=== PATIENT | female | born 1955 | race Caucasian/White ===

== ENCOUNTER → 2017-08-01 08:33 | Outpatient (POV) | payer MEDICARE, SELFPAY ==
[2017-08-01 08:56] VITALS: BP 105/64; PULSE 60; RESP 17; O2SAT 97; BMI 25.3
--- NOTE | 2017-08-01 10:20 | HMH.PAINSOAP ---
[facility] Pain Management SOAP Note Subjective:: Patient is a very pleasant 32-year-old white female who we are treating for degenerative disc disease of the cervical spine and degenerative disc disease of the lumbar spine. Patient is also currently getting ready to have a left hip replacement. Patient states that due to steroid use her joints degenerated. It is also stating that her 5 myalgia is worse today than it has been in a long time. She is currently being medically managed on [place] 7.5 mg 1 p.o. 4 times daily and gabapentin 800 mg 3 times daily. Patient's Danielito #[id number] reviewed and appropriate. Patient's UDS appropriate in the past. Patient states that the gabapentin does help her myofascial pain however it has been much worse recently. Patient takes the [place] 7.5 mg decreases her back and leg pain 50-60%. Patient denies any side effects from the medicine. She states her pain is achy and dull and constant. ROS General: no recent weight change, no fever, no sleep disturbances Respiratory: no cough, no shortness of air, no recurring pulmonary infections Cardiovascular/Peripheral Vascular: No chest pain, No palpitations, no edema, no shortness of breath. Gastrointestinal: no incontinence, normal bowel movements reported Genitourinary: no incontinence Musculoskeletal: Back pain, bilateral leg pain, left hip pain Psychiatric: normal mood/ affect Neurological: [denies weakness in extremities], [denies balance issues] Objective:: Physical Exam General: Alert and oriented x3, no acute distress, pleasant and cooperative, [on room air] Lungs: Resps E/U, Symmetrical chest expansion, Eyes: PERRL Musculoskeletal: Flexion and extension of lumbar spine somewhat guarded secondary to pain, deep tendon reflexes normal, strength in upper and lower extremities [5/5], [abnormal gait noted] Neurological: speech clear, stranding supervisor equal, no gross sensory deficits Assessment:: Degenerative disc disease of the cervical spine, degenerative disc disease of the lumbar spine, left hip osteoarthritis, fibromyalgia Plan:: We will refill the patient's medications [place] 7.5 mg 1 p.o. 4 times daily and we will increase her gabapentin 800 mg from 3 times daily to 4 times daily. Both her [place] and urine drug screen have been reviewed. We will give her 2 months per prescriptions. I have spoken to Dr. Juarez and he has reviewed her chart and agrees with this plan of care. We will follow-up with this patient in 3 months. We have she was instructed that when she goes for hip surgery she will need to inform us of any medication changes. Patient has been prescribed a controlled substance after being counseled on the medication, medication safety, and possible side effects. DANIELITO report has been obtained and reviewed prior to prescription and found to be appropriate. Opioid contract was reviewed and signed by the patient, and that they have agreed to all of the terms set forth by our compliance program. This note was dictated using voice recognition software and may contain errors or omissions
--- NOTE | 2017-08-01 10:25 | P.CONS_ITS ---
[facility] Pain Management SOAP Note Subjective:: Patient is a very pleasant 32-year-old white female who we are treating for degenerative disc disease of the cervical spine and degenerative disc disease of the lumbar spine. Patient is also currently getting ready to have a left hip replacement. Patient states that due to steroid use her joints degenerated. It is also stating that her 5 myalgia is worse today than it has been in a long time. She is currently being medically managed on [place] 7.5 mg 1 p.o. 4 times daily and gabapentin 800 mg 3 times daily. Patient's Danielito # [id number] reviewed and appropriate. Patient's UDS appropriate in the past. Patient states that the gabapentin does help her myofascial pain however it has been much worse recently. Patient takes the [place] 7.5 mg decreases her back and leg pain 50-60%. Patient denies any side effects from the medicine. She states her pain is achy and dull and constant. ROS General: no recent weight change, no fever, no sleep disturbances Respiratory: no cough, no shortness of air, no recurring pulmonary infections Cardiovascular/Peripheral Vascular: No chest pain, No palpitations, no edema, no shortness of breath. Gastrointestinal: no incontinence, normal bowel movements reported Genitourinary: no incontinence Musculoskeletal: Back pain, bilateral leg pain, left hip pain Psychiatric: normal mood/ affect Neurological: [denies weakness in extremities], [denies balance issues] Objective:: Physical Exam General: Alert and oriented x3, no acute distress, pleasant and cooperative, [ on room air] Lungs: Resps E/U, Symmetrical chest expansion, Eyes: PERRL Musculoskeletal: Flexion and extension of lumbar spine somewhat guarded secondary to pain, deep tendon reflexes normal, strength in upper and lower extremities [5/5], [abnormal gait noted] Neurological: speech clear, knitter machine equal, no gross sensory deficits Assessment:: Degenerative disc disease of the cervical spine, degenerative disc disease of the lumbar spine, left hip osteoarthritis, fibromyalgia Plan:: We will refill the patient's medications [place] 7.5 mg 1 p.o. 4 times daily and we will increase her gabapentin 800 mg from 3 times daily to 4 times daily. Both her [place] and urine drug screen have been reviewed. We will give her 2 months per prescriptions. I have spoken to Dr. Juarez and he has reviewed her chart and agrees with this plan of care. We will follow-up with this patient in 3 months. We have she was instructed that when she goes for hip surgery she will need to inform us of any medication changes. Patient has been prescribed a controlled substance after being counseled on the medication, medication safety, and possible side effects. DANIELITO report has been obtained and reviewed prior to prescription and found to be appropriate. Opioid contract was reviewed and signed by the patient, and that they have agreed to all of the terms set forth by our compliance program. This note was dictated using voice recognition software and may contain errors or omissions
--- NOTE | 2017-08-01 16:47 | PC.PHONENOTE ---
called in Rx for Gabapenting 800mg QID with 2 refills to [facility] in [facility]
== END ==
PROVIDERS: Family Provider Physician Assistant; PCP Physician Assistant; Visit Provider Clinical Nurse Specialist Family Health
DX: M51.36 Other intervertebral disc degeneration, lumbar region (principal); M16.12 Unilateral primary osteoarthritis, left hip; M50.30 Other cervical disc degeneration, unspecified cervical region
CPT/HCPCS: 99212

== ENCOUNTER → 2017-11-07 09:43 | Outpatient (POV) | payer MEDICARE, SELFPAY ==
[2017-11-07 10:24] VITALS: BP 140/76; PULSE 62; RESP 18; O2SAT 98; BMI 26.6
--- NOTE | 2017-11-07 10:25 | HMH.PAINSOAP ---
[facility] Pain Management SOAP Note Subjective:: Patient is a pleasant 62-year-old white female who we are treating for pain secondary to degenerative disc disease of the lumbar line and cervical spine. Patient just had a left hip replacement. Patient is doing extremely well stating that she is much more functional and walking much better. Patient is currently on vacation regimen of [place] 7.5 mg 1 p.o. 4 times daily. She is also on gabapentin 800 mg 1 p.o. 4 times daily. Patient states she is doing with this and denies any side effects to patient's DANIELITO #[id number] reviewed and appropriate. Patient did get some postop medication from her surgeon. Patient is no longer receiving medication from them. Patient states that the medication is helping 60-70%. Patient states her pain is achy at times. Patient is currently in physical therapy and Occupational Therapy ROS General: no recent weight change, no fever, no sleep disturbances Respiratory: no cough, no shortness of air, no recurring pulmonary infections Cardiovascular/Peripheral Vascular: No chest pain, No palpitations, no edema, no shortness of breath. Gastrointestinal: no incontinence, normal bowel movements reported Genitourinary: no incontinence Musculoskeletal: Left hip pain, low back pain, neck pain Psychiatric: normal mood/ affect Neurological: [denies weakness in extremities], [denies balance issues] Objective:: Physical Exam General: Alert and oriented x3, no acute distress, pleasant and cooperative, [on room air] Lungs: Resps E/U, Symmetrical chest expansion, Eyes: PERRL Musculoskeletal: Flexion and extension of cervical and lumbar spine somewhat guarded secondary to pain, deep tendon reflexes normal, strength in upper and lower extremities [5/5], [abnormal gait noted] Neurological: speech clear, virtual assistant equal, no gross sensory deficits Assessment:: Degenerative disc disease of the cervical spine, degenerative disc disease of the lumbar spine, left hip osteoarthritis, fibromyalgia Plan:: We will refill the patient's medications [place] 7.5 mg 1 p.o. 4 times daily. We will also refill her gabapentin 800 mg 1 p.o. 4 times daily. Both her [place] and urine drug screen have been reviewed. We will give HER-2 months worth of prescriptions and follow-up with her in 3 months. 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 Dr. Juarez is reviewed this chart and agrees with this plan of care. I will follow-up with her in 3 months. Patient was told to call us if she has any issues prior to her next appointment. Patient has been prescribed a controlled substance after being counseled on the medication, medication safety, and possible side effects. DANIELITO report has been obtained and reviewed prior to prescription and found to be appropriate. Opioid contract was reviewed and signed by the patient, and that they have agreed to all of the terms set forth by our compliance program. This note was dictated using voice recognition software and may contain errors or omissions
--- NOTE | 2017-11-07 10:28 | P.CONS_ITS ---
[facility] Pain Management SOAP Note Subjective:: Patient is a pleasant 62-year-old white female who we are treating for pain secondary to degenerative disc disease of the lumbar line and cervical spine. Patient just had a left hip replacement. Patient is doing extremely well stating that she is much more functional and walking much better. Patient is currently on vacation regimen of [place] 7.5 mg 1 p.o. 4 times daily. She is also on gabapentin 800 mg 1 p.o. 4 times daily. Patient states she is doing with this and denies any side effects to patient's DANIELITO #[id number] reviewed and appropriate. Patient did get some postop medication from her surgeon. Patient is no longer receiving medication from them. Patient states that the medication is helping 60-70%. Patient states her pain is achy at times. Patient is currently in physical therapy and Occupational Therapy ROS General: no recent weight change, no fever, no sleep disturbances Respiratory: no cough, no shortness of air, no recurring pulmonary infections Cardiovascular/Peripheral Vascular: No chest pain, No palpitations, no edema, no shortness of breath. Gastrointestinal: no incontinence, normal bowel movements reported Genitourinary: no incontinence Musculoskeletal: Left hip pain, low back pain, neck pain Psychiatric: normal mood/ affect Neurological: [denies weakness in extremities], [denies balance issues] Objective:: Physical Exam General: Alert and oriented x3, no acute distress, pleasant and cooperative, [ on room air] Lungs: Resps E/U, Symmetrical chest expansion, Eyes: PERRL Musculoskeletal: Flexion and extension of cervical and lumbar spine somewhat guarded secondary to pain, deep tendon reflexes normal, strength in upper and lower extremities [5/5], [abnormal gait noted] Neurological: speech clear, neonatal nurse practitioner equal, no gross sensory deficits Assessment:: Degenerative disc disease of the cervical spine, degenerative disc disease of the lumbar spine, left hip osteoarthritis, fibromyalgia Plan:: We will refill the patient's medications [place] 7.5 mg 1 p.o. 4 times daily. We will also refill her gabapentin 800 mg 1 p.o. 4 times daily. Both her [place] and urine drug screen have been reviewed. We will give HER-2 months worth of prescriptions and follow-up with her in 3 months. Patient can hand picker the third month in the interim. Dr. Juarez is reviewed this chart and agrees with this plan of care. I will follow-up with her in 3 months. Patient was told to call us if she has any issues prior to her next appointment. Patient has been prescribed a controlled substance after being counseled on the medication, medication safety, and possible side effects. DANIELITO report has been obtained and reviewed prior to prescription and found to be appropriate. Opioid contract was reviewed and signed by the patient, and that they have agreed to all of the terms set forth by our compliance program. This note was dictated using voice recognition software and may contain errors or omissions
--- NOTE | 2017-11-18 14:24 | PC.PHONENOTE ---
800MG GABAPENTIN QID CALLED INTO [facility] IN [facility] WITH 2 REFILLS
== END ==
PROVIDERS: Family Provider Physician Assistant; PCP Physician Assistant; Visit Provider Clinical Nurse Specialist Family Health
DX: M50.30 Other cervical disc degeneration, unspecified cervical region (principal); M51.36 Other intervertebral disc degeneration, lumbar region
CPT/HCPCS: 99212

== ENCOUNTER → 2018-01-31 14:49 | Outpatient (CLI) | payer MEDICARE, SELFPAY ==
[2018-01-31 17:43] LABS: Amphetamine/Metha Screen,Urine Negative ng/mL (<1000); Barbiturates Screen,Urine Negative ng/mL (<200); Benzodiazepines Screen,Urine Negative ng/mL (<200); Cannabinoid Screen,Urine Negative ng/mL (<50); Cocaine Screen,Urine Negative ng/mL (<300); Methadone Screen,Urine Negative ng/mL (<300); Opiate Screen,Urine Positive ng/mL (<300); Phencyclidine Screen,Urine Negative ng/mL (<25)
[2018-02-05 07:09] LABS: Codeine Negative (Cutoff=100); Hydrocodone Positive (.); Hydromorphone Negative (Cutoff=100); Morphine Negative (Cutoff=100)
[2018-02-07 08:27] LABS: Opiates Positive (.)
== END ==
PROVIDERS: PCP Physician Assistant; Visit Provider Clinical Nurse Specialist Family Health
DX: Z79.899 Other long term (current) drug therapy (principal)
CPT/HCPCS: 80305; 80361; 80365; G0480

== ENCOUNTER → 2018-02-20 08:49 | Outpatient (POV) | payer MEDICARE, SELFPAY ==
[2018-02-20 09:14] VITALS: BP 142/85; PULSE 74; RESP 18; O2SAT 98; BMI 29.0
--- NOTE | 2018-02-20 09:34 | HMH.PAINSOAP ---
[facility] Pain Management SOAP Note Subjective:: Patient is a pleasant 63-year-old white female who we are treating for pain secondary to degenerative disc disease lumbar spine and cervical spine. Patient is doing extremely well on her [place] 7.5 mg 1 p.o. 4 times daily. She is also on gabapentin 800 million g 1 p.o. 4 times a day. Patient is doing well with this and denies side effects. Patient's DANIELITO reviewed and appropriate. She states the medication helps up to 70%. ROS General: no recent weight change, no fever, no sleep disturbances Respiratory: no cough, no shortness of air, no recurring pulmonary infections Cardiovascular/Peripheral Vascular: No chest pain, No palpitations, no edema, no shortness of breath. Gastrointestinal: no incontinence, normal bowel movements reported Genitourinary: no incontinence Musculoskeletal: Left hip pain, low back pain, neck pain Psychiatric: normal mood/ affect Neurological: [denies weakness in extremities], [denies balance issues] Objective:: Physical Exam General: Alert and oriented x3, no acute distress, pleasant and cooperative, [on room air] Lungs: Resps E/U, Symmetrical chest expansion, Eyes: PERRL Musculoskeletal: Flexion and extension of cervical and lumbar spine somewhat guarded secondary to pain, deep tendon reflexes normal, strength in upper and lower extremities [5/5], [abnormal gait noted] Neurological: speech clear, apartment leasing consultant equal, no gross sensory deficits Assessment:: Degenerative disc disease of the cervical spine, degenerative disc disease of the lumbar spine, left hip osteoarthritis, fibromyalgia Plan:: We will refill the patient's medication [place] 7.5 mg 1 p.o. 4 times daily and give HER-2 months worth of medication. We will also refill her gabapentin 800 mg 1 p.o. 4 times daily. Both her Danielito and urine drug screen have been reviewed. We will see her back in 3 months and she can sweet pickled fruit maker the third month in the interim. Dr. Juarez has reviewed this chart and agrees with this plan of care. Patient has been prescribed a controlled substance after being counseled on the medication, medication safety, and possible side effects. DANIELITO report has been obtained and reviewed prior to prescription and found to be appropriate. Opioid contract was reviewed and signed by the patient, and that they have agreed to all of the terms set forth by our compliance program. This note was dictated using voice recognition software and may contain errors or omissions
--- NOTE | 2018-02-20 09:37 | P.CONS_ITS ---
[facility] Pain Management SOAP Note Subjective:: Patient is a pleasant 63-year-old white female who we are treating for pain secondary to degenerative disc disease lumbar spine and cervical spine. Patient is doing extremely well on her [place] 7.5 mg 1 p.o. 4 times daily. She is also on gabapentin 800 million g 1 p.o. 4 times a day. Patient is doing well with this and denies side effects. Patient's DANIELITO reviewed and appropriate. She states the medication helps up to 70%. ROS General: no recent weight change, no fever, no sleep disturbances Respiratory: no cough, no shortness of air, no recurring pulmonary infections Cardiovascular/Peripheral Vascular: No chest pain, No palpitations, no edema, no shortness of breath. Gastrointestinal: no incontinence, normal bowel movements reported Genitourinary: no incontinence Musculoskeletal: Left hip pain, low back pain, neck pain Psychiatric: normal mood/ affect Neurological: [denies weakness in extremities], [denies balance issues] Objective:: Physical Exam General: Alert and oriented x3, no acute distress, pleasant and cooperative, [on room air] Lungs: Resps E/U, Symmetrical chest expansion, Eyes: PERRL Musculoskeletal: Flexion and extension of cervical and lumbar spine somewhat guarded secondary to pain, deep tendon reflexes normal, strength in upper and lower extremities [5/5], [abnormal gait noted] Neurological: speech clear, adult crossing guard equal, no gross sensory deficits Assessment:: Degenerative disc disease of the cervical spine, degenerative disc disease of the lumbar spine, left hip osteoarthritis, fibromyalgia Plan:: We will refill the patient's medication [place] 7.5 mg 1 p.o. 4 times daily and give HER-2 months worth of medication. We will also refill her gabapentin 800 mg 1 p.o. 4 times daily. Both her Danielito and urine drug screen have been reviewed. We will see her back in 3 months and she can pick up man the third month in the interim. Dr. Juarez has reviewed this chart and agrees with this plan of care. Patient has been prescribed a controlled substance after being counseled on the medication, medication safety, and possible side effects. DANIELITO report has been obtained and reviewed prior to prescription and found to be appropriate. Opioid contract was reviewed and signed by the patient, and that they have agreed to all of the terms set forth by our compliance program. This note was dictated using voice recognition software and may contain errors or omissions
== END ==
PROVIDERS: Family Provider Physician Assistant; PCP Physician Assistant; Visit Provider Clinical Nurse Specialist Family Health
DX: M51.36 Other intervertebral disc degeneration, lumbar region (principal); M50.00 Cervical disc disorder with myelopathy, unspecified cervical region
CPT/HCPCS: 99213

== ENCOUNTER → 2018-05-29 09:03 | Outpatient (POV) | payer MEDICARE, SELFPAY ==
[2018-05-29 09:14] VITALS: BP 148/89; PULSE 57; RESP 18; O2SAT 99; BMI 25.0
--- NOTE | 2018-05-29 09:14 | HMH.PAINSOAP ---
[facility] Pain Management SOAP Note Subjective:: She is a pleasant 63-year-old white female who presents today for follow-up. Patient is being treated for pain secondary to degenerative disc disease lumbar spine and cervical spine. She rates her pain a 6 out of 10 today. Patient is doing well on her [place] 7.5 mg 1 p.o. 4 times daily and gabapentin 800 mg 1 p.o. 4 times daily. She denies side effects or medication. Danielito reviewed and appropriate. She states her medication helps her up to 70%. ROS General: no recent weight change, no fever, no sleep disturbances Respiratory: no cough, no shortness of air, no recurring pulmonary infections Cardiovascular/Peripheral Vascular: No chest pain, No palpitations, no edema, no shortness of breath. Gastrointestinal: no incontinence, normal bowel movements reported Genitourinary: no incontinence Musculoskeletal: Low back pain, neck pain Psychiatric: normal mood/ affect Neurological: [denies weakness in extremities], [denies balance issues] Objective:: Physical Exam General: Alert and oriented x3, no acute distress, pleasant and cooperative, [on room air] Lungs: Resps E/U, Symmetrical chest expansion, Eyes: PERRL Musculoskeletal: Flexion and extension of cervical and lumbar spine somewhat guarded secondary to pain, deep tendon reflexes normal, strength in upper and lower extremities [5/5], slightly antalgic gait noted Neurological: speech clear, professor of economics equal, no gross sensory deficits Assessment:: Degenerative disc disease cervical spine with cervical radiculopathy along with degenerative disc disease lumbar spine, left hip osteoarthritis, fibromyalgia. Plan:: We will refill the [place] 7.5 mg 1 p.o. 4 times daily and give her 2 months worth of medication we will also refill her gabapentin 800 mg 1 p.o. 4 times daily. We will see her back in 3 months and reassess her symptoms at that time. Patient's been instructed to call the office if she has any issues prior to her next appointment. Dr. Juarez is reviewed this chart and agrees with this plan of care. Patient has been prescribed a controlled substance after being counseled on the medication, medication safety, and possible side effects. DANIELITO report has been obtained and reviewed prior to prescription and found to be appropriate. Opioid contract was reviewed and signed by the patient, and that they have agreed to all of the terms set forth by our compliance program. This note was dictated using voice recognition software and may contain errors or omissions
--- NOTE | 2018-05-29 09:17 | P.CONS_ITS ---
[facility] Pain Management SOAP Note Subjective:: She is a pleasant 63-year-old white female who presents today for follow-up. Patient is being treated for pain secondary to degenerative disc disease lumbar spine and cervical spine. She rates her pain a 6 out of 10 today. Patient is doing well on her [place] 7.5 mg 1 p.o. 4 times daily and gabapentin 800 mg 1 p.o. 4 times daily. She denies side effects or medication. Danielito reviewed and appropriate. She states her medication helps her up to 70%. ROS General: no recent weight change, no fever, no sleep disturbances Respiratory: no cough, no shortness of air, no recurring pulmonary infections Cardiovascular/Peripheral Vascular: No chest pain, No palpitations, no edema, no shortness of breath. Gastrointestinal: no incontinence, normal bowel movements reported Genitourinary: no incontinence Musculoskeletal: Low back pain, neck pain Psychiatric: normal mood/ affect Neurological: [denies weakness in extremities], [denies balance issues] Objective:: Physical Exam General: Alert and oriented x3, no acute distress, pleasant and cooperative, [on room air] Lungs: Resps E/U, Symmetrical chest expansion, Eyes: PERRL Musculoskeletal: Flexion and extension of cervical and lumbar spine somewhat guarded secondary to pain, deep tendon reflexes normal, strength in upper and lower extremities [5/5], slightly antalgic gait noted Neurological: speech clear, chuck wagon cook equal, no gross sensory deficits Assessment:: Degenerative disc disease cervical spine with cervical radiculopathy along with degenerative disc disease lumbar spine, left hip osteoarthritis, fibromyalgia. Plan:: We will refill the [place] 7.5 mg 1 p.o. 4 times daily and give her 2 months worth of medication we will also refill her gabapentin 800 mg 1 p.o. 4 times daily. We will see her back in 3 months and reassess her symptoms at that time. Patient's been instructed to call the office if she has any issues prior to her next appointment. Dr. Juarez is reviewed this chart and agrees with this plan of care. Patient has been prescribed a controlled substance after being counseled on the medication, medication safety, and possible side effects. DANIELITO report has been obtained and reviewed prior to prescription and found to be appropriate. Opioid contract was reviewed and signed by the patient, and that they have agreed to all of the terms set forth by our compliance program. This note was dictated using voice recognition software and may contain errors or omissions
--- NOTE | 2018-06-30 14:41 | PC.NURSE ---
refills for gabapentin 800mg qid called into [facility] in [facility] per provider order
--- NOTE | 2018-07-05 13:38 | PC.NURSE ---
PT REQUESTS GABAPENTIN PRESCRIPTION BE TRANSFERRED TO [facility]
== END ==
PROVIDERS: PCP Physician Assistant; Visit Provider Clinical Nurse Specialist Family Health
DX: M50.10 Cervical disc disorder with radiculopathy, unspecified cervical region (principal); M51.36 Other intervertebral disc degeneration, lumbar region; M16.12 Unilateral primary osteoarthritis, left hip; M79.7 Fibromyalgia
CPT/HCPCS: 99213

== ENCOUNTER → 2018-06-16 10:28 | Outpatient (CLI) | payer MEDICARE, SELFPAY ==
[2018-06-16 14:29] LABS: Basophils # 0.1 K/mm3 (0-0.2); Basophils % 0.7 % (0.1-2.0); Eosinophils # 0.4 K/mm3 (0.0-0.4); Eosinophils % 5.3 % (0.1-12.0); Hematocrit 36.1 % (37.0-47.0); Hemoglobin 11.4 g/dL (12.2-16.2); Lymphocytes # 1.6 K/mm3 (0.7-4.5); Lymphocytes % 22.2 % (10-50); Mean Corpuscular HGB Conc 31.5 g/dL (31.8-35.4); Mean Corpuscular Hemoglobin 30.2 pg (27.0-31.2); Mean Corpuscular Volume 95.9 fl (81-99); Mean Platelet Volume 7.5 fl (7.4-10.4); Monocytes # 0.5 K/mm3 (0.1-1.0); Monocytes % 6.3 % (1.7-9.3); Neutrophils # 4.7 K/mm3 (1.8-7.8); Neutrophils % 65.6 % (37.0-80.0); Platelet Count 277 K/mm3 (142-424); Red Blood Count 3.76 M/mm3 (4.20-5.40); Red Cell Distribution Width 13.3 % (11.5-17.5); White Blood Count 7.2 K/mm3 (4.8-10.8)
[2018-06-16 15:05] LABS: Alanine Aminotransferase 27 U/L (12-78); Albumin Level 3.2 gm/dL (3.4-5.0); Alkaline Phosphatase 94 U/L (46-116); Anion Gap 13.7 mEq/L (5-15); Aspartate Amino Transferase 22 U/L (15-37); Bilirubin,Total 0.4 mg/dL (0.2-1.0); Blood Urea Nitrogen 10 mg/dL (7-18); Calcium 8.6 mg/dL (8.5-10.1); Carbon Dioxide 25 mmol/L (21.0-32.0); Chloride 105 mmol/L (98-107); Chol/HDL Ratio 2.2 (1-3.5); Cholesterol 165 mg/dL (140-200); Creatinine,Serum 0.71 mg/dL (0.55-1.02); Estimated Glomerular Filt Rate 84 ml/min (>60); Ferritin 34 ng/mL (8-388); Free T4 (Free Thyroxine) 0.84 ng/dl (0.76-1.46); GFR (African American) 101 ML/MIN (>60); Globulin 3.1 gm/dl (1.3-3.2); Glucose 93 mg/dL (74-106); HDL Cholesterol 75 mg/dL (29-89); LDL Cholesterol 78 mg/dL (0-130); Potassium 4.7 mmoL/L (3.5-5.1); Sodium 139 mmol/L (136-145); Thyroid Stimulating Hormone 1.35 uIU/ml (0.358-3.740); Total Protein,Serum 6.3 gm/dL (6.4-8.2); Triglycerides 59 mg/dL (30-200); VLDL Cholesterol 12 mg/dL (0-40)
[2018-06-17 08:23] LABS: Iron 62 ug/dL (27-139); Iron Saturation 21 % (15-55); UIBC 228 ug/dL (118-369)
[2018-06-17 12:35] LABS: Folate 10.3 ng/mL (>3.0); Vitamin B12 519 pg/mL (232-1245)
[2018-06-17 12:36] LABS: Vitamin D 25 Hydroxy 36.9 ng/mL (30.0-100.0)
[2018-06-20 14:03] LABS: Vitamin B1 124.8 nmol/L (66.5-200.0)
== END ==
PROVIDERS: PCP Physician Assistant; Visit Provider Physician Assistant
DX: E78.5 Hyperlipidemia, unspecified (principal); I10 Essential (primary) hypertension; R53.83 Other fatigue; F41.8 Other specified anxiety disorders; E56.9 Vitamin deficiency, unspecified; R45.0 Nervousness; D64.9 Anemia, unspecified
CPT/HCPCS: 36415; 80053; 80061; 82607; 82652; 82728; 82746; 83540; 83550; 84425; 84439; 84443; 84590; 85025

== ENCOUNTER → 2018-08-21 09:14 | Outpatient (POV) | payer MEDICARE, SELFPAY ==
[2018-08-21 09:43] VITALS: BP 123/76; PULSE 65; RESP 18; O2SAT 98; BMI 27.2
--- NOTE | 2018-08-21 10:11 | HMH.PAINSOAP ---
[facility] Pain Management SOAP Note Subjective:: Patient is a pleasant 63-year-old white female who presents today for follow-up. Patient is being treated for pain secondary to degenerative disc disease lumbar spine and degenerative disc disease cervical spine. She rates her pain a 6 out of 10 today which is her baseline. She has recently been started on Plavix due to TIAs. Patient is on [place] 7.5 mg 1 p.o. 4 times daily. And gabapentin 800 mg 1 p.o. 4 times daily. She denies side effects to the medication. Danielito reviewed and appropriate. She states her medication helps her up to 80%. ROS General: no recent weight change, no fever, no sleep disturbances Respiratory: no cough, no shortness of air, no recurring pulmonary infections Cardiovascular/Peripheral Vascular: No chest pain, No palpitations, no edema, no shortness of breath. Gastrointestinal: no incontinence, normal bowel movements reported Genitourinary: no incontinence Musculoskeletal: Back pain, neck pain Psychiatric: normal mood/ affect Neurological: [denies weakness in extremities], [denies balance issues] Objective:: Physical Exam General: Alert and oriented x3, no acute distress, pleasant and cooperative, [on room air] Lungs: Resps E/U, Symmetrical chest expansion, Eyes: PERRL Musculoskeletal: Flexion and extension of cervical and lumbar spine somewhat guarded secondary to pain, deep tendon reflexes normal, strength in upper and lower extremities [5/5], antalgic gait noted Neurological: speech clear, safety pin assembling machine operator equal, no gross sensory deficits Assessment:: Degenerative disc disease cervical spinal cervical radiculopathy along with degenerative disc disease lumbar spine with left hip osteoarthritis and fibromyalgia Plan:: We will refill the patient's [place] 7.5 mg 1 p.o. 4 times daily give her 2 months worth of medication. We will also refill her gabapentin 800 mg 1 p.o. 4 times daily. We will see her back in 3 months and reassess her symptoms at that time. She is been instructed to call the office if she has any issues prior to her next appointment. Patient has been prescribed a controlled substance after being counseled on the medication, medication safety, and possible side effects. DANIELITO report has been obtained and reviewed prior to prescription and found to be appropriate. Opioid contract was reviewed and signed by the patient, and that they have agreed to all of the terms set forth by our compliance program. Dr. Juarez has reviewed this note and agrees with this plan of care. This note was dictated using voice recognition software and may contain errors or omissions
[2018-08-21 11:21] LABS: Amphetamine/Metha Screen,Urine Negative ng/mL (<1000); Barbiturates Screen,Urine Negative ng/mL (<200); Benzodiazepines Screen,Urine Negative ng/mL (<200); Cannabinoid Screen,Urine Negative ng/mL (<50); Cocaine Screen,Urine Negative ng/mL (<300); Methadone Screen,Urine Negative ng/mL (<300); Opiate Screen,Urine Positive ng/mL (<300); Phencyclidine Screen,Urine Negative ng/mL (<25)
[2018-08-28 10:14] LABS: Codeine Negative (Cutoff=100); Hydrocodone Positive (.); Hydromorphone Positive (.); Morphine Negative (Cutoff=100)
[2018-08-29 06:59] LABS: Opiates Positive (.)
--- NOTE | 2018-10-02 09:54 | PC.NURSE ---
GABAPENTIN 800MG QID WITH 2 REFILLS CALLED INTO [facility] IN [facility] PER PHYSICIAN ORDER [phone]
== END ==
PROVIDERS: PCP Physician Assistant; Visit Provider Clinical Nurse Specialist Family Health
DX: M50.10 Cervical disc disorder with radiculopathy, unspecified cervical region (principal); M51.36 Other intervertebral disc degeneration, lumbar region; M16.12 Unilateral primary osteoarthritis, left hip; M79.7 Fibromyalgia; Z79.899 Other long term (current) drug therapy
CPT/HCPCS: 80305; 80361; 80365; 99213; G0480

== ENCOUNTER → 2018-11-13 10:06 | Outpatient (POV) | payer MEDICARE, SELFPAY ==
[2018-11-13 10:37] VITALS: BP 130/94; PULSE 62; RESP 18; O2SAT 98; BMI 28.3
--- NOTE | 2018-11-13 12:11 | HMH.PAINSOAP ---
[facility] Pain Management SOAP Note Subjective:: Patient is a pleasant 63-year-old white female who presents today for follow-up. She is being treated for pain secondary to degenerative disc disease lumbar spine a degenerative disc disease cervical spine. Pain a 9 out of 10 today. Her baseline is 6 out of 10. She reports that she has recently been gardening and doing more things outside increasing her pain. She is on [place] 7.51 mg p.o. 4 times daily and gabapentin 800 mg 1 p.o. 4 times daily. She denies any side effects to medications. Danielito #[id number] has been reviewed and is appropriate He states that the patient helps her up to 80%. She is continuing home stretching program and anti-inflammatories. ROS General: no recent weight change, no fever, no sleep disturbances Respiratory: no cough, no shortness of air, no recurring pulmonary infections Cardiovascular/Peripheral Vascular: No chest pain, No palpitations, no edema, no shortness of breath. Gastrointestinal: no incontinence, normal bowel movements reported Genitourinary: no incontinence Musculoskeletal: Back pain Psychiatric: normal mood/ affect, [denies depression], [denies anxiety] Neurological: [denies weakness in extremities], [denies balance issues] Objective:: Physical Exam General: Alert and oriented x3, no acute distress, pleasant and cooperative, [on room air] Lungs: Resps E/U, Symmetrical chest expansion, Eyes: PERRL Musculoskeletal: Flexion and extension of lumbar spine somewhat guarded secondary to pain, deep tendon reflexes normal, strength in upper and lower extremities [5/5], [abnormal gait noted] Neurological: speech clear, appointment coordinator equal, no gross sensory deficits Assessment:: Degenerative disc disease cervical spine cervical radiculopathy along with degenerative disc disease lumbar spine with left hip osteoarthritis and fibromyalgia Plan:: We will continue the patient's [place] 7.5 mg 1 p.o. 4 times daily and gabapentin 800 mg 1 p.o. 4 times daily. Danielito #[id number] has been reviewed and is appropriate. We will give the patient 2 months worth of medications and she can pickle maker her third month in the interim. She is been instructed to call the office if she has any concerns prior to her next appointment. Dr. Juarez has reviewed this note and agrees with this plan of care. This note was dictated using voice recognition software and may contain errors or omissions Patient has been prescribed a controlled substance after being counseled on the medication, medication safety, and possible side effects. DANIELITO report has been obtained and reviewed prior to prescription and found to be appropriate. Opioid contract was reviewed and signed by the patient, and that they have agreed to all of the terms set forth by our compliance program.
--- NOTE | 2018-11-13 12:15 | P.CONS_ITS ---
[facility] Pain Management SOAP Note Subjective:: Patient is a pleasant 63-year-old white female who presents today for follow-up. She is being treated for pain secondary to degenerative disc disease lumbar spine a degenerative disc disease cervical spine. Pain a 9 out of 10 today. Her baseline is 6 out of 10. She reports that she has recently been gardening and doing more things outside increasing her pain. She is on [place] 7.51 mg p.o. 4 times daily and gabapentin 800 mg 1 p.o. 4 times daily. She denies any side effects to medications. Danielito #[id number] has been reviewed and is appropriate He states that the patient helps her up to 80%. She is continuing home stretching program and anti-inflammatories. ROS General: no recent weight change, no fever, no sleep disturbances Respiratory: no cough, no shortness of air, no recurring pulmonary infections Cardiovascular/Peripheral Vascular: No chest pain, No palpitations, no edema, no shortness of breath. Gastrointestinal: no incontinence, normal bowel movements reported Genitourinary: no incontinence Musculoskeletal: Back pain Psychiatric: normal mood/ affect, [denies depression], [denies anxiety] Neurological: [denies weakness in extremities], [denies balance issues] Objective:: Physical Exam General: Alert and oriented x3, no acute distress, pleasant and cooperative, [on room air] Lungs: Resps E/U, Symmetrical chest expansion, Eyes: PERRL Musculoskeletal: Flexion and extension of lumbar spine somewhat guarded secondary to pain, deep tendon reflexes normal, strength in upper and lower extremities [5/5], [abnormal gait noted] Neurological: speech clear, gristmiller equal, no gross sensory deficits Assessment:: Degenerative disc disease cervical spine cervical radiculopathy along with degenerative disc disease lumbar spine with left hip osteoarthritis and fibromyalgia Plan:: We will continue the patient's [place] 7.5 mg 1 p.o. 4 times daily and gabapentin 800 mg 1 p.o. 4 times daily. Danielito #[id number] has been reviewed and is appropriate. We will give the patient 2 months worth of medications and she can picker packer her third month in the interim. She is been instructed to call the office if she has any concerns prior to her next appointment. Dr. Juarez has reviewed this note and agrees with this plan of care. This note was dictated using voice recognition software and may contain errors or omissions Patient has been prescribed a controlled substance after being counseled on the medication, medication safety, and possible side effects. DANIELITO report has been obtained and reviewed prior to prescription and found to be appropriate. Opioid contract was reviewed and signed by the patient, and that they have agreed to all of the terms set forth by our compliance program.
--- NOTE | 2019-01-02 10:39 | PC.NURSE ---
GABAPENTIN 800MG QID WITH 2 REFILLS CALLED IN TO [facility] IN [place] PER PROVIDER ORDER
== END ==
PROVIDERS: PCP Physician Assistant; Visit Provider Clinical Nurse Specialist Family Health
DX: M50.10 Cervical disc disorder with radiculopathy, unspecified cervical region (principal); M51.36 Other intervertebral disc degeneration, lumbar region; M16.12 Unilateral primary osteoarthritis, left hip; M79.7 Fibromyalgia
CPT/HCPCS: 99212

== ENCOUNTER → 2019-01-30 10:35 | Outpatient (POV) | payer MEDICARE, SELFPAY ==
[2019-01-30 11:02] VITALS: BP 151/89; PULSE 63; RESP 18; O2SAT 98; BMI 27.7
--- NOTE | 2019-01-30 12:52 | P.CONS_ITS ---
[facility] Pain Management SOAP Note Subjective:: Patient is a pleasant 63-year-old white female who presents today for follow-up. She is being treated for pain secondary to degenerative disc disease lumbar spine with lumbar radiculopathy and along with degenerative disc disease cervical spinal cervical radiculopathy. Patient is currently being medically managed with [place] 7.5 mg 1 p.o. 4 times daily along with gabapentin 800 mg 1 p.o. 4 times daily. She denies any side effects. Danielito #[id number] reviewed and appropriate. Urine drug screens have been appropriate. She denies side effects or medication. She states it helps up to 80%. She does rate her pain a 9 out of 10 today however she is been more active taking care of her father. ROS General: no recent weight change, no fever, no sleep disturbances Respiratory: no cough, no shortness of air, no recurring pulmonary infections Cardiovascular/Peripheral Vascular: No chest pain, No palpitations, no edema, no shortness of breath. Gastrointestinal: no incontinence, normal bowel movements reported Genitourinary: no incontinence Musculoskeletal: Back pain Psychiatric: normal mood/ affect Neurological: [denies weakness in extremities], [denies balance issues] Objective:: Physical Exam General: Alert and oriented x3, no acute distress, pleasant and cooperative, [on room air] Lungs: Resps E/U, Symmetrical chest expansion, Eyes: PERRL Musculoskeletal: Flexion and extension of lumbar spine somewhat guarded secondary to pain, deep tendon reflexes normal, strength in upper and lower extremities [5/5], slightly antalgic gait noted Neurological: speech clear, scientific process operator equal, no gross sensory deficits Assessment:: Degenerative disc disease spinal cervical radiculopathy along with degenerative disc disease lumbar spine with left hip osteoarthritis and fibromyalgia Plan:: We will refill her [place] 7.5 mg 1 p.o. 4 times daily and give her 2 months worth of medication. We will have her olive picker her third month in the interim she is been instructed to call the office if she has any issues prior to her next appointment. See her back I will see her back in 3 months reassess her symptoms at that time Patient has been prescribed a controlled substance after being counseled on the medication, medication safety, and possible side effects. DANIELITO report has been obtained and reviewed prior to prescription and found to be appropriate. Opioid contract was reviewed and signed by the patient, and that they have agreed to all of the terms set forth by our compliance program. Dr. Juarez has reviewed this note and agrees with this plan of care. This note was dictated using voice recognition software and may contain errors or omissions Pain Management [employer]x [employer] *Have you ever received a pneumonia vaccine?: Yes *Have you received a flu vaccine this season?: Yes - *Social History *Occupational Status:: other *Travel in the last 8 weeks: None
[2019-01-30 13:12] LABS: Amphetamine/Metha Screen,Urine Negative ng/mL (<1000); Barbiturates Screen,Urine Negative ng/mL (<200); Benzodiazepines Screen,Urine Negative ng/mL (<200); Cannabinoid Screen,Urine Negative ng/mL (<50); Cocaine Screen,Urine Negative ng/mL (<300); Methadone Screen,Urine Negative ng/mL (<300); Opiate Screen,Urine Positive ng/mL (<300); Phencyclidine Screen,Urine Negative ng/mL (<25)
[2019-02-03 05:08] LABS: Codeine Negative (Cutoff=100); Hydrocodone Positive (.); Hydromorphone Positive (.); Morphine Negative (Cutoff=100)
[2019-02-03 18:02] LABS: Opiates Positive (.)
== END ==
PROVIDERS: PCP Physician Assistant; Visit Provider Clinical Nurse Specialist Family Health
DX: M50.10 Cervical disc disorder with radiculopathy, unspecified cervical region (principal); M51.36 Other intervertebral disc degeneration, lumbar region; M16.12 Unilateral primary osteoarthritis, left hip; M79.18 Myalgia, other site; Z79.899 Other long term (current) drug therapy
CPT/HCPCS: 80305; 80361; 80365; 99212; G0480

== ENCOUNTER → 2019-04-30 10:06 | Outpatient (POV) | payer MEDICARE, SELFPAY ==
[2019-04-30 10:27] VITALS: BP 157/89; PULSE 61; RESP 18; O2SAT 99; BMI 27.4
--- NOTE | 2019-04-30 10:57 | HMH.PAINSOAP ---
[facility] Pain Management SOAP Note Subjective:: Patient is a very pleasant 64-year-old white female who presents today for follow-up. She is being treated for pain secondary to degenerative disc disease lumbar spine with lumbar radiculopathy and degenerative disc disease with cervical spine with cervical radiculopathy. Patient is currently being medically managed with [place] 7.5 mg 1 p.o. 4 times daily. Also gabapentin 800 mg 1 p.o. 4 times daily she denies side effects. Danielito #[id number] reviewed and appropriate. Urine drug screens have been appropriate. She states it helps up to 80% she rates her pain 8 out of 10. Patient is unable to take anti-inflammatories due to gastric bleeding ROS General: no recent weight change, no fever, no sleep disturbances Respiratory: no cough, no shortness of air, no recurring pulmonary infections Cardiovascular/Peripheral Vascular: No chest pain, No palpitations, no edema, no shortness of breath. Gastrointestinal: no new onset incontinence, normal bowel movements reported Genitourinary: no new onset incontinence Musculoskeletal: Back pain Psychiatric: normal mood/ affect Neurological: [denies new onset weakness in extremities], [denies new onset balance issues] Objective:: Physical Exam General: Alert and oriented x3, no acute distress, pleasant and cooperative, [on room air] Lungs: Resps E/U, Symmetrical chest expansion, Eyes: PERRL Musculoskeletal: Flexion and extension of cervical and lumbar spine somewhat guarded secondary to pain, deep tendon reflexes normal, strength in upper and lower extremities [5/5], antalgic gait noted Neurological: speech clear, mechanical technician equal, no gross sensory deficits Assessment:: Degenerative disc disease cervical spinal cervical radiculopathy degenerative disc disease lumbar spine with lumbar radiculopathy Plan:: We will refill her [place] 7.5 mg 1 p.o. 4 times daily along with gabapentin 800 mg 1 p.o. 4 times daily we will give her 2 months worth of medication. We will see her back in 3 months reassess her at that time she is been instructed to call the office if she has any issues prior to her next appointment. Patient can citrus picker 1 month interim in regards to her medication. Patient has been prescribed a controlled substance after being counseled on the medication, medication safety, and possible side effects. DANIELITO report has been obtained and reviewed prior to prescription and found to be appropriate. Opioid contract was reviewed and signed by the patient, and that they have agreed to all of the terms set forth by our compliance program. Dr. Juarez has reviewed this note and agrees with this plan of care. This note was dictated using voice recognition software and may contain errors or omissions [facility] History I have reviewed the patient's past medical history: Yes *Have you ever received a pneumonia vaccine?: Yes *Have you received a flu vaccine this season?: Yes - *Social History *Occupational Status:: other *Travel in the last 8 weeks: None Family Hx:: Non-contributory
[2019-04-30 12:19] LABS: Amphetamine/Metha Screen,Urine Negative ng/mL (<1000); Barbiturates Screen,Urine Negative ng/mL (<200); Benzodiazepines Screen,Urine Negative ng/mL (<200); Cannabinoid Screen,Urine Negative ng/mL (<50); Cocaine Screen,Urine Negative ng/mL (<300); Methadone Screen,Urine Negative ng/mL (<300); Opiate Screen,Urine Positive ng/mL (<300); Phencyclidine Screen,Urine Negative ng/mL (<25)
[2019-05-04 11:42] LABS: Codeine Negative (Cutoff=100); Hydrocodone Positive (.); Hydromorphone Positive (.); Morphine Negative (Cutoff=100)
[2019-05-04 21:10] LABS: Opiates Positive (.)
== END ==
PROVIDERS: PCP Physician Assistant; Visit Provider Clinical Nurse Specialist Family Health
DX: M50.10 Cervical disc disorder with radiculopathy, unspecified cervical region (principal); M51.16 Intervertebral disc disorders with radiculopathy, lumbar region; Z79.899 Other long term (current) drug therapy
CPT/HCPCS: 80305; 80361; 80365; 99212; G0480

== ENCOUNTER → 2019-07-30 09:49 | Outpatient (POV) | payer MEDICARE, SELFPAY ==
[2019-07-30 10:24] VITALS: BP 163/95; PULSE 67; RESP 18; O2SAT 98; BMI 28.7
--- NOTE | 2019-07-30 10:30 | P.CONS_ITS ---
[facility] Pain Management SOAP Note Subjective:: Patient is a very pleasant 64-year-old white female who presents today for follow-up. Patient rates her pain today a 9 out of 10 it is increased to the fact that she was unable to refill her gabapentin. Patient is currently on [place] 7.5 mg 1 p.o. 4 times daily along with gabapentin 800 mg 1 p.o. 4 times daily. Danielito #[id number] reviewed and appropriate. Urine drug screens have been appropriate. Patient states the medication helps her up to 80%. ROS General: no recent weight change, no fever, no sleep disturbances Respiratory: no cough, no shortness of air, no recurring pulmonary infections Cardiovascular/Peripheral Vascular: No chest pain, No palpitations, no edema, no shortness of breath. Gastrointestinal: no new onset incontinence, normal bowel movements reported Genitourinary: no new onset incontinence Musculoskeletal: Back pain Psychiatric: normal mood/ affect, Neurological: [denies new onset weakness in extremities], [denies new onset balance issues] Objective:: Physical Exam General: Alert and oriented x3, no acute distress, pleasant and cooperative, [on room air] Lungs: Resps E/U, Symmetrical chest expansion, Eyes: PERRL Musculoskeletal: Flexion and extension of lumbar spine somewhat guarded secondary to pain, deep tendon reflexes normal, strength in upper and lower extremities [5/5], slightly antalgic gait noted Neurological: speech clear, structures mechanic equal, no gross sensory deficits Assessment:: Degenerative disc disease lumbar spine with lumbar radiculopathy degenerative disc disease cervical spine with cervical radiculopathy Plan:: We will refill the patient's [place] 7.5 mg 1 p.o. 4 times daily and gabapentin 800 mg 1 p.o. 4 times daily. We will give her 2 months worth of medication. We will follow-up with her in 3 months. She can greens picker 1 in the interim. She has been instructed to call the office if she has any issues prior to her next appointment. Patient has been prescribed a controlled substance after being counseled on the medication, medication safety, and possible side effects. DANIELITO report has been obtained and reviewed prior to prescription and found to be appropriate. Opioid contract was reviewed and signed by the patient, and that they have agreed to all of the terms set forth by our compliance program. Dr. Juarez has reviewed this note and agrees with this plan of care. This note was dictated using voice recognition software and may contain errors or omissions [facility] History I have reviewed the patient's past medical history: Yes *Have you ever received a pneumonia vaccine?: Yes *Have you received a flu vaccine this season?: Yes - *Social History *Occupational Status:: other *Travel in the last 8 weeks: None Family Hx:: Non-contributory
== END ==
PROVIDERS: PCP Physician Assistant; Visit Provider Clinical Nurse Specialist Family Health
DX: M51.16 Intervertebral disc disorders with radiculopathy, lumbar region (principal); M50.10 Cervical disc disorder with radiculopathy, unspecified cervical region
CPT/HCPCS: 99212

== ENCOUNTER → 2019-10-29 10:26 | Outpatient (POV) | payer MEDICARE, SELFPAY ==
[2019-10-29 10:58] VITALS: BP 148/92; PULSE 62; RESP 18; TEMP 36.3; O2SAT 99; BMI 27.4
--- NOTE | 2019-10-30 08:19 | P.CONS_ITS ---
[facility] Pain Management SOAP Note Subjective:: She is pleasant 64-year-old white female who presents today for follow-up. Patient is currently being medically managed by us with [place] 7.5 mg 1 p.o. 4 times daily and gabapentin 800 mg 1 p.o. 4 times daily. Danielito #[id number] reviewed and appropriate. Her morphine equivalent is 30. She denies side effects to her medication. Her urine drug screens been appropriate and she states the medication helps up to 80%. ROS General: no recent weight change, no fever, no sleep disturbances Respiratory: no cough, no shortness of air, no recurring pulmonary infections Cardiovascular/Peripheral Vascular: No chest pain, No palpitations, no edema, no shortness of breath. Gastrointestinal: no new onset incontinence, normal bowel movements reported Genitourinary: no new onset incontinence Musculoskeletal: Back pain Psychiatric: normal mood/ affect Neurological: [denies new onset weakness in extremities], [denies new onset balance issues] Objective:: Physical Exam General: Alert and oriented x3, no acute distress, pleasant and cooperative, [on room air] Lungs: Resps E/U, Symmetrical chest expansion, Eyes: PERRL Musculoskeletal: Flexion and extension of lumbar spine somewhat guarded secondary to pain, deep tendon reflexes normal, strength in upper and lower extremities [5/5], slightly antalgic gait noted Neurological: speech clear, general accounting clerk equal, no gross sensory deficits Assessment:: Degenerative disc disease lumbar spine with lumbar radiculopathy degenerative disc disease cervical spine with cervical radiculopathy Plan:: We will refill her [place] 7.5 mg 1 p.o. 4 times daily along with her gabapentin 800 mg 1 p.o. 4 times daily. We will follow-up with her in 3 months reassess her symptoms at that time we will give her 2 months worth of medication and she can greens picker 1 month in the interim. She is been instructed to call the office if she has any issues prior to next appointment. Dr. Juarez has reviewed this note and agrees with this plan of care. This note was dictated using voice re cognition software and may contain errors or omissions Patient has been prescribed a controlled substance after being counseled on the medication, medication safety, and possible side effects. DANIELITO report has been obtained and reviewed prior to prescription and found to be appropriate. Opioid contract was reviewed and signed by the patient, and that they have agreed to all of the terms set forth by our compliance program. [facility] History I have reviewed the patient's past medical history: Yes *Have you ever received a pneumonia vaccine?: Yes *Have you received a flu vaccine this season?: Yes - *Social History *Occupational Status:: other *Travel in the last 8 weeks: None Family Hx:: Non-contributory
== END ==
PROVIDERS: PCP Physician Assistant; Visit Provider Clinical Nurse Specialist Family Health
DX: M51.16 Intervertebral disc disorders with radiculopathy, lumbar region (principal); M50.10 Cervical disc disorder with radiculopathy, unspecified cervical region
CPT/HCPCS: 99212

== ENCOUNTER → 2020-01-07 09:45 | Outpatient (CLI) | payer MEDICARE, SELFPAY ==
[2020-01-07 15:17] LABS: Alanine Aminotransferase 55 U/L (12-78); Albumin Level 3.9 g/dl (3.5-5.0); Alkaline Phosphatase 97 U/L (38-126); Aspartate Amino Transferase 73 U/L (14-36); Bilirubin,Direct 0.2 mg/dl (0.0-0.4); Bilirubin,Indirect 0.3 mg/dL (0.0-0.9); Bilirubin,Total 0.5 mg/dl (0.2-1.3); Bilirubin,Unconjugated 0.3 mg/dL (0.0-1.1); Total Protein,Serum 6.3 g/dl (6.3-8.2)
== END ==
PROVIDERS: PCP Physician Assistant; Visit Provider Physician Assistant
DX: R79.89 Other specified abnormal findings of blood chemistry (principal)
CPT/HCPCS: 36415; 80076

== ENCOUNTER → 2020-01-31 08:54 | Outpatient (POV) | payer MEDICARE, SELFPAY ==
[2020-01-31 09:17] VITALS: BP 138/88; PULSE 60; RESP 15; TEMP 35.4; O2SAT 98; BMI 28.5
--- NOTE | 2020-01-31 09:31 | HMH.PAINSOAP ---
[facility] Pain Management SOAP Note Subjective:: Patient is a 64-year-old white female who presents today for medication refills. She has been treated for chronic low back pain with lumbar radiculopathy symptoms. Patient states her pain has recently changed over the last 2 weeks. She says her pain is worse in her low back and into her bilateral buttocks down both legs. She also complains of neck pain. She says that her pain is unbearable. She says that she was not aware she needed to contact the clinic for refills and went without medication for a week. Patient says that we do not understand the pain that she has to go through. She is also complaining of having to take too much Tylenol . She says that her lab work has changed and it is related to taking too much Tylenol. Patient has been taking extra strength Tylenol more than 4 daily, along with her Fellows. She says it is not given her any relief. Patient is pointing to her bilateral SI joints today. She says this is where most of her pain is at this time. She is managed also with gabapentin 800 mg 1 tablet p.o. 4 times daily. She says she will not undergo any injective therapy or any type of implanted devices. He is requesting imaging of her lumbar spine to determine if something else is going on. Review of Systems General: No recent weight changes, no fever, no sleep disturbances Respiratory: No cough, no shortness of air, no recurring pulmonary infections Cardiovascular/peripheral vascular: No chest pain, no palpitations, no edema, no shortness of breath Gastrointestinal: No new onset incontinence, normal bowel movements reported Genitourinary: No new onset incontinence Musculoskeletal: Low back pain, bilateral leg pain neck pain Psychiatric: Normal mood/affect Neurological: [Denies weakness in extremities], [denies balance issues] Objective:: Physical exam General: Alert and oriented x3, no acute distress, pleasant and cooperative, [on room air] Lungs: Respirations even and unlabored, symmetrical chest expansion Eyes: PERRL Musculoskeletal: Flexion and extension of lumbar spine somewhat guarded secondary to pain, deep tendon reflexes normal, strength in upper and lower extremities [5/5], [abnormal gait noted] Neurological: Speech clear, calenderer equal, no gross sensory deficit Assessment:: Degenerative disc disease lumbar spine with lumbar radiculopathy symptoms, degenerative disc disease cervical spine with cervical radiculopathy symptoms Plan:: We will get an MRI of the patient's lumbar spine. We will see her back in the clinic to discuss the MRI at her next visit with her refill occasions. Patient has requested to come to the clinic every 2 months rather than every 3 months. We will see her back in 2 months to reassess her symptoms. We will refill her Fellows 7.5 mg 1 tablet p.o. 4 times daily and gabapentin 800 mg 1 tablet p.o. 4 times daily. She will get 2 more months worth medication. Patient has been instructed to contact clinic if she has any concerns before next appointment. The patient and I specifically discussed risk factors for COVID19. These risks include, but are not limited to age greater than 60, heart or lung disease, diabetes, immunosuppression, and travel. We also discussed NSAIDs may worsen COVID19 infection or symptoms. Patient should not use NSAIDs to treat COVID19 signs or symptoms. Patient was also informed that any type of corticosteroid of any form (oral or injection) will decrease the patient's immune system response and may increase the likelihood of COVID19 infection [address] symptoms[address]. Juarez has reviewed this note and agrees with this plan of care. This note was dictated using voice recognition software and make contain errors or omissions. [facility] History I have reviewed the patient's past medical history: Yes *Have you ever received a pneumonia vaccine?: Yes *Have you received a flu vaccine this season?: Yes - *Social History *Occupationa
== END ==
PROVIDERS: PCP Physician Assistant; Visit Provider Clinical Nurse Specialist Family Health
DX: M51.16 Intervertebral disc disorders with radiculopathy, lumbar region (principal); M50.10 Cervical disc disorder with radiculopathy, unspecified cervical region
CPT/HCPCS: 99212

== ENCOUNTER → 2020-02-08 11:00 | Outpatient (CLI) | payer MEDICARE, SELFPAY ==
--- NOTE | 2020-02-08 | MR_ITS ---
PROCEDURE: MR LUMBAR SPINE WO CON CLINICAL INDICATION: LBP PT. C/O LBP WITH NO KNONW INJURY OR TRAUMA. PT STATES SHE HAS FIBROMYALGIA AND HAD LUMBA/R SURGERY 2 YEARS AGO. PRIOR MRI LSPINE DONE 10/14/2016 COMPARISON: MR PERENNIAL HOUSE MANAGER/O MRI-L-SPINE W/O from 10/14/2016 TECHNIQUE: Routine multiplanar multi echo sequences are performed without and with gadolinium enhancement. FINDINGS: There is normal alignment. The spinal cord ends at the L1-L2 level. Degenerative disc disease T10-T11 T11-T12. L1-L2: Unremarkable. L2-L3: Mild bulging disc with mild degenerative disc disease and 2 mm retrolisthesis of L2. L3-L4: Minimal bulging disc. There is moderate facet and ligamentum hypertrophy with moderate bilateral lateral recess and foraminal narrowing. L4-5: Status post posterior fusion with inter pedicular screws at L4 and at L5. Moderate artifact from the bony hardware. There is 5 mm anterolisthesis of L4 not significantly changed. Disc spacer device is present at that level. No canal stenosis or foraminal narrowing. L5-S1: Degenerate disc disease with minimal bulging disc. Artifact is present from inter pedicular screws at L5 and S1. No canal stenosis. No foraminal narrowing. IMPRESSION: 1. L2-L3: Mild bulging disc with mild degenerative disc disease and 2 mm retrolisthesis of L2. 2. L3-L4: Minimal bulging disc. There is moderate facet and ligamentum hypertrophy with moderate bilateral lateral recess and foraminal narrowing. 3. L4-5: Status post posterior fusion with inter pedicular screws at L4-L5 and S1. Moderate artifact from the bony hardware. There is 5 mm anterolisthesis of L4 not significantly changed. Disc spacer device is present at that level. No canal stenosis or foraminal narrowing. 4. L5-S1: Degenerate disc disease with minimal bulging disc. Artifact is present from inter pedicular screws at L5 and S1. No canal stenosis. No foraminal narrowing. 5. No bony canal stenosis or extruded herniated disc evident Dictated by: Brian Martinez MD 02/09/2020 10:02 Brian Martinez MD in [place] 02/09/2020 10:02
== END ==
PROVIDERS: PCP Physician Assistant; Visit Provider Clinical Nurse Specialist Family Health
DX: Z79.899 Other long term (current) drug therapy (principal)
CPT/HCPCS: 72148; 76376

== ENCOUNTER → 2020-02-14 09:23 | Outpatient (CLI) | payer MEDICARE, SELFPAY ==
[2020-02-14 13:48] LABS: Basophils # 0.1 K/mm3 (0-0.2); Basophils % 0.8 % (0.1-2.0); Eosinophils # 0.4 K/mm3 (0.0-0.4); Eosinophils % 5.6 % (0.1-12.0); Hematocrit 38.2 % (37.0-47.0); Hemoglobin 12.4 g/dL (12.2-16.2); Lymphocytes # 1.4 K/mm3 (0.7-4.5); Lymphocytes % 19.7 % (10-50); Mean Corpuscular HGB Conc 32.4 g/dL (31.8-35.4); Mean Corpuscular Hemoglobin 32.2 pg (27.0-31.2); Mean Corpuscular Volume 99.5 fl (81-99); Mean Platelet Volume 8.5 fl (7.4-10.4); Monocytes # 0.3 K/mm3 (0.1-1.0); Monocytes % 3.7 % (1.7-9.3); Neutrophils % 70.2 % (37.0-80.0); Platelet Count 250 K/mm3 (142-424); Red Blood Count 3.83 M/mm3 (4.20-5.40); Red Cell Distribution Width 12.4 % (11.5-17.5); White Blood Count 7.1 K/mm3 (4.8-10.8)
[2020-02-14 14:58] LABS: Chloride 103 mmol/L (98-107); Potassium 4.2 mmoL/L (3.5-5.1); Sodium 138 mmol/L (136-145)
[2020-02-14 15:00] LABS: Alanine Aminotransferase 46 U/L (12-78); Aspartate Amino Transferase 59 U/L (14-36); Blood Urea Nitrogen 11 mg/dl (7-17); Estimated Glomerular Filt Rate 85 ml/min (>60); GFR (African American) 102 ML/MIN (>60)
[2020-02-14 15:01] LABS: Albumin/Globulin Ratio 1.5 (1.1-1.8); Alkaline Phosphatase 90 U/L (38-126); Anion Gap 13.2 mEq/L (5-15); Bilirubin,Total 0.4 mg/dl (0.2-1.3); Calcium 9.2 mg/dl (8.4-10.2); Carbon Dioxide 26 mmol/L (22.0-30.0); Globulin 2.6 g/dL (1.3-3.2); Glucose 167 mg/dl (74-100); Iron 53 ug/dL (37-170); Magnesium 1.9 mg/dl (1.6-2.3); Phosphorous 4.2 mg/dl (2.5-4.5); Total Protein,Serum 6.6 g/dl (6.3-8.2)
[2020-02-14 15:34] LABS: Ferritin 23.2 ng/ml (11.1-264)
[2020-02-14 19:18] LABS: Intact Parathyroid Hormone 9.6 pg/mL (7.5-53.5)
[2020-02-14 20:22] LABS: Folate > 20.00 ng/mL
[2020-02-16 18:18] LABS: Prealbumin 18 mg/dL (10-36)
[2020-02-18 08:07] LABS: Zinc 63 ug/dL (56-134)
[2020-02-18 15:54] LABS: Vitamin E Alpha Tocopherol 7.1 mg/L (9.0-29.0)
[2020-02-18 18:00] LABS: Vitamin A 34.1 ug/dL (22.0-69.5); Vitamin E Gamma Tocopherol 1.2 mg/L (0.5-4.9)
[2020-02-19 13:30] LABS: Vitamin B1 169.9 nmol/L (66.5-200.0)
[2020-02-19 23:01] LABS: Methylmalonic Acid 251 nmol/L (0-378)
[2020-02-21 11:51] LABS: Vitamin K1 <.13 ng/mL (0.13-1.88)
== END ==
PROVIDERS: Visit Provider Surgery
DX: K91.2 Postsurgical malabsorption, not elsewhere classified (principal); R53.83 Other fatigue; E55.9 Vitamin D deficiency, unspecified; E53.8 Deficiency of other specified B group vitamins; E56.1 Deficiency of vitamin K; Z90.3 Acquired absence of stomach [part of]
CPT/HCPCS: 36415; 80053; 82131; 82306; 82728; 82746; 83540; 83735; 83970; 84100; 84134; 84425; 84446; 84590; 84597; 84630; 85025

== ENCOUNTER → 2020-02-18 12:34 | Outpatient (POV) | payer MEDICARE, SELFPAY ==
[2020-02-18 12:45] VITALS: BP 118/74; PULSE 74; RESP 18; O2SAT 98; BMI 28.0
--- NOTE | 2020-02-18 14:25 | HMH.PAINSOAP ---
[facility] Pain Management SOAP Note Subjective:: Patient is a pleasant 65-year-old white female who presents today for medication refills. She is being treated for chronic low back pain with lumbar radiculopathy symptoms she is also having quite a bit of neck pain. She has an MRI. Patient had back surgery many years ago however she is still continually having pain. She has been managed on Mulberry however it is not working anymore. Patient rates her pain 8 out of 10. She states that she has been taking Tylenol however her liver enzymes have increased. Patient is uninterested in injective therapies at this time. We discussed intrathecal pain pump I do believe this would benefit her. Patient [facility] #[id number] reviewed and appropriate urine drug screens have been appropriate. She is also on gabapentin 800 mg 1 tab p.o. 4 times daily. ROS General: no recent weight change, no fever, no sleep disturbances Respiratory: no cough, no shortness of air, no recurring pulmonary infections Cardiovascular/Peripheral Vascular: No chest pain, No palpitations, no edema, no shortness of breath. Gastrointestinal: no new onset incontinence, normal bowel movements reported Genitourinary: no new onset incontinence Musculoskeletal: Back pain, leg pain, neck pain, arm pain Psychiatric: normal mood/ affect, Neurological: [denies new onset weakness in extremities], [denies new onset balance issues] Objective:: Physical Exam General: Alert and oriented x3, no acute distress, pleasant and cooperative, [on room air] Lungs: Resps E/U, Symmetrical chest expansion, Eyes: PERRL Musculoskeletal: Flexion and extension of lumbar and cervical spine somewhat guarded secondary to pain, deep tendon reflexes normal, strength in upper and lower extremities [5/5], antalgic gait noted Neurological: speech clear, gambling monitor equal, no gross sensory deficits Assessment:: Degenerative disc disease lumbar spine lumbar radiculopathy, lumbar postlaminectomy syndrome, degenerative disc disease cervical spine cervical radiculopathy Plan:: I gave patient information on intrathecal therapy. We will set her up for psychological evaluation. I do believe it would benefit her. She understand she has to be off Mulberry 48 hours prior to her trial then she has to be off of it after her implant. Patient and I had a long discussion about realistic goal setting. She is interested in proceeding. We will move forward with this. Dr. Juarez has reviewed this note and agrees with this plan of care. This note was dictated using voice recognition software and may contain errors or omissions [facility] History I have reviewed the patient's past medical history: Yes *Have you ever received a pneumonia vaccine?: Yes *Have you received a flu vaccine this season?: Yes - *Social History *Occupational Status:: other *Travel in the last 8 weeks: None Family Hx:: Non-contributory
== END ==
PROVIDERS: PCP Physician Assistant; Visit Provider Clinical Nurse Specialist Family Health
DX: M51.16 Intervertebral disc disorders with radiculopathy, lumbar region (principal); M96.1 Postlaminectomy syndrome, not elsewhere classified; M50.10 Cervical disc disorder with radiculopathy, unspecified cervical region
CPT/HCPCS: 99212

== ENCOUNTER 2020-04-11 08:09 | Day surgery (SDC) | payer MEDICARE, SELFPAY ==
[2020-04-11] VITALS (9 sets, daily range): BP systolic 120–140; BP diastolic 69–92; PULSE 55–66; RESP 18–20; TEMP 36.4–36.8; O2SAT 94–97; BMI 27.9
--- NOTE | 2020-04-11 09:53 | HMH.PMPROC ---
- Procedure Date: 04/11/20 Time: 09:53 Anesthesiologist:: Maged Juarez MD Complications:: None Pre-procedure Diagnosis:: Postlaminectomy syndrome lumbar spine with lumbar radiculopathy symptoms Post-procedure Diagnosis:: Same Indications for Procedure:: This patient is a pleasant 65-year-old white female who we are treating for low back pain with lumbar radiculopathy symptoms and postlaminectomy syndrome lumbar spine. She previously had been managed on Paradise however it is not working anymore. She has failed all other conservative therapy including injections, physical therapy and previous surgery. She has had a successful psychological evaluation. She presents for intrathecal pump trial today. She has been off of her Paradise for several days. She has been off of her Plavix for 7 days. Procedure Details:: Pain pump trial Informed consent was obtained and the risk and benefits of the procedure was explained to the patient. The patient was taken to the procedure room and placed prone on the procedure table. Patient was prepped and draped in sterile fashion. C-arm fluoroscopy was used to view the lumbar spine. The skin and subcutaneous tissues were anesthetized using lidocaine. I placed a 18-gauge spinal needle into the L4-5 interspace and advanced until clear CSF was obtained. After this intrathecal catheter was inserted and advanced very easily to the L1 vertebral body. The needle was withdrawn. We were able to freely withdraw clear CSF through the catheter. We then injected intrathecal fentanyl single shot bolus of 25 mcg followed by saline and followed by the previous CSF that was withdrawn. The needle and catheter were then removed and a Band-Aid was placed. Patient tolerated the procedure well with no complications. We reevaluated the patient after 30 minutes to 1 hour. She was also reassessed by physical therapy. Plan and Disposition:: Patient had a successful intrathecal pump trial. We will plan on permanent placement of intrathecal pain pump with intrathecal morphine 5 mg per ml to start at 0.25 mg/day. Catheter tip will be the L1 vertebral body.
--- NOTE | 2020-04-11 12:27 | PC.NURSE ---
0845-Physical therapy at bedside 0950-pt returned to room, ambulatory, accompanied by nursing staff. pt assited to chair. rates pain 5 on scale 1-10. VSS. 1005-pt resting in chair. VSS, states pain is 5 on scale 1-10. tolerating PO intake. no needs or concerns at this time 1020-pt resting in chair. VSS. no c/o pain. without needs or concerns at this time. 1035-pt resting in chair. VSS. no c/o pain. no needs or concerns at this time 1100-Dr. Juarez at bedside. 1115-Physical therapy at bedside.
== END 2020-04-11 11:20 | disposition home or self-care (01) ==
LOC: SC.PAINP 08:10
PROVIDERS: PCP Physician Assistant; Visit Provider Anesthesiology
DX: M96.1 Postlaminectomy syndrome, not elsewhere classified (principal); M54.16 Radiculopathy, lumbar region; K21.9 Gastro-esophageal reflux disease without esophagitis; E78.5 Hyperlipidemia, unspecified; F41.9 Anxiety disorder, unspecified; F32.9 Major depressive disorder, single episode, unspecified; M79.7 Fibromyalgia; Z96.649 Presence of unspecified artificial hip joint; Z88.6 Allergy status to analgesic agent; Z88.2 Allergy status to sulfonamides; Z88.8 Allergy status to other drugs, medicaments and biological substances; Z79.899 Other long term (current) drug therapy
CPT/HCPCS: 62323; 96365

== ENCOUNTER → 2020-04-15 10:05 | Outpatient (CLI) | payer MEDICARE, SELFPAY ==
[2020-04-15 11:15] LABS: Basophils # 0.1 K/mm3 (0-0.2); Eosinophils # 0.3 K/mm3 (0.0-0.4); Eosinophils % 2.8 % (0.1-12.0); Hematocrit 42.1 % (37.0-47.0); Hemoglobin 13.6 g/dL (12.2-16.2); Lymphocytes # 1.7 K/mm3 (0.7-4.5); Lymphocytes % 18.4 % (10-50); Mean Corpuscular HGB Conc 32.4 g/dL (31.8-35.4); Mean Corpuscular Hemoglobin 30.4 pg (27.0-31.2); Mean Corpuscular Volume 93.9 fl (81-99); Mean Platelet Volume 8.4 fl (7.4-10.4); Monocytes # 0.5 K/mm3 (0.1-1.0); Monocytes % 5.4 % (1.7-9.3); Neutrophils # 6.8 K/mm3 (1.8-7.8); Neutrophils % 72.4 % (37.0-80.0); Platelet Count 230 K/mm3 (142-424); Red Blood Count 4.48 M/mm3 (4.20-5.40); Red Cell Distribution Width 13.6 % (11.5-17.5); White Blood Count 9.4 K/mm3 (4.8-10.8)
[2020-04-15 11:52] LABS: Chloride 103 mmol/L (98-107); Potassium 4.1 mmoL/L (3.5-5.1); Sodium 138 mmol/L (136-145)
[2020-04-15 11:55] LABS: Anion Gap 9.1 mEq/L (5-15); Blood Urea Nitrogen 20 mg/dl (7-17); Calcium 9.5 mg/dl (8.4-10.2); Carbon Dioxide 30 mmol/L (22.0-30.0); Estimated Glomerular Filt Rate 63 ml/min (>60); GFR (African American) 77 ML/MIN (>60); Glucose 86 mg/dl (74-100)
[2020-04-15 13:02] LABS: Coronavirus 19 IgG Antibody Negative (Negative); Coronavirus 19 IgM Antibody Negative (Negative)
[2020-04-15 17:18] LABS: Opiate Screen,Urine Negative ng/ml (<300)
[2020-04-15 17:19] LABS: Phencyclidine Screen,Urine Negative ng/ml (<25)
[2020-04-15 17:21] LABS: Amphetamine/Metha Screen,Urine Negative ng/ml (<1000)
[2020-04-15 17:22] LABS: Barbiturates Screen,Urine Negative ng/ml (<200)
[2020-04-15 17:23] LABS: Benzodiazepines Screen,Urine Negative ng/ml (<200); Cannabinoid Screen,Urine Negative ng/ml (<50)
[2020-04-15 17:24] LABS: Cocaine Screen,Urine Negative ng/ml (<300); Methadone Screen,Urine Negative ng/ml (<300)
== END ==
PROVIDERS: Visit Provider Anesthesiology
DX: Z01.818 Encounter for other preprocedural examination (principal); M51.36 Other intervertebral disc degeneration, lumbar region
CPT/HCPCS: 36415; 80048; 80305; 85025; 86328

== ENCOUNTER 2020-04-16 09:33 | Day surgery (SDC) | payer MEDICARE, SELFPAY ==
[2020-04-14 14:48] VITALS: BMI 27.7
[2020-04-16 10:11] VITALS: BP 130/75; PULSE 62; RESP 18; TEMP 36.1; O2SAT 97
--- NOTE | 2020-04-16 10:44 | P.OP_ITS ---
Date of procedure: 04/16/20 Pre-op Diagnosis:: Degenerative disc disease of lumbar spine with lumbar radiculopathy symptoms with nonfunctioning spinal cord stimulator. Postlaminectomy syndrome lumbar spine Post-op Diagnosis:: Same Procedure performed:: Intrathecal catheter placement with tunneling for permanent placement of intrathecal pain pump Surgeon:: Maged Juarez MD LANGUAGE TUTOR:: Williams Brandon Anesthesia: MAC Estimated blood loss (mL): 5 Clinical Note:: Patient is a pleasant 61-year-old white female who we have been treating for low back pain with lumbar radiculopathy symptoms with postlaminectomy syndrome lumbar spine with degenerative disc disease of lumbar spine with lumbar radiculopathy symptoms. She does have a Nevro final cord stimulator system in place which is nonfunctional and not helping her pain symptoms at all. She has failed all previous conservative therapy including injections, physical therapy, oral medications, spinal cord stimulation and previous surgery. She has had a successful psychological evaluation. She is also had a successful intrathecal pump trial with 90% relief of her pain symptoms. She is also much more f unctional. She presents for permanent placement of intrathecal pain pump today and removal of her stimulator. Operative findings:: None Operative note:: Informed consent was obtained and the risk and benefits of the procedure was explained to the patient. Patient was taken to the operating room placed prone on the procedure table. She was prepped and draped in sterile fashion. C-arm fluoroscopy was used to view the lumbar spine. The skin and subcutaneous tissues adjacent to the L4-5 and L5-S1 interspace were anesthetized using lidocaine. I made an incision and dissected down to the lumbar paraspinous fascia. A 14-gauge spinal needle was inserted and advanced into the L4-5 interspace until clear CSF was obtained. After this intrathecal catheter was inserted and advanced very easily to the L1 vertebral body. The stylette of the catheter and the needle were withdrawn. The catheter was secured to the fascia with 2 anchoring devices and 2-[address] Oates explanted the spinal cord stimulator battery and the leads were cut and left in place as patient seem to have a paddle leads in place which were adhered to the dura. The spinal cord stimulator pocket was irrigated with bacitracin solution and closed by Dr. Thomas dyson. Dr. Thomas dyson also created the pump pocket. I tunneled the catheter from the back to the pump pocket and attached catheter to the pump. The pump was placed in the pump pocket. Pump was secured to the fascia with 2-0 Prolene. Both incisions were irrigated with bacitracin solution. We were able to freely withdraw clear CSF through the side-port. Both incisions were then closed with 2-0 Vicryl followed by 4-0 nylon. A wound VAC was placed over all incisions. Patient was placed in an abdominal binder and taken recovery in stable condition. The pump was interrogated and started at periodic flow 0.1 mg boluses every 8 hours for total daily dose of 0.3 mg/day. This was done as patient seem to have low CSF volume. Patient tolerated the procedure well with no complication. Patient was discharged home neurologically intact with good relief of pain symptoms. Plan and disposition: We will follow-up with this patient in 1 week for wound check and reprogramming. We will follow-up in 2 weeks for suture removal. If the patient has any problems or questions she is to call us back in the pain clinic. Condition: stable Disposition: PACU Complications:: None
--- NOTE | 2020-04-16 11:03 | HMH.PMCON ---
Assessment and Plan - Assessment and plan all Dx Assessment and Plan for all problems:: Impression-degenerative disc disease of the lumbar spine with radiculopathy Plan-placement of intrathecal pain pump system today HPI - Data of Consult Patient: new to practice Consult date: 04/16/20 Requesting Physician: Maged Juarez MD Primary Care Provider: Chandrika Angeles - Consult Narrative History of present illness: Ms. Medellin is a 65 year old female with chronic back pain. Patient has degenerative disc disease of the lumbar spine with radiculopathy. Patient had a pain pump trial with improvement in her's pain she is admitted for placement of an intrathecal pain pump system CC: Maged Juarez MD Chronic back pain [facility] History Medical History: Reports:: Hyperlipidemia Denies:: Cancer, Diabetes Mellitus Type 1, Diabetes Mellitus Type 2, Internal Pacemaker, MRSA, Seizures *Have you ever received a pneumonia vaccine?: Yes *Have you received a flu vaccine this season?: No Other Medical History: Reports: Fibromyalgia. Denies: Blood Transfusion Reaction Comment:: Illnesses-depression, chronic back pain, history of TIAs, hyperlipidemia, restless leg syndrome, hypertension, GERD, fibromyalgia Laterality Cases: Left: Total Hip Replacement, Other, Bilateral: Carpal Tunnel Release Other Surgeries: Yes: Bariatric Surgery, Cholecystectomy, Colonoscopy, Hysterectomy-Total, Other (eye surgery, foot surgery, ear). No: Pacemaker Amputation: No Fractures: Yes Comment: Operations-back surgery, right foot surgery, bilateral carpal tunnel surgery, left hip replacement, hysterectomy, gastric bypass - *Social History Last grade of school completed: High school graduate Smoking Status: Never smoker Alcohol Intake: never *Occupational Status:: employed Housing: house Household Members: family *Travel in the last 8 weeks: None Family Hx:: Non-contributory Review of Systems - Review of Systems Review of systems:: pertinent systems reviewed and negative unless documented below Meds Home Medications Medication Instructions Recorded Confirmed Type Atorvastatin Calcium [Lipitor 10mg 10 mg PO HS 03/28/20 04/14/20 History Tab] Buspirone HCl [Buspar 10mg 10 mg PO BID 03/28/20 04/14/20 History tablet] Clopidogrel Bisulfate [Plavix 75mg 75 mg PO DAILY 03/28/20 04/16/20 History Tab] Gabapentin [Neurontin 800mg Tab] 800 mg PO QID 03/28/20 04/14/20 History Loratadine [Claritin] 10 mg PO DAILY 03/28/20 04/14/20 History Metoprolol Tartrate [Lopressor 12.5 mg PO BID 03/28/20 04/14/20 History 25mg tablet] Montelukast Sodium [Singulair] 10 mg PO HS 03/28/20 04/14/20 History Omeprazole Magnesium [Prilosec Otc 40 mg PO BID 03/28/20 04/14/20 History 20mg Tab] Sertraline HCl [Zoloft] 100 mg PO AC 03/28/20 04/14/20 History Ropinirole HCl [Requip 0.25mg 0.25 mg PO HS 04/11/20 04/14/20 History Tablet] Allergies Allergy/AdvReac Type Severity Reaction Status Date / Time aspirin [ASPIRIN] Allergy Unknown GASTRIC Verified 04/14/20 14:17 ULCERS duloxetine [From CYMBALTA] Allergy Unknown NA-NAUSEA/V Verified 04/14/20 14:17 OMITING NSAIDS (Non-Steroidal Allergy Unknown RASH/DIFFICULTY Verified 04/14/20 14:17 Anti-Inflamma BREATHING [NSAIDS (NON-STEROIDAL ANTI-INFLAMMA] pregabalin [From LYRICA] Allergy Unknown NA-NAUSEA/V Verified 04/14/20 14:17 OMITING Sulfa (Sulfonamide Allergy Unknown RASH/DIFFICULTY Verified 04/14/20 14:17 Antibiotics) BREATHING [SULFA (SULFONAMIDE ANTIBIOTICS)] LUIGI INHIBITORS Allergy Unknown COUGHING Uncoded 05/17/17 14:01 STEROIDS Allergy Unknown GASTRIC Uncoded 05/17/17 14:01 ULCERS Objective Vital signs: Temp Pulse Resp BP Pulse Ox 97.0 F L 62 18 130/75 97 04/16/20 10:11 04/16/20 10:11 04/16/20 10:11 04/16/20 10:11 04/16/20 10:11 Comments: Pale white female in no distress - *Routine Respiratory Exam Comment
--- NOTE | 2020-04-16 11:27 | HMH.OPNOTE ---
Date of procedure: 04/16/20 Pre-op Diagnosis:: Postlaminectomy syndrome of lumbar spine with lumbar radiculopathy symptoms Post-op Diagnosis:: Same Procedure performed:: Intrathecal catheter placement with tunneling for permanent intrathecal pain pump Surgeon:: Maged Juarez MD CASE MANAGEMENT MANAGER:: Sonu Chambers Anesthesia: MAC Estimated blood loss (mL): 5 Clinical Note:: Patient is a pleasant 65-year-old white female who we have been treating for low back pain with lumbar radiculopathy symptoms and postlaminectomy syndrome lumbar spine. She has failed all previous conservative therapies including injections, physical therapy, previous surgery and oral medications. She has had a successful psychological evaluation. She is also had a successful intrathecal pump trial with 80 to 90% relief in pain symptoms. She is been off her Plavix for over a week. She presents for permanent placement of intrathecal pain pump today. Operative findings:: None Operative note:: Informed consent was obtained and the risk and benefits of the procedure were explained to the patient. Patient was taken to the operating room placed prone on the procedure table. She was prepped and draped in sterile fashion. C-arm fluoroscopy was used to view the lumbar spine at the L4-L5 and L5-S1 interspace. I made an incision adjacent to these interspace and dissected down to the lumbar paraspinous fascia after anesthetizing the skin and subcutaneous tissues. A 14-gauge spinal needle was inserted and advanced into the L4-5 interspace until clear CSF was obtained. After this intrathecal catheter was inserted and advanced very easily to the L1 vertebral body. The stylette of the catheter and the needle were withdrawn. We were able to freely withdraw clear CSF through the catheter. The catheter was secured to the fascia with anchoring devices and 2-0 Prolene. I prepared the pump with 20 mL of intrathecal morphine 5 mg/mL while Dr. Oates prepared the pump pocket. I tunneled the catheter from the back to the pump pocket and attached the catheter to the pump. We were able to freely withdraw clear CSF through the side-port. The pump was placed in the pocket and secured to the fascia with 2-0 Prolene. Both incisions were then closed with 2-0 Vicryl followed by 4-0 nylon. A wound VAC was placed over both incisions. Patient was placed in an abdominal binder taken recovery in stable condition. Patient tolerated the procedure well with no complications. Pump was interrogated and started at 0.25 mg/day of intrathecal morphine. Patient was discharged home neurologically intact with good relief of pain symptoms. Plan and disposition: We will follow-up with this patient in 1 week for wound check and reprogramming. We will follow-up in 2 weeks for suture removal. If patient has any problems or questions she is to call us back in the pain clinic. Condition: stable Disposition: PACU Complications:: None
--- NOTE | 2020-04-16 13:02 | P.OP_ITS ---
Date of procedure: 04/16/20 Pre-op Diagnosis:: Disc disease of the lumbar spine with radiculopathy Post-op Diagnosis:: Same Procedure performed:: Placement of pain pump generator Surgeon:: Hasmukh Oates MD Placement of pain pump generator MEDICATION CARE MANAGER:: Williams Brandon, Juan Jose Mendieta, Luis Carlos Tsang, Sonu Chambers, Other Anesthesia: MAC Estimated blood loss (mL): 5 Operative findings:: Not applicable Operative note:: Once adequate IV sedation was obtained via anesthesia the patient was placed prone on the operating table and her back and flank regions were prepped and draped in sterile fashion. Once adequate local anesthesia obtained was 1% Xylocaine with epinephrine, a paraspinal incision was made by Dr. Del Toro there which an intrathecal catheter was passed into the intrathecal space to the area desired by Dr. Huston. Catheter fixed the paraspinal fascia with fixation device and 2-0 Prolene suture.. A right flank incision was then made under which was a pocket for placement of the generator. Catheter was passed from the paraspinal incision to the pocket incision utilize a tunneling device. Catheter fixed to the generator without difficulty. Generator sutured to the abdominal fascia with 2-0 Prolene suture. CSF was aspirated from the generator noting patency of the system. Wounds were irrigated with antibiotic solution and subcutaneous tissues closed with 2-0 Vicryl. Skin closed with stitches of 4-0 nylon. Wound VAC dressings and a binder applied to the wound. The patient tolerated procedure well and was taken to recovery in stable condition. Upon recovery the patient will be discharged home will follow-up in 1 week removal of the wound VAC dressings in 2 weeks for removal of the sutures. Antibiotic x1 week per protocol. The patient tolerated the procedure well Condition: stable Disposition: PACU Complications:: None
--- NOTE | 2020-04-16 13:06 | P.PN_ITS ---
[facility] Anesthesia Checklist - Structural Data Admitted From: Home Planned Operative Procedure/s: pain pump insertion Consent for Planned Operative Procedure(s) Verified: Yes - Additional verifications Anesthesia Reactions: No Hx Blood Transfusions: No Blood Transfusion Reaction: No - Airway Assessment C-Spine Mobility Assessed: Yes TMJ Mobility Assessed: Yes Dentition: Good Dentition - Neurological Assessment Level of Consciousness: Awake, Alert, Appropriate - Anesthesia Plan Anesthesia Risk discussed: Yes Anesthesia Plan: Verified ASA Class: III Anesthesia Type: MAC [facility] History I have reviewed the patient's past medical history: Yes Medical History: Reports:: Hyperlipidemia Denies:: Cancer, Diabetes Mellitus Type 1, Diabetes Mellitus Type 2, Internal Pacemaker, MRSA, Seizures *Have you ever received a pneumonia vaccine?: Yes *Have you received a flu vaccine this season?: No Other Medical History: Reports: Fibromyalgia. Denies: Blood Transfusion Reaction Anesthesia experience/problems:: none Laterality Cases: Left: Total Hip Replacement, Other, Bilateral: Carpal Tunnel Release Other Surgeries: Yes: Bariatric Surgery, Cholecystectomy, Colonoscopy, Hysterectomy-Total, Other (eye surgery, foot surgery, ear). No: Pacemaker Amputation: No Fractures: Yes - *Social History Last grade of school completed: High school graduate Smoking Status: Never smoker Alcohol Intake: never Substance Use Type: denies use *Occupational Status:: employed Housing: house Household Members: family *Travel in the last 8 weeks: None Family Hx:: Non-contributory
[2020-04-16 13:15] VITALS: BP 118/71; PULSE 66; RESP 18; TEMP 36.2; O2SAT 96
[2020-04-16 13:28] VITALS: BP 127/78; PULSE 66; RESP 18; O2SAT 97
[2020-04-16 13:36] VITALS: BP 140/82; PULSE 66; RESP 18; O2SAT 97
[2020-04-16 14:00] VITALS: BP 137/70; PULSE 67; RESP 18; O2SAT 95
[2020-04-16 14:51] VITALS: BP 136/77; PULSE 66; RESP 18; O2SAT 95
== END 2020-04-16 14:51 | disposition home or self-care (01) ==
LOC: OR 09:35
PROVIDERS: PCP Physician Assistant; Visit Provider Anesthesiology
DX: M96.1 Postlaminectomy syndrome, not elsewhere classified; M51.16 Intervertebral disc disorders with radiculopathy, lumbar region; E78.5 Hyperlipidemia, unspecified; M79.7 Fibromyalgia; F32.9 Major depressive disorder, single episode, unspecified; G25.81 Restless legs syndrome; Z86.73 Personal history of transient ischemic attack (TIA), and cerebral infarction without residual deficits; Z87.39 Personal history of other diseases of the musculoskeletal system and connective tissue; Z79.899 Other long term (current) drug therapy; Z88.6 Allergy status to analgesic agent; Z88.2 Allergy status to sulfonamides; Z88.8 Allergy status to other drugs, medicaments and biological substances
CPT/HCPCS: 62350; 62362; 96374; C1755; C1772; J3370

== ENCOUNTER → 2020-04-25 10:40 | Outpatient (POV) | payer MEDICARE, SELFPAY ==
[2020-04-25 10:55] VITALS: BP 111/73; PULSE 61; RESP 18; TEMP 36.1; O2SAT 97; BMI 27.4
--- NOTE | 2020-04-25 12:58 | HMH.PMPROC ---
- Procedure Date: 04/25/20 Time: 12:59 Anesthesiologist:: Maged Juarez MD Complications:: None Pre-procedure Diagnosis:: Degenerative disc disease of lumbar spine with lumbar radiculopathy symptoms Post-procedure Diagnosis:: Same Indications for Procedure:: This patient is a pleasant 65-year-old white female who we are treating for low back pain with lumbar radiculopathy symptoms. She is 1 week status post permanent placement of intrathecal morphine pain pump. We will reprogram her pump today and start her PTC device. She is doing well at 0.25 mg/day. We will start her PTC device at 0.025 mg up to 4 times a day. Her incisions are healing very nicely. Wound VAC was removed today and sutures are in place. Procedure Details:: Informed consent was obtained and the risk and benefits of the procedure was explained to the patient. Patient was taken to the procedure room. The pump was interrogated. PTC device was started at 0.025 mg up to 4 times a day. Constant flow continued at 0.25 mg/day. Patient tolerated the procedure well with no complications. Plan and Disposition:: We will follow-up with her in 1 week. Will reevaluate symptoms at that time. We will remove her sutures at that time and reprogram her further if needed.
== END ==
PROVIDERS: PCP Physician Assistant; Visit Provider Anesthesiology
DX: M51.16 Intervertebral disc disorders with radiculopathy, lumbar region (principal); Z45.1 Encounter for adjustment and management of infusion pump
CPT/HCPCS: 62368

== ENCOUNTER → 2020-04-28 10:45 | Outpatient (POV) | payer MEDICARE, SELFPAY ==
[2020-04-28 11:05] VITALS: BP 125/88; PULSE 74; RESP 18; TEMP 36.8; O2SAT 98; BMI 28.0
--- NOTE | 2020-04-28 13:03 | HMH.PMPROC ---
- Procedure Date: 04/28/20 Time: 12:00 Anesthesiologist:: Mikala Norton APRN Complications:: None Pre-procedure Diagnosis:: Degenerative disc disease lumbar spine lumbar radiculopathy Post-procedure Diagnosis:: Same Indications for Procedure:: Patient is a pleasant 65-year-old white female who presents today for intrathecal pain pump adjustment. Patient is not doing well. She rates her pain today a 10 out of 10 she has had constant diarrhea for several days to the point where she is now wearing adult undergarments. Patient taken Imodium with no relief. She is also having some difficulty peeing. Physical Exam General: Alert and oriented x3, no acute distress, pleasant and cooperative, [on room air] Lungs: Resps E/U, Symmetrical chest expansion, Eyes: PERRL Musculoskeletal: Flexion and extension of lumbar spine somewhat guarded secondary to pain, deep tendon reflexes normal, strength in upper and lower extremities [5/5], [abnormal gait noted] Neurological: speech clear, vp global marketing calvin klein fragrances [employer] cosmetics equal, no gross sensory deficits Procedure Details:: Pain pump adjustment informed consent was obtained and the risk and benefits of the procedure were explained to the patient. The patient was taken to the procedure room where noninvasive monitoring was placed including noninvasive blood pressure cuff and pulse oximeter. Patient's pump was interrogated and reprogrammed. The infusion rate was increased to 0.5 mg morphine a day. The patient tolerated the procedure well. Plan and Disposition:: We will start the patient on Flomax 0.4 mg daily. We also did called her primary care office to have her tested for C. difficile. We will see her back 1 week reassess her at that time. She has been instructed to call the office if you have any issues. Dr. Juarez has reviewed this note and agrees with this plan of care. This note was dictated using voice recognition software and may contain errors or omissions
== END ==
PROVIDERS: PCP Physician Assistant; Visit Provider Clinical Nurse Specialist Family Health
DX: M51.16 Intervertebral disc disorders with radiculopathy, lumbar region (principal); Z45.1 Encounter for adjustment and management of infusion pump
CPT/HCPCS: 62368

== ENCOUNTER → 2020-05-08 13:53 | Outpatient (POV) | payer MEDICARE, SELFPAY ==
--- NOTE | 2020-05-08 14:44 | P.PCN_ITS ---
- Procedure Date: 05/08/20 Time: 14:44 Anesthesiologist:: Mikala Norton APRN Complications:: None Pre-procedure Diagnosis:: Degenerative disc disease lumbar spine lumbar radiculopathy Post-procedure Diagnosis:: Same Indications for Procedure:: Patient is a pleasant 65-year-old white female who presents today for intrathecal pain pump adjustment. She rates her pain a 9 out of 10. At her last visit she was having difficulties with diarrhea. She was then diagnosed with C. difficile. She is now urinating without any assistance and doing well. Patient has had normal bowel movements at this time. We will increase her today. Patient was on [place] until recently. [facility] #[id number] reviewed and appropriate. She is on gabapentin 800 mg 1 p.o. 4 times daily and has DC'd her [place] Physical Exam General: Alert and oriented x3, no acute distress, pleasant and cooperative, [on room air] Lungs: Resps E/U, Symmetrical chest expansion, Eyes: PERRL Musculoskeletal: Flexion and extension of lumbar spine somewhat guarded secondary to pain, deep tendon reflexes normal, strength in upper and lower extremities [5/5], [abnormal gait noted] Neurological: speech clear, biomass facilitator equal, no gross sensory deficits Procedure Details:: Informed consent was obtained and the risk and benefits of the procedure were explained to the patient. The patient was taken to the procedure room where noninvasive monitoring was placed including noninvasive blood pressure cuff and pulse oximeter. Patient's pump was interrogated and reprogrammed. The infusion rate was increased and 1 mg a day morphine. The patient tolerated the procedure well. Plan and Disposition:: We will see the patient back in 2 weeks make any adjustments if needed. I will follow-up with her at that time she has been instructed to call the office if she has any issues prior to her next appointment. Dr. Juarez has reviewed this note and agrees with this plan of care. This note was dictated using voice recognition software and may contain errors or omissions
[2020-05-08 15:15] VITALS: BP 129/73; PULSE 73; RESP 18; O2SAT 98; BMI 28.5
== END ==
PROVIDERS: PCP Physician Assistant; Visit Provider Clinical Nurse Specialist Family Health
DX: M51.16 Intervertebral disc disorders with radiculopathy, lumbar region (principal)
CPT/HCPCS: 62368

== ENCOUNTER → 2020-05-19 10:04 | Outpatient (POV) | payer MEDICARE, SELFPAY ==
[2020-05-19 10:51] VITALS: BP 133/74; PULSE 77; RESP 18; TEMP 36.8; O2SAT 98; BMI 28.0
--- NOTE | 2020-05-19 11:14 | HMH.PMPROC ---
- Procedure Date: 05/19/20 Time: 11:14 Anesthesiologist:: Mikala Norton APRN Complications:: None Pre-procedure Diagnosis:: Degenerative disc disease lumbar spine lumbar radiculopathy Post-procedure Diagnosis:: Same Indications for Procedure:: Patient is a pleasant 65-year-old white female who presents today for intrathecal pain pump adjustment. She rates her pain an 8 out of 10. Patient was diagnosed with C. difficile she is now on vancomycin for this. Patient is currently on 1 mg a day morphine she denies side effects to her medication she has DC'd her [place]. We will increase her to day and change her to periodic flow. Physical Exam General: Alert and oriented x3, no acute distress, pleasant and cooperative, [on room air] Lungs: Resps E/U, Symmetrical chest expansion, Eyes: PERRL Musculoskeletal: Flexion and extension of lumbar spine somewhat guarded secondary to pain, deep tendon reflexes normal, strength in upper and lower extremities [5/5], [abnormal gait noted] Neurological: speech clear, assistant manager bilingual equal, no gross sensory deficits Procedure Details:: Informed consent was obtained and the risk and benefits of the procedure were explained to the patient. The patient was taken to the procedure room where noninvasive monitoring was placed including noninvasive blood pressure cuff and pulse oximeter. Patient's pump was interrogated and reprogrammed. The infusion rate was changed to 0.125 mg every 2 hours for total daily dose of 1.5 mg/day. The patient tolerated the procedure well. Plan and Disposition:: T we will follow up with the patient back at her next intrathecal pain pump refill and reprogram she has been instructed to call the office if she has any issues prior to her next appointment. Dr. Juarez has reviewed this note and agrees with this plan of care. This note was dictated using voice recognition software and may contain errors or omissions
== END ==
PROVIDERS: PCP Physician Assistant; Visit Provider Clinical Nurse Specialist Family Health
DX: M51.16 Intervertebral disc disorders with radiculopathy, lumbar region (principal)
CPT/HCPCS: 62368

== ENCOUNTER → 2020-06-09 08:56 | Outpatient (POV) | payer MEDICARE, SELFPAY ==
[2020-06-09 09:12] VITALS: BP 120/71; PULSE 74; RESP 18; TEMP 36.8; O2SAT 98; BMI 29.0
--- NOTE | 2020-06-09 09:23 | HMH.PMPROC ---
- Procedure Date: 06/09/20 Time: 09:23 Anesthesiologist:: Mikala Norton APRN Complications:: None Pre-procedure Diagnosis:: Degenerative disc disease lumbar spine lumbar radiculopathy Post-procedure Diagnosis:: Same Indications for Procedure:: Patient is a pleasant 65-year-old white female who presents today for intrathecal pain pump adjustment. She rates her pain 9 out of 10. Overall she has not responded well to the morphine. She is currently on 1 mg a day morphine denies side effects from medication. She has DC'd her [place]. We will increase her today. If she does not get relief we will move forward with a medication change. Physical Exam General: Alert and oriented x3, no acute distress, pleasant and cooperative, [on room air] Lungs: Resps E/U, Symmetrical chest expansion, Eyes: PERRL Musculoskeletal: Flexion and extension of lumbar spine somewhat guarded secondary to pain, deep tendon reflexes normal, strength in upper and lower extremities [5/5], slightly antalgic gait noted Neurological: speech clear, service establishment attendant equal, no gross sensory deficits Procedure Details:: Informed consent was obtained and the risk and benefits of the procedure were explained to the patient. The patient was taken to the procedure room where noninvasive monitoring was placed including noninvasive blood pressure cuff and pulse oximeter. Patient's pump was interrogated and reprogrammed. The infusion rate was changed to 0.25 mg every 3 hours for total daily dose of 2 mg of morphine a day. The patient tolerated the procedure well. Plan and Disposition:: The patient is going to call our office on if she does not get any relief from this we will discuss changing her to Dilaudid. She has been instructed to call the office if she has any issues prior to this. Dr. Juarez has reviewed this note and agrees with this plan of care. This note was dictated using voice recognition software and may contain errors or omissions
--- NOTE | 2020-06-10 09:08 | PC.NURSE ---
Patient called and stated that she got no relief from the pump adjustment that was done yesterday, she said that she had to take a lortab to help relieve the pain.
== END ==
PROVIDERS: PCP Physician Assistant; Visit Provider Clinical Nurse Specialist Family Health
DX: M51.16 Intervertebral disc disorders with radiculopathy, lumbar region (principal)
CPT/HCPCS: 62368

== ENCOUNTER → 2020-06-17 10:13 | Outpatient (CLI) | payer MEDICARE, SELFPAY ==
--- NOTE | 2020-06-17 10:19 | XR_ITS ---
PROCEDURE: XR HAND LT MIN 3V CLINICAL INDICATION: INJURY TO LT HAND, INITIAL ENCOUNTER COMPARISON: No exams were available for comparison FINDINGS: No fracture or dislocation. No lytic or blastic change. There is normal mineralization. Osteoarthritic changes are present at the 1st metacarpal-carpal joint and 1st interphalangeal joint as well as the 1st metacarpophalangeal joint. Osteoarthritis also noted at the 2nd DIP and in the wrist at the radiocarpal joint with some subchondral cystic changes of the lunate. Other findings:None. IMPRESSION: Osteoarthritis, no acute fracture Dictated by: Brian Martinez MD 06/17/2020 13:44 Brian Martinez MD in [place] 06/17/2020 13:44
== END ==
PROVIDERS: PCP Nurse Practitioner Family; Visit Provider Nurse Practitioner Family
DX: S69.92XA Unspecified injury of left wrist, hand and finger(s), initial encounter (principal)
CPT/HCPCS: 73130

== ENCOUNTER 2020-06-19 08:23 | Day surgery (SDC) | payer MEDICARE, SELFPAY ==
[2020-06-19 08:37] VITALS: BP 125/85; PULSE 74; RESP 18; O2SAT 98; BMI 23.3
--- NOTE | 2020-06-19 09:22 | HMH.PMPROC ---
- Procedure Date: 06/19/20 Time: 09:23 Anesthesiologist:: Mikala Norton APRN Complications:: None Pre-procedure Diagnosis:: Degenerative disc disease lumbar spine lumbar radiculopathy Post-procedure Diagnosis:: Same Indications for Procedure:: Patient is a pleasant 65-year-old white female who presents today for intrathecal pain pump refill and reprogram. Patient rates her pain today a 9 out of 10. She is currently on 2 mg a day of morphine with no relief. We will switch her to Dilaudid. She denies side effects to her medication. It is just been ineffective for her pain control. Physical Exam General: Alert and oriented x3, no acute distress, pleasant and cooperative, [on room air] Lungs: Resps E/U, Symmetrical chest expansion, Eyes: PERRL Musculoskeletal: Flexion and extension of lumbar spine somewhat guarded secondary to pain, deep tendon reflexes normal, strength in upper and lower extremities [5/5], [abnormal gait noted] Neurological: speech clear, waiter/waitress cafeteria equal, no gross sensory deficits Procedure Details:: Informed consent was obtained and the risk and benefits of the procedure were explained to the patient. The patient was taken to the procedure room where noninvasive monitoring was placed including noninvasive blood pressure cuff and pulse oximeter. Patient's pump was interrogated. The area over the pump was cleansed with chlorhexidine as a cleansing solution. In sterile fashion the pump was accessed with a 22-gauge needle. Approximately 6 mL's were removed of the pump solution and discarded appropriately. The pump was then refilled with 20 mL's of Dilaudid 1 mg/mL. The needle was withdrawn and a bandage was placed over the puncture site. The infusion rate was reprogrammed to started at 0.1 mg/day. The patient tolerated the procedure well. Plan and Disposition:: I will follow-up withthe patient in a week reassess her symptoms at that time make any titration if necessary. Patient has been instructed to call the office if she has any issues prior to her next appointment. Dr. Juarez has reviewed this note and agrees with this plan of care. This note was dictated using voice recognition software and may contain errors or omissions
[2020-06-19 09:44] VITALS: BP 132/85; PULSE 85; RESP 18; TEMP 36.8; O2SAT 98
[2020-06-19 09:47] VITALS: BP 132/85; PULSE 74; RESP 18; O2SAT 98
[2020-06-19 09:49] VITALS: BP 133/79; PULSE 85; RESP 18; O2SAT 98
== END 2020-06-19 09:40 | disposition home or self-care (01) ==
LOC: SC.PAINP 08:24
PROVIDERS: PCP Physician Assistant; Visit Provider Clinical Nurse Specialist Family Health
DX: M51.16 Intervertebral disc disorders with radiculopathy, lumbar region (principal); Z88.6 Allergy status to analgesic agent; Z88.2 Allergy status to sulfonamides; Z88.8 Allergy status to other drugs, medicaments and biological substances; E78.5 Hyperlipidemia, unspecified; I10 Essential (primary) hypertension; Z86.73 Personal history of transient ischemic attack (TIA), and cerebral infarction without residual deficits; M19.90 Unspecified osteoarthritis, unspecified site
CPT/HCPCS: 62370

== ENCOUNTER → 2020-07-02 09:13 | Outpatient (CLI) | payer MEDICARE, SELFPAY ==
[2020-07-02 13:49] LABS: Basophils # 0.1 K/mm3 (0-0.2); Basophils % 1.4 % (0.1-2.0); Eosinophils # 0.4 K/mm3 (0.0-0.4); Eosinophils % 4.5 % (0.1-12.0); Hemoglobin 14.6 g/dL (12.2-16.2); Lymphocytes # 1.7 K/mm3 (0.7-4.5); Lymphocytes % 19.6 % (10-50); Mean Corpuscular HGB Conc 31.1 g/dL (31.8-35.4); Mean Corpuscular Hemoglobin 29.4 pg (27.0-31.2); Mean Corpuscular Volume 94.6 fl (81-99); Mean Platelet Volume 8.5 fl (7.4-10.4); Monocytes # 0.3 K/mm3 (0.1-1.0); Monocytes % 3.5 % (1.7-9.3); Neutrophils # 6.2 K/mm3 (1.8-7.8); Platelet Count 291 K/mm3 (142-424); Red Blood Count 4.97 M/mm3 (4.20-5.40); Red Cell Distribution Width 14.8 % (11.5-17.5); White Blood Count 8.7 K/mm3 (4.8-10.8)
[2020-07-02 13:55] LABS: Alanine Aminotransferase 30 U/L (12-78); Albumin Level 4.4 g/dl (3.5-5.0); Albumin/Globulin Ratio 1.6 (1.1-1.8); Alkaline Phosphatase 107 U/L (38-126); Anion Gap 10.4 mEq/L (5-15); Aspartate Amino Transferase 36 U/L (14-36); Bilirubin,Total 0.5 mg/dl (0.2-1.3); Blood Urea Nitrogen 12 mg/dl (7-17); Calcium 9.5 mg/dl (8.4-10.2); Carbon Dioxide 27 mmol/L (22.0-30.0); Chloride 103 mmol/L (98-107); Estimated Glomerular Filt Rate 85 ml/min (>60); GFR (African American) 102 ML/MIN (>60); Globulin 2.8 g/dL (1.3-3.2); Glucose 111 mg/dl (74-100); Iron 59 ug/dL (37-170); Magnesium 2.1 mg/dl (1.6-2.3); Phosphorous 4.8 mg/dl (2.5-4.5); Potassium 4.4 mmoL/L (3.5-5.1); Sodium 136 mmol/L (136-145); Total Protein,Serum 7.2 g/dl (6.3-8.2)
[2020-07-02 14:08] LABS: Intact Parathyroid Hormone 51.1 pg/mL (7.5-53.5)
[2020-07-05 04:21] LABS: Zinc 98 ug/dL (44-115)
[2020-07-06 21:20] LABS: Vitamin A 39.8 ug/dL (22.0-69.5)
[2020-07-07 19:25] LABS: Vitamin B1 260.3 nmol/L (66.5-200.0)
[2020-07-08 23:07] LABS: Methylmalonic Acid 204 nmol/L (0-378)
[2020-07-09 15:16] LABS: Vitamin E Alpha Tocopherol 7.6 mg/L (9.0-29.0)
[2020-07-09 22:06] LABS: Vitamin E Gamma Tocopherol 1.5 mg/L (0.5-4.9)
[2020-07-15 15:37] LABS: Vitamin K1 0.17 ng/mL (0.13-1.88)
== END ==
PROVIDERS: Visit Provider Surgery
DX: R53.83 Other fatigue (principal); E55.9 Vitamin D deficiency, unspecified; E53.8 Deficiency of other specified B group vitamins; E56.1 Deficiency of vitamin K; K91.2 Postsurgical malabsorption, not elsewhere classified; Z13.21 Encounter for screening for nutritional disorder; Z90.3 Acquired absence of stomach [part of]; Z13.0 Encounter for screening for diseases of the blood and blood-forming organs and certain disorders involving the immune mechanism
CPT/HCPCS: 36415; 80053; 82131; 82306; 82728; 82746; 83540; 83735; 83970; 84100; 84425; 84446; 84590; 84597; 84630; 85025

== ENCOUNTER → 2020-07-03 09:01 | Outpatient (POV) | payer MEDICARE, SELFPAY ==
[2020-07-03 09:25] VITALS: BP 137/92; PULSE 62; RESP 18; TEMP 36.8; O2SAT 99; BMI 28.7
--- NOTE | 2020-07-03 11:52 | HMH.PMPROC ---
- Procedure Date: 07/03/20 Time: 11:52 Anesthesiologist:: Mikala Norton APRN Complications:: None Pre-procedure Diagnosis:: Degenerative disease lumbar spine lumbar radiculopathy Post-procedure Diagnosis:: Same Indications for Procedure:: Patient is a pleasant 65-year-old white female who presents today for follow-up. Patient was started on Dilaudid due to the ineffectiveness of morphine. She has had no fax to her Dilaudid. She rates her pain today a 9 out of 10 she was given a 0.1 mg bolus which effectively brought her pain down to a 4 or 5. We will increase her intrathecal infusion today. Procedure Details:: informed consent was obtained and the risk and benefits of the procedure were explained to the patient. The patient was taken to the procedure room where noninvasive monitoring was placed including noninvasive blood pressure cuff and pulse oximeter. Patient's pump was interrogated and reprogrammed. The infusion rate was increased to 0.2 mg of Dilaudid a day. The patient tolerated the procedure well. Plan and Disposition:: We will see the patient back in 2 weeks reassess her symptoms at that time she has been instructed to call the office if she has any issues prior to her next appointment. Dr. Juarez has reviewed this note and agrees with this plan of care. This note was dictated using voice recognition software and may contain errors or omissions
== END ==
PROVIDERS: PCP Physician Assistant; Visit Provider Clinical Nurse Specialist Family Health
DX: M51.16 Intervertebral disc disorders with radiculopathy, lumbar region (principal)
CPT/HCPCS: 62368

== ENCOUNTER → 2020-07-07 14:01 | Outpatient (POV) | payer MEDICARE, SELFPAY ==
[2020-07-07 14:22] VITALS: BP 125/85; PULSE 85; RESP 18; TEMP 36.8; O2SAT 99; BMI 27.9
--- NOTE | 2020-07-07 14:54 | HMH.PMPROC ---
- Procedure Date: 07/07/20 Time: 14:55 Anesthesiologist:: Mikala Norton APRN Complications:: None Pre-procedure Diagnosis:: Degenerative disc disease lumbar spine lumbar radiculopathy Post-procedure Diagnosis:: Same Indications for Procedure:: Patient is a pleasant 65-year-old white female who presents today for intrathecal pain pump adjustment. She rates her pain a 9 out of 10. Patient was changed from 0.1 mg infusion to 0.2 mg infusion at her last visit. We will increase her today to 0.4 mg infusion. Patient denies side effects Martín reviewed and appropriate. Procedure Details:: Informed consent was obtained and the risk and benefits of the procedure were explained to the patient. The patient was taken to the procedure room where noninvasive monitoring was placed including noninvasive blood pressure cuff and pulse oximeter. Patient's pump was interrogated and reprogrammed. The infusion rate was increased to 0.4 mg of Dilaudid a day. The patient tolerated the procedure well. Plan and Disposition:: I will follow up with the patient in 2 weeks reassess her symptoms at that time we will increase her if necessary. She has been instructed to call the office if she has any issues prior to her next appointment. Dr. Juarez has reviewed this note and agrees with this plan of care. This note was dictated using voice recognition software and may contain errors or omissions
== END ==
PROVIDERS: PCP Physician Assistant; Visit Provider Clinical Nurse Specialist Family Health
DX: M51.16 Intervertebral disc disorders with radiculopathy, lumbar region (principal); Z45.1 Encounter for adjustment and management of infusion pump
CPT/HCPCS: 62368

== ENCOUNTER → 2020-07-14 11:03 | Outpatient (POV) | payer MEDICARE, SELFPAY ==
[2020-07-14 11:31] VITALS: BP 145/74; PULSE 74; RESP 18; TEMP 36.8; O2SAT 99; BMI 28.0
--- NOTE | 2020-07-14 12:13 | HMH.PMPROC ---
- Procedure Date: 07/14/20 Time: 12:14 Anesthesiologist:: Mikala Norton APRN Complications:: None Pre-procedure Diagnosis:: Degenerative disc disease lumbar spine lumbar radiculopathy Post-procedure Diagnosis:: Same Indications for Procedure:: She is a very pleasant 65-year-old white female who presents today for intrathecal pain pump adjustment. Patient rates her pain a 9 out of 10. She is not had any relief with her Dilaudid. She has had multiple increases. Patient and I discussed a periodic flow and an increase she would like to try this. She is currently at 0.8 mg of Dilaudid a day. Patient was given a bolus of 0.1 mg in the office patient did not get much relief from this. Patient has not had any side effects. We will switch her to periodic flow today. Prior to pump placement she was on [place]. No longer on this. Patient states that when she has boluses in the office she typically gets 2 hours relief. Procedure Details:: Informed consent was obtained and the risk and benefits of the procedure were explained to the patient. The patient was taken to the procedure room where noninvasive monitoring was placed including noninvasive blood pressure cuff and pulse oximeter. Patient's pump was interrogated and reprogrammed. The infusion rate was changed to periodic flow of 0.15 mg every 2 hours. The patient tolerated the procedure well. Plan and Disposition:: We will see her back at her next intrathecal pain pump refill and reprogram she has been instructed to call the office if she has any issues prior to the next appointment. Dr. Juarez has reviewed this note and agrees with this plan of care. This note was dictated using voice recognition software and may contain errors or omissions
== END ==
LOC: SC.PAIN 11:04
PROVIDERS: PCP Physician Assistant; Visit Provider Clinical Nurse Specialist Family Health
DX: M51.16 Intervertebral disc disorders with radiculopathy, lumbar region (principal)
CPT/HCPCS: 62368

== ENCOUNTER → 2020-07-17 14:40 | Outpatient (POV) | payer MEDICARE, SELFPAY ==
--- NOTE | 2020-07-17 14:45 | P.PCN_ITS ---
- Procedure Date: 07/17/20 Time: 14:45 Anesthesiologist:: Mikala Norton APRN Complications:: None Pre-procedure Diagnosis:: Degenerative disc disease lumbar spine lumbar radiculopathy, back pain Post-procedure Diagnosis:: Same Indications for Procedure:: Patient is a pleasant 65-year-old white female who presents today for intrathecal pain pump adjustment. Due to weather conditions patient's medication has been delayed we will decrease her intrathecal therapy today she has been doing well at 0.15 mg every 2 hours for a total daily dose of 1.8 mg/day of Dilaudid patient will be decreased today to 1 mg of Dilaudid. Patient's been switched to a periodic dose of 0.5 mg every 12 hours we will give her a short-term dose of Lortab to help with any additional pain. When she gets refilled we will switch her back to her original dose of 0.15 mg every 2 hours. Patient understands. She denies side effects from medication. Procedure Details:: Informed consent was obtained and the risk and benefits of the procedure were explained to the patient. The patient was taken to the procedure room where noninvasive monitoring was placed including noninvasive blood pressure cuff and pulse oximeter. Patient's pump was interrogated and reprogrammed. The infusion rate was changed to 0.5 mg every 12 hours. The patient tolerated the procedure well. Plan and Disposition:: We will give her a short dose of Lortab to help with any additional pain. Patient is going to come in as soon as possible to get her pain pump refilled once medicine is available. She has been instructed to call the office if she has any issues prior to her next appointment. Martín reviewed per [employer]. Dr. Juarez has reviewed this note and agrees with this plan of care. This note was dictated using voice recognition software and may contain errors or omissions
[2020-07-17 14:55] VITALS: BP 122/74; PULSE 65; RESP 18; O2SAT 98; BMI 28.9
== END ==
LOC: SC.PAIN 14:41
PROVIDERS: PCP Physician Assistant; Visit Provider Clinical Nurse Specialist Family Health
DX: M51.16 Intervertebral disc disorders with radiculopathy, lumbar region (principal)
CPT/HCPCS: 62368

== ENCOUNTER → 2020-07-24 13:34 | Outpatient (POV) | payer MEDICARE, SELFPAY ==
[2020-07-24 14:14] VITALS: BP 139/85; PULSE 71; RESP 18; O2SAT 98; BMI 28.0
--- NOTE | 2020-07-24 17:00 | P.PCN_ITS ---
- Procedure Date: 07/24/20 Time: 17:01 Anesthesiologist:: Corie Adan APRN Complications:: None Pre-procedure Diagnosis:: Degenerative disc disease lumbar spine with lumbar radiculopathy symptoms, myofascial pain cervical and thoracic paraspinous muscles bilaterally Post-procedure Diagnosis:: Same Indications for Procedure:: Patient is a 65-year-old white female who presents today for intrathecal pain pump adjustment. She is also having neck and mid back pain. She says that it is tender to palpation. She has had trigger point injections to these areas in the past with dextrose and has done well. She says that per her bariatric surgeon, the patient is unable to undergo steroid injection. She has had dextrose injections to the area in the past and has gotten significant relief, up to 70% relief for greater than 2 to 3 weeks. The patient is currently on intrathecal therapy of Dilaudid at 1.8 mg/day. She would like an increase today. Her Martín and drug screens have been appropriate. We will increase her to see if she gets relief. We will also plan for the patient to undergo trigger point injections to her cervical and thoracic paraspinous muscles. Patient does rate her pain an 8 out of 10 today. Physical exam General: Alert and oriented x3, no acute distress, pleasant and cooperative, [on room air] Lungs: Respirations even and unlabored, symmetrical chest expansion Eyes: PERRL Musculoskeletal: Flexion and extension of lumbar spine somewhat guarded secondary to pain, deep tendon reflexes normal, strength in upper and lower extremities [5/5], [abnormal gait noted] Neurological: Speech clear, printing gray cloth tender equal, no gross sensory deficit Procedure Details:: Informed consent was obtained and the risk and benefits of the procedure were explained to the patient. Patient was taken to the procedure room where noninvasive monitoring was placed including noninvasive blood pressure cuff and pulse oximeter. Patient's pump was interrogated and was reprogrammed to Dilaudid at 2.16 mg/day. The patient tolerated the procedure well with no complications. Plan and Disposition:: Patient was increased with her intrathecal therapy today. The [employer] insurance representative was present in the clinic today and did provide the patient with a trial basis of the e-stim device. The patient got excellent relief with the device today. We will order the patient an e-stim device for home use for her degenerative disc disease cervical and lumbar spine as well as her myofascial pain. We will plan to see her back in the clinic after her trigger point injections to reevaluate her symptoms. We will also plan for the patient to have an intrathecal refill date. She has been instructed to contact clinic if she has any concerns before next appointment. The patient and I specifically discussed risk factors for COVID19. These risks include, but are not limited to age greater than 60, heart or lung disease, diabetes, immunosuppression, and travel. We also discussed NSAIDs may worsen COVID19 infection or symptoms. Patient should not use NSAIDs to treat COVID19 signs or symptoms. Patient was also informed that any type of corticosteroid of any form (oral or injection) will decrease the patient's immune system response and may increase the likelihood of COVID19 infection [address] symptoms[address] Dr. Juarez has reviewed this note and agrees with this plan of care. This note was dictated using voice recognition software and make contain errors or omissions.
== END ==
LOC: SC.PAIN 13:35
PROVIDERS: PCP Nurse Practitioner Family; Visit Provider Clinical Nurse Specialist Family Health
DX: M51.16 Intervertebral disc disorders with radiculopathy, lumbar region (principal); M79.18 Myalgia, other site
CPT/HCPCS: 62368

== ENCOUNTER 2020-08-11 14:00 | Observation (INO) | payer OTHER, MEDICARE, SELFPAY ==
[2020-08-11 14:00] VITALS: BP 201/111; PULSE 63; RESP 18; TEMP 36.4; O2SAT 100
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
[2020-08-11 14:19] VITALS: BMI 28.0
--- NOTE | 2020-08-11 14:21 | PC.NURSE ---
pt to CT
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
[2020-08-11 14:30] LABS: Basophils % 0.6 % (0.1-2.0); Eosinophils # 0.4 K/mm3 (0.0-0.4); Eosinophils % 5.2 % (0.1-12.0); Hematocrit 37.8 % (37.0-47.0); Hemoglobin 11.8 g/dL (12.2-16.2); Lymphocytes % 26.7 % (10-50); Mean Corpuscular HGB Conc 31.2 g/dL (31.8-35.4); Mean Corpuscular Hemoglobin 28.9 pg (27.0-31.2); Mean Corpuscular Volume 92.8 fl (81-99); Mean Platelet Volume 8.4 fl (7.4-10.4); Monocytes # 0.5 K/mm3 (0.1-1.0); Monocytes % 6.1 % (1.7-9.3); Neutrophils # 4.5 K/mm3 (1.8-7.8); Neutrophils % 61.2 % (37.0-80.0); Platelet Count 182 K/mm3 (142-424); Red Blood Count 4.07 M/mm3 (4.20-5.40); Red Cell Distribution Width 13.8 % (11.5-17.5); White Blood Count 7.3 K/mm3 (4.8-10.8)
[2020-08-11 14:35] LABS: Chloride 101 mmol/L (98-107); Potassium 4.3 mmoL/L (3.5-5.1); Sodium 134 mmol/L (136-145)
[2020-08-11 14:38] LABS: Anion Gap 7.3 mEq/L (5-15); Blood Urea Nitrogen 11 mg/dl (7-17); Carbon Dioxide 30 mmol/L (22.0-30.0); Creatinine Clearance Estimated 72 mL/min (50-200); Estimated Glomerular Filt Rate 85 ml/min (>60); GFR (African American) 102 ML/MIN (>60)
[2020-08-11 14:39] LABS: Calcium 8.7 mg/dl (8.4-10.2); Glucose 82 mg/dl (74-100)
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
--- NOTE | 2020-08-11 16:12 | PC.NURSE ---
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
[2020-08-11 16:35] LABS: INR 0.96 (0.9-1.1); Prothrombin Time 11.4 seconds (9.4-11.8)
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
--- NOTE | 2020-08-11 22:12 | PC.NURSE ---
patient up to floor via wheelchair.
[2020-08-11 22:29] VITALS: BP 151/69; PULSE 70; RESP 17; TEMP 37.2; O2SAT 96; BMI 28.0
[2020-08-11 22:36] VITALS: BP 121/74; PULSE 73; RESP 16; TEMP 36.6; O2SAT 98
[2020-08-12 04:00] VITALS: BP 132/78; PULSE 60; RESP 16; TEMP 36.8; O2SAT 99
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
[2020-08-12 05:31] VITALS: BMI 28.0
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
[2020-08-12 07:36] VITALS: BP 130/85; PULSE 61; RESP 17; TEMP 36.9; O2SAT 95
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
[2020-08-12 08:35] LABS: Basophils % 0.4 % (0.1-2.0); Eosinophils # 0.3 K/mm3 (0.0-0.4); Eosinophils % 3.5 % (0.1-12.0); Hematocrit 37.9 % (37.0-47.0); Hemoglobin 11.7 g/dL (12.2-16.2); Lymphocytes # 1.3 K/mm3 (0.7-4.5); Lymphocytes % 15.5 % (10-50); Mean Corpuscular HGB Conc 30.8 g/dL (31.8-35.4); Mean Corpuscular Hemoglobin 28.7 pg (27.0-31.2); Mean Corpuscular Volume 93.4 fl (81-99); Mean Platelet Volume 8.5 fl (7.4-10.4); Monocytes # 0.6 K/mm3 (0.1-1.0); Monocytes % 7.3 % (1.7-9.3); Neutrophils # 5.9 K/mm3 (1.8-7.8); Neutrophils % 73.3 % (37.0-80.0); Platelet Count 155 K/mm3 (142-424); Red Blood Count 4.06 M/mm3 (4.20-5.40); White Blood Count 8.1 K/mm3 (4.8-10.8)
[2020-08-12 08:37] LABS: Chloride 105 mmol/L (98-107); Potassium 4.9 mmoL/L (3.5-5.1); Sodium 136 mmol/L (136-145)
[2020-08-12 08:40] LABS: Anion Gap 6.9 mEq/L (5-15); Blood Urea Nitrogen 9 mg/dl (7-17); Carbon Dioxide 29 mmol/L (22.0-30.0); Creatinine Clearance Estimated 72 mL/min (50-200); Estimated Glomerular Filt Rate 85 ml/min (>60); GFR (African American) 102 ML/MIN (>60)
[2020-08-12 08:41] LABS: Calcium 8.7 mg/dl (8.4-10.2); Glucose 143 mg/dl (74-100)
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
[2020-08-12 15:55] VITALS: BP 159/90; PULSE 64; RESP 17; TEMP 36.8; O2SAT 97
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
--- NOTE | 2020-08-12 18:36 | PC.NURSE ---
PT IS READY TO BE DISCHARGED. SPLINTED PT'S ELBOW AND PT WAS PROVIDED WITH A SLING. PT STATED SHE DID HAVE SOME PAIN MEDICATION AT HOME BUT SHE WOULD ONLY TAKE IT WHEN IT WAS NEEDED. PT'S FAMILY WAS IN THE ROOM WHILE PT RECEIVED DISCHARGE INSTRUCTIONS. PT WILL FOLLOW UP WITH .
== END 2020-08-12 18:39 | disposition home or self-care (01) ==
LOC: ER 15:38 → 2ND 16:59
PROVIDERS: Admitting Provider Family Medicine; Emergency Provider Family Medicine; Visit Provider Family Medicine
DX: S27.321A Contusion of lung, unilateral, initial encounter (principal); S36.428A Contusion of other part of small intestine, initial encounter; S61.411A Laceration without foreign body of right hand, initial encounter; V43.52XA Car driver injured in collision with other type car in traffic accident, initial encounter; S52.125A Nondisplaced fracture of head of left radius, initial encounter for closed fracture; Z79.899 Other long term (current) drug therapy; Z79.02 Long term (current) use of antithrombotics/antiplatelets; I10 Essential (primary) hypertension; E78.5 Hyperlipidemia, unspecified; Z88.2 Allergy status to sulfonamides; Z88.8 Allergy status to other drugs, medicaments and biological substances
CPT/HCPCS: 12002; 36415; 70450; 70496; 70498; 71275; 73080; 73090; 73120; 73200; 74174; 80048; 85025; 85610; 96374; 99283; G0378; Q9967; U0003

== ENCOUNTER 2020-08-25 13:38 | Day surgery (SDC) | payer MEDICARE, SELFPAY ==
[2020-08-25 13:56] VITALS: BP 132/76; PULSE 72; RESP 18; TEMP 36.1; O2SAT 97; BMI 28.0
[2020-08-25 14:18] VITALS: BP 140/89; PULSE 65; RESP 18; O2SAT 99
[2020-08-25 14:20] VITALS: BP 140/88; PULSE 65; RESP 18; O2SAT 99
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
[2020-08-25 14:36] VITALS: BP 133/80; PULSE 61; RESP 20; O2SAT 97
== END 2020-08-25 14:37 | disposition home or self-care (01) ==
LOC: SC.PAINP 13:39
PROVIDERS: PCP Nurse Practitioner Family; Visit Provider Clinical Nurse Specialist Family Health
DX: M51.16 Intervertebral disc disorders with radiculopathy, lumbar region (principal); E78.5 Hyperlipidemia, unspecified; I10 Essential (primary) hypertension; K21.9 Gastro-esophageal reflux disease without esophagitis; J45.909 Unspecified asthma, uncomplicated; F41.9 Anxiety disorder, unspecified; F32.9 Major depressive disorder, single episode, unspecified; Z86.73 Personal history of transient ischemic attack (TIA), and cerebral infarction without residual deficits; Z98.84 Bariatric surgery status; Z88.6 Allergy status to analgesic agent; Z88.2 Allergy status to sulfonamides; Z88.8 Allergy status to other drugs, medicaments and biological substances
CPT/HCPCS: 62370

== ENCOUNTER 2020-09-22 13:56 | Day surgery (SDC) | payer MEDICARE, SELFPAY ==
[2020-09-22 13:58] VITALS: BP 147/84; PULSE 66; RESP 18; TEMP 36.6; O2SAT 98; BMI 27.4
[2020-09-22 14:14] VITALS: BP 147/90; PULSE 63; RESP 18; O2SAT 98
[2020-09-22 14:22] VITALS: BP 148/91; PULSE 66; RESP 18; TEMP 36.8
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
[2020-09-22 14:34] VITALS: BP 123/81; PULSE 59; RESP 18; O2SAT 98
== END 2020-09-22 14:36 | disposition home or self-care (01) ==
LOC: SC.PAINP 13:57
PROVIDERS: PCP Nurse Practitioner Family; Visit Provider Clinical Nurse Specialist Family Health
DX: M51.16 Intervertebral disc disorders with radiculopathy, lumbar region (principal); Z45.1 Encounter for adjustment and management of infusion pump; E78.5 Hyperlipidemia, unspecified; I10 Essential (primary) hypertension; M19.90 Unspecified osteoarthritis, unspecified site; M79.18 Myalgia, other site; Z88.8 Allergy status to other drugs, medicaments and biological substances; J45.909 Unspecified asthma, uncomplicated; K21.9 Gastro-esophageal reflux disease without esophagitis; F41.9 Anxiety disorder, unspecified; F32.9 Major depressive disorder, single episode, unspecified; Z86.73 Personal history of transient ischemic attack (TIA), and cerebral infarction without residual deficits
CPT/HCPCS: 62370

== ENCOUNTER → 2020-10-16 13:47 | Outpatient (POV) | payer MEDICARE, SELFPAY ==
[2020-10-16 14:02] VITALS: BP 131/71; PULSE 88; RESP 18; O2SAT 98; BMI 27.4
--- NOTE | 2020-10-16 14:10 | HMH.PMPROC ---
- Procedure Date: 10/16/20 Time: 14:14 Anesthesiologist:: Mikala Norton APRN Complications:: None Pre-procedure Diagnosis:: Degenerative disc disease lumbar spine lumbar radiculopathy and back pain Post-procedure Diagnosis:: Same Indications for Procedure:: Patient is a very pleasant 65-year-old white female who presents today for intrathecal pain pump adjustment she rates her pain an 8 out of 10. Patient is currently going through physical therapy. Patient currently on 2.75 mg a day of hydromorphone. She would like an increase today she denies any side effects from medication. Procedure Details:: Informed consent was obtained and the risk and benefits of the procedure were explained to the patient. The patient was taken to the procedure room where noninvasive monitoring was placed including noninvasive blood pressure cuff and pulse oximeter. Patient's pump was interrogated and reprogrammed. The infusion rate was increased to 3.3 mg of Dilaudid a day. The patient tolerated the procedure well. Plan and Disposition:: We will see the patient back at her next intrathecal pain pump refill and reprogram she is been instructed to call the office if she has any issues prior to her next appointment. Dr. Juarez has reviewed this note and agrees with this plan of care. This note was dictated using voice recognition software and may contain errors or omissions
== END ==
LOC: SC.PAIN 13:48
PROVIDERS: PCP Nurse Practitioner Family; Visit Provider Clinical Nurse Specialist Family Health
DX: M51.16 Intervertebral disc disorders with radiculopathy, lumbar region (principal); Z45.1 Encounter for adjustment and management of infusion pump
CPT/HCPCS: 62368

== ENCOUNTER 2020-11-06 13:00 | Outpatient (RCR) | payer MEDICARE, SELFPAY | END 2020-11-18 13:38 | disposition home or self-care (01) | LOC: PT.CARL 13:00 | PROVIDERS: PCP Nurse Practitioner Family; Visit Provider Orthopaedic Surgery | DX: M77.11 Lateral epicondylitis, right elbow; S63.91XD Sprain of unspecified part of right wrist and hand, subsequent encounter; V87.7XXA Person injured in collision between other specified motor vehicles (traffic), initial encounter; S52.124D Nondisplaced fracture of head of right radius, subsequent encounter for closed fracture with routine healing | CPT/HCPCS: 97110; 97140; 97163; 97164 ==

== ENCOUNTER 2020-11-10 13:49 | Day surgery (SDC) | payer OTHER, MEDICARE, SELFPAY ==
[2020-11-10 13:54] VITALS: BP 151/98; PULSE 60; RESP 18; TEMP 36.6; O2SAT 98; BMI 27.7
[2020-11-10 14:18] VITALS: BP 181/97; PULSE 67; RESP 18; O2SAT 96
[2020-11-10 14:19] VITALS: BP 163/90; PULSE 66; RESP 18; O2SAT 96
[2020-11-10 14:41] VITALS: BP 146/86; PULSE 56; RESP 18; O2SAT 98
--- NOTE | 2020-11-10 19:36 | P.PCN_ITS ---
- Procedure Date: 11/10/20 Time: 13:10 Anesthesiologist:: Corie Adan APRN Complications:: None Pre-procedure Diagnosis:: Degenerative disc disease lumbar spine with lumbar radiculopathy symptoms, chronic back pain Post-procedure Diagnosis:: Same Indications for Procedure:: Patient is a 65-year-old female who presents today for intrathecal pain pump refill and reprogram. She is being treated for degenerative disc disease lumbar spine with lumbar radiculopathy symptoms. Patient rates her pain a 6 out of 10 today. She does need an increase. She is currently on Dilaudid at 3.3 mg/day. Patient recently had a fracture to her right elbow and is wearing a brace today. She has now began to develop severe hand pain. She is having swelling in her hand as well as occasional cold sensation. She denies any color changes at this time to her hand. Patient says that the pain is significant to her elbow and hand. She is inquiring about injective therapy. We discussed a stellate ganglion block. We can schedule her for the injection to see if this gives her relief of her elbow and hand. We will increase her today as well to see if she gets relief. She will be undergoing concentration change in medication today. Physical exam General: Alert and oriented x3, no acute distress, pleasant and cooperative, [on room air] Lungs: Respirations even and unlabored, symmetrical chest expansion Eyes: PERRL Musculoskeletal: Flexion and extension of [] lumbar spine somewhat guarded secondary to pain, deep tendon reflexes normal, strength in upper and lower extremities [5/5], [abnormal gait noted] Neurological: Speech clear, hotel front office manager equal, no gross sensory deficit Procedure Details:: Informed consent was obtained and the risk and benefits of the procedure were explained to the patient. The patient was taken to the procedure room where noninvasive monitoring was placed including noninvasive blood pressure cuff and pulse oximeter. Patient's pump was interrogated. The area over the pump was cleansed with chlorhexidine as a cleansing solution. In sterile fashion the pump was accessed with a 22-gauge needle. Approximately 5 mL mls of the pump solution was removed and discarded appropriately. The pump was then refilled with 20 mL's of Dilaudid 20 mg per male. The needle was withdrawn and a bandage was placed over the puncture site. The infusion rate was reprogrammed at increased to Dilaudid at 3.63 mg/day. The patient tolerated well with no complication. Plan and Disposition:: We will schedule the patient for stellate ganglion block. Patient is having severe arm pain from her elbow to her hand with swelling into the hand as well as temperature changes. She is not having discoloration at this time. She is wearing a brace to her elbow as well. We will see her back after her block to reevaluate her symptoms. We will see the patient back in the clinic at the next intrathecal refill. Patient has been instructed to contact the clinic with any concerns before the next appointment. Dr. Juarez has reviewed this note and agrees with this plan of care. This note was dictated using voice recognition software and make contain errors or omissions.
== END 2020-11-10 14:42 | disposition home or self-care (01) ==
LOC: SC.PAINP 13:52
PROVIDERS: PCP Nurse Practitioner Family; Visit Provider Clinical Nurse Specialist Family Health
DX: M51.16 Intervertebral disc disorders with radiculopathy, lumbar region (principal); G89.29 Other chronic pain; Z45.1 Encounter for adjustment and management of infusion pump
CPT/HCPCS: 62370

== ENCOUNTER 2020-11-21 09:47 | Day surgery (SDC) | payer MEDICARE, SELFPAY ==
[2020-11-21 10:07] VITALS: BP 117/74; PULSE 72; RESP 18; TEMP 36.6; O2SAT 97; BMI 27.7
[2020-11-21 10:54] VITALS: BP 140/78; PULSE 60; RESP 18; O2SAT 95
[2020-11-21 10:58] VITALS: BP 143/63; PULSE 61; RESP 18; O2SAT 94
[2020-11-21 11:35] VITALS: BP 137/82; PULSE 64; RESP 18; O2SAT 98
--- NOTE | 2020-11-21 17:37 | HMH.PMPROC ---
- Procedure Date: 11/21/20 Time: 17:37 Anesthesiologist:: Alma Maya MD Complications:: None Pre-procedure Diagnosis:: CRPS of the right upper extremity, right arm pain Post-procedure Diagnosis:: Same Indications for Procedure:: Patient is a very pleasant 65-year-old white female who presents today with arm pain after she sustained a right elbow fracture per patient. She reports that overall her elbow has healed but she continues to experience significant pain swelling and an occasional cold sensation in her right hand. He has trialed and failed conservative treatment including oral pain medications and physical therapy for greater than 6 weeks. Of note, she has previously undergone a [place]-en-Y procedure and states that she is not allowed to take any steroids. She also reports that she has accidentally taken steroids in the past and has experienced a gastric ulcer. Today the plan is for her to undergo right-sided stellate ganglion block under fluoroscopy without steroids, only local aesthetic. Procedure Details:: Informed consent was obtained. The risks and benefits of the procedure were explained to the patient. The patient was taken to the procedure room. Placed in supine position on the table. C-arm fluoroscopy was used to view the cervical spine at the C7 transverse process. A 25-gauge needle was inserted and advanced and contact the right transverse process of the C7 vertebral body. Dye was injected to confirm proper placement of the needle. We injected 10 mL of lidocaine 1% into the area of the right stellate ganglion. Patient tolerated the procedure well with no complications. Plan and Disposition:: She is to proceed with physical therapy after this appointment. We will follow-up with this patient in 2 weeks. Will reevaluate pain symptoms at that time. Discussed with the patient that given that she has a contraindication to taking steroids gabriela limiting her treatment modalities for this pain, she may greatly benefit from spinal cord stimulation trial in the future. I briefly discussed the spinal cord stimulation procedure process with her today.
== END 2020-11-21 11:35 | disposition home or self-care (01) ==
LOC: SC.PAINP 09:48
PROVIDERS: PCP Nurse Practitioner Family; Visit Provider Anesthesiology Pain Medicine
DX: G90.511 Complex regional pain syndrome I of right upper limb (principal)
CPT/HCPCS: 62321; Q9966

== ENCOUNTER → 2020-12-11 10:48 | Outpatient (POV) | payer MEDICARE, SELFPAY ==
[2020-12-11 11:23] VITALS: BP 121/61; PULSE 70; RESP 18; O2SAT 98; BMI 27.4
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
== END ==
LOC: SC.PAIN 10:49
PROVIDERS: PCP Nurse Practitioner Family; Visit Provider Clinical Nurse Specialist Family Health
DX: G90.511 Complex regional pain syndrome I of right upper limb (principal); M51.16 Intervertebral disc disorders with radiculopathy, lumbar region
CPT/HCPCS: 99212; G0463

== ENCOUNTER 2020-12-18 11:00 | Outpatient (RCR) | payer MEDICARE, SELFPAY ==
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
== END 2021-01-20 10:41 | disposition home or self-care (01) ==
LOC: OT 11:00
PROVIDERS: PCP Nurse Practitioner Family; Visit Provider Clinical Nurse Specialist Family Health
DX: G90.511 Complex regional pain syndrome I of right upper limb (principal)
CPT/HCPCS: 97010; 97014; 97110; 97140; 97165; 97530; G0283

== ENCOUNTER → 2021-01-12 09:06 | Outpatient (POV) | payer MEDICARE, SELFPAY ==
[2021-01-12 09:24] VITALS: BP 129/82; PULSE 69; RESP 18; O2SAT 97; BMI 26.9
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
== END ==
LOC: SC.PAIN 09:07
PROVIDERS: Visit Provider Clinical Nurse Specialist Family Health
DX: G90.511 Complex regional pain syndrome I of right upper limb (principal); M51.16 Intervertebral disc disorders with radiculopathy, lumbar region
CPT/HCPCS: 99212; G0463

== ENCOUNTER 2021-01-26 13:40 | Day surgery (SDC) | payer MEDICARE, SELFPAY ==
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
[2021-01-26 13:53] VITALS: BP 120/81; PULSE 80; RESP 20; TEMP 36.7; O2SAT 98; BMI 24.8
[2021-01-26 13:55] VITALS: BP 148/72; PULSE 73; RESP 18; O2SAT 96
[2021-01-26 13:56] VITALS: BP 124/91; PULSE 76; RESP 18; O2SAT 96
[2021-01-26 14:06] VITALS: BP 121/77; PULSE 76; RESP 18; O2SAT 98
== END 2021-01-26 14:07 | disposition home or self-care (01) ==
LOC: SC.PAINP 13:43
PROVIDERS: PCP Nurse Practitioner Family; Visit Provider Clinical Nurse Specialist Family Health
DX: M51.16 Intervertebral disc disorders with radiculopathy, lumbar region (principal); Z45.1 Encounter for adjustment and management of infusion pump
CPT/HCPCS: 95991

== ENCOUNTER → 2021-02-03 16:24 | Outpatient (CLI) | payer MEDICARE, SELFPAY ==
--- NOTE | 2021-02-03 16:28 | XR_ITS ---
PROCEDURE INFORMATION: Exam: XR Chest Exam date and time: 02/03/2021 4:28 PM Age: 65 years old Clinical indication: Cough; Additional info: Covid outpatient TECHNIQUE: Imaging protocol: XR of the chest. Views: 1 view. COMPARISON: CT ANGIO CHEST 08/11/2020 2:47 PM FINDINGS: Lungs: There are extensive amorphous infiltrates noted within both lung vines. Areas of greatest involvement are within the left lung as well as at the right lung base. These findings certainly could be secondary to viral interstitial pneumonitis such as could be caused by Covid19. Pleural spaces: Unremarkable. No pleural effusion. No pneumothorax. Heart/Mediastinum: Unremarkable. Borderline cardiomegaly. Bones/joints: Degenerative changes of the thoracic spine without evidence of visible fracture. There are clips identified within the right upper quadrant the abdomen, compatible prior cholecystectomy. IMPRESSION: Bilateral interstitial infiltrates, as described. These findings are certainly compatible with viral interstitial pneumonitis. No evidence of pulmonary vascular congestion. Changes of prior cholecystectomy noted.
[2021-02-03 17:16] LABS: Chloride 97 mmol/L (98-107); Potassium 4.4 mmoL/L (3.5-5.1); Sodium 131 mmol/L (136-145)
[2021-02-03 17:19] LABS: Alanine Aminotransferase 65 U/L (12-78); Albumin Level 3.4 g/dl (3.5-5.0); Albumin/Globulin Ratio 1.1 (1.1-1.8); Alkaline Phosphatase 107 U/L (38-126); Anion Gap 11.4 mEq/L (5-15); Aspartate Amino Transferase 119 U/L (14-36); Basophils % 0.3 % (0.1-2.0); Bilirubin,Total 0.6 mg/dl (0.2-1.3); Blood Urea Nitrogen 9 mg/dl (7-17); Calcium 8.4 mg/dl (8.4-10.2); Carbon Dioxide 27 mmol/L (22.0-30.0); Eosinophils # 0.1 K/mm3 (0.0-0.4); Eosinophils % 1.1 % (0.1-12.0); Estimated Glomerular Filt Rate 125 ml/min (>60); GFR (African American) 151 ML/MIN (>60); Globulin 3.2 g/dL (1.3-3.2); Glucose 107 mg/dl (74-100); Hematocrit 34.7 % (37.0-47.0); Hemoglobin 10.9 g/dL (12.2-16.2); Lymphocytes # 0.7 K/mm3 (0.7-4.5); Lymphocytes % 10.4 % (10-50); Mean Corpuscular HGB Conc 31.6 g/dL (31.8-35.4); Mean Corpuscular Hemoglobin 29.5 pg (27.0-31.2); Mean Corpuscular Volume 93.4 fl (81-99); Mean Platelet Volume 8.6 fl (7.4-10.4); Monocytes # 0.3 K/mm3 (0.1-1.0); Monocytes % 5.1 % (1.7-9.3); Neutrophils # 5.6 K/mm3 (1.8-7.8); Neutrophils % 83.2 % (37.0-80.0); Platelet Count 294 K/mm3 (142-424); Red Blood Count 3.72 M/mm3 (4.20-5.40); Red Cell Distribution Width 13.9 % (11.5-17.5); Total Protein,Serum 6.6 g/dl (6.3-8.2); White Blood Count 6.7 K/mm3 (4.8-10.8)
== END ==
LOC: COVID.OUT 16:25
PROVIDERS: PCP Nurse Practitioner Family; Visit Provider Nurse Practitioner Family
DX: Z20.822 Contact with and (suspected) exposure to COVID-19 (principal); R06.02 Shortness of breath
CPT/HCPCS: 71045; 80053; 85025; U0003

== ENCOUNTER → 2021-02-24 08:28 | Outpatient (POV) | payer MEDICARE, SELFPAY ==
[2021-02-24 08:48] VITALS: BP 124/68; PULSE 68; RESP 18; O2SAT 97; BMI 27.4
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
== END ==
LOC: SC.PAIN 08:30
PROVIDERS: PCP Nurse Practitioner Family; Visit Provider Clinical Nurse Specialist Family Health
DX: G90.511 Complex regional pain syndrome I of right upper limb
CPT/HCPCS: 99212; G0463

== ENCOUNTER 2021-04-20 13:01 | Day surgery (SDC) | payer MEDICARE, SELFPAY ==
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
[2021-04-20 13:20] VITALS: BP 147/83; PULSE 59; RESP 18; TEMP 36.4; O2SAT 98; BMI 24.8
[2021-04-20 13:41] VITALS: BP 157/70; PULSE 64; RESP 18; O2SAT 96
[2021-04-20 13:43] VITALS: PULSE 61; RESP 18; O2SAT 96
[2021-04-20 13:55] VITALS: BP 162/71; PULSE 59; RESP 20; O2SAT 98
[2021-04-20 20:13] LABS: Amphetamine/Metha Screen,Urine Negative ng/ml (<1000)
[2021-04-20 20:14] LABS: Barbiturates Screen,Urine Negative ng/ml (<200)
[2021-04-20 20:15] LABS: Benzodiazepines Screen,Urine Negative ng/ml (<200); Cannabinoid Screen,Urine Negative ng/ml (<50)
[2021-04-20 20:16] LABS: Cocaine Screen,Urine Negative ng/ml (<300)
[2021-04-20 20:17] LABS: Methadone Screen,Urine Negative ng/ml (<300); Opiate Screen,Urine Positive ng/ml (<300)
[2021-04-20 20:18] LABS: Phencyclidine Screen,Urine Negative ng/ml (<25)
== END 2021-04-20 13:55 | disposition home or self-care (01) ==
PROVIDERS: PCP Nurse Practitioner Family; Visit Provider Clinical Nurse Specialist Family Health
DX: M51.16 Intervertebral disc disorders with radiculopathy, lumbar region (principal); Z45.1 Encounter for adjustment and management of infusion pump; Z79.891 Long term (current) use of opiate analgesic
CPT/HCPCS: 80305; 95991

== ENCOUNTER → 2021-05-26 10:47 | Outpatient (CLI) | payer MEDICARE, SELFPAY ==
[2021-05-26 11:30] LABS: Basophils # 0.1 K/mm3 (0-0.2); Basophils % 0.9 % (0.1-2.0); Eosinophils # 0.3 K/mm3 (0.0-0.4); Eosinophils % 3.8 % (0.1-12.0); Hematocrit 35.2 % (37.0-47.0); Lymphocytes # 1.1 K/mm3 (0.7-4.5); Lymphocytes % 14.3 % (10-50); Mean Corpuscular HGB Conc 31.3 g/dL (31.8-35.4); Mean Corpuscular Hemoglobin 28.8 pg (27.0-31.2); Mean Corpuscular Volume 91.9 fl (81-99); Mean Platelet Volume 8.5 fl (7.4-10.4); Monocytes # 0.5 K/mm3 (0.1-1.0); Neutrophils # 5.5 K/mm3 (1.8-7.8); Platelet Count 228 K/mm3 (142-424); Red Blood Count 3.83 M/mm3 (4.20-5.40); Red Cell Distribution Width 15.5 % (11.5-17.5); White Blood Count 7.5 K/mm3 (4.8-10.8)
[2021-05-26 12:03] LABS: Chloride 103 mmol/L (98-107); Potassium 4.7 mmoL/L (3.5-5.1); Sodium 135 mmol/L (136-145)
[2021-05-26 12:06] LABS: Anion Gap 8.7 mEq/L (5-15); Blood Urea Nitrogen 20 mg/dl (7-17); Carbon Dioxide 28 mmol/L (22.0-30.0); Estimated Glomerular Filt Rate 84 ml/min (>60); GFR (African American) 102 ML/MIN (>60)
[2021-05-26 12:07] LABS: Calcium 8.5 mg/dl (8.4-10.2); Glucose 103 mg/dl (74-100)
== END ==
PROVIDERS: Visit Provider Anesthesiology
DX: Z01.812 Encounter for preprocedural laboratory examination (principal); Z11.52 Encounter for screening for COVID-19; G90.50 Complex regional pain syndrome I, unspecified
CPT/HCPCS: 36415; 80048; 85025; C9803; U0003; U0005

== ENCOUNTER 2021-05-27 06:05 | Day surgery (SDC) | payer MEDICARE, SELFPAY ==
[2021-05-26 08:44] VITALS: BMI 23.8
[2021-05-27] VITALS (8 sets, daily range): BP systolic 116–140; BP diastolic 67–82; PULSE 60–77; RESP 16–18; TEMP 36.4–36.8; O2SAT 94–96
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
--- NOTE | 2021-05-27 10:51 | PC.NURSE ---
stimulator rep at bedside at [id number]
--- NOTE | 2021-05-27 10:52 | PC.NURSE ---
reps remain at bedside.
--- NOTE | 2021-05-27 11:25 | SUR.PHASEII ---
1120-pt complaint of eyes feeling dry feels like sand in them . Spoke to Eduardo Tsang CRNA. instructed pt to use eye drops at home for moisture and followup with eye dr if any further problems or if it does not improve.
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
== END 2021-05-27 11:20 | disposition home or self-care (01) ==
LOC: OR 06:08
PROVIDERS: PCP Nurse Practitioner Family; Visit Provider Anesthesiology
DX: M51.16 Intervertebral disc disorders with radiculopathy, lumbar region (principal); G90.511 Complex regional pain syndrome I of right upper limb; E78.5 Hyperlipidemia, unspecified; I10 Essential (primary) hypertension; R56.9 Unspecified convulsions; Z86.73 Personal history of transient ischemic attack (TIA), and cerebral infarction without residual deficits; Z90.49 Acquired absence of other specified parts of digestive tract; Z98.84 Bariatric surgery status; Z83.3 Family history of diabetes mellitus; Z80.9 Family history of malignant neoplasm, unspecified
CPT/HCPCS: 63650 ×2; 96374; C1778; J2704; J3370

== ENCOUNTER → 2021-06-02 09:11 | Outpatient (POV) | payer MEDICARE, SELFPAY ==
[2021-06-02 09:35] VITALS: BP 142/83; PULSE 68; RESP 18; O2SAT 96; BMI 24.4
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
== END ==
LOC: SC.PAIN 09:13
PROVIDERS: Visit Provider Clinical Nurse Specialist Family Health
DX: M51.16 Intervertebral disc disorders with radiculopathy, lumbar region (principal); G90.511 Complex regional pain syndrome I of right upper limb
CPT/HCPCS: 99212; G0463

== ENCOUNTER → 2021-06-16 07:06 | Outpatient (CLI) | payer MEDICARE, SELFPAY ==
[2021-06-16 14:02] LABS: Basophils % 0.2 % (0.1-2.0); Eosinophils # 0.1 K/mm3 (0.0-0.4); Eosinophils % 0.6 % (0.1-12.0); Hematocrit 33.6 % (37.0-47.0); Hemoglobin 10.7 g/dL (12.2-16.2); Lymphocytes # 0.9 K/mm3 (0.7-4.5); Lymphocytes % 9.4 % (10-50); Mean Corpuscular HGB Conc 31.8 g/dL (31.8-35.4); Mean Corpuscular Hemoglobin 28.7 pg (27.0-31.2); Mean Corpuscular Volume 90.4 fl (81-99); Mean Platelet Volume 8.6 fl (7.4-10.4); Monocytes # 0.6 K/mm3 (0.1-1.0); Monocytes % 6.5 % (1.7-9.3); Neutrophils # 7.4 K/mm3 (1.8-7.8); Neutrophils % 83.2 % (37.0-80.0); Platelet Count 279 K/mm3 (142-424); Red Blood Count 3.72 M/mm3 (4.20-5.40); Red Cell Distribution Width 14.6 % (11.5-17.5); White Blood Count 8.9 K/mm3 (4.8-10.8)
[2021-06-16 14:11] LABS: Anion Gap 13.5 mEq/L (5-15); Blood Urea Nitrogen 12 mg/dl (7-17); Calcium 8.3 mg/dl (8.4-10.2); Carbon Dioxide 27 mmol/L (22.0-30.0); Chloride 90 mmol/L (98-107); Estimated Glomerular Filt Rate 101 ml/min (>60); GFR (African American) 122 ML/MIN (>60); Glucose 113 mg/dl (74-100); Potassium 4.5 mmoL/L (3.5-5.1); Sodium 126 mmol/L (136-145)
== END ==
LOC: LAB.CARL 07:08
PROVIDERS: Visit Provider Anesthesiology
DX: Z01.812 Encounter for preprocedural laboratory examination (principal); U07.1 COVID-19; G90.59 Complex regional pain syndrome I of other specified site
CPT/HCPCS: 36415; 80048; 85025; C9803; U0003; U0005

== ENCOUNTER → 2021-06-17 05:46 | Day surgery (SDC) | payer MEDICARE, SELFPAY ==
[2021-06-11 09:37] VITALS: BMI 24.2
--- NOTE | 2021-06-17 08:06 | SUR.PREOP ---
0600- Procedure cancelled / to be rescheduled. Positive PCR.
== END ==
PROVIDERS: PCP Nurse Practitioner Family; Visit Provider Anesthesiology
DX: Z53.09 Procedure and treatment not carried out because of other contraindication (principal)

== ENCOUNTER → 2021-07-06 14:33 | Outpatient (CLI) | payer MEDICARE, SELFPAY ==
--- NOTE | 2021-07-06 14:37 | XR_ITS ---
FINAL REPORT CLINICAL HISTORY: PNEUMONIA,SOB,PRIOR COVID Lt sided chest pain and sob for 4 days Nki COMPARISON: February 03, 2021 FINDINGS: Two views of the chest were obtained. The heart size and pulmonary vascularity are within normal limits. The mediastinum is normal. There are bilateral pulmonary opacities favoring atelectasis. There is a new moderate to large left pleural effusion. There is no pneumothorax. There is presumed bowel beneath the right hemidiaphragm, stable. The bony thorax is intact. IMPRESSION: Bilateral pulmonary opacities favoring atelectasis. New, moderate to large left pleural effusion. Reviewed, Interpreted and Dictated by Spencer Chen III, MD Transcribed by Kimmy Viera Authenticated by Spencer Chen III, MD on 07/06/2021 03:07:39 PM [facility]
== END ==
LOC: RAD 14:34
PROVIDERS: PCP Nurse Practitioner Family; Visit Provider Nurse Practitioner Family
DX: R06.02 Shortness of breath (principal); J18.9 Pneumonia, unspecified organism; Z86.16 Personal history of COVID-19
CPT/HCPCS: 71046

== ENCOUNTER → 2021-07-08 07:20 | Outpatient (CLI) | payer MEDICARE, SELFPAY ==
[2021-07-08 07:51] VITALS: BMI 26.2
--- NOTE | 2021-07-08 09:49 | US_ITS ---
FINAL REPORT CLINICAL HISTORY: PLUERAL EFFUSION 50 ml-- loculated FINDINGS: ULTRASOUND-GUIDED THORACENTESIS HISTORY: Pleural effusion. ATTENDING PHYSICIAN: Dr. Chen PHYSICIAN CALCULUS TUTOR: Williams Reyez PA-C TECHNIQUE: Informed consent was obtained from the patient. The indications and complications were discussed with the patient prior to beginning the procedure. This included, but was not limited to pain, bleeding, infection, and pneumothorax requiring chest tube placement. Preliminary imaging demonstrates a multiloculated left pleural effusion. The left back was then prepped and draped in sterile fashion. 1% Lidocaine was used for local anesthesia. Utilizing sonographic guidance, a standard thoracentesis needle and sheath were inserted into the pleural space and [id number] mL of pleural fluid was removed prior to stoppage of flow. IMPRESSION: Ultrasound thoracentesis demonstrating a multiloculated pleural effusion. Only 50 mL of fluid was able to be aspirated. A surgical chest tube may be required for further drainage. Films reviewed , interpreted and dictated by Dr. Chen Transcribed by Williams Reyez PA-C. Reviewed, Interpreted and Dictated by Spencer Chen III, MD Transcribed by SHONNA Pierson Authenticated by Spencer Chen III, MD on 07/08/2021 12:27:28 PM [facility]
--- NOTE | 2021-07-08 10:19 | XR_ITS ---
FINAL REPORT CLINICAL HISTORY: POST THORACENTESIS COMPARISON: July 06, 2021 FINDINGS: Two views of the chest were obtained. The heart size and pulmonary vascularity are within normal limits. The mediastinum is normal. There is persistent right basilar atelectasis or pneumonia. There is a large left pleural effusion, worse from prior. There is persistent compressive atelectasis in the left lung. There is no pneumothorax. The bony thorax is intact. IMPRESSION: Large left pleural effusion, worse. No pneumothorax. Persistent right basilar atelectasis or pneumonia. Reviewed, Interpreted and Dictated by Spencer Chen III, MD Transcribed by Darian West Authenticated by Spencer Chen III, MD on 07/08/2021 11:02:10 AM [facility]
[2021-07-08 10:30] VITALS: BP 128/71; PULSE 80; RESP 18; TEMP 36.8; O2SAT 92
[2021-07-08 10:45] VITALS: BP 138/72; PULSE 85; RESP 18; O2SAT 93
[2021-07-08 11:00] VITALS: BP 134/69; PULSE 82; RESP 16; O2SAT 93
[2021-07-08 11:15] VITALS: BP 120/63; PULSE 92; RESP 16; O2SAT 94
[2021-07-08 11:30] VITALS: BP 128/77; PULSE 78; RESP 16; O2SAT 96
[2021-07-08 11:35] LABS: Source, Body Fld. Thoracentesis Fluid
[2021-07-08 11:37] LABS: Appearance,Body Fld. Cloudy; Volume,Body Fld. 50 mL
[2021-07-08 12:00] LABS: RBC,Body Fluid < 10 cells/uL (< 10 X 10^3); TNC,Body Fluid 689 cells/uL (< 1000)
[2021-07-08 13:20] LABS: Mononuclear WBCs,Body Fluid 16 %; Polynuclear WBC,Body Fluid 84 %
[2021-07-09 13:26] LABS: Albumin, Body Fluid 2.3 g/dL (Not Estab.); Glucose, Body Fluid 11 mg/dL (.); LD, Body Fluid 1390 IU/L (.); Protein, Body Fluid 4.4 g/dL (.)
[2021-07-10 16:13] LABS: pH, Body Fluid 7.3 (Not Estab.)
== END ==
PROVIDERS: Family Medicine; PCP Nurse Practitioner Family; Visit Provider Nurse Practitioner Family
DX: J90 Pleural effusion, not elsewhere classified (principal)
CPT/HCPCS: 32555; 71046; 82042; 82945; 83615; 83986; 84155; 89051

== ENCOUNTER → 2021-07-09 12:19 | Outpatient (CLI) | payer MEDICARE, SELFPAY ==
--- NOTE | 2021-07-09 13:22 | CT_ITS ---
FINAL REPORT CLINICAL HISTORY: PLEURAL EFFUSION LT SIDE pt had a thoracentesis done on 07/08/21 COMPARISON: August 11, 2020 FINDINGS: Axial CT images of the chest were obtained with contrast. Coronal reformatted images were also obtained. This study was performed with techniques to keep radiation doses as low as reasonably achievable, (ALARA). Individualized dose reduction techniques using automated exposure control or adjustment of mA and/or KV according to the patient's size were employed. There are multiple small mediastinal lymph nodes. No axillary mass or adenopathy is identified. On lung window images, there are patchy right lung ground-glass opacities worrisome for pneumonia. There is left lung atelectasis. There is a large loculated left pleural effusion with several bubbles of air in the left pleural space consistent with recent thoracentesis. There is mild pleural thickening. Limited images of the upper abdomen reveal mild anasarca. There is evidence of cholecystectomy. Postoperative changes are seen involving the stomach. There is a stable heterogeneous right adrenal nodule. IMPRESSION: New large loculated left pleural effusion with left lung atelectasis. Patchy right lung opacities consistent with pneumonia. Reviewed, Interpreted and Dictated by Spencer Chen III, MD Transcribed by Darian West Authenticated by Spencer Chen III, MD on 07/09/2021 03:32:47 PM [facility]
[2021-07-09 14:12] LABS: Blood Urea Nitrogen 11 mg/dl (7-17); Estimated Glomerular Filt Rate 124 ml/min (>60); GFR (African American) 150 ML/MIN (>60)
[2021-07-09 14:49] LABS: Alanine Aminotransferase 60 U/L (12-78); Albumin Level 2.8 g/dl (3.5-5.0); Alkaline Phosphatase 153 U/L (38-126); Anion Gap 9.6 mEq/L (5-15); Aspartate Amino Transferase 112 U/L (14-36); Bilirubin,Total 0.7 mg/dl (0.2-1.3); Blood Urea Nitrogen 11 mg/dl (7-17); Carbon Dioxide 29 mmol/L (22.0-30.0); Chloride 96 mmol/L (98-107); Creatinine Clearance Estimated 64 mL/min (50-200); Estimated Glomerular Filt Rate 124 ml/min (>60); GFR (African American) 150 ML/MIN (>60); Globulin 2.8 g/dL (1.3-3.2); Glucose 109 mg/dl (74-100); Potassium 4.6 mmoL/L (3.5-5.1); Sodium 130 mmol/L (136-145); Total Protein,Serum 5.6 g/dl (6.3-8.2)
[2021-07-09 15:03] LABS: Basophils % 0.1 % (0.1-2.0); Eosinophils % 0.2 % (0.1-12.0); Hematocrit 27.7 % (37.0-47.0); Hemoglobin 8.3 g/dL (12.2-16.2); Lymphocytes # 0.8 K/mm3 (0.7-4.5); Lymphocytes % 4.1 % (10-50); Mean Corpuscular Volume 90.1 fl (81-99); Mean Platelet Volume 8.2 fl (7.4-10.4); Monocytes # 1.1 K/mm3 (0.1-1.0); Monocytes % 5.6 % (1.7-9.3); Neutrophils # 17.7 K/mm3 (1.8-7.8); Platelet Count 651 K/mm3 (142-424); Red Blood Count 3.07 M/mm3 (4.20-5.40); Red Cell Distribution Width 15.4 % (11.5-17.5); White Blood Count 19.7 K/mm3 (4.8-10.8)
[2021-07-09 15:09] LABS: MANUAL DIFFERENTIAL MANUAL DIFFERENTIAL (MANUAL DIFF)
[2021-07-09 16:13] LABS: Lactate Dehydrogenase 239 U/L (313-618)
[2021-07-09 17:11] LABS: Hypochromasia 2+; Lymphocytes % 9 % (10-50); Monocytes % 4 % (2-9); Neutrophils % 86 % (42-76); Platelet Estimate Moderate Increase; Total Cells Counted 100
== END ==
PROVIDERS: Family Medicine; PCP Nurse Practitioner Family; Visit Provider Nurse Practitioner Family
DX: J91.8 Pleural effusion in other conditions classified elsewhere (principal)
CPT/HCPCS: 36415; 71260; 80053; 82565; 83615; 84520; 85007; 85025; Q9967

== ENCOUNTER 2021-07-09 15:18 | Inpatient (IN) | payer MEDICARE, SELFPAY ==
[2021-07-09] VITALS (8 sets, daily range): BP systolic 126–162; BP diastolic 69–96; PULSE 84–95; RESP 11–18; TEMP 36.7–36.8; O2SAT 94–98; BMI 25.4
--- NOTE | 2021-07-09 15:51 | HMH.EDGENADL ---
ED Disposition Clinical Impression: Pleural effusion, left Disposition: Admitted As Inpatient Condition on Discharge: Fair - Critical Care Critical Care Time: No Attestation: On 07/09/21, the high probability of a clinically significant, sudden or life threatening deterioration of the following system(s) required my full and direct attention, intervention and personal management. The time I documented below is in addition to time spent performing reported procedures but includes the following listed in this critical care notation. Medical Decision Making - Medical Records Medical records reviewed: Yes: I reviewed the patient's medical records. MR Comment: Reviewed recent pre and post thoracentesis chest x-rays and CT scan performed today. See results below. - Martín Inquiry Pt receiving controlled substance: No Vital Signs: 07/09/21 15:19 07/09/21 16:00 07/09/21 16:31 Temperature 98.3 F Temperature Source Oral Pulse Rate 84 Pulse Rate [Radial] 87 Respiratory Rate 18 15 14 Blood Pressure 145/83 H 134/70 Blood Pressure [Right Arm] 155/84 H Blood Pressure Mean [Right Arm] 107 Blood Pressure Source Blood Pressure Position Blood Pressure Position [Right Arm] Sitting 02 Sat by Pulse Oximetry 94 L 94 L Oxygen Delivery Method Room Air Oxygen Flow Rate (LPM) 07/09/21 17:00 07/09/21 17:32 Temperature Temperature Source Pulse Rate 85 85 Pulse Rate [Radial] Respiratory Rate 11 L Blood Pressure 138/70 137/80 Blood Pressure [Right Arm] Blood Pressure Mean [Right Arm] Blood Pressure Source Automatic Cuff Blood Pressure Position Sitting Blood Pressure Position [Right Arm] 02 Sat by Pulse Oximetry 98 97 Oxygen Delivery Method Nasal Cannula Oxygen Flow Rate (LPM) 2 - Lab Data Lab Results 07/09/21 15:30: WBC 21.0 H*, RBC 3.09 L, Hgb 8.4 L, Hct 27.5 L, MCV 89.0, MCH 27.3, MCHC 30.7 L, RDW 15.5, Plt Count 668 H, MPV 7.9, Neut % (Auto) 90.1 H, Lymph % (Auto) 4.7 L, Clayton % (Auto) 4.8, Eos % (Auto) 0.2, Baso % (Auto) 0.3, Neut # (Auto) 18.9 H, Lymph # (Auto) 1.0, Clayton # (Auto) 1.0, Eos # (Auto) 0.0, Baso # (Auto) 0.1, Total Counted 100, Neutrophils % (Manual) 90 H, Lymphocytes % (Manual) 7 L, Monocytes % (Manual) 3, Platelet Estimate Moderate increase, Hypochromasia 2+ 07/09/21 15:30: Sodium 125 L, Potassium 3.9, Chloride 94 L, Carbon Dioxide 29, Anion Gap 5.9, BUN 9, Creatinine 0.50 L, Estimated Creat Clear 64, Estimated GFR 124, Est GFR ( Amer) 150, Glucose 102 H, Calcium 7.6 L, Total Bilirubin 0.8, AST 101 H, ALT 58, Alkaline Phosphatase 161 H, Troponin I < 0.01, Total Protein 6.4, Albumin 3.0 L, Globulin 3.4 H, Albumin/Globulin Ratio 0.9 L 07/09/21 15:30: Lactate 0.8 07/09/21 16:00: SARS-CoV-2 (PCR) Not detected, Influenza A Untype (PCR) Not detected, Influenza Type B (PCR) Not detected 07/09/21 18:48: Troponin I < 0.01 Result diagrams: 07/09/21 15:30 07/09/21 15:30 Orders (Tests/Meds): ED MEDICATIONS Generic Name Dose Route Start Last Admin Trade Name Freq PRN Reason Stop Dose Admin Sodium Chloride 3 ml 07/09/21 16:03 Sodium Chloride 3% 15ml [facility] 08/08/21 16:02 ONCE PRN INDUCE SPUTUM COLLECTION ORDERS Category Date Time Status Consult to Pulmonology [CONS] Routine Cons 07/09/21 16:08 Active Troponin I Q3H Lab 07/09/21 22:00 Ordered Blood Culture Stat Micro 07/09/21 15:30 Received Sputum Culture & Gram Stain Stat Micro 07/09/21 16:03 Ordered Procedure(s): XR chest 2V Accession Number(s): [id number] cc: Prudence Cisse APRN; Spencer Chen MD~ FINAL REPORT CLINICAL HISTORY: PNEUMONIA,SOB,PRIOR COVID Lt sided chest pain and sob for 4 days Nki COMPARISON: February 03, 2021 FINDINGS: Two views of the chest were obtained. The heart size and pulmonary vascularity are within normal limits. The mediastinum is normal. There are bilateral pulmonary opacities favoring atelectasis. There is a new mod
[2021-07-09 16:00] LABS: Basophils # 0.1 K/mm3 (0-0.2); Basophils % 0.3 % (0.1-2.0); Chloride 94 mmol/L (98-107); Eosinophils % 0.2 % (0.1-12.0); Hematocrit 27.5 % (37.0-47.0); Hemoglobin 8.4 g/dL (12.2-16.2); Lymphocytes % 4.7 % (10-50); Mean Corpuscular HGB Conc 30.7 g/dL (31.8-35.4); Mean Corpuscular Hemoglobin 27.3 pg (27.0-31.2); Mean Platelet Volume 7.9 fl (7.4-10.4); Monocytes % 4.8 % (1.7-9.3); Neutrophils # 18.9 K/mm3 (1.8-7.8); Neutrophils % 90.1 % (37.0-80.0); Platelet Count 668 K/mm3 (142-424); Potassium 3.9 mmoL/L (3.5-5.1); Red Blood Count 3.09 M/mm3 (4.20-5.40); Red Cell Distribution Width 15.5 % (11.5-17.5); Sodium 125 mmol/L (136-145)
[2021-07-09 16:01] LABS: MANUAL DIFFERENTIAL MANUAL DIFFERENTIAL (MANUAL DIFF)
[2021-07-09 16:03] LABS: Alanine Aminotransferase 58 U/L (12-78); Albumin/Globulin Ratio 0.9 (1.1-1.8); Alkaline Phosphatase 161 U/L (38-126); Aspartate Amino Transferase 101 U/L (14-36); Bilirubin,Total 0.8 mg/dl (0.2-1.3); Blood Urea Nitrogen 9 mg/dl (7-17); Creatinine Clearance Estimated 64 mL/min (50-200); Estimated Glomerular Filt Rate 124 ml/min (>60); GFR (African American) 150 ML/MIN (>60); Globulin 3.4 g/dL (1.3-3.2); Total Protein,Serum 6.4 g/dl (6.3-8.2)
[2021-07-09 16:04] LABS: Calcium 7.6 mg/dl (8.4-10.2); Glucose 102 mg/dl (74-100); Lactic Acid 0.8 mmol/L (0.7-2.1)
[2021-07-09 16:19] LABS: Coronavirus 19, PCR Not Detected (NotDetected); Influenza A, PCR Not Detected (NotDetected); Influenza B, PCR Not Detected (NotDetected)
[2021-07-09 16:25] LABS: Troponin I < 0.01 ng/ml (0.00-0.034)
[2021-07-09 16:28] LABS: Hypochromasia 2+; Lymphocytes % 7 % (10-50); Monocytes % 3 % (2-9); Neutrophils % 90 % (42-76); Platelet Estimate Moderate Increase; Total Cells Counted 100
[2021-07-09 16:43] LABS: Anion Gap 5.9 mEq/L (5-15); Carbon Dioxide 29 mmol/L (22.0-30.0)
--- NOTE | 2021-07-09 18:17 | ECG_ITS ---
APPROVED REPORT Exam: Resting ECG HR:83 bpm ECG Measurements Heart Rate 83 AXES NJ 147 P 25 QRSd 87 QRS 34 QT 353 T 36 QTc 393 Conclusion SINUS RHYTHM NORMAL ECG UNCONFIRMED REPORT Electronically signed by : Juan Jose Parrish MD 07/09/2021 18:58:05
[2021-07-09 19:37] LABS: Troponin I < 0.01 ng/ml (0.00-0.034)
--- NOTE | 2021-07-09 20:05 | PC.NURSE ---
ER informed that we have no bed availability. Patient will board in ED and be managed by ED staff until bed becomes available.
[2021-07-09 22:57] LABS: Troponin I < 0.01 ng/ml (0.00-0.034)
[2021-07-10] VITALS (10 sets, daily range): BP systolic 94–144; BP diastolic 61–83; PULSE 77–111; RESP 18–21; TEMP 36.5–38.3; O2SAT 90–99; BMI 25.5; BMI 25.4
--- NOTE | 2021-07-10 05:55 | PC.NURSE ---
Pt has remained on 3L NC with o2 sats >90%. Pt has voiced no c/o of pain thus far in shift. Since arriving to her room patient has slept well. Pt is able to make needs known to staff.
[2021-07-10 06:30] LABS: Basophils % 0.2 % (0.1-2.0); Eosinophils # 0.1 K/mm3 (0.0-0.4); Eosinophils % 0.5 % (0.1-12.0); Hematocrit 26.3 % (37.0-47.0); Hemoglobin 8.1 g/dL (12.2-16.2); Lymphocytes # 1.2 K/mm3 (0.7-4.5); Lymphocytes % 5.9 % (10-50); Mean Corpuscular HGB Conc 30.8 g/dL (31.8-35.4); Mean Corpuscular Hemoglobin 27.6 pg (27.0-31.2); Mean Corpuscular Volume 89.8 fl (81-99); Monocytes # 1.4 K/mm3 (0.1-1.0); Neutrophils # 17.1 K/mm3 (1.8-7.8); Neutrophils % 86.4 % (37.0-80.0); Platelet Count 602 K/mm3 (142-424); Red Blood Count 2.93 M/mm3 (4.20-5.40); Red Cell Distribution Width 15.5 % (11.5-17.5); White Blood Count 19.8 K/mm3 (4.8-10.8)
[2021-07-10 06:33] LABS: MANUAL DIFFERENTIAL MANUAL DIFFERENTIAL (MANUAL DIFF)
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
[2021-07-10 08:56] LABS: Lymphocytes % 7 % (10-50); Monocytes % 9 % (2-9); Neutrophils % 84 % (42-76); Total Cells Counted 100
[2021-07-10 08:57] LABS: Hypochromasia 1+; Platelet Estimate Moderate Increase
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
--- NOTE | 2021-07-10 11:00 | HMH.PHAVTE ---
[facility] Pharmacy VTE Monitoring - Patient Demographics Admission date: 07/09/21 Report Date: 07/10/21 Time: 11:00 Allergies/Adverse Reactions: Patient Allergies aspirin [ASPIRIN] Allergy (Unknown, Verified 06/11/21 09:42) GASTRIC ULCERS duloxetine [From CYMBALTA] Allergy (Unknown, Verified 06/11/21 09:42) NA-NAUSEA/VOMITING NSAIDS (Non-Steroidal Anti-Inflamma [NSAIDS (NON-STEROIDAL ANTI-INFLAMMA] Allergy (Unknown, Verified 06/11/21 09:42) RASH/DIFFICULTY BREATHING pregabalin [From LYRICA] Allergy (Unknown, Verified 06/11/21 09:42) NA-NAUSEA/VOMITING Sulfa (Sulfonamide Antibiotics) [SULFA (SULFONAMIDE ANTIBIOTICS)] Allergy (Unknown, Verified 06/11/21 09:42) RASH/DIFFICULTY BREATHING LUIGI INHIBITORS Allergy (Unknown, Uncoded 05/17/17 14:01) COUGHING STEROIDS Allergy (Unknown, Uncoded 05/17/17 14:01) GASTRIC ULCERS Height: 1.68 m Weight: 72.121 kg Patient Problems: Current Active Problems Pleural effusion, left (Acute) - VTE Risk Labs: VTE Related Lab Results Hgb 8.1 g/dL (12.2-16.2) L 07/10/21 05:17 Hct 26.3 % (37.0-47.0) L 07/10/21 05:17 Plt Count 602 K/mm3 (142-424) H 07/10/21 05:17 BUN 9 mg/dl (7-17) 07/09/21 15:30 Creatinine 0.50 mg/dl (0.52-1.04) L 07/09/21 15:30 Estimated Creat Clear 64 mL/min (50-200) 07/09/21 15:30 VTE Score: 3 VTE Risk Level: Low Risk - Prophylaxis VTE Prophylaxis Ordered?: Yes Types of VTE Prophylaxis: TEDS Knee High Location of Applied Device: Bilateral Lower Extremeties
--- NOTE | 2021-07-10 11:08 | HMH.PHAINT ---
MEDICATION RECONCILIATION COMPLETED ON PATIENT USING EXTERNAL FILL HISTORY FROM PHARMACY. -RENA GONZALES, JERRID
--- NOTE | 2021-07-10 13:21 | XR_ITS ---
FINAL REPORT CLINICAL HISTORY: chest tube placement COMPARISON: July 08, 2021 FINDINGS: There has been interval placement of a left-sided chest tube without significant change in the large loculated left pleural effusion. The chest tube tip terminates in the mid thorax. There is presumed loculated air in the lateral left pleural space. The heart size is normal. The mediastinum is normal. There is compressive atelectasis in the left lung. There is probably a very small left apical pneumothorax. IMPRESSION: Chest tube in place without significant change in a large left pleural effusion. Reviewed, Interpreted and Dictated by Spencer Chen III, MD Transcribed by Darian West Authenticated by Spencer Chen III, MD on 07/10/2021 02:06:51 PM [facility]
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
--- NOTE | 2021-07-10 13:34 | HMH.OPNOTE ---
Date of procedure: 07/10/21 Pre-op Diagnosis:: Left sided effusion/empyema Post-op Diagnosis:: Same Procedure performed:: Placement of 24 Somal[place] left thoracostomy tube Surgeon:: Spencer Saini MD Anesthesia: local Estimated blood loss (mL): 15 Operative findings:: Consistent with loculated empyema Operative note:: Consent was obtained. Timeout was performed. Patient was positioned in supine position with left side somewhat elevated. Left chest was prepped and draped in the standard surgical fashion. In the mid axillary line local anesthetic was infiltrated initially superficially and then deeply to the periosteum of the ribs and intercostals. Incision was made. Blunt dissection was carried down to the intercostal space. Superiorly over the rib the intercostal space was entered. 24 Somal[place] thoracostomy tube was inserted into the pleural space. There was some return of some serous fluid. Chest tube was secured with a couple of 0 silk sutures. Antibiotic dressing and clean dry sterile dressing was applied. Patient tolerated procedure with no immediate complications. Condition: stable Disposition: no change Complications:: None immediately apparent
[2021-07-10 15:42] LABS: Appearance,Body Fld. Cloudy; Source, Body Fld. Thoracentesis Fluid
[2021-07-10 15:45] LABS: Volume,Body Fld. 20 mL
[2021-07-10 16:29] LABS: RBC,Body Fluid < 10 cells/uL (< 10 X 10^3); TNC,Body Fluid 1633 cells/uL (< 1000)
[2021-07-10 17:43] LABS: Mononuclear WBCs,Body Fluid 25 %; Polynuclear WBC,Body Fluid 75 %
[2021-07-11 03:55] VITALS: BP 101/65; PULSE 85; RESP 17; TEMP 36.8; O2SAT 95
[2021-07-11 03:59] VITALS: BMI 25.6
--- NOTE | 2021-07-11 04:20 | PC.NURSE ---
Patient has remained on 3LNC this shift and has maintained her O2 above 90%. Patient had a temperature of 100.9 around 2230 and was treated with Tylenol per JUL. Patient's chest tube dressing was reinforced with tape. Patient has voiced pain once this RN's shift. Patient is noted to have SS fluid draining from her chest tube.
[2021-07-11 06:30] LABS: Basophils # 0.1 K/mm3 (0-0.2); Basophils % 0.2 % (0.1-2.0); Eosinophils % 0.1 % (0.1-12.0); Hemoglobin 7.8 g/dL (12.2-16.2); Lymphocytes % 3.4 % (10-50); Mean Corpuscular HGB Conc 30.3 g/dL (31.8-35.4); Mean Corpuscular Hemoglobin 27.4 pg (27.0-31.2); Mean Corpuscular Volume 90.5 fl (81-99); Mean Platelet Volume 7.6 fl (7.4-10.4); Monocytes # 1.6 K/mm3 (0.1-1.0); Monocytes % 5.5 % (1.7-9.3); Neutrophils # 26.3 K/mm3 (1.8-7.8); Neutrophils % 90.9 % (37.0-80.0); Red Blood Count 2.86 M/mm3 (4.20-5.40); Red Cell Distribution Width 15.6 % (11.5-17.5)
[2021-07-11 06:36] LABS: Hematocrit 25.9 % (37.0-47.0); Platelet Count 679 K/mm3 (142-424); White Blood Count 28.9 K/mm3 (4.8-10.8)
[2021-07-11 06:37] LABS: MANUAL DIFFERENTIAL MANUAL DIFFERENTIAL (MANUAL DIFF)
[2021-07-11 07:04] LABS: Lymphocytes % 6 % (10-50); Neutrophils % 87 % (42-76); Total Cells Counted 100
[2021-07-11 07:05] LABS: Hypochromasia 2+; Platelet Estimate Moderate Increase; Poikilocytosis 2+
[2021-07-11 08:00] VITALS: BP 96/57; PULSE 95; RESP 20; TEMP 36.9; O2SAT 95
--- NOTE | 2021-07-11 08:08 | XR_ITS ---
PROCEDURE INFORMATION: Exam: XR Chest Exam date and time: 07/11/2021 8:08 AM Age: 66 years old Clinical indication: Shortness of breath; Additional info: Chest tube, pleural effusion TECHNIQUE: Imaging protocol: XR of the chest. Views: 1 view. COMPARISON: CR XR CHEST PORTABLE 07/10/2021 1:32 PM FINDINGS: Tubes, catheters and devices: Left chest tube is in place. Lungs: Patchy opacities in the left lung. Pleural spaces: Decreased size of the left pleural effusion. There is a trace left pneumothorax. Heart/Mediastinum: Unremarkable. No cardiomegaly. Bones/joints: Unremarkable. Organs: Cholecystectomy clips. IMPRESSION: 1. Decreased size of the left pleural effusion with a trace left pneumothorax. 2. Patchy opacities in the left lung may reflect atelectasis and/or re-expansion edema.
--- NOTE | 2021-07-11 08:09 | HMH.ACPN2 ---
Internal Medicine - PN: Subj *Date: 07/11/21 *Time: 08:09 Interval history: No problems overnight after insertion of chest tube yesterday for patient's parapneumonic effusion.. Patient did have a low-grade fever to 100.8. Pain has been controlled. Exam Vital signs and Labs for Last 24 Hours: Temp Pulse Resp BP Pulse Ox 98.3 F 85 17 101/65 L 95 07/11/21 03:55 07/11/21 03:55 07/11/21 03:55 07/11/21 03:55 07/11/21 03:55 Laboratory Results - last 24 hr 07/10/21 05:17: Total Counted 100, Neutrophils % (Manual) 84 H, Lymphocytes % (Manual) 7 L, Monocytes % (Manual) 9, Platelet Estimate Moderate increase, Hypochromasia 1+ 07/10/21 14:30: Fluid Source Thoracentesis fluid, Fluid Volume 20, Fluid Appearance Cloudy, Fluid RBC (Auto) < 10, Fld Tot Nucleated Cell 1633, Fld Polynuclear WBCs % 75, Fld Mononuclear WBCs % 25 07/11/21 06:02: WBC 28.9 H* D, RBC 2.86 L, Hgb 7.8 L, Hct 25.9 L, MCV 90.5, MCH 27.4, MCHC 30.3 L, RDW 15.6, Plt Count 679 H, MPV 7.6, Neut % (Auto) 90.9 H, Lymph % (Auto) 3.4 L, [place] % (Auto) 5.5, Eos % (Auto) 0.1, Baso % (Auto) 0.2, Neut # (Auto) 26.3 H, Lymph # (Auto) 1.0, [place] # (Auto) 1.6 H, Eos # (Auto) 0.0, Baso # (Auto) 0.1, Total Counted 100, Neutrophils % (Manual) 87 H, Band Neutrophils % 7.0, Lymphocytes % (Manual) 6 L, Platelet Estimate Moderate increase, Hypochromasia 2+, Poikilocytosis 2+ I & O for Last 24 hours: Intake & Output 07/08/21 07/09/21 07/10/21 07/11/21 11:59 11:59 11:59 11:59 Intake Total 340 / 340 1380 / 1380 Output Total 570 / 570 Balance 340 / 340 810 / 810 Weight 159 lb 159 lb 7 oz Microbiology Reports for the Last 24 Hours: Microbiology 07/10/21 14:30 Thoracic Fluid Gram Stain - Final Narrative: Patient is comfortable. Breath sounds remain distant in the left lung although there is some improved aeration superiorly. Heart has a regular rate and rhythm. Abdomen is soft Assessment and Plan (1) Parapneumonic effusion Status: Acute Category: Medical Code(s): J18.9 - Pneumonia, unspecified organism; J91.8 - Pleural effusion in other conditions classified elsewhere (2) Empyema of left pleural space Status: Suspected Category: Medical Code(s): J86.9 - Pyothorax without fistula (3) Pleural effusion, left Status: Acute Category: Medical Code(s): J90 - Pleural effusion, not elsewhere classified - Assessment and plan all Dx Assessment and Plan for all problems:: 1. Continue Unasyn for parapneumonic effusion with chest tube drainage with administration of dornase and alteplase every 12 as instructed by pulmonology service.
[2021-07-11 12:00] VITALS: BP 110/67; PULSE 95; RESP 18; TEMP 37.2; O2SAT 93
--- NOTE | 2021-07-11 12:29 | PC.NURSE ---
Pt c/o heart burn, states protonix doesnt work . Pt requests her home medication of Prilosec 40 mg BID. MD Rea gave OK to reorder home med, spoke to Edilia Andre about us not carrying prilosec. Pt will make a phone call to family member to see if her home prilosec can be dropped off and packaged by pharmacy.
[2021-07-11 15:39] VITALS: BP 105/56; PULSE 95; RESP 18; TEMP 37.6; O2SAT 97
[2021-07-11 19:42] VITALS: BP 106/63; PULSE 96; RESP 16; TEMP 37.1; O2SAT 92
[2021-07-11 20:00] VITALS: O2SAT 92
[2021-07-12] VITALS (7 sets, daily range): BP systolic 97–139; BP diastolic 50–72; PULSE 81–100; RESP 16–18; TEMP 36.6–37; O2SAT 2–97; BMI 25.4
--- NOTE | 2021-07-12 03:48 | ECG_ITS ---
APPROVED REPORT Exam: Resting ECG HR:94 bpm ECG Measurements Heart Rate 94 AXES GA 138 P 42 QRSd 87 QRS 49 QT 324 T 61 QTc 375 Conclusion SINUS RHYTHM WITH OCCASIONAL SUPRAVENTRICULAR PREMATURE COMPLEXES BORDERLINE ECG UNCONFIRMED REPORT Electronically signed by : Juan Jose Parrish MD 07/15/2021 21:12:35
--- NOTE | 2021-07-12 04:55 | PC.NURSE ---
Patient at 0340 had complaints of left side/shoulder blade pain and was diaphoretic. EKG was obtained and ED MD read. Patient's vital signs where WNL (see vitals). MD recreation facility attendant notified. Patient has not slept much this RN's shift.
--- NOTE | 2021-07-12 06:00 | XR_ITS ---
PROCEDURE INFORMATION: Exam: XR Chest Exam date and time: 07/12/2021 6:00 AM Age: 66 years old Clinical indication: Device placement; Chest tube; Additional info: Chest tube, pleural effusion TECHNIQUE: Imaging protocol: XR of the chest. Views: 1 view. COMPARISON: CR XR CHEST PORTABLE 07/11/2021 8:43 AM FINDINGS: Tubes, catheters and devices: A left-sided pleural tube is present. Lungs: Some left basilar atelectasis is noted. Pleural spaces: A very tiny left pneumothorax is noted. Heart/Mediastinum: Unremarkable. No cardiomegaly. Bones/joints: Unremarkable. IMPRESSION: Minimal left atelectasis. Tiny left pneumothorax noted.
[2021-07-12 06:27] LABS: Basophils # 0.2 K/mm3 (0-0.2); Basophils % 0.5 % (0.1-2.0); Eosinophils # 0.2 K/mm3 (0.0-0.4); Eosinophils % 0.7 % (0.1-12.0); Hemoglobin 8.4 g/dL (12.2-16.2); Lymphocytes # 1.6 K/mm3 (0.7-4.5); Lymphocytes % 5.3 % (10-50); Mean Corpuscular HGB Conc 29.4 g/dL (31.8-35.4); Mean Corpuscular Hemoglobin 26.7 pg (27.0-31.2); Monocytes # 1.2 K/mm3 (0.1-1.0); Neutrophils # 26.2 K/mm3 (1.8-7.8); Neutrophils % 89.4 % (37.0-80.0); Red Blood Count 3.14 M/mm3 (4.20-5.40); Red Cell Distribution Width 15.8 % (11.5-17.5)
[2021-07-12 06:34] LABS: Chloride 96 mmol/L (98-107); Sodium 126 mmol/L (136-145)
[2021-07-12 06:35] LABS: Potassium 4.5 mmoL/L (3.5-5.1)
[2021-07-12 06:37] LABS: Alanine Aminotransferase 28 U/L (12-78); Albumin Level 2.2 g/dl (3.5-5.0); Albumin/Globulin Ratio 0.7 (1.1-1.8); Alkaline Phosphatase 157 U/L (38-126); Anion Gap 4.5 mEq/L (5-15); Aspartate Amino Transferase 36 U/L (14-36); Bilirubin,Total 0.4 mg/dl (0.2-1.3); Blood Urea Nitrogen 12 mg/dl (7-17); Carbon Dioxide 30 mmol/L (22.0-30.0); Creatinine Clearance Estimated 64 mL/min (50-200); Estimated Glomerular Filt Rate 124 ml/min (>60); GFR (African American) 150 ML/MIN (>60); Hematocrit 28.5 % (37.0-47.0); Platelet Count 736 K/mm3 (142-424); Total Protein,Serum 5.2 g/dl (6.3-8.2); White Blood Count 29.3 K/mm3 (4.8-10.8)
[2021-07-12 06:38] LABS: Calcium 6.6 mg/dl (8.4-10.2); Glucose 98 mg/dl (74-100); MANUAL DIFFERENTIAL MANUAL DIFFERENTIAL (MANUAL DIFF)
[2021-07-12 06:48] LABS: Eosinophils % 2 % (0-3); Hypochromasia 2+; Lymphocytes % 7 % (10-50); Monocytes % 3 % (2-9); Neutrophils % 78 % (42-76); Platelet Estimate Marked Increase; Poikilocytosis 1+; Total Cells Counted 100
--- NOTE | 2021-07-12 07:40 | P.PN_ITS ---
Internal Medicine - PN: Subj *Date: 07/12/21 *Time: 07:40 Interval history: Patient reports feeling better regarding dyspnea. Pain has been difficult to control. Pain is in the left upper chest and clavicle region. Exam Vital signs and Labs for Last 24 Hours: Temp Pulse Resp BP Pulse Ox 98.3 F 95 H 17 103/63 L 91 L 07/12/21 03:40 07/12/21 03:40 07/12/21 03:40 07/12/21 03:40 07/12/21 03:40 Laboratory Results - last 24 hr 07/12/21 06:08: WBC 29.3 H*, RBC 3.14 L, Hgb 8.4 L, Hct 28.5 L, MCV 91.0, MCH 26.7 L, MCHC 29.4 L, RDW 15.8, Plt Count 736 H, MPV 8.0, Neut % (Auto) 89.4 H, Lymph % (Auto) 5.3 L, [place] % (Auto) 4.0, Eos % (Auto) 0.7, Baso % (Auto) 0.5, Neut # (Auto) 26.2 H, Lymph # (Auto) 1.6, [place] # (Auto) 1.2 H, Eos # (Auto) 0.2, Baso # (Auto) 0.2, Total Counted 100, Neutrophils % (Manual) 78 H, Band Neutrophils % 10.0 H, Lymphocytes % (Manual) 7 L, Monocytes % (Manual) 3, Eosinophils % (Manual) 2, Platelet Estimate Marked increase, Hypochromasia 2+, Poikilocytosis 1+ 07/12/21 06:08: Sodium 126 L, Potassium 4.5, Chloride 96 L, Carbon Dioxide 30, Anion Gap 4.5 L, BUN 12 D, Creatinine 0.50 L, Estimated Creat Clear 64, Estimated GFR 124, Est GFR ( Amer) 150, Glucose 98, Calcium 6.6 L, Total Bilirubin 0.4, AST 36 D, ALT 28 D, Alkaline Phosphatase 157 H, Total Protein 5.2 L, Albumin 2.2 L, Globulin 3.0, Albumin/Globulin Ratio 0.7 L I & O for Last 24 hours: Intake & Output 07/09/21 07/10/21 07/11/21 07/12/21 11:59 11:59 11:59 11:59 Intake Total 340 / 340 1860 / 1860 680 / 680 Output Total 570 / 570 790 / 790 Balance 340 / 340 1290 / 1290 -110 / -110 Weight 159 lb 159 lb 7 oz 158 lb 6.4 oz Microbiology Reports for the Last 24 Hours: Microbiology 07/11/21 14:00 Sputum - Expectorated Sputum Gram Stain - Final 07/09/21 15:30 Blood Blood Culture - Preliminary NO GROWTH AFTER 48 HOURS 07/09/21 15:30 Blood Blood Culture - Preliminary NO GROWTH AFTER 48 HOURS 07/10/21 14:30 Thoracic Fluid Gram Stain - Final 07/10/21 14:30 Thoracic Fluid Body Fluid Culture - Preliminary NO GROWTH AFTER 24 HOURS Narrative: Patient looks comfortable. Lungs have improved aeration on the left. Chest tube is intact. Heart has a regular rate and rhythm. Chest wall has no crepitus. Patient reports pain with palpation. Abdomen is soft. Lower extremities have no edema. White blood cell count remains elevated at 29,000 Assessment and Plan (1) Parapneumonic effusion Status: Acute Category: Medical Code(s): J18.9 - Pneumonia, unspecified organism; J91.8 - Pleural effusion in other conditions classified elsewhere (2) Empyema of left pleural space Status: Suspected Category: Medical Code(s): J86.9 - Pyothorax without fistula (3) Pleural effusion, left Status: Acute Category: Medical Code(s): J90 - Pleural effusion, not elsewhere classified - Assessment and plan all Dx Assessment and Plan for all problems:: 1. Vancomycin will be added to patient's antibiotic regimen due to extreme leukocytosis 2. Clinically and radiographically patient is improving. Blood cultures are negative but fluid Gram stain is growing a gram-positive cocci 3. Increase [place] to 10 mg every 6 as needed for pain and Toradol 15 mg IV as needed chest pain that has also been ordered
--- NOTE | 2021-07-12 08:11 | HMH.PHACONS ---
- Pharmacy Consult Date: 07/12/21 Time: 08:11 Referring provider: DR. TORRE Reason for Consult:: VANCOMYCIN DOSING Allergies and ADEs:: Allergies Allergy/AdvReac Type Severity Reaction Status Date / Time aspirin [ASPIRIN] Allergy Unknown GASTRIC Verified 06/11/21 09:42 ULCERS duloxetine [From CYMBALTA] Allergy Unknown NA-NAUSEA/V Verified 06/11/21 09:42 OMITING NSAIDS (Non-Steroidal Allergy Unknown RASH/DIFFICULTY Verified 06/11/21 09:42 Anti-Inflamma BREATHING [NSAIDS (NON-STEROIDAL ANTI-INFLAMMA] pregabalin [From LYRICA] Allergy Unknown NA-NAUSEA/V Verified 06/11/21 09:42 OMITING Sulfa (Sulfonamide Allergy Unknown RASH/DIFFICULTY Verified 06/11/21 09:42 Antibiotics) BREATHING [SULFA (SULFONAMIDE ANTIBIOTICS)] LUIGI INHIBITORS Allergy Unknown COUGHING Uncoded 05/17/17 14:01 STEROIDS Allergy Unknown GASTRIC Uncoded 05/17/17 14:01 ULCERS Home Medications:: Home Medications Medication Instructions Recorded Confirmed Type Atorvastatin Calcium [Lipitor 10mg 10 mg PO HS 03/28/20 07/09/21 History Tab] Loratadine [Claritin] 10 mg PO DAILY 03/28/20 07/09/21 History Metoprolol Tartrate [Lopressor 12.5 mg PO BID 03/28/20 07/09/21 History 25mg tablet] Montelukast Sodium [Singulair] 10 mg PO PM 03/28/20 07/10/21 History Omeprazole Magnesium [Prilosec Otc 40 mg PO BID 03/28/20 07/09/21 History 20mg Tab] Sertraline HCl [Zoloft] 150 mg PO DAILY 03/28/20 07/10/21 History Ropinirole HCl [Requip 0.25mg 0.25 mg PO HS 04/11/20 07/09/21 History Tablet] Gabapentin 800 mg PO QID 04/20/21 07/09/21 History Buspirone HCl [Buspirone 15 mg 15 mg PO BID 07/10/21 07/10/21 History Tablets] levoFLOXacin [Levaquin 500mg 500 mg PO DAILY 07/10/21 07/10/21 History tab] Height: 1.68 m Weight: 71.849 kg Laboratory Results:: Laboratory Results - last 24 hr 07/12/21 06:08: WBC 29.3 H*, RBC 3.14 L, Hgb 8.4 L, Hct 28.5 L, MCV 91.0, MCH 26.7 L, MCHC 29.4 L, RDW 15.8, Plt Count 736 H, MPV 8.0, Neut % (Auto) 89.4 H, Lymph % (Auto) 5.3 L, [place] % (Auto) 4.0, Eos % (Auto) 0.7, Baso % (Auto) 0.5, Neut # (Auto) 26.2 H, Lymph # (Auto) 1.6, [place] # (Auto) 1.2 H, Eos # (Auto) 0.2, Baso # (Auto) 0.2, Total Counted 100, Neutrophils % (Manual) 78 H, Band Neutrophils % 10.0 H, Lymphocytes % (Manual) 7 L, Monocytes % (Manual) 3, Eosinophils % (Manual) 2, Platelet Estimate Marked increase, Hypochromasia 2+, Poikilocytosis 1+ 07/12/21 06:08: Sodium 126 L, Potassium 4.5, Chloride 96 L, Carbon Dioxide 30, Anion Gap 4.5 L, BUN 12 D, Creatinine 0.50 L, Estimated Creat Clear 64, Estimated GFR 124, Est GFR ( Amer) 150, Glucose 98, Calcium 6.6 L, Total Bilirubin 0.4, AST 36 D, ALT 28 D, Alkaline Phosphatase 157 H, Total Protein 5.2 L, Albumin 2.2 L, Globulin 3.0, Albumin/Globulin Ratio 0.7 L Medical History: Reports:: Hyperlipidemia, Hypertension, Seizures, Transient Ischemic Attacks (TIA) Denies:: Cancer, Diabetes Mellitus Type 1, Diabetes Mellitus Type 2, Internal Pacemaker, MRSA Assessment and Plan (1) Parapneumonic effusion Status: Acute Category: Medical Code(s): J18.9 - Pneumonia, unspecified organism; J91.8 - Pleural effusion in other conditions classified elsewhere (2) Empyema of left pleural space Status: Suspected Category: Medical Code(s): J86.9 - Pyothorax without fistula (3) Pleural effusion, left Status: Acute Category: Medical Code(s): J90 - Pleural effusion, not elsewhere classified - Assessment and plan all Dx Assessment and Plan for all problems:: Age: 66 yo Serum creatinine: 1 mg/dL Height: 66.1 Inches Weight (kg): 71.8 Assessment: IBW (kg): 59.53 Dosing wt(kg): 71.8 Estimated Creatinine clearance (ml/min): 53.4 CRCL method: Cockcroft and Gault using ibw(default). Drug selected: Vancomycin Loading dose (mg): 0 Vd (liters): 50.3 (factor used: 0.7 L/kg) Emil (hr-1): 0.049 Half life (hrs)
--- NOTE | 2021-07-12 09:24 | HMH.GSPN ---
Subjective Narrative: Patient without significant complaints other than some left sided chest pain. Progress Note: A&P (1) Parapneumonic effusion Status: Acute (2) Empyema of left pleural space Status: Suspected (3) Pleural effusion, left Status: Acute Assessment and Plan for All Diagnoses:: She has shown clinical improvement clinically as well as radiographically. She does have a significant leukocytosis. Vancomycin has been started today. Agree with Toradol for chest pain Exam Vital signs and Labs for Last 24 Hours: Temp Pulse Resp BP Pulse Ox 98.5 F 100 H 16 139/72 94 L 07/12/21 07:37 07/12/21 07:37 07/12/21 07:37 07/12/21 07:37 07/12/21 07:37 Laboratory Results - last 24 hr 07/12/21 06:08: WBC 29.3 H*, RBC 3.14 L, Hgb 8.4 L, Hct 28.5 L, MCV 91.0, MCH 26.7 L, MCHC 29.4 L, RDW 15.8, Plt Count 736 H, MPV 8.0, Neut % (Auto) 89.4 H, Lymph % (Auto) 5.3 L, [place] % (Auto) 4.0, Eos % (Auto) 0.7, Baso % (Auto) 0.5, Neut # (Auto) 26.2 H, Lymph # (Auto) 1.6, [place] # (Auto) 1.2 H, Eos # (Auto) 0.2, Baso # (Auto) 0.2, Total Counted 100, Neutrophils % (Manual) 78 H, Band Neutrophils % 10.0 H, Lymphocytes % (Manual) 7 L, Monocytes % (Manual) 3, Eosinophils % (Manual) 2, Platelet Estimate Marked increase, Hypochromasia 2+, Poikilocytosis 1+ 07/12/21 06:08: Sodium 126 L, Potassium 4.5, Chloride 96 L, Carbon Dioxide 30, Anion Gap 4.5 L, BUN 12 D, Creatinine 0.50 L, Estimated Creat Clear 64, Estimated GFR 124, Est GFR ( Amer) 150, Glucose 98, Calcium 6.6 L, Total Bilirubin 0.4, AST 36 D, ALT 28 D, Alkaline Phosphatase 157 H, Total Protein 5.2 L, Albumin 2.2 L, Globulin 3.0, Albumin/Globulin Ratio 0.7 L I & O for Last 24 hours: Intake & Output 07/09/21 07/10/21 07/11/21 07/12/21 11:59 11:59 11:59 11:59 Intake Total 340 / 340 1860 / 1860 1040 / 1040 Output Total 570 / 570 790 / 790 Balance 340 / 340 1290 / 1290 250 / 250 Weight 159 lb 159 lb 7 oz 158 lb 6.4 oz Microbiology Reports for the Last 24 Hours: Microbiology 07/11/21 14:00 Sputum - Expectorated Sputum Gram Stain - Final 07/09/21 15:30 Blood Blood Culture - Preliminary NO GROWTH AFTER 48 HOURS 07/09/21 15:30 Blood Blood Culture - Preliminary NO GROWTH AFTER 48 HOURS 07/10/21 14:30 Thoracic Fluid Gram Stain - Final 07/10/21 14:30 Thoracic Fluid Body Fluid Culture - Preliminary NO GROWTH AFTER 24 HOURS - Constitutional no acute distress - Routine Chest/Breast/Axilla Exam Comments: No crepitance.
[2021-07-12 11:29] LABS: Glucose, Body Fluid 4 mg/dL (.); LD, Body Fluid 2624 IU/L (.); Protein, Body Fluid 4.5 g/dL (.)
--- NOTE | 2021-07-12 18:31 | PC.NURSE ---
Addendum entered by Prema Harrison RN 07/12/21 18:58: Patient has had significant drainage from chest tube with multiple clots after administration of cathflow and dornase jordin. VS stable and patient remained on 2LNC with no complaints. Pain medication given once in AM and no other complaints of pain reported after. Output from chest tube noted on astrium and measured to be 60 before and 530 ouput after cathflow and dornase administratio. Original Note: Patient has had significant drainage from chest tube with multiple clots after administration of cathflow and dornase jordin. VS stable and patient remained on 2LNC with no complaints. Pain medication given once in AM and no other complaints of pain reported after. Output from chest tube noted on astrium and measured to be
[2021-07-13] VITALS (7 sets, daily range): BP systolic 92–113; BP diastolic 53–70; PULSE 71–87; RESP 16–18; TEMP 36.3–37.1; O2SAT 92–98; BMI 26.0
--- NOTE | 2021-07-13 06:00 | XR_ITS ---
PROCEDURE INFORMATION: Exam: XR Chest Exam date and time: 07/13/2021 6:00 AM Age: 66 years old Clinical indication: Device placement; Chest tube; Additional info: Chest tube, pleural effusion TECHNIQUE: Imaging protocol: XR of the chest. Views: 1 view. COMPARISON: CR XR CHEST PORTABLE 07/12/2021 5:33 AM FINDINGS: Tubes, catheters and devices: Left-sided pleural tube is present. Lungs: Some patchy left-sided airspace disease is noted. Pleural spaces: Left-sided pleural effusion is unchanged. Heart/Mediastinum: Unremarkable. No cardiomegaly. Bones/joints: Unremarkable. IMPRESSION: Stable exam.
[2021-07-13 06:12] LABS: Basophils # 0.1 K/mm3 (0-0.2); Eosinophils # 0.3 K/mm3 (0.0-0.4); Mean Corpuscular Hemoglobin 26.8 pg (27.0-31.2); Mean Corpuscular Volume 90.4 fl (81-99); Monocytes # 1.2 K/mm3 (0.1-1.0)
[2021-07-13 06:27] LABS: Basophils % 0.6 % (0.1-2.0); Eosinophils % 1.6 % (0.1-12.0); Lymphocytes # 1.2 K/mm3 (0.7-4.5); Lymphocytes % 6.2 % (10-50); Mean Corpuscular HGB Conc 29.7 g/dL (31.8-35.4); Mean Platelet Volume 7.8 fl (7.4-10.4); Monocytes % 5.9 % (1.7-9.3); Neutrophils # 17.1 K/mm3 (1.8-7.8); Neutrophils % 85.7 % (37.0-80.0); Red Blood Count 2.76 M/mm3 (4.20-5.40); Red Cell Distribution Width 15.9 % (11.5-17.5)
[2021-07-13 06:28] LABS: Hemoglobin 7.4 g/dL (12.2-16.2); Platelet Count 712 K/mm3 (142-424)
[2021-07-13 06:30] LABS: MANUAL DIFFERENTIAL MANUAL DIFFERENTIAL (MANUAL DIFF)
--- NOTE | 2021-07-13 07:39 | HMH.ACPN2 ---
Internal Medicine - PN: Subj *Date: 07/13/21 *Time: 07:39 Interval history: Patient reports feeling significantly better. No acute events overnight Exam Vital signs and Labs for Last 24 Hours: Temp Pulse Resp BP Pulse Ox 97.4 F L 80 17 110/60 98 07/13/21 04:00 07/13/21 04:00 07/13/21 04:00 07/13/21 04:00 07/13/21 04:00 Laboratory Results - last 24 hr 07/10/21 14:30: Fluid Glucose 4, Fluid Total Protein 4.5, Fluid LDH 2624 07/13/21 05:19: WBC 20.0 H D, RBC 2.76 L, Hgb 7.4 L D, Hct 25.0 L, MCV 90.4, MCH 26.8 L, MCHC 29.7 L, RDW 15.9, Plt Count 712 H, MPV 7.8, Neut % (Auto) 85.7 H, Lymph % (Auto) 6.2 L, [place] % (Auto) 5.9, Eos % (Auto) 1.6, Baso % (Auto) 0.6, Neut # (Auto) 17.1 H, Lymph # (Auto) 1.2, [place] # (Auto) 1.2 H, Eos # (Auto) 0.3, Baso # (Auto) 0.1 I & O for Last 24 hours: Intake & Output 07/10/21 07/11/21 07/12/21 07/13/21 11:59 11:59 11:59 11:59 Intake Total 340 / 340 1860 / 1860 1040 / 1040 840 / 840 Output Total 570 / 570 790 / 790 360 / 360 Balance 340 / 340 1290 / 1290 250 / 250 480 / 480 Weight 159 lb 159 lb 7 oz 158 lb 6.4 oz 162 lb Microbiology Reports for the Last 24 Hours: Microbiology 07/10/21 14:30 Thoracic Fluid Gram Stain - Final 07/10/21 14:30 Thoracic Fluid Body Fluid Culture - Preliminary NO GROWTH AFTER 48 HOURS Narrative: Patient looks comfortable. Patient has good aeration of the left upper lobe. Breath sounds are still diminished in the left midlung and left base. Heart has a regular rate and rhythm. Chest tube is in place. Assessment and Plan (1) Parapneumonic effusion Status: Acute Category: Medical Code(s): J18.9 - Pneumonia, unspecified organism; J91.8 - Pleural effusion in other conditions classified elsewhere (2) Empyema of left pleural space Status: Suspected Category: Medical Code(s): J86.9 - Pyothorax without fistula (3) Pleural effusion, left Status: Acute Category: Medical Code(s): J90 - Pleural effusion, not elsewhere classified - Assessment and plan all Dx Assessment and Plan for all problems:: Patient is stable. Await pulmonology evaluation, management, recommendations for today
[2021-07-13 07:45] LABS: Eosinophils % 2 % (0-3); Lymphocytes % 8 % (10-50); Monocytes % 6 % (2-9); Neutrophils % 84 % (42-76); Nucleated Red Blood Cells 1; Total Cells Counted 100
[2021-07-13 07:46] LABS: Hypochromasia 2+; Platelet Estimate Moderate Increase
--- NOTE | 2021-07-13 09:03 | [facility]H.PULMPN ---
Internal Medicine - PN: Subj *Date: 07/13/21 *Time: 15:59 Interval history: No acute respiratory vents over the weekend. Continues to tolerate TPA dornase treatments well. Exam - Constitutional Constitutional:: Present: no acute distress, comfortable - HENMT Exam HENMT: Present: normocephalic, atraumatic - Eye Exam Eyes:: Present: normal appearance both eyes and related structures - Neck Exam Neck:: Present: normal visual inspection - Respiratory Exam Respiratory:: Present: able to speak in complete sentences, no respiratory distress, decreased breath sounds - Cardiovascular Exam Cardiac:: Present: S1, S2 - GI Exam GI:: Present: soft - Skin Exam Skin: Present: warm, no rash - Neurological Exam Neurological: Present: alert, awake, normal cognition - Extremities Exam Extremities: Present: no cyanosis, no clubbing, no edema Assessment and Plan (1) Parapneumonic effusion Status: Acute Category: Medical Code(s): J18.9 - Pneumonia, unspecified organism; J91.8 - Pleural effusion in other conditions classified elsewhere (2) Empyema of left pleural space Status: Suspected Category: Medical Code(s): J86.9 - Pyothorax without fistula (3) Pleural effusion, left Status: Acute Category: Medical Code(s): J90 - Pleural effusion, not elsewhere classified - Assessment and plan all Dx Assessment and Plan for all problems:: #Loculated Exudative Left pleural effusion: # CAP 66-year-old female no significant smoking history carries a prior diagnosis of mild intermittent asthma on albuterol on as-needed basis. Recently tested positive for COVID-19 in June 15 at the time she was asymptomatic eventually followed by worsening respiratory failure with cough and productive phlegm that did not resolve with antibiotics and eventually presented to primary care physician's office on July 07 the left side chest x-ray showed large pleural effusion that was scheduled for thoracentesis however only 50 cc was collected as given the patient fluid was loculated and pulmonary was called for further management . Pleural fluid Gram stain culture was ordered but not collected. Pleural fluid studies exudative. Given loculated pleural effusion chest tube was placed and was initiated on TPA dornase. Pleural fluid culture no growth 48 hours. Pleural fluid studies consistent with exudative pleural effusion. Continue to have leukocytosis , slightly improved. Hb sightly decreased to 7.4 from 8.4 on admission. Chest x-ray from this morning showed significant improvement in her left-sided pleural effusion. Received her last done of her tPA/Dornase today. Plan: -Incentive Spirometry -Wean oxygen as tolerated with O2 saturation goal of 88% and above. -Continue chest tube to suction, Negative 40 -CXR PA/Lateral -Follow final pleural fluid cultures. Follow pleural fluid cytology. -Continue current antibiotics x 14 days. Can be changed to Augmentin upon discharge. Prelim sputum culture gram-positive cocci with no reportable results. > 25 WBC. # Thank you for involving pulmonary in this patient care. We will continue to follow.
--- NOTE | 2021-07-13 11:08 | P.PN_ITS ---
Internal Medicine - PN: Subj *Date: 07/13/21 *Time: 11:08 Exam Vital signs and Labs for Last 24 Hours: Temp Pulse Resp BP Pulse Ox 98.5 F 71 16 103/55 L 94 L 07/13/21 08:00 07/13/21 08:00 07/13/21 08:00 07/13/21 08:00 07/13/21 08:00 Laboratory Results - last 24 hr 07/10/21 14:30: Fluid Glucose 4, Fluid Total Protein 4.5, Fluid LDH 2624 07/13/21 05:19: WBC 20.0 H D, RBC 2.76 L, Hgb 7.4 L D, Hct 25.0 L, MCV 90.4, MCH 26.8 L, MCHC 29.7 L, RDW 15.9, Plt Count 712 H, MPV 7.8, Neut % (Auto) 85.7 H, Lymph % (Auto) 6.2 L, [place] % (Auto) 5.9, Eos % (Auto) 1.6, Baso % (Auto) 0.6, Neut # (Auto) 17.1 H, Lymph # (Auto) 1.2, [place] # (Auto) 1.2 H, Eos # (Auto) 0.3, Baso # (Auto) 0.1, Total Counted 100, Neutrophils % (Manual) 84 H, Lymphocytes % (Manual) 8 L, Monocytes % (Manual) 6, Eosinophils % (Manual) 2, Nucleated RBCs 1, Platelet Estimate Moderate increase, Hypochromasia 2+ I & O for Last 24 hours: Intake & Output 07/10/21 07/11/21 07/12/21 07/13/21 23:59 23:59 23:59 23:59 Intake Total 1720 / 1720 960 / 960 1400 / 1400 240 / 240 Output Total 90 / 90 850 / 850 440 / 440 340 / 340 Balance 1630 / 1630 110 / 110 960 / 960 -100 / -100 Weight 72 kg 72.32 kg 71.849 kg 73.482 kg Microbiology Reports for the Last 24 Hours: Microbiology 07/10/21 14:30 Thoracic Fluid Gram Stain - Final 07/10/21 14:30 Thoracic Fluid Body Fluid Culture - Preliminary NO GROWTH AFTER 48 HOURS Assessment and Plan (1) Parapneumonic effusion Status: Acute Category: Medical Code(s): J18.9 - Pneumonia, unspecified organism; J91.8 - Pleural effusion in other conditions classified elsewhere (2) Empyema of left pleural space Status: Suspected Category: Medical Code(s): J86.9 - Pyothorax without fistula (3) Pleural effusion, left Status: Acute Category: Medical Code(s): J90 - Pleural effusion, not elsewhere classified The patient's infection will respond to the chosen ABx?: Yes (SPUTUM CULTURE PENDING) Is the patient receiving the right drug, dose, and route?: Yes Could a more targeted ABx be ordered?: No
--- NOTE | 2021-07-13 16:04 | XR_ITS ---
PROCEDURE INFORMATION: Exam: XR Chest Exam date and time: 07/13/2021 4:04 PM Age: 66 years old Clinical indication: Condition or disease; Lung condition and disease; Other: Pleural effusion, lung infection; Patient HX: Patient has a chest tube in place on left side of chest. TECHNIQUE: Imaging protocol: XR of the chest. Views: 2 views. COMPARISON: CR XR CHEST PORTABLE 07/13/2021 5:55 AM FINDINGS: Tubes, catheters and devices: Left-sided chest tube is in place with small left pneumothorax. Lungs: Atelectasis and/or early infiltrative changes noted within the left lung base. Pleural spaces: Left pleural effusion is present. Heart/Mediastinum: Unremarkable. No cardiomegaly. Vasculature: The vasculature demonstrates diffuse mild atherosclerotic calcification. Bones/joints: The thoracic spine demonstrates mild degenerative changes at multiple levels. IMPRESSION: 1. Left-sided chest tube is in place with small left pneumothorax. 2. Atelectasis and/or early infiltrative changes noted within the left lung base. 3. Left pleural effusion is present.
[2021-07-14] VITALS (27 sets, daily range): BP systolic 94–130; BP diastolic 44–72; PULSE 80–101; RESP 16–19; TEMP 36.6–37.3; O2SAT 92–98; BMI 25.9
--- NOTE | 2021-07-14 04:43 | PC.NURSE ---
Patient's bed was found to be saturated with blood at 0350. Dr. Saini was notified at 0405 of the findings and will address it in the morning during rounds. The patient's chest tube is still draining clots and sanguineous fluid. Patient's dressing was changed in sterile fashion. A occlusive dressing was wrapped around the tube, abd pads applied and foam tape applied. Patient's bed had a complete linen change and gown change. Patient was given morphine per JUL. Will continue to monitor. Patient's vitals are WNL and remains on 2LNC. Patient states that the area above the chest tube is tender to touch.
--- NOTE | 2021-07-14 06:00 | XR_ITS ---
PROCEDURE INFORMATION: Exam: XR Chest Exam date and time: 07/14/2021 6:00 AM Age: 66 years old Clinical indication: Device placement; Chest tube; Additional info: Chest tube, pleural effusion TECHNIQUE: Imaging protocol: XR of the chest. Views: 1 view. COMPARISON: CR XR CHEST 2V 07/13/2021 4:07 PM FINDINGS: Tubes, catheters and devices: Surgical clips, RUQ. Lungs: Previously noted left pneumothorax/trapped lung is less well seen today now with some fluid occupying the space laterally. Otherwise, similar appearance of mild patchy and linear opacities in the left lung base. Left chest tube projects over satisfactory position. No acute process on the right. Pleural spaces: See Lungs finding. Heart/Mediastinum: Unremarkable. No cardiomegaly. Vasculature: Mild vascular calcifications. Bones/joints: Scoliosis and osteoarthritic changes. IMPRESSION: Previously noted small left pneumothorax/trapped lung is less well seen today now with some pleural fluid occupying the space laterally. Otherwise, similar appearance of mild patchy and linear opacities in the left lung base.
[2021-07-14 06:43] LABS: Basophils # 0.2 K/mm3 (0-0.2); Basophils % 0.8 % (0.1-2.0); Eosinophils # 0.5 K/mm3 (0.0-0.4); Eosinophils % 2.3 % (0.1-12.0); Lymphocytes # 1.7 K/mm3 (0.7-4.5); Lymphocytes % 8.7 % (10-50); Mean Corpuscular HGB Conc 29.4 g/dL (31.8-35.4); Mean Corpuscular Hemoglobin 26.3 pg (27.0-31.2); Mean Corpuscular Volume 89.5 fl (81-99); Mean Platelet Volume 7.7 fl (7.4-10.4); Monocytes # 0.9 K/mm3 (0.1-1.0); Monocytes % 4.5 % (1.7-9.3); Neutrophils # 16.3 K/mm3 (1.8-7.8); Neutrophils % 83.6 % (37.0-80.0); Platelet Count 854 K/mm3 (142-424); Red Blood Count 2.57 M/mm3 (4.20-5.40); Red Cell Distribution Width 15.9 % (11.5-17.5); White Blood Count 19.4 K/mm3 (4.8-10.8)
[2021-07-14 06:55] LABS: Chloride 97 mmol/L (98-107); Potassium 3.8 mmoL/L (3.5-5.1); Sodium 128 mmol/L (136-145)
[2021-07-14 06:58] LABS: Blood Urea Nitrogen 12 mg/dl (7-17); Creatinine Clearance Estimated 66 mL/min (50-200); Estimated Glomerular Filt Rate 124 ml/min (>60); GFR (African American) 150 ML/MIN (>60)
[2021-07-14 06:59] LABS: Anion Gap 1.8 mEq/L (5-15); Calcium 6.6 mg/dl (8.4-10.2); Carbon Dioxide 33 mmol/L (22.0-30.0); Glucose 103 mg/dl (74-100)
[2021-07-14 07:00] LABS: Hemoglobin 6.8 g/dL (12.2-16.2)
[2021-07-14 07:04] LABS: MANUAL DIFFERENTIAL MANUAL DIFFERENTIAL (MANUAL DIFF)
--- NOTE | 2021-07-14 07:07 | PC.NURSE ---
Libby from lab called with a critical Hgb of 6.8 Name, and value verified x2 Dr. Rea Notified
--- NOTE | 2021-07-14 07:15 | [facility]H.ACPN2 ---
Internal Medicine - PN: Subj *Date: 07/14/21 *Time: 07:15 Interval history: Patient reports no problems. Nursing staff reports patient had bloodsoaked dressing overnight that required dressing change and reinforcement. Patient has worsening anemia this morning. Patient denies shortness of breath Exam Vital signs and Labs for Last 24 Hours: Temp Pulse Resp BP Pulse Ox 97.9 F 80 19 130/71 94 L 07/14/21 04:00 07/14/21 04:00 07/14/21 04:00 07/14/21 04:00 07/14/21 04:00 Laboratory Results - last 24 hr 07/13/21 05:19: Total Counted 100, Neutrophils % (Manual) 84 H, Lymphocytes % (Manual) 8 L, Monocytes % (Manual) 6, Eosinophils % (Manual) 2, Nucleated RBCs 1, Platelet Estimate Moderate increase, Hypochromasia 2+ 07/14/21 06:20: WBC 19.4 H, RBC 2.57 L, Hgb 6.8 L*, Hct 23.0 L, MCV 89.5, MCH 26.3 L, MCHC 29.4 L, RDW 15.9, Plt Count 854 H, MPV 7.7, Neut % (Auto) 83.6 H, Lymph % (Auto) 8.7 L, [place] % (Auto) 4.5, Eos % (Auto) 2.3, Baso % (Auto) 0.8, Neut # (Auto) 16.3 H, Lymph # (Auto) 1.7, [place] # (Auto) 0.9, Eos # (Auto) 0.5 H, Baso # (Auto) 0.2 07/14/21 06:20: Sodium 128 L, Potassium 3.8, Chloride 97 L, Carbon Dioxide 33 H, Anion Gap 1.8 L, BUN 12, Creatinine 0.50 L, Estimated Creat Clear 66, Estimated GFR 124, Est GFR ( Amer) 150, Glucose 103 H, Calcium 6.6 L I & O for Last 24 hours: Intake & Output 07/11/21 07/12/21 07/13/21 07/14/21 11:59 11:59 11:59 11:59 Intake Total 1860 / 1860 1040 / 1040 1080 / 1080 480 / 480 Output Total 570 / 570 790 / 790 360 / 360 650 / 650 Balance 1290 / 1290 250 / 250 720 / 720 -170 / -170 Weight 159 lb 7 oz 158 lb 6.4 oz 162 lb 161 lb 7 oz Microbiology Reports for the Last 24 Hours: Microbiology 07/10/21 14:30 Thoracic Fluid Gram Stain - Final 07/10/21 14:30 Thoracic Fluid Body Fluid Culture - Preliminary NO GROWTH AFTER 72 HOURS 07/11/21 14:00 Sputum - Expectorated Sputum Gram Stain - Final 07/11/21 14:00 Sputum - Expectorated Sputum Sputum Culture - Preliminary Narrative: Patient looks comfortable. Lung exam continues to improve with improved aeration of the left lung. Chest tube site is heavily bandaged although patient may have a developing hematoma in the posterior chest. Chest x-ray shows improved aeration of the lung. Pleural effusion persists. Chest tube is put out 200 mL of fluid over the last 12-hour shift (7 PM to 7 AM) Gram stain of pleural fluid showed gram-positive cocci but there is no growth so far Gram stain of sputum also shows gram-positive cocci without further growth Assessment and Plan (1) Parapneumonic effusion Status: Acute Category: Medical Code(s): J18.9 - Pneumonia, unspecified organism; J91.8 - Pleural effusion in other conditions classified elsewhere (2) Empyema of left pleural space Status: Suspected Category: Medical Code(s): J86.9 - Pyothorax without fistula (3) Pleural effusion, left Status: Acute Category: Medical Code(s): J90 - Pleural effusion, not elsewhere classified - Assessment and plan all Dx Assessment and Plan for all problems:: 1. Patient seems to be improving. Continue antibiotics (Unasyn day 5, vancomycin day 2). 2. Chest tube management per pulmonology service 3. Patient will be transfused 2 units of packed red blood cells.
[2021-07-14 07:51] LABS: Eosinophils % 2 % (0-3); Lymphocytes % 9 % (10-50); Monocytes % 4 % (2-9); Neutrophils % 85 % (42-76); Total Cells Counted 100
[2021-07-14 07:52] LABS: Hypochromasia 2+; Platelet Estimate Marked Increase
--- NOTE | 2021-07-14 08:09 | P.PN_ITS ---
Subjective Narrative: Nursing reported some bloody drainage from the chest tube earlier this morning when patient was getting up to the bedside commode. There was concern for some soft tissue swelling above this area. Progress Note: A&P (1) Parapneumonic effusion Status: Acute (2) Empyema of left pleural space Status: Suspected (3) Pleural effusion, left Status: Acute Assessment and Plan for All Diagnoses:: Chest tube dressing intact at this time. She did have some soft tissue swelling and edema even prior to chest tube placement. This may be somewhat more prominent but no evidence of any progressive hematoma or infection. Continue to monitor. Exam Vital signs and Labs for Last 24 Hours: Temp Pulse Resp BP Pulse Ox 98.3 F 86 16 111/64 98 07/14/21 07:44 07/14/21 07:44 07/14/21 07:44 07/14/21 07:44 07/14/21 07:44 Laboratory Results - last 24 hr 07/14/21 06:20: WBC 19.4 H, RBC 2.57 L, Hgb 6.8 L*, Hct 23.0 L, MCV 89.5, MCH 26.3 L, MCHC 29.4 L, RDW 15.9, Plt Count 854 H, MPV 7.7, Neut % (Auto) 83.6 H, Lymph % (Auto) 8.7 L, [place] % (Auto) 4.5, Eos % (Auto) 2.3, Baso % (Auto) 0.8, Neut # (Auto) 16.3 H, Lymph # (Auto) 1.7, [place] # (Auto) 0.9, Eos # (Auto) 0.5 H, Baso # (Auto) 0.2, Total Counted 100, Neutrophils % (Manual) 85 H, Lymphocytes % (Manual) 9 L, Monocytes % (Manual) 4, Eosinophils % (Manual) 2, Platelet Estimate Marked increase, Hypochromasia 2+ 07/14/21 06:20: Sodium 128 L, Potassium 3.8, Chloride 97 L, Carbon Dioxide 33 H, Anion Gap 1.8 L, BUN 12, Creatinine 0.50 L, Estimated Creat Clear 66, Estimated GFR 124, Est GFR ( Amer) 150, Glucose 103 H, Calcium 6.6 L 07/14/21 07:47: Crossmatch (AHG) See Detail I & O for Last 24 hours: Intake & Output 07/11/21 07/12/21 07/13/21 07/14/21 11:59 11:59 11:59 11:59 Intake Total 1860 / 1860 1040 / 1040 1080 / 1080 480 / 480 Output Total 570 / 570 790 / 790 360 / 360 650 / 650 Balance 1290 / 1290 250 / 250 720 / 720 -170 / -170 Weight 159 lb 7 oz 158 lb 6.4 oz 162 lb 161 lb 7 oz Microbiology Reports for the Last 24 Hours: Microbiology 07/10/21 14:30 Thoracic Fluid Gram Stain - Final 07/10/21 14:30 Thoracic Fluid Body Fluid Culture - Preliminary NO GROWTH AFTER 72 HOURS 07/11/21 14:00 Sputum - Expectorated Sputum Gram Stain - Final 07/11/21 14:00 Sputum - Expectorated Sputum Sputum Culture - Preliminary - Routine Chest/Breast/Axilla Exam Comments: He has some soft tissue swelling superior to the chest tube site. No tense hematoma. No evidence of any infection.
--- NOTE | 2021-07-14 10:37 | HMH.PULMPN ---
Internal Medicine - PN: Subj *Date: 07/14/21 *Time: 10:37 Interval history: No acute respiratory events overnight Exam - Constitutional Constitutional:: Present: no acute distress, comfortable - HENMT Exam HENMT: Present: normocephalic, atraumatic - Eye Exam Eyes:: Present: normal appearance both eyes and related structures - Neck Exam Neck:: Present: normal visual inspection - Respiratory Exam Respiratory:: Present: able to speak in complete sentences, no respiratory distress. Absent: wheezing - Cardiovascular Exam Cardiac:: Present: S1, S2 - GI Exam GI:: Present: soft - Skin Exam Skin: Present: warm, no rash - Neurological Exam Neurological: Present: alert, awake, normal cognition - Extremities Exam Extremities: Present: no cyanosis, no clubbing, no edema - Psychiatric Exam Psychiatric: Present: normal affect Assessment and Plan (1) Parapneumonic effusion Status: Acute Category: Medical Code(s): J18.9 - Pneumonia, unspecified organism; J91.8 - Pleural effusion in other conditions classified elsewhere (2) Empyema of left pleural space Status: Suspected Category: Medical Code(s): J86.9 - Pyothorax without fistula (3) Pleural effusion, left Status: Acute Category: Medical Code(s): J90 - Pleural effusion, not elsewhere classified - Assessment and plan all Dx Assessment and Plan for all problems:: #Loculated Exudative Left pleural effusion: # CAP 66-year-old female no significant smoking history carries a prior diagnosis of mild intermittent asthma on albuterol on as-needed basis. Recently tested positive for COVID-19 in June 15 at the time she was asymptomatic eventually followed by worsening respiratory failure with cough and productive phlegm that did not resolve with antibiotics and eventually presented to primary care physician's office on July 07 the left side chest x-ray showed large pleural effusion that was scheduled for thoracentesis however only 50 cc was collected as given the patient fluid was loculated and pulmonary was called for further management . Pleural fluid Gram stain culture was ordered but not collected. Pleural fluid studies exudative. Given loculated pleural effusion chest tube was placed and was initiated on TPA dornase. Pleural fluid culture no growth 48 hours. Pleural fluid studies consistent with exudative pleural effusion. Interval update She completed her six doses of TPA dornase. Repeat chest x-ray showed significant improvement in her pleural effusion, showed thickened pleura with possible trapped lung and lateral pneumothirax. We will clamp the chest tube and repeat a CT chest without contrast in 6 hours. Hemoglobin dropped to 6.8. Soft tissue swelling around the chest tube site, dressing in place. No tense hematoma noted. Saturating 98% on 2 L, weaned to room air. Patient currently receiving Unasyn and vancomycin was added. Plan: -Incentive Spirometry -Wean oxygen as tolerated with O2 saturation goal of 88% and above. - Clamp chest tube and repeat CT chest WO contrast in 6 hours -Follow final pleural fluid cultures. Follow pleural fluid cytology. -Continue Unasyn x 14 days. Can be changed to Augmentin upon discharge. Prelim sputum culture gram-positive cocci with no reportable results. > 25 WBC. # Thank you for involving pulmonary in this patient care. We will continue to follow.
--- NOTE | 2021-07-14 15:00 | CT_ITS ---
FINAL REPORT TECHNIQUE: Axial CT images were performed from the lung apices through the upper abdomen. Coronal reformats were submitted. This study was performed with techniques to keep radiation doses as low as reasonably achievable (ALARA). Individualized dose reduction techniques using automated exposure control or adjustment of mA and/or kV according to the patient's size were employed. CLINICAL HISTORY: Empyema / Pneumothorax COMPARISON: July 09, 2021 FINDINGS: There is no axillary adenopathy. There is no hilar or mass or adenopathy. There are small mediastinal lymph nodes. Heart size is normal. There has been interval placement of a left-sided chest tube with marked improvement of a large, loculated left pleural effusion. There has been partial interval improvement in the right lung ground-glass opacities. There is a small left pneumothorax with up to 8 mm of pleural separation. There is a loculated component of the pneumothorax in the lower thorax. There has been significant improvement of aeration in the left lung with persistent left lung base atelectasis. There is significant, left greater than right, chest wall edema. There are several bubbles of air in the left lateral chest wall. Limited images of the upper abdomen demonstrate postoperative changes from cholecystectomy and postoperative changes in the stomach. There is a right adrenal nodule favoring an adenoma. No suspicious infiltrate or nodule is identified on lung window images. IMPRESSION: There is a new left chest tube. Markedly improved, loculated left pleural effusion. Small left pneumothorax. Partially improved left lung aeration with persistent basilar atelectasis. Partially improved right ground-glass opacities. Reviewed, Interpreted and Dictated by Spencer Chen III, MD Transcribed by Kimmy Viera Authenticated by Spencer Chen III, MD on 07/14/2021 04:49:10 PM [facility]
--- NOTE | 2021-07-14 15:07 | PC.NURSE ---
No acute changes noted this shift, pt has received 2units PRBC and tolerated well, Chest tube clamped this am by Dr Segura and patient has been weaned to RA. CT chest to be completed this afternoon. No bleeding has been noted at chest tube site, denies any pain or soa, vss, will continue to monitor.
[2021-07-14 19:06] LABS: Hematocrit 30.6 % (37.0-47.0)
[2021-07-14 19:09] LABS: Hemoglobin 9.6 g/dL (12.2-16.2)
[2021-07-15] VITALS (14 sets, daily range): BP systolic 102–165; BP diastolic 66–95; PULSE 70–111; RESP 16–18; TEMP 36.6–37.7; O2SAT 92–100; BMI 26.5
--- NOTE | 2021-07-15 06:00 | XR_ITS ---
PROCEDURE INFORMATION: Exam: XR Chest Exam date and time: 07/15/2021 6:00 AM Age: 66 years old Clinical indication: Device placement; Chest tube; Additional info: Chest tube, pleural effusion TECHNIQUE: Imaging protocol: XR of the chest. Views: 1 view. COMPARISON: CT CHEST WO CON 07/14/2021 3:58 PM FINDINGS: Tubes, catheters and devices: Left-sided pleural tube is present. Lungs: Some left-sided retrocardiac airspace disease is again noted. Pleural spaces: No pneumothorax is noted. Heart/Mediastinum: Unremarkable. No cardiomegaly. Bones/joints: Unremarkable. IMPRESSION: No pneumothorax. Left lung base airspace disease and effusion.
[2021-07-15 06:11] LABS: Basophils # 0.1 K/mm3 (0-0.2); Basophils % 0.5 % (0.1-2.0); Eosinophils # 0.5 K/mm3 (0.0-0.4); Eosinophils % 2.2 % (0.1-12.0); Hematocrit 29.9 % (37.0-47.0); Hemoglobin 9.3 g/dL (12.2-16.2); Lymphocytes # 1.5 K/mm3 (0.7-4.5); Lymphocytes % 7.1 % (10-50); Mean Corpuscular HGB Conc 31.3 g/dL (31.8-35.4); Mean Corpuscular Hemoglobin 27.4 pg (27.0-31.2); Mean Corpuscular Volume 87.5 fl (81-99); Mean Platelet Volume 7.2 fl (7.4-10.4); Monocytes # 1.6 K/mm3 (0.1-1.0); Monocytes % 7.6 % (1.7-9.3); Neutrophils # 17.2 K/mm3 (1.8-7.8); Neutrophils % 82.6 % (37.0-80.0); Platelet Count 690 K/mm3 (142-424); Red Blood Count 3.41 M/mm3 (4.20-5.40); Red Cell Distribution Width 15.2 % (11.5-17.5); White Blood Count 20.8 K/mm3 (4.8-10.8)
[2021-07-15 06:17] LABS: Chloride 99 mmol/L (98-107); Sodium 128 mmol/L (136-145)
[2021-07-15 06:21] LABS: Carbon Dioxide 31 mmol/L (22.0-30.0)
[2021-07-15 06:28] LABS: Anion Gap 1.8 mEq/L (5-15); Potassium 3.8 mmoL/L (3.5-5.1)
[2021-07-15 06:31] LABS: Blood Urea Nitrogen 9 mg/dl (7-17); Calcium 6.7 mg/dl (8.4-10.2); Creatinine Clearance Estimated 67 mL/min (50-200); Estimated Glomerular Filt Rate 161 ml/min (>60); GFR (African American) 194 ML/MIN (>60); Glucose 89 mg/dl (74-100)
[2021-07-15 06:45] LABS: MANUAL DIFFERENTIAL MANUAL DIFFERENTIAL (MANUAL DIFF)
--- NOTE | 2021-07-15 07:27 | P.PN_ITS ---
Internal Medicine - PN: Subj *Date: 07/15/21 *Time: 07:27 Interval history: No acute events. Patient reports chest pain this morning related to straining while trying to have a bowel movement. She denies shortness of breath Exam Vital signs and Labs for Last 24 Hours: Temp Pulse Resp BP Pulse Ox 98.3 F 81 18 132/78 93 L 07/15/21 04:00 07/15/21 04:00 07/15/21 04:00 07/15/21 04:00 07/15/21 04:00 Laboratory Results - last 24 hr 07/14/21 06:20: Total Counted 100, Neutrophils % (Manual) 85 H, Lymphocytes % (Manual) 9 L, Monocytes % (Manual) 4, Eosinophils % (Manual) 2, Platelet Estimate Marked increase, Hypochromasia 2+ 07/14/21 06:20: Blood Type Confirm B Positive 07/14/21 07:47: Blood Type B Positive, Antibody Screen Negative, Crossmatch (AHG) See Detail 07/14/21 18:00: Hgb 9.6 L D, Hct 30.6 L 07/15/21 05:32: WBC 20.8 H*, RBC 3.41 L D, Hgb 9.3 L, Hct 29.9 L, MCV 87.5, MCH 27.4, MCHC 31.3 L, RDW 15.2, Plt Count 690 H, MPV 7.2 L, Neut % (Auto) 82.6 H, Lymph % (Auto) 7.1 L, [place] % (Auto) 7.6, Eos % (Auto) 2.2, Baso % (Auto) 0.5, Neut # (Auto) 17.2 H, Lymph # (Auto) 1.5, [place] # (Auto) 1.6 H, Eos # (Auto) 0.5 H, Baso # (Auto) 0.1 07/15/21 05:32: Sodium 128 L, Potassium 3.8, Chloride 99, Carbon Dioxide 31 H, Anion Gap 1.8 L, BUN 9, Creatinine 0.40 L, Estimated Creat Clear 67, Estimated GFR 161, Est GFR ( Amer) 194 D, Glucose 89, Calcium 6.7 L I & O for Last 24 hours: Intake & Output 07/12/21 07/13/21 07/14/2122 11:59 11:59 11:59 11:59 Intake Total 1040 / 1040 1080 / 1080 960 / 960 1120 / 1120 Output Total 790 / 790 360 / 360 850 / 850 420 / 420 Balance 250 / 250 720 / 720 110 / 110 700 / 700 Weight 158 lb 6.4 oz 162 lb 161 lb 7 oz 165 lb 3.2 oz Microbiology Reports for the Last 24 Hours: Microbiology 07/09/21 15:30 Blood Blood Culture - Final NO GROWTH AFTER 5 DAYS 07/09/21 15:30 Blood Blood Culture - Final NO GROWTH AFTER 5 DAYS 07/10/21 14:30 Thoracic Fluid Gram Stain - Final 07/10/21 14:30 Thoracic Fluid Body Fluid Culture - Preliminary NO GROWTH AFTER 4 DAYS 07/11/21 14:00 Sputum - Expectorated Sputum Gram Stain - Final 07/11/21 14:00 Sputum - Expectorated Sputum Sputum Culture - Preliminary Yeast Narrative: Patient looks comfortable. Lung remains clear anteriorly with diminished breath sounds at the bases. Chest tube is in place. Heart has a regular rate and rhythm. White blood cell count stable at 20,000 Hemoglobin is decreased slightly from 9.6 post-transfusion to 9.3 this morning Assessment and Plan (1) Parapneumonic effusion Status: Acute Category: Medical Code(s): J18.9 - Pneumonia, unspecified organism; J91.8 - Pleural effusion in other conditions classified elsewhere (2) Empyema of left pleural space Status: Suspected Category: Medical Code(s): J86.9 - Pyothorax without fistula (3) Pleural effusion, left Status: Acute Category: Medical Code(s): J90 - Pleural effusion, not elsewhere classified - Assessment and plan all Dx Assessment and Plan for all problems:: Patient is stable. Chest tube management per pulmonology service. Continue Unasyn and vancomycin
[2021-07-15 08:32] LABS: Vancomycin,Trough < 5.0 ug/mL (5.0-10.0)
[2021-07-15 08:50] LABS: Eosinophils % 2 % (0-3); Lymphocytes % 11 % (10-50); Monocytes % 8 % (2-9); Neutrophils % 79 % (42-76); Total Cells Counted 100
[2021-07-15 08:52] LABS: Hypochromasia 1+
[2021-07-15 08:53] LABS: Platelet Estimate Slight Increase
--- NOTE | 2021-07-15 09:08 | HMH.PULMPN ---
Internal Medicine - PN: Subj *Date: 07/15/21 *Time: 11:00 Interval history: No acute respiratory vents overnight. Exam - Constitutional Constitutional:: Present: no acute distress, comfortable - HENMT Exam HENMT: Present: normocephalic, atraumatic - Eye Exam Eyes:: Present: normal appearance both eyes and related structures - Neck Exam Neck:: Present: normal visual inspection - Respiratory Exam Respiratory:: Present: able to speak in complete sentences, no respiratory distress, rhonchi. Absent: wheezing - Cardiovascular Exam Cardiac:: Present: S1, S2 - GI Exam GI:: Present: soft - Skin Exam Skin: Present: warm - Neurological Exam Neurological: Present: alert - Extremities Exam Extremities: Present: no cyanosis, no clubbing, no edema Assessment and Plan (1) Parapneumonic effusion Status: Acute Category: Medical Code(s): J18.9 - Pneumonia, unspecified organism; J91.8 - Pleural effusion in other conditions classified elsewhere (2) Empyema of left pleural space Status: Suspected Category: Medical Code(s): J86.9 - Pyothorax without fistula (3) Pleural effusion, left Status: Acute Category: Medical Code(s): J90 - Pleural effusion, not elsewhere classified - Assessment and plan all Dx Assessment and Plan for all problems:: #Loculated Exudative Left pleural effusion: #Nonresolving pneumonia 66-year-old female no significant smoking history carries a prior diagnosis of mild intermittent asthma on albuterol on as-needed basis. Recently tested positive for COVID-19 in June 15 at the time she was asymptomatic eventually followed by worsening respiratory failure with cough and productive phlegm that did not resolve with antibiotics and eventually presented to primary care physician's office on July 07 the left side chest x-ray showed large pleural effusion that was scheduled for thoracentesis however only 50 cc was collected as given the patient fluid was loculated and pulmonary was called for further management . Pleural fluid Gram stain culture was ordered but not collected. Pleural fluid studies exudative. Negative for malignancy. Given loculated pleural effusion chest tube was placed and was initiated on TPA dornase. Pleural fluid culture no growth 48 hours. Pleural fluid studies consistent with exudative pleural effusion. She completed her six doses of TPA dornase. Interval update: Continue to remain on room air. Saturations at 92% and above. Status post 2 units of transfusion yesterday. CT chest reviewed, showed significant improvement improvement in her loculated pleural effusion though still showed to have pleural effusion with thickened pleura along with adjacent airspace disease. Small loculated pneumothorax also noted. Also noted to have an area of increased soft tissue density air bubbles outside the rib. The noted pneumonia appears to be worse from her recent prior CT scan, her sputum culture from 07/10 no growth so far but given her worsening pneumonia and no improvement with antibiotics will proceed with bronchoscopy with BAL. Discussed with the patient this morning. Plan: -Continue chest tube to water suction. 20 cc output in the last 12 hours. -Incentive Spirometry -Continue Unasyn x 14 days. Sputum cultures unyielding. We will proceed with bronchoscopy. # Thank you for involving pulmonary in this patient care. We will continue to follow.
--- NOTE | 2021-07-15 13:11 | HMH.BRONCH ---
- Procedure: Date: 07/15/21 Patient Date of :: 1955 Procedure Performed:: Bronchoscopy with Bronchoalveolar lavage Indications:: Non-resolving Pneumonia Performing Provider:: Merritt Segura MD Referring Provider:: Dr. Rea Sedation:: Conscious Sedation Procedure:: Bronchoscopy with Bronchoalveolar lavage: A clean diagnostic bronchoscopy was advanced through the left nares and the bronchoscopy was advanced to the level of vocal cords. 5 cc of 1% lidocaine was instilled at the vocal cords and bronchoscopy advanced into the trachea and 5 cc each was instilled in the right mainstem and left mainstem bronchus. Airways were examined up to sub segmental bronchi and and appeared grossly normal. No evidence of thick mucoid secretions or mucous plugging noted. No evidence of bleeding or erythema or prior blood clots noted. Bronchoalveolar lavage was performed the right lower lobe posterior segment with a total of instillation of 60 cc of normal saline with return of 40 cc back. BAL fluid was cell for sent for cell count differential, Gram stain culture, AFB and fungal stain and cultures. Patient tolerated the procedure well with no complications. Total for the procedure patient received 15 cc of 1% lidocaine and Urojet jelly for topical sedation AND 75 mcg of IV fentanyl and 2 mg of IV Versed for conscious sedation. We will continue current antibiotics and will follow BAL and sputum culture results to determine further antibiotic course. Findings:: Please see the procedure note Recommendations:: Please see the procedure note and progress note from today Complications:: None Estimated blood obtained (mL): 0
[2021-07-16] VITALS (8 sets, daily range): BP systolic 94–141; BP diastolic 58–75; PULSE 68–75; RESP 16–18; TEMP 36.6–36.8; O2SAT 94–97; BMI 27.1
--- NOTE | 2021-07-16 06:00 | XR_ITS ---
PROCEDURE INFORMATION: Exam: XR Chest Exam date and time: 07/16/2021 6:00 AM Age: 66 years old Clinical indication: Device placement; Chest tube; Additional info: Chest tube, pleural effusion TECHNIQUE: Imaging protocol: XR of the chest. Views: 1 view. COMPARISON: CR XR CHEST PORTABLE 07/15/2021 5:09 AM FINDINGS: Lungs: See Pleural spaces finding. Pleural spaces: Small pneumothorax/pleural separation in the medial left basilar region with chest tube in place. [id number] nonspecific interstitial/alveolar opacities in the left lung base. Slight elevation of the left hemidiaphragm. Trace pleural thickening or fluid laterally. No focal consolidation on the right. Heart/Mediastinum: Unremarkable. No cardiomegaly. Vasculature: Vascular calcifications. Bones/joints: Scoliosis and osteoarthritic changes. IMPRESSION: 1. Overall, similar appearance to previous. Small pneumothorax/pleural separation in the medial left basilar region with chest tube in place. 2. [id number] nonspecific interstitial/alveolar opacities in the left lung base.
[2021-07-16 06:16] LABS: Basophils # 0.1 K/mm3 (0-0.2); Basophils % 0.5 % (0.1-2.0); Eosinophils # 0.5 K/mm3 (0.0-0.4); Eosinophils % 2.5 % (0.1-12.0); Hematocrit 29.9 % (37.0-47.0); Hemoglobin 9.2 g/dL (12.2-16.2); Lymphocytes # 2.1 K/mm3 (0.7-4.5); Lymphocytes % 10.3 % (10-50); Mean Corpuscular HGB Conc 30.6 g/dL (31.8-35.4); Mean Corpuscular Hemoglobin 27.1 pg (27.0-31.2); Mean Corpuscular Volume 88.4 fl (81-99); Mean Platelet Volume 7.2 fl (7.4-10.4); Monocytes # 1.7 K/mm3 (0.1-1.0); Monocytes % 8.4 % (1.7-9.3); Neutrophils # 15.6 K/mm3 (1.8-7.8); Neutrophils % 78.3 % (37.0-80.0); Platelet Count 736 K/mm3 (142-424); Red Blood Count 3.39 M/mm3 (4.20-5.40); Red Cell Distribution Width 15.1 % (11.5-17.5); White Blood Count 19.9 K/mm3 (4.8-10.8)
[2021-07-16 06:22] LABS: Chloride 99 mmol/L (98-107)
[2021-07-16 06:23] LABS: Potassium 3.8 mmoL/L (3.5-5.1); Sodium 131 mmol/L (136-145)
[2021-07-16 06:25] LABS: Blood Urea Nitrogen 11 mg/dl (7-17); Creatinine Clearance Estimated 69 mL/min (50-200); Estimated Glomerular Filt Rate 101 ml/min (>60); GFR (African American) 122 ML/MIN (>60)
[2021-07-16 06:26] LABS: Anion Gap 2.8 mEq/L (5-15); Calcium 6.9 mg/dl (8.4-10.2); Carbon Dioxide 33 mmol/L (22.0-30.0); Glucose 81 mg/dl (74-100)
[2021-07-16 06:50] LABS: MANUAL DIFFERENTIAL MANUAL DIFFERENTIAL (MANUAL DIFF)
--- NOTE | 2021-07-16 07:33 | P.PN_ITS ---
Internal Medicine - PN: Subj *Date: 07/16/21 *Time: 07:33 Interval history: No acute events over the last 24 hours. Chest tube remains in place to wall suction. Patient underwent bronchoscopy with BAL yesterday. Exam Vital signs and Labs for Last 24 Hours: Temp Pulse Resp BP Pulse Ox 98.2 F 72 16 94/58 L 94 L 07/16/21 04:00 07/16/21 04:00 07/16/21 04:00 07/16/21 04:00 07/16/21 04:00 Laboratory Results - last 24 hr 07/15/21 05:30: Vancomycin Trough < 5.0 L 07/15/21 05:32: Total Counted 100, Neutrophils % (Manual) 79 H, Lymphocytes % (Manual) 11, Monocytes % (Manual) 8, Eosinophils % (Manual) 2, Platelet Estimate Slight increase, Hypochromasia 1+ 07/16/21 05:27: WBC 19.9 H, RBC 3.39 L, Hgb 9.2 L, Hct 29.9 L, MCV 88.4, MCH 27.1, MCHC 30.6 L, RDW 15.1, Plt Count 736 H, MPV 7.2 L, Neut % (Auto) 78.3, Lymph % (Auto) 10.3, [place] % (Auto) 8.4, Eos % (Auto) 2.5, Baso % (Auto) 0.5, Neut # (Auto) 15.6 H, Lymph # (Auto) 2.1, [place] # (Auto) 1.7 H, Eos # (Auto) 0.5 H, Baso # (Auto) 0.1 07/16/21 05:27: Sodium 131 L, Potassium 3.8, Chloride 99, Carbon Dioxide 33 H, Anion Gap 2.8 L, BUN 11, Creatinine 0.60 D, Estimated Creat Clear 69, Estimated GFR 101, Est GFR ( Amer) 122 D, Glucose 81, Calcium 6.9 L I & O for Last 24 hours: Intake & Output 07/13/21 07/14/21 07/15/21 07/16/21 11:59 11:59 11:59 11:59 Intake Total 1080 / 1080 960 / 960 1120 / 1120 240 / 240 Output Total 360 / 360 850 / 850 420 / 420 920 / 920 Balance 720 / 720 110 / 110 700 / 700 -680 / -680 Weight 162 lb 161 lb 7 oz 165 lb 3.2 oz 168 lb 12.8 oz Microbiology Reports for the Last 24 Hours: Microbiology 07/15/21 12:30 Bronchial Washings - Right Lower Lobe Gram Stain - Final 07/10/21 14:30 Thoracic Fluid Gram Stain - Final 07/10/21 14:30 Thoracic Fluid Body Fluid Culture - Final NO GROWTH AFTER 5 DAYS 07/15/21 12:20 Sputum - Expectorated Sputum Gram Stain - Final Narrative: Patient appears comfortable. Right lung is clear to auscultation. Left lung is clear anteriorly with diminished breath sounds posteriorly and crackles consistent with atelectasis. Heart has a regular rate and rhythm. Chest tube is intact. There is no air leak. Abdomen is soft. Lower extremities have no edema. Gram stain from BAL shows no organisms. Culture pending. CBC, BMP are pending Original Gram stain/sputum culture shows yeast. Repeat sputum culture is in process Pleural fluid culture has shown no growth Assessment and Plan (1) Parapneumonic effusion Status: Acute Category: Medical Code(s): J18.9 - Pneumonia, unspecified organism; J91.8 - Pleural effusion in other conditions classified elsewhere (2) Empyema of left pleural space Status: Suspected Category: Medical Code(s): J86.9 - Pyothorax without fistula (3) Pleural effusion, left Status: Acute Category: Medical Code(s): J90 - Pleural effusion, not elsewhere classified (4) Left lower lobe pneumonia Status: Acute Category: Medical Code(s): J18.9 - Pneumonia, unspecified organism - Assessment and plan all Dx Assessment and Plan for all problems:: 1. Continue Unasyn 2. Await BAL cultures 3. Chest tube management per pulmonology
[2021-07-16 08:52] LABS: Eosinophils % 3 % (0-3); Lymphocytes % 15 % (10-50); Monocytes % 2 % (2-9); Neutrophils % 80 % (42-76); Total Cells Counted 100
[2021-07-16 08:53] LABS: Hypochromasia 1+; Platelet Estimate Normal
--- NOTE | 2021-07-16 09:12 | HMH.PULMPN ---
Internal Medicine - PN: Subj *Date: 07/16/21 *Time: 11:37 Interval history: No acute respiratory events overnight. Exam - Constitutional Constitutional:: Present: no acute distress, comfortable - HENMT Exam HENMT: Present: normocephalic, atraumatic - Eye Exam Eyes:: Present: normal appearance both eyes and related structures - Neck Exam Neck:: Present: normal visual inspection - Respiratory Exam Respiratory:: Present: able to speak in complete sentences, no respiratory distress, crackles. Absent: wheezing - Cardiovascular Exam Cardiac:: Present: S1, S2 - GI Exam GI:: Present: soft - Skin Exam Skin: Present: warm, no rash - Neurological Exam Neurological: Present: alert, awake, normal cognition - Extremities Exam Extremities: Present: no cyanosis, no clubbing, no edema Assessment and Plan (1) Parapneumonic effusion Status: Acute Category: Medical Code(s): J18.9 - Pneumonia, unspecified organism; J91.8 - Pleural effusion in other conditions classified elsewhere (2) Empyema of left pleural space Status: Suspected Category: Medical Code(s): J86.9 - Pyothorax without fistula (3) Pleural effusion, left Status: Acute Category: Medical Code(s): J90 - Pleural effusion, not elsewhere classified (4) Left lower lobe pneumonia Status: Acute Category: Medical Code(s): J18.9 - Pneumonia, unspecified organism - Assessment and plan all Dx Assessment and Plan for all problems:: #Loculated Exudative Left pleural effusion: #Nonresolving pneumonia 66-year-old female no significant smoking history carries a prior diagnosis of mild intermittent asthma on albuterol on as-needed basis. Recently tested positive for COVID-19 in June 15 at the time she was asymptomatic eventually followed by worsening respiratory failure with cough and productive phlegm that did not resolve with antibiotics and eventually presented to primary care physician's office on July 07 the left side chest x-ray showed large pleural effusion that was scheduled for thoracentesis however only 50 cc was collected as given the patient fluid was loculated and pulmonary was called for further management . Pleural fluid Gram stain culture was ordered but not collected. Pleural fluid studies exudative. Negative for malignancy. Given loculated pleural effusion chest tube was placed and was initiated on TPA dornase. Pleural fluid culture no growth 48 hours. Pleural fluid studies consistent with exudative pleural effusion. She completed her six doses of TPA dornase. Interval update: Status post bronchoscopy yesterday, tolerated procedure well. More than 25 WBC, no organisms seen on BAL. Awaiting final cultures. Bronchoscopy did not show any mucoid secretions in the right lower lobe. Leukocytosis relatively stable around 20. Continue to remain afebrile. Oxygenation is improved, saturating 95% or above on room air. Hemoglobin relatively stable at 9.2. Plan: -Continue chest tube to water suction. -Incentive Spirometry -Change antibiotics to Zosyn given concern for necrotizing pneumonia left lower lobe. Will await for final BAL cultures.. # Thank you for involving pulmonary in this patient care. We will continue to follow.
--- NOTE | 2021-07-16 10:17 | PC.NURSE ---
Addendum entered by Ambika Collado RN 07/16/21 10:18: Pt encouraged to use IS every hour, 10 times w/in hour Original Note: Is @ best this AM = 1750
--- NOTE | 2021-07-16 17:46 | PC.NURSE ---
No acute changes. Remains on room air. Chest tube to L chest wall to low wall suction, 130 cc out this shift. Pt does continue to c/o pain at insertion site w/ movement, medicated per MAR w/ [place]. No further complaints. Pt has requested to used bedpan when voiding d/t pain w/ activity. Educated pt on importance of activity and getting out of bed to prevent HCAP. Pt has been using IS independently throughout shift. Nystatin cream applied per JUL to moshe area, area is red/swollen, pt reports some relief. Spoke w/ pt's daughter this AM, updated on POC. No further needs @ this time. Call rommel w/in reach.
[2021-07-17] VITALS (9 sets, daily range): BP systolic 101–126; BP diastolic 57–71; PULSE 65–73; RESP 16–20; TEMP 36.6–36.9; O2SAT 91–98; BMI 22.8
[2021-07-17 06:43] LABS: Chloride 103 mmol/L (98-107); Sodium 131 mmol/L (136-145)
[2021-07-17 06:44] LABS: Potassium 4.1 mmoL/L (3.5-5.1)
[2021-07-17 06:46] LABS: Basophils # 0.1 K/mm3 (0-0.2); Basophils % 0.4 % (0.1-2.0); Blood Urea Nitrogen 8 mg/dl (7-17); Creatinine Clearance Estimated 58 mL/min (50-200); Eosinophils # 0.5 K/mm3 (0.0-0.4); Estimated Glomerular Filt Rate 124 ml/min (>60); GFR (African American) 150 ML/MIN (>60); Hematocrit 31.2 % (37.0-47.0); Hemoglobin 9.3 g/dL (12.2-16.2); Lymphocytes # 1.9 K/mm3 (0.7-4.5); Lymphocytes % 14.5 % (10-50); Mean Corpuscular HGB Conc 29.8 g/dL (31.8-35.4); Mean Corpuscular Hemoglobin 26.8 pg (27.0-31.2); Mean Corpuscular Volume 89.9 fl (81-99); Mean Platelet Volume 7.3 fl (7.4-10.4); Monocytes % 7.4 % (1.7-9.3); Neutrophils # 9.7 K/mm3 (1.8-7.8); Neutrophils % 73.7 % (37.0-80.0); Platelet Count 690 K/mm3 (142-424); Red Blood Count 3.47 M/mm3 (4.20-5.40); Red Cell Distribution Width 15.3 % (11.5-17.5); White Blood Count 13.2 K/mm3 (4.8-10.8)
[2021-07-17 06:47] LABS: Anion Gap -0.9 mEq/L (5-15); Carbon Dioxide 33 mmol/L (22.0-30.0); Glucose 79 mg/dl (74-100)
--- NOTE | 2021-07-17 07:16 | HMH.ACPN2 ---
Internal Medicine - PN: Subj *Date: 07/17/21 *Time: 07:16 Interval history: Patient has no new issues. She only questions how much longer she will had the chest tube. Exam Vital signs and Labs for Last 24 Hours: Temp Pulse Resp BP Pulse Ox 97.9 F 70 16 126/71 96 07/17/21 04:00 07/17/21 04:00 07/17/21 04:00 07/17/21 04:00 07/17/21 04:00 Laboratory Results - last 24 hr 07/16/21 05:27: Total Counted 100, Neutrophils % (Manual) 80 H, Lymphocytes % (Manual) 15, Monocytes % (Manual) 2, Eosinophils % (Manual) 3, Platelet Estimate Normal, Hypochromasia 1+ 07/16/21 05:27: Sodium 131 L, Potassium 3.8, Chloride 99, Carbon Dioxide 33 H, Anion Gap 2.8 L, BUN 11, Creatinine 0.60 D, Estimated Creat Clear 69, Estimated GFR 101, Est GFR ( Amer) 122 D, Glucose 81, Calcium 6.9 L 07/17/21 05:36: WBC 13.2 H D, RBC 3.47 L, Hgb 9.3 L, Hct 31.2 L, MCV 89.9, MCH 26.8 L, MCHC 29.8 L, RDW 15.3, Plt Count 690 H, MPV 7.3 L, Neut % (Auto) 73.7, Lymph % (Auto) 14.5, [place] % (Auto) 7.4, Eos % (Auto) 4.0, Baso % (Auto) 0.4, Neut # (Auto) 9.7 H, Lymph # (Auto) 1.9, [place] # (Auto) 1.0, Eos # (Auto) 0.5 H, Baso # (Auto) 0.1 I & O for Last 24 hours: Intake & Output 07/14/21 07/15/21 07/16/21 07/17/21 11:59 11:59 11:59 11:59 Intake Total 960 / 960 1120 / 1120 720 / 720 1140 / 1140 Output Total 850 / 850 420 / 420 920 / 920 1190 / 1190 Balance 110 / 110 700 / 700 -200 / -200 -50 / -50 Weight 161 lb 7 oz 165 lb 3.2 oz 168 lb 12.8 oz 142 lb 4.8 oz Microbiology Reports for the Last 24 Hours: Microbiology 07/15/21 12:20 Sputum - Expectorated Sputum Gram Stain - Final 07/15/21 12:20 Sputum - Expectorated Sputum Sputum Culture - Preliminary 07/15/21 12:30 Bronchial Washings - Right Lower Lobe Acid Fast Bacilli Smear - Final 07/15/21 12:30 Bronchial Washings - Right Lower Lobe Gram Stain - Final - Constitutional no acute distress - *Routine Respiratory Exam Present: crackles (Left base), distant breath sounds (Left base). Absent: respiratory distress - *Routine Cardiovascular Exam Present: RRR Assessment and Plan (1) Parapneumonic effusion Status: Acute Category: Medical Code(s): J18.9 - Pneumonia, unspecified organism; J91.8 - Pleural effusion in other conditions classified elsewhere (2) Empyema of left pleural space Status: Suspected Category: Medical Code(s): J86.9 - Pyothorax without fistula (3) Pleural effusion, left Status: Acute Category: Medical Code(s): J90 - Pleural effusion, not elsewhere classified (4) Left lower lobe pneumonia Status: Acute Category: Medical Code(s): J18.9 - Pneumonia, unspecified organism - Assessment and plan all Dx Assessment and Plan for all problems:: 1. Antibiotics were changed to Zosyn, white count has come down. 2. Chest tube management per Dr. Segura 3. Continue incentive spirometry
--- NOTE | 2021-07-17 09:09 | HMH.PULMPN ---
Internal Medicine - PN: Subj *Date: 07/17/21 *Time: 10:34 Interval history: No acute respiratory events overnight. Exam - Constitutional Constitutional:: Present: no acute distress, comfortable - HENMT Exam HENMT: Present: normocephalic, atraumatic - Eye Exam Eyes:: Present: normal appearance both eyes and related structures - Neck Exam Neck:: Present: normal visual inspection - Respiratory Exam Respiratory:: Present: able to speak in complete sentences, no respiratory distress. Absent: crackles, wheezing - Cardiovascular Exam Cardiac:: Present: S1, S2 - GI Exam GI:: Present: soft - Skin Exam Skin: Present: warm, no rash - Neurological Exam Neurological: Present: alert, awake, normal cognition - Extremities Exam Extremities: Present: no cyanosis, no clubbing, no edema Assessment and Plan (1) Parapneumonic effusion Status: Acute Category: Medical Code(s): J18.9 - Pneumonia, unspecified organism; J91.8 - Pleural effusion in other conditions classified elsewhere (2) Empyema of left pleural space Status: Suspected Category: Medical Code(s): J86.9 - Pyothorax without fistula (3) Pleural effusion, left Status: Acute Category: Medical Code(s): J90 - Pleural effusion, not elsewhere classified (4) Left lower lobe pneumonia Status: Acute Category: Medical Code(s): J18.9 - Pneumonia, unspecified organism - Assessment and plan all Dx Assessment and Plan for all problems:: #Loculated Exudative Left pleural effusion: #Nonresolving pneumonia 66-year-old female no significant smoking history carries a prior diagnosis of mild intermittent asthma on albuterol on as-needed basis. Recently tested positive for COVID-19 in June 15 at the time she was asymptomatic eventually followed by worsening respiratory failure with cough and productive phlegm that did not resolve with antibiotics and eventually presented to primary care physician's office on July 07 the left side chest x-ray showed large pleural effusion that was scheduled for thoracentesis however only 50 cc was collected as given the patient fluid was loculated and pulmonary was called for further management . Pleural fluid Gram stain culture was ordered but not collected. Pleural fluid studies exudative. Negative for malignancy. Given loculated pleural effusion chest tube was placed and was initiated on TPA dornase. Pleural fluid culture no growth 48 hours. Pleural fluid studies consistent with exudative pleural effusion. She completed her six doses of TPA dornase. Repeat CTA after completion of TPA dornase showed small left pleural effusion significantly improved from prior along with pleural thickening and trapped lung and thickened visceral pleura with trapped anterior small pocket pneumothorax. Have extensively discussed with the patient regarding possible treatment options and the plan was made to continue current management Interval update: Respiratory status stable, continue to remain on room air. Antibiotics changed to Zosyn yesterday. Leukocytosis improving. Continue to remain afebrile. Plan: -Continue chest tube to water suction. Output 60 cc in the last 24 hours. We will continue to monitor with a tentative plan to remove the chest tube Tuesday. -Incentive Spirometry -Continue Zosyn IV. Recommend PICC line placement for prolonged IV antibiotic course for her necrotizing pneumonia/empyema. Awaiting final BAL cultures, no organisms seen so far. # Thank you for involving pulmonary in this patient care. We will continue to follow.
--- NOTE | 2021-07-17 10:20 | XR_ITS ---
FINAL REPORT CLINICAL HISTORY: Confirm PICC line placement COMPARISON: July 16, 2021 FINDINGS: A left-sided chest tube remains in place. A new left PICC line terminates in the lower SVC. The heart size is normal. The mediastinum is normal. There is persistent opacity in the left lung base. There are no pleural effusions. There is no pneumothorax. There is no osseous abnormality. IMPRESSION: Left-sided PICC line terminates in lower SVC. Persistent left base opacity. Reviewed, Interpreted and Dictated by Spencer Chen III, MD Transcribed by Darian West Authenticated by Spencer Chen III, MD on 07/17/2021 02:28:06 PM [facility]
--- NOTE | 2021-07-17 10:30 | DIET.NUTRFU ---
RD reviewed meal intake, she is consuming 50-75% of most meals on cardiac diet. Wt had been stable with some gains from 71kg-76kg on 07/16, but todays weight was 64kg. This may have been in error. She has received IVF since admit off and on, currently not running. No diuretic tx has been used. Labs 126-131 (07/17), Ca is depleted at 7 and albumin depleted at 2.2. Will add ensure daily to help meet needs.
--- NOTE | 2021-07-17 18:02 | PC.NURSE ---
No acute changes. 0 ml output from chest tube. Chest tube site w/o drainage, foam tape in place. Only complaint this shift was of pain from L chest wall, medicated per JUL. Pt's daughter called this morning and was updated on plan of care. PICC line was placed this afternoon in L upper arm w/o difficulty, placement verified by RAD. Daughter currently @ bedside. No need voiced. Call rommel w/in reach.
[2021-07-18] VITALS: BP 126/72; PULSE 71; RESP 18; TEMP 36.7; O2SAT 98
[2021-07-18 04:00] VITALS: BP 125/69; PULSE 66; RESP 16; TEMP 36.8; O2SAT 94
[2021-07-18 05:00] VITALS: BMI 25.2
[2021-07-18 05:55] LABS: Basophils # 0.1 K/mm3 (0-0.2); Basophils % 0.4 % (0.1-2.0); Eosinophils # 0.5 K/mm3 (0.0-0.4); Eosinophils % 3.7 % (0.1-12.0); Hematocrit 33.1 % (37.0-47.0); Hemoglobin 9.8 g/dL (12.2-16.2); Lymphocytes # 2.1 K/mm3 (0.7-4.5); Lymphocytes % 15.7 % (10-50); Mean Corpuscular HGB Conc 29.5 g/dL (31.8-35.4); Mean Corpuscular Hemoglobin 26.8 pg (27.0-31.2); Mean Corpuscular Volume 91.1 fl (81-99); Mean Platelet Volume 7.4 fl (7.4-10.4); Monocytes # 0.9 K/mm3 (0.1-1.0); Monocytes % 6.6 % (1.7-9.3); Neutrophils # 9.7 K/mm3 (1.8-7.8); Neutrophils % 73.6 % (37.0-80.0); Red Blood Count 3.64 M/mm3 (4.20-5.40); Red Cell Distribution Width 15.3 % (11.5-17.5); White Blood Count 13.2 K/mm3 (4.8-10.8)
[2021-07-18 05:56] LABS: Platelet Count 646 K/mm3 (142-424)
[2021-07-18 06:04] LABS: Chloride 102 mmol/L (98-107); Potassium 4.2 mmoL/L (3.5-5.1); Sodium 130 mmol/L (136-145)
[2021-07-18 06:07] LABS: Anion Gap 1.2 mEq/L (5-15); Blood Urea Nitrogen 8 mg/dl (7-17); Carbon Dioxide 31 mmol/L (22.0-30.0); Creatinine Clearance Estimated 64 mL/min (50-200); Estimated Glomerular Filt Rate 101 ml/min (>60); GFR (African American) 122 ML/MIN (>60); Glucose 83 mg/dl (74-100)
--- NOTE | 2021-07-18 07:49 | P.PN_ITS ---
Internal Medicine - PN: Subj *Date: 07/18/21 *Time: 07:49 Interval history: Patient is remained stable over the last 24 hours. Exam Vital signs and Labs for Last 24 Hours: Temp Pulse Resp BP Pulse Ox 98.2 F 66 16 125/69 94 L 07/18/21 04:00 07/18/21 04:00 07/18/21 04:00 07/18/21 04:00 07/18/21 04:00 Laboratory Results - last 24 hr 07/18/21 05:24: WBC 13.2 H, RBC 3.64 L, Hgb 9.8 L, Hct 33.1 L, MCV 91.1, MCH 26.8 L, MCHC 29.5 L, RDW 15.3, Plt Count 646 H, MPV 7.4, Neut % (Auto) 73.6, Lymph % (Auto) 15.7, [place] % (Auto) 6.6, Eos % (Auto) 3.7, Baso % (Auto) 0.4, Neut # (Auto) 9.7 H, Lymph # (Auto) 2.1, [place] # (Auto) 0.9, Eos # (Auto) 0.5 H, Baso # (Auto) 0.1 07/18/21 05:32: Sodium 130 L, Potassium 4.2, Chloride 102, Carbon Dioxide 31 H, Anion Gap 1.2 L, BUN 8, Creatinine 0.60, Estimated Creat Clear 64, Estimated GFR 101, Est GFR ( Amer) 122, Glucose 83, Calcium 7.0 L I & O for Last 24 hours: Intake & Output 07/15/21 07/16/21 07/17/21 07/18/21 11:59 11:59 11:59 11:59 Intake Total 1120 / 1120 720 / 720 1380 / 1380 520 / 520 Output Total 420 / 420 920 / 920 1190 / 1190 1800 / 1800 Balance 700 / 700 -200 / -200 190 / 190 -1280 / -1280 Weight 165 lb 3.2 oz 168 lb 12.8 oz 142 lb 4.8 oz 157 lb 3 oz Microbiology Reports for the Last 24 Hours: Microbiology 07/15/21 12:30 Bronchial Washings - Right Lower Lobe - Final 07/15/21 12:30 Bronchial Washings - Right Lower Lobe Acid Fast Bacilli Smear - Final 07/15/21 12:20 Sputum - Expectorated Sputum Gram Stain - Final 07/15/21 12:20 Sputum - Expectorated Sputum Sputum Culture - Preliminary Narrative: Patient looks comfortable. She has crackles with decreased breath sounds in the left base. Heart has a regular rate and rhythm. Abdomen is soft. Lower extremities have no edema. Chest tube is intact. Chest tube output has been 0 mL White count remained stable at 13,000 Assessment and Plan (1) Parapneumonic effusion Status: Acute Category: Medical Code(s): J18.9 - Pneumonia, unspecified organism; J91.8 - Pleural effusion in other conditions classified elsewhere (2) Empyema of left pleural space Status: Suspected Category: Medical Code(s): J86.9 - Pyothorax without fistula (3) Pleural effusion, left Status: Acute Category: Medical Code(s): J90 - Pleural effusion, not elsewhere classified (4) Left lower lobe pneumonia Status: Acute Category: Medical Code(s): J18.9 - Pneumonia, unspecified organism - Assessment and plan all Dx Assessment and Plan for all problems:: Maintain chest tube until Tuesday. If output remains low patient will have chest tube removed. Patient will need at least 2 weeks of intravenous Zosyn through PICC line, and possibly longer. Patient is aware of plan
[2021-07-18 08:00] VITALS: BP 116/70; PULSE 74; RESP 20; TEMP 36.4; O2SAT 95
[2021-07-18 12:00] VITALS: BP 98/56; PULSE 84; RESP 18; TEMP 36.7; O2SAT 93
[2021-07-18 16:00] VITALS: BP 139/73; PULSE 75; RESP 16; TEMP 36.8; O2SAT 97
[2021-07-18 20:00] VITALS: BP 131/80; PULSE 68; RESP 16; TEMP 36.9; O2SAT 97
[2021-07-19] VITALS: BP 125/82; PULSE 62; RESP 20; TEMP 37; O2SAT 94
[2021-07-19 04:00] VITALS: BP 107/59; PULSE 63; RESP 16; TEMP 36.7; O2SAT 96
[2021-07-19 05:00] VITALS: BMI 25.1
[2021-07-19 06:23] LABS: Basophils # 0.1 K/mm3 (0-0.2); Basophils % 0.5 % (0.1-2.0); Eosinophils # 0.4 K/mm3 (0.0-0.4); Eosinophils % 3.5 % (0.1-12.0); Hematocrit 31.1 % (37.0-47.0); Hemoglobin 9.3 g/dL (12.2-16.2); Lymphocytes # 2.1 K/mm3 (0.7-4.5); Lymphocytes % 21.7 % (10-50); Mean Corpuscular Hemoglobin 27.2 pg (27.0-31.2); Mean Corpuscular Volume 90.7 fl (81-99); Mean Platelet Volume 7.2 fl (7.4-10.4); Monocytes # 0.6 K/mm3 (0.1-1.0); Monocytes % 6.3 % (1.7-9.3); Neutrophils # 6.6 K/mm3 (1.8-7.8); Neutrophils % 67.9 % (37.0-80.0); Red Blood Count 3.43 M/mm3 (4.20-5.40); Red Cell Distribution Width 15.3 % (11.5-17.5); White Blood Count 9.8 K/mm3 (4.8-10.8)
[2021-07-19 06:24] LABS: Platelet Count 636 K/mm3 (142-424)
--- NOTE | 2021-07-19 07:25 | PC.NURSE ---
Pt a + o x4. No complaints voiced to staff. Chest tube in place to left chest wall. 20ml have been drained t/o shift. Pt has been voiding large amounts of urine multiple times t/o night. Urine is cloudy and pale yellow. Pt continues to be excoriated on her bottom, nystatin cream has been applied. Call carney in reach.
[2021-07-19 08:00] VITALS: BP 123/70; PULSE 75; RESP 26; TEMP 36.4; O2SAT 96
--- NOTE | 2021-07-19 08:09 | P.PN_ITS ---
Internal Medicine - PN: Subj *Date: 07/19/21 *Time: 08:09 Interval history: Patient has no complaints this morning. She remains in good spirits. She denies shortness of breath. Exam Vital signs and Labs for Last 24 Hours: Temp Pulse Resp BP Pulse Ox 98.0 F 63 16 107/59 L 96 07/19/21 04:00 07/19/21 04:00 07/19/21 04:00 07/19/21 04:00 07/19/21 04:00 Laboratory Results - last 24 hr 07/19/21 05:21: WBC 9.8 D, RBC 3.43 L, Hgb 9.3 L, Hct 31.1 L, MCV 90.7, MCH 27.2, MCHC 30.0 L, RDW 15.3, Plt Count 636 H, MPV 7.2 L, Neut % (Auto) 67.9, Lymph % (Auto) 21.7, [place] % (Auto) 6.3, Eos % (Auto) 3.5, Baso % (Auto) 0.5, Neut # (Auto) 6.6, Lymph # (Auto) 2.1, [place] # (Auto) 0.6, Eos # (Auto) 0.4, Baso # (Auto) 0.1 I & O for Last 24 hours: Intake & Output 07/16/21 07/17/21 07/18/21 07/19/21 11:59 11:59 11:59 11:59 Intake Total 720 / 720 1380 / 1380 640 / 640 480 / 480 Output Total 920 / 920 1190 / 1190 1800 / 1800 1470 / 1470 Balance -200 / -200 190 / 190 -1160 / -1160 -990 / -990 Weight 168 lb 12.8 oz 142 lb 4.8 oz 157 lb 3 oz 156 lb 4.8 oz Microbiology Reports for the Last 24 Hours: Microbiology 07/15/21 12:20 Sputum - Expectorated Sputum - Final Not Reportable 07/15/21 12:20 Sputum - Expectorated Sputum - Final Not Reportable 07/15/21 12:20 Sputum - Expectorated Sputum - Final Not Reportable 07/15/21 12:20 Sputum - Expectorated Sputum Gram Stain - Final 07/15/21 12:20 Sputum - Expectorated Sputum Sputum Culture - Final Yeast 07/15/21 12:30 Bronchial Washings - Right Lower Lobe - Final Not Reportable 07/15/21 12:30 Bronchial Washings - Right Lower Lobe Gram Stain - Final 07/15/21 12:30 Bronchial Washings - Right Lower Lobe Bronchoalveolar Lavage Culture - Final Yeast Narrative: Patient appears comfortable. Lung exam is unchanged with good aeration anteriorly and crackles at the left base along with diminished breath sounds. Heart has a regular rate and rhythm. Chest tube is put out approximately 20 mL of serous colored fluid Assessment and Plan (1) Parapneumonic effusion Status: Acute Category: Medical Code(s): J18.9 - Pneumonia, unspecified organism; J91.8 - Pleural effusion in other conditions classified elsewhere (2) Empyema of left pleural space Status: Suspected Category: Medical Code(s): J86.9 - Pyothorax without fistula (3) Pleural effusion, left Status: Acute Category: Medical Code(s): J90 - Pleural effusion, not elsewhere classified (4) Left lower lobe pneumonia Status: Acute Category: Medical Code(s): J18.9 - Pneumonia, unspecified organism - Assessment and plan all Dx Assessment and Plan for all problems:: 1. Chest tube will be maintained for another 24 hours. Anticipate removal tomorrow 2. Continue Zosyn for total of at least 2 weeks
--- NOTE | 2021-07-19 08:48 | HMH.GSPN ---
Subjective Patient reports: no new complaints Progress Note: A&P (1) Parapneumonic effusion Status: Acute (2) Empyema of left pleural space Status: Suspected (3) Pleural effusion, left Status: Acute (4) Left lower lobe pneumonia Status: Acute Assessment and Plan for All Diagnoses:: Possible chest tube removal tomorrow. Exam Vital signs and Labs for Last 24 Hours: Temp Pulse Resp BP Pulse Ox 97.5 F L 75 26 H 123/70 96 07/19/21 08:00 07/19/21 08:00 07/19/21 08:00 07/19/21 08:00 07/19/21 08:00 Laboratory Results - last 24 hr 07/19/21 05:21: WBC 9.8 D, RBC 3.43 L, Hgb 9.3 L, Hct 31.1 L, MCV 90.7, MCH 27.2, MCHC 30.0 L, RDW 15.3, Plt Count 636 H, MPV 7.2 L, Neut % (Auto) 67.9, Lymph % (Auto) 21.7, [place] % (Auto) 6.3, Eos % (Auto) 3.5, Baso % (Auto) 0.5, Neut # (Auto) 6.6, Lymph # (Auto) 2.1, [place] # (Auto) 0.6, Eos # (Auto) 0.4, Baso # (Auto) 0.1 I & O for Last 24 hours: Intake & Output 07/16/21 07/17/21 07/18/21 07/19/21 11:59 11:59 11:59 11:59 Intake Total 720 / 720 1380 / 1380 640 / 640 480 / 480 Output Total 920 / 920 1190 / 1190 1800 / 1800 1470 / 1470 Balance -200 / -200 190 / 190 -1160 / -1160 -990 / -990 Weight 168 lb 12.8 oz 142 lb 4.8 oz 157 lb 3 oz 156 lb 4.8 oz Microbiology Reports for the Last 24 Hours: Microbiology 07/15/21 12:20 Sputum - Expectorated Sputum - Final Not Reportable 07/15/21 12:20 Sputum - Expectorated Sputum - Final Not Reportable 07/15/21 12:20 Sputum - Expectorated Sputum - Final Not Reportable 07/15/21 12:20 Sputum - Expectorated Sputum Gram Stain - Final 07/15/21 12:20 Sputum - Expectorated Sputum Sputum Culture - Final Yeast 07/15/21 12:30 Bronchial Washings - Right Lower Lobe - Final Not Reportable 07/15/21 12:30 Bronchial Washings - Right Lower Lobe Gram Stain - Final 07/15/21 12:30 Bronchial Washings - Right Lower Lobe Bronchoalveolar Lavage Culture - Final Yeast - Routine Chest/Breast/Axilla Exam Comments: Chest tube dressed.
--- NOTE | 2021-07-19 08:51 | HMH.ACPN ---
Internal Medicine - PN: Subj *Date: 07/19/21 *Time: 08:51 Exam Vital signs and Labs for Last 24 Hours: Temp Pulse Resp BP Pulse Ox 97.5 F L 75 26 H 123/70 96 07/19/21 08:00 07/19/21 08:00 07/19/21 08:00 07/19/21 08:00 07/19/21 08:00 Laboratory Results - last 24 hr 07/19/21 05:21: WBC 9.8 D, RBC 3.43 L, Hgb 9.3 L, Hct 31.1 L, MCV 90.7, MCH 27.2, MCHC 30.0 L, RDW 15.3, Plt Count 636 H, MPV 7.2 L, Neut % (Auto) 67.9, Lymph % (Auto) 21.7, [place] % (Auto) 6.3, Eos % (Auto) 3.5, Baso % (Auto) 0.5, Neut # (Auto) 6.6, Lymph # (Auto) 2.1, [place] # (Auto) 0.6, Eos # (Auto) 0.4, Baso # (Auto) 0.1 I & O for Last 24 hours: Intake & Output 07/16/21 07/17/21 07/18/21 07/19/21 23:59 23:59 23:59 23:59 Intake Total 1520 / 1520 860 / 860 600 / 600 Output Total 730 / 1730 1460 / 2460 1999 / 1999 870 / 870 Balance 790 / -210 -600 / -1600 -1400 / -1400 -870 / -870 Weight 76.566 kg 64.546 kg 71.299 kg 70.896 kg Microbiology Reports for the Last 24 Hours: Microbiology 07/15/21 12:20 Sputum - Expectorated Sputum - Final Not Reportable 07/15/21 12:20 Sputum - Expectorated Sputum - Final Not Reportable 07/15/21 12:20 Sputum - Expectorated Sputum - Final Not Reportable 07/15/21 12:20 Sputum - Expectorated Sputum Gram Stain - Final 07/15/21 12:20 Sputum - Expectorated Sputum Sputum Culture - Final Yeast 07/15/21 12:30 Bronchial Washings - Right Lower Lobe - Final Not Reportable 07/15/21 12:30 Bronchial Washings - Right Lower Lobe Gram Stain - Final 07/15/21 12:30 Bronchial Washings - Right Lower Lobe Bronchoalveolar Lavage Culture - Final Yeast Assessment and Plan (1) Parapneumonic effusion Status: Acute Category: Medical Code(s): J18.9 - Pneumonia, unspecified organism; J91.8 - Pleural effusion in other conditions classified elsewhere (2) Empyema of left pleural space Status: Suspected Category: Medical Code(s): J86.9 - Pyothorax without fistula (3) Pleural effusion, left Status: Acute Category: Medical Code(s): J90 - Pleural effusion, not elsewhere classified (4) Left lower lobe pneumonia Status: Acute Category: Medical Code(s): J18.9 - Pneumonia, unspecified organism The patient's infection will respond to the chosen ABx?: Yes Is the patient receiving the right drug, dose, and route?: Yes Could a more targeted ABx be ordered?: No
[2021-07-19 11:59] VITALS: BP 124/85; PULSE 70; RESP 18; TEMP 36.6; O2SAT 95
[2021-07-19 16:00] VITALS: BP 128/69; PULSE 65; RESP 16; TEMP 36.7; O2SAT 96
[2021-07-19 20:00] VITALS: BP 113/64; PULSE 66; RESP 16; TEMP 36.9; O2SAT 95
[2021-07-20] VITALS (7 sets, daily range): BP systolic 101–129; BP diastolic 54–73; PULSE 60–70; RESP 16–18; TEMP 36.6–37.2; O2SAT 94–96; BMI 24.3
[2021-07-20 06:24] LABS: Basophils # 0.1 K/mm3 (0-0.2); Basophils % 0.7 % (0.1-2.0); Eosinophils # 0.3 K/mm3 (0.0-0.4); Eosinophils % 3.6 % (0.1-12.0); Hematocrit 31.8 % (37.0-47.0); Hemoglobin 9.8 g/dL (12.2-16.2); Lymphocytes # 1.8 K/mm3 (0.7-4.5); Lymphocytes % 21.6 % (10-50); Mean Corpuscular HGB Conc 30.8 g/dL (31.8-35.4); Mean Corpuscular Hemoglobin 28.2 pg (27.0-31.2); Mean Corpuscular Volume 91.4 fl (81-99); Mean Platelet Volume 7.3 fl (7.4-10.4); Monocytes # 0.5 K/mm3 (0.1-1.0); Monocytes % 5.6 % (1.7-9.3); Neutrophils # 5.7 K/mm3 (1.8-7.8); Neutrophils % 68.5 % (37.0-80.0); Platelet Count 596 K/mm3 (142-424); Red Blood Count 3.48 M/mm3 (4.20-5.40); Red Cell Distribution Width 15.5 % (11.5-17.5); White Blood Count 8.3 K/mm3 (4.8-10.8)
--- NOTE | 2021-07-20 07:18 | P.PN_ITS ---
Internal Medicine - PN: Subj *Date: 07/20/21 *Time: 07:18 Interval history: Patient is remained stable. No acute events over the last 24 hours. She is in good spirits. Exam Vital signs and Labs for Last 24 Hours: Temp Pulse Resp BP Pulse Ox 98.3 F 62 18 124/66 94 L 07/20/21 04:00 07/20/21 04:00 07/20/21 04:00 07/20/21 04:00 07/20/21 04:00 Laboratory Results - last 24 hr 07/20/21 05:13: WBC 8.3, RBC 3.48 L, Hgb 9.8 L, Hct 31.8 L, MCV 91.4, MCH 28.2, MCHC 30.8 L, RDW 15.5, Plt Count 596 H, MPV 7.3 L, Neut % (Auto) 68.5, Lymph % (Auto) 21.6, [place] % (Auto) 5.6, Eos % (Auto) 3.6, Baso % (Auto) 0.7, Neut # (Auto) 5.7, Lymph # (Auto) 1.8, [place] # (Auto) 0.5, Eos # (Auto) 0.3, Baso # (Auto) 0.1 I & O for Last 24 hours: Intake & Output 07/17/21 07/18/21 07/19/21 07/20/21 11:59 11:59 11:59 11:59 Intake Total 1380 / 1380 640 / 640 720 / 720 600 / 600 Output Total 1190 / 1190 1800 / 1800 1470 / 1470 2100 / 2100 Balance 190 / 190 -1160 / -1160 -750 / -750 -1500 / -1500 Weight 142 lb 4.8 oz 157 lb 3 oz 156 lb 4.8 oz 151 lb Narrative: Patient appears comfortable. Anterior left lung is clear. Posteriorly at the base patient has crackles with diminished breath sounds. Chest tube is in place. Assessment and Plan (1) Parapneumonic effusion Status: Acute Category: Medical Code(s): J18.9 - Pneumonia, unspecified organism; J91.8 - Pleural effusion in other conditions classified elsewhere (2) Empyema of left pleural space Status: Suspected Category: Medical Code(s): J86.9 - Pyothorax without fistula (3) Pleural effusion, left Status: Acute Category: Medical Code(s): J90 - Pleural effusion, not elsewhere classified (4) Left lower lobe pneumonia Status: Acute Category: Medical Code(s): J18.9 - Pneumonia, unspecified organism - Assessment and plan all Dx Assessment and Plan for all problems:: Plans for chest tube removal today. Chest x-ray is scheduled for 8 AM.
--- NOTE | 2021-07-20 08:00 | XR_ITS ---
FINAL REPORT CLINICAL HISTORY: follow up left sided chest tube COMPARISON: 07/17/2021 FINDINGS: 2 views of the chest were obtained . The heart is normal in size. The mediastinum is within normal limits. Again seen is patchy airspace opacity at the left lung base. Left PICC and left chest tube are unchanged. There is no pneumothorax. Osseous structures are unremarkable. IMPRESSION: No significant interval change in patchy left base opacity. Reviewed, Interpreted and Dictated by Cleveland Jordan MD Transcribed by Chani Mosher Authenticated by Cleveland Jordan MD on 07/20/2021 11:17:18 AM [facility]
--- NOTE | 2021-07-20 08:55 | HMH.PULMPN ---
Internal Medicine - PN: Subj *Date: 07/20/21 *Time: 11:48 Interval history: No acute respiratory vents over the weekend. Patient continued to remain on room air. Denies any new or worsening respiratory symptoms. Exam - Constitutional Constitutional:: Present: no acute distress, comfortable - HENMT Exam HENMT: Present: normocephalic, atraumatic - Eye Exam Eyes:: Present: normal appearance both eyes and related structures - Neck Exam Neck:: Present: normal visual inspection - Respiratory Exam Respiratory:: Present: able to speak in complete sentences, no respiratory distress. Absent: wheezing - Cardiovascular Exam Cardiac:: Present: S1, S2 - GI Exam GI:: Present: soft - Skin Exam Skin: Present: warm, no rash - Neurological Exam Neurological: Present: alert, awake, normal cognition - Extremities Exam Extremities: Present: no cyanosis, no clubbing, no edema Assessment and Plan (1) Parapneumonic effusion Status: Acute Category: Medical Code(s): J18.9 - Pneumonia, unspecified organism; J91.8 - Pleural effusion in other conditions classified elsewhere (2) Empyema of left pleural space Status: Suspected Category: Medical Code(s): J86.9 - Pyothorax without fistula (3) Pleural effusion, left Status: Acute Category: Medical Code(s): J90 - Pleural effusion, not elsewhere classified (4) Left lower lobe pneumonia Status: Acute Category: Medical Code(s): J18.9 - Pneumonia, unspecified organism - Assessment and plan all Dx Assessment and Plan for all problems:: #Loculated Exudative Left pleural effusion: #Nexrotizing Pneumonia 66-year-old female no significant smoking history carries a prior diagnosis of mild intermittent asthma on albuterol on as-needed basis. Recently tested positive for COVID-19 in June 15 at the time she was asymptomatic eventually followed by worsening respiratory failure with cough and productive phlegm that did not resolve with antibiotics and eventually presented to primary care physician's office on July 07 the left side chest x-ray showed large pleural effusion that was scheduled for thoracentesis however only 50 cc was collected as given the patient fluid was loculated and pulmonary was called for further management . Pleural fluid Gram stain culture was ordered but not collected. Pleural fluid studies exudative. Negative for malignancy. Given loculated pleural effusion chest tube was placed and was initiated on TPA dornase. Pleural fluid culture no growth 48 hours. Pleural fluid studies consistent with exudative pleural effusion. She completed her six doses of TPA dornase. Repeat CTA after completion of TPA dornase showed small left pleural effusion significantly improved from prior along with pleural thickening and trapped lung and thickened visceral pleura with trapped anterior small pocket pneumothorax. Have extensively discussed with the patient regarding possible treatment options and the plan was made to continue current management. Given nonresolving pneumonia patient had bronchoscopy with bronchoalveolar lavage performed the right lower lobe, no copious secretions noted, more than 25 WBCs with no organisms seen. Moderate yeast both in her bronchoscopy on both the sputum cultures, likely a contaminant. We will continue to monitor. CXR PA/lat this morning showed continued improvement in left airspace disease and left pleural effusion. The left lateral pneumothorax appeared to be improved on most recent chest x-ray. Patient still noted to have minimal left-sided pleural effusion. Leukocytosis continue to improve after changing antibiotics to Zosyn starting 07/16/20 Plan: -Remove chest tube, appreciate Surgical teams help. Chest tube output minimal in the last 72 hours. -Continue IV Zosyn for at least 14 days starting 07/16/2021. We will follow the patient in the clinic and will further determine the need for prolonged antibiotic course. PICC line in place (shelly
--- NOTE | 2021-07-20 09:54 | PC.NURSE ---
Surgery called per Dr. Segura about removal of chest tube today by Dr. Saini. Dr. Saini agreed to pull tube at bedside today.
--- NOTE | 2021-07-20 10:29 | HMH.GSPN ---
Subjective Patient reports: no new complaints Progress Note: A&P (1) Parapneumonic effusion Status: Acute (2) Empyema of left pleural space Status: Suspected (3) Pleural effusion, left Status: Acute (4) Left lower lobe pneumonia Status: Acute Assessment and Plan for All Diagnoses:: Chest tube removed at bedside without difficulty. Exam Vital signs and Labs for Last 24 Hours: Temp Pulse Resp BP Pulse Ox 98.1 F 68 16 101/64 L 95 07/20/21 07:50 07/20/21 07:50 07/20/21 07:50 07/20/21 07:50 07/20/21 08:00 Laboratory Results - last 24 hr 07/20/21 05:13: WBC 8.3, RBC 3.48 L, Hgb 9.8 L, Hct 31.8 L, MCV 91.4, MCH 28.2, MCHC 30.8 L, RDW 15.5, Plt Count 596 H, MPV 7.3 L, Neut % (Auto) 68.5, Lymph % (Auto) 21.6, [place] % (Auto) 5.6, Eos % (Auto) 3.6, Baso % (Auto) 0.7, Neut # (Auto) 5.7, Lymph # (Auto) 1.8, [place] # (Auto) 0.5, Eos # (Auto) 0.3, Baso # (Auto) 0.1 I & O for Last 24 hours: Intake & Output 07/17/21 07/18/21 07/19/21 07/20/21 11:59 11:59 11:59 11:59 Intake Total 1380 / 1380 640 / 640 720 / 720 600 / 600 Output Total 1190 / 1190 1800 / 1800 1470 / 1470 2100 / 2100 Balance 190 / 190 -1160 / -1160 -750 / -750 -1500 / -1500 Weight 142 lb 4.8 oz 157 lb 3 oz 156 lb 4.8 oz 151 lb - Routine Chest/Breast/Axilla Exam Comments: Chest tube site intact with stable hematoma.
--- NOTE | 2021-07-20 15:03 | SW/DCPLANNER ---
Addendum entered by Caroline Cintron 07/21/21 11:38: Alana has confirmed that services will begin this evening for this patient. I have updated Dr Rea. Addendum entered by Caroline Cintron 07/21/21 10:27: [place] of IV medication is $90/week: patient is agreeable with this [facility] [place] [facility] under payment plan. Karie Brink has stated that she will speak with patients family about delivery and assistance with education for first dose. Patient information/order has also been faxed to [employer]: Alana is currently reviewing patient information. Patient will discharge home later today. Original Note: This patient will require a total of 10 days of IV Zosyn Q6 at discharge. [employer] (Girma Hogue) spoke with this patient and she preferred to receive IV antibiotics at home at time of discharge. Patient demographics and med list has been faxed to Karie Brink for an out of pocket expense. Discharge date is unknown at this time. I will continue to follow up with Karie.
[2021-07-21] VITALS: BP 102/55; PULSE 72; RESP 16; TEMP 36.9; O2SAT 96
[2021-07-21 04:00] VITALS: BP 119/57; PULSE 58; RESP 16; TEMP 36.7; O2SAT 99
[2021-07-21 05:00] VITALS: BMI 23.8
--- NOTE | 2021-07-21 07:21 | HMH.ACPN2 ---
Internal Medicine - PN: Subj *Date: 07/21/21 *Time: 07:21 Interval history: Patient without complaints this morning. Chest tube was removed yesterday. Patient has done well since chest tube removal. Exam Vital signs and Labs for Last 24 Hours: Temp Pulse Resp BP Pulse Ox 98.1 F 58 L 16 119/57 L 99 07/21/21 04:00 07/21/21 04:00 07/21/21 04:00 07/21/21 04:00 07/21/21 04:00 I & O for Last 24 hours: Intake & Output 07/18/21 07/19/21 07/20/21 07/21/21 11:59 11:59 11:59 11:59 Intake Total 640 / 640 720 / 720 960 / 960 1560 / 1560 Output Total 1800 / 1800 1470 / 1470 2100 / 2100 Balance -1160 / -1160 -750 / -750 -1140 / -1140 1560 / 1560 Weight 157 lb 3 oz 156 lb 4.8 oz 151 lb 147 lb 14.4 oz Narrative: Patient appears comfortable sitting up in bed. She has diminished breath sounds at the left base with crackles. Heart has a regular rate and rhythm. Lower extremities have no edema. Assessment and Plan (1) Parapneumonic effusion Status: Acute Category: Medical Code(s): J18.9 - Pneumonia, unspecified organism; J91.8 - Pleural effusion in other conditions classified elsewhere (2) Empyema of left pleural space Status: Suspected Category: Medical Code(s): J86.9 - Pyothorax without fistula (3) Pleural effusion, left Status: Acute Category: Medical Code(s): J90 - Pleural effusion, not elsewhere classified (4) Left lower lobe pneumonia Status: Acute Category: Medical Code(s): J18.9 - Pneumonia, unspecified organism - Assessment and plan all Dx Assessment and Plan for all problems:: 1. Plan is for discharge today once IV antibiotics have been arranged for home use. Patient has family at home that can assist with administration of antibiotics.
--- NOTE | 2021-07-21 07:23 | HMH.DCSUM ---
General - General Admission date:: 07/10/21 Discharge date: 07/21/21 HPI HPI: 66-year-old female with positive Covid test on June 15. Patient was asymptomatic at that time and test was performed as part of a preprocedure evaluation. Approximately 7 days later patient developed a cough with thick sputum production and was seen in the office on June 26. Patient was prescribed an antibiotic at that time. She returned to the office on July 07 with increasing shortness of breath and left-sided chest pain. Chest x-ray was performed that revealed a large left pleural effusion. On July 08 patient underwent ultrasound-guided thoracentesis at [facility] with removal of 50 mL of cloudy fluid. Fluid is consistent with exudate. CT scan was performed on July 09 which showed a large loculated left pleural effusion/empyema. Discussion was had with Dr. Segura and patient was admitted to the ER for anticipated chest tube placement. Patient was admitted and overnight is remained stable. She has not been hypoxic. She denies fevers or chills at home. She is a non-smoker Hospital Course Hospital Course: Patient was admitted for chest tube placement. Both pulmonology and surgical services were consulted. Chest tube was placed by Dr. Saini. Then per pulmonology service chest tube was managed. Initially patient had Dronase and Cardioflo infused into the pleural space for a total of 6 doses. This allowed for drainage of the pleural fluid and dissolution of the loculations. Patient had excellent response to this treatment. On upon admission patient had also been placed on Unasyn for her empyema. White count remained elevated and when there was no change in white count after 72 hours of Unasyn antibiotic was changed to Zosyn. Patient's white count came down while on Zosyn. Patient underwent bronchoscopy with BAL on July 15. Chest tube remained in place and to wall suction until July 20. At that time the chest tube was removed. Patient remained stable after chest tube removal. A small left pleural effusion persists on chest x-ray. At the time of this dictation pleural fluid culture, blood cultures, bronchioloalveolar culture is negative for bacterial growth. Patient has had yeast in initial sputum culture and BAL culture. Plan will be for patient to continue IV Zosyn for a total of at least 2 weeks with possible extension of need for IV antibiotics. Patient was discharged home in stable condition on July 21 Objective Vital signs: Temp Pulse Resp BP Pulse Ox 98.1 F 58 L 16 119/57 L 99 07/21/21 04:00 07/21/21 04:00 07/21/21 04:00 07/21/21 04:00 07/21/21 04:00 no acute distress - *Routine Respiratory Exam Present: crackles (Left base), distant breath sounds (Left base) - *Routine Cardiovascular Exam Present: RRR - *Routine Abdominal Exam Present: soft, normoactive bowel sounds. Absent: tenderness Results Labs on day of discharge: Preliminary micro results at discharge 07/11/21 14:00 Sputum Culture - Preliminary Sputum - Expectorated Sputum Yeast DS: Diagnosis - Discharge Diagnosis (1) Left lower lobe pneumonia Status: Acute (2) Parapneumonic effusion Status: Acute (3) Empyema of left pleural space Status: Suspected (4) Pleural effusion, left Status: Acute Discharge Plan - Patient Discharge Instructions ACTIVITY: Continue current activity DIET: continue same diet Patient Instructions: Pleural Effusion, DI for Surgical Site Infection, Surgical Site Infection, DI for Chest Tube Insertion, DI for Empyema, DI for Pleural Effusion - Follow up Plan Disposition: Home, Self-Care Condition at discharge:: Improved Home Medications: Home Medications Medication Instructions Recorded Confirmed Type Atorvastatin Calcium [Lipitor 10mg 10 mg PO HS 03/28/20 07/09/21 History Tab] Loratadine [Claritin] 10 mg PO DAILY
[2021-07-21 08:00] VITALS: BP 126/55; PULSE 69; RESP 18; TEMP 36.8; O2SAT 96
--- NOTE | 2021-07-21 10:53 | HMH.PULMPN ---
Internal Medicine - PN: Subj *Date: 07/21/21 *Time: 10:53 Interval history: No acute respiratory events overnight. Patient admits continued improvement in her symptoms. Exam - Constitutional Constitutional:: Present: no acute distress, comfortable - HENMT Exam HENMT: Present: normocephalic, atraumatic - Eye Exam Eyes:: Present: normal appearance both eyes and related structures - Neck Exam Neck:: Present: normal visual inspection - Respiratory Exam Respiratory:: Present: able to speak in complete sentences, no respiratory distress. Absent: crackles, wheezing - Cardiovascular Exam Cardiac:: Present: S1, S2 - GI Exam GI:: Present: soft - Skin Exam Skin: Present: warm - Neurological Exam Neurological: Present: alert, awake - Extremities Exam Extremities: Present: no cyanosis, no clubbing, no edema Assessment and Plan (1) Left lower lobe pneumonia Status: Acute Category: Medical Code(s): J18.9 - Pneumonia, unspecified organism (2) Parapneumonic effusion Status: Acute Category: Medical Code(s): J18.9 - Pneumonia, unspecified organism; J91.8 - Pleural effusion in other conditions classified elsewhere (3) Empyema of left pleural space Status: Suspected Category: Medical Code(s): J86.9 - Pyothorax without fistula (4) Pleural effusion, left Status: Acute Category: Medical Code(s): J90 - Pleural effusion, not elsewhere classified - Assessment and plan all Dx Assessment and Plan for all problems:: #Loculated Exudative Left pleural effusion: #Nexrotizing Pneumonia 66-year-old female no significant smoking history carries a prior diagnosis of mild intermittent asthma on albuterol on as-needed basis. Recently tested positive for COVID-19 in June 15 at the time she was asymptomatic eventually followed by worsening respiratory failure with cough and productive phlegm that did not resolve with antibiotics and eventually presented to primary care physician's office on July 07 the left side chest x-ray showed large pleural effusion that was scheduled for thoracentesis however only 50 cc was collected as given the patient fluid was loculated and pulmonary was called for further management . Pleural fluid Gram stain culture was ordered but not collected. Pleural fluid studies exudative. Negative for malignancy. Given loculated pleural effusion chest tube was placed and was initiated on TPA dornase. Pleural fluid culture no growth 48 hours. Pleural fluid studies consistent with exudative pleural effusion. She completed her six doses of TPA dornase. Repeat CTA after completion of TPA dornase showed small left pleural effusion significantly improved from prior along with pleural thickening and trapped lung and thickened visceral pleura with trapped anterior small pocket pneumothorax. Have extensively discussed with the patient regarding possible treatment options and the plan was made to continue current management. Given nonresolving pneumonia patient had bronchoscopy with bronchoalveolar lavage performed the right lower lobe, no copious secretions noted, more than 25 WBCs with no organisms seen. Moderate yeast both in her bronchoscopy on both the sputum cultures, likely a contaminant. We will continue to monitor. CXR PA/lat from 07/20/2021 showed continued improvement in left airspace disease and left pleural effusion. The left lateral pneumothorax appeared to be improved on most recent chest x-ray. Patient still noted to have minimal left-sided pleural effusion. Leukocytosis continue to improve after changing antibiotics to Zosyn starting 07/16/20. Interval update: Patient continued to remain on room air with no respiratory distress. Chest tube removed by surgery on 07/20/21. Clinical status stable so far. Stable hematoma at the chest tube site around 8 x 8 cm. No erythema or warmth noted. Mild WBC. Afebrile. Surgery following, appreciate recommendations. Plan: -Continue IV Zosyn for at leas
--- NOTE | 2021-07-21 13:04 | HMH.PHAINT ---
Discharge counseling complete. Informed pt of changes to antibiotic regimen. Pt had no questions or concerns.
--- NOTE | 2021-07-21 13:15 | PC.NURSE ---
DC teaching completed, pt waiting on daughter for ride.
[2021-07-24 09:04] LABS: Cell Count + Differential, BAL SEE COMMENT.
== END 2021-07-21 14:52 | disposition home or self-care (01) | DRG 177 ==
LOC: ER 16:08 → 2ND 07-10 12:09 → ICU 07-10 12:09 → 2ND 07-11 14:18
PROVIDERS: Internal Medicine Pulmonary Disease; Admitting Provider Family Medicine; Emergency Provider Emergency Medicine; PCP Family Medicine; Visit Provider Family Medicine
PROC: 0B9F8ZX Drainage of Right Lower Lung Lobe, Via Natural or Artificial Opening Endoscopic, Diagnostic (ICD-10-PCS; principal; 2021-07-15 12:00)
DX: J86.9 Pyothorax without fistula (principal); J18.9 Pneumonia, unspecified organism; J91.8 Pleural effusion in other conditions classified elsewhere; Z87.891 Personal history of nicotine dependence; Z20.822 Contact with and (suspected) exposure to COVID-19; Z86.16 Personal history of COVID-19; Z86.73 Personal history of transient ischemic attack (TIA), and cerebral infarction without residual deficits; I10 Essential (primary) hypertension; E78.5 Hyperlipidemia, unspecified; K21.9 Gastro-esophageal reflux disease without esophagitis; F32.A Depression, unspecified; G89.29 Other chronic pain; M54.9 Dorsalgia, unspecified; J45.909 Unspecified asthma, uncomplicated; Z96.642 Presence of left artificial hip joint
CPT/HCPCS: 32555; 31624; 32551; 36410; 36415; 36569; 71045; 71046; 71250; 71260; 80048; 80053; 80202; 82042; 82565; 82945; 83605; 83615; 83986; 84155; 84484; 84520; 85007; 85014; 85018; 85025; 86850; 87040; 87070; 87102; 87116; 87186; 87205; 87206; 88112; 88305; 89051; 93005; 94761; 99284; C1751; C9803; J2405; J2543; J7639; P9016; Q9967; U0003; U0005

== ENCOUNTER 2021-07-20 13:25 | Day surgery (SDC) | payer MEDICARE, SELFPAY ==
[2021-07-20 13:20] VITALS: BP 101/65; PULSE 64; RESP 20; TEMP 36.4; O2SAT 94
[2021-07-20 13:31] VITALS: BP 131/74; PULSE 76; RESP 18; O2SAT 97
[2021-07-20 13:33] VITALS: BP 130/72; PULSE 72; RESP 20; O2SAT 98
[2021-07-20 13:45] VITALS: BP 101/65; PULSE 64; RESP 20; O2SAT 94
--- NOTE | 2021-07-20 14:07 | PC.NURSE ---
1345-pt returned to room 211 via w/c, accompanied by nursing staff.
--- NOTE | 2021-07-20 15:15 | P.PCN_ITS ---
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 She is currently on intrathecal hydromorphone 20 mg/mL at 3.63 mg/day and constant flow. She states that her current pump settings are adequately managing her chronic pain symptoms. Of note, the patient has previously undergone spinal cord stimulator trial with 80 to 90% pain relief and is eager to undergo SCS permanent implant the [employer] system. Today the plan is for the patient to undergo intrathecal pump refill and reprogram under fluoroscopy without any changes to her pump settings. Procedure Details:: Informed consent was obtained and the risks and benefits of the procedure was explained to the patient. The patient was taken to the procedure room. The pump was interrogated. The area over the pump was prepped using ChloraPrep. The pump was accessed with a 22-gauge needle. Approximately 3.1 mL's of the intrathecal solution was withdrawn and discarded. The pump was then refilled with 20 mL's of intrathecal [hydromorphone 20 mg/mL]. The pump was interrogated and the infusion was continued at 3.63 mg/day. The patient tolerated the procedure well with no complications. Next refill date is on [October 17, 2021]. Plan and Disposition:: We will follow-up with this patient on or before the next pump refill appointment make any pump adjustments at that time if indicated. I discussed with the patient the patient contact her clinic sooner should any issues arise. [facility] #[id number] was reviewed and appropriate
== END 2021-07-20 13:45 | disposition home or self-care (01) ==
LOC: SC.PAINP 13:25
PROVIDERS: PCP Family Medicine; Visit Provider Anesthesiology Pain Medicine
DX: M51.16 Intervertebral disc disorders with radiculopathy, lumbar region (principal); G90.511 Complex regional pain syndrome I of right upper limb; Z45.1 Encounter for adjustment and management of infusion pump; E78.5 Hyperlipidemia, unspecified; I10 Essential (primary) hypertension; R56.9 Unspecified convulsions; M79.7 Fibromyalgia; Z79.899 Other long term (current) drug therapy; Z88.6 Allergy status to analgesic agent; Z88.2 Allergy status to sulfonamides; Z91.09 Other allergy status, other than to drugs and biological substances
CPT/HCPCS: 95991

== ENCOUNTER → 2021-07-28 09:59 | Outpatient (CLI) | payer MEDICARE, SELFPAY ==
--- NOTE | 2021-07-28 10:05 | XR_ITS ---
FINAL REPORT CLINICAL HISTORY: soa COMPARISON: 07/20/2021 FINDINGS: 2 views of the chest were obtained. A left-sided PICC line is in place. A left chest tube has been removed. The heart size is normal. The mediastinum is unremarkable. There is persistent left base opacity. A small left pleural effusion is seen. There is no pneumothorax. There is no acute osseous abnormality. IMPRESSION: Persistent left base opacity and small left pleural effusion. Reviewed, Interpreted and Dictated by Spencer Chen III, MD Transcribed by Latonya Rizo Authenticated by Spencer Chen III, MD on 07/28/2021 12:09:[address] [facility]
== END ==
LOC: RAD 10:00
PROVIDERS: PCP Family Medicine; Visit Provider Internal Medicine Pulmonary Disease
DX: R06.02 Shortness of breath (principal)
CPT/HCPCS: 71046

== ENCOUNTER 2021-08-04 10:25 | Outpatient (CLI) | payer MEDICARE, SELFPAY ==
--- NOTE | 2021-08-04 10:30 | XR_ITS ---
FINAL REPORT CLINICAL HISTORY: Pneumonia COMPARISON: 07/28/2021 FINDINGS: TWO VIEWS OF THE CHEST The heart is normal in size. The mediastinum is unremarkable. There is persistent but partially improved left base opacity. Small left effusion is identified. Left PICC line remains in place. There is no pneumothorax. IMPRESSION: Persistent but improved left base opacities with small left effusion. Reviewed, Interpreted and Dictated by Spencer Chen III, MD Transcribed by Елена Martinez Authenticated by Spencer Chen III, MD on 08/04/2021 11:16:52 AM [facility]
[2021-08-04 11:56] LABS: Basophils # 0.1 K/mm3 (0-0.2); Basophils % 1.2 % (0.1-2.0); Eosinophils # 0.5 K/mm3 (0.0-0.4); Eosinophils % 7.2 % (0.1-12.0); Hematocrit 33.8 % (37.0-47.0); Hemoglobin 10.5 g/dL (12.2-16.2); Lymphocytes # 1.5 K/mm3 (0.7-4.5); Lymphocytes % 23.4 % (10-50); Mean Corpuscular HGB Conc 30.9 g/dL (31.8-35.4); Mean Corpuscular Hemoglobin 29.1 pg (27.0-31.2); Mean Corpuscular Volume 94.1 fl (81-99); Mean Platelet Volume 8.8 fl (7.4-10.4); Monocytes # 0.4 K/mm3 (0.1-1.0); Monocytes % 6.7 % (1.7-9.3); Neutrophils # 3.9 K/mm3 (1.8-7.8); Neutrophils % 61.5 % (37.0-80.0); Platelet Count 235 K/mm3 (142-424); Red Cell Distribution Width 18.4 % (11.5-17.5); White Blood Count 6.4 K/mm3 (4.8-10.8)
[2021-08-04 12:06] LABS: C-Reactive Protein 1.9 mg/L (0-4)
[2021-08-04 12:11] VITALS: BP 135/84; PULSE 60; RESP 20; O2SAT 99
== END 2021-08-04 12:11 | disposition home or self-care (01) ==
LOC: RAD 10:26 → INF 12:01
PROVIDERS: PCP Family Medicine; Visit Provider Internal Medicine Pulmonary Disease
DX: R06.02 Shortness of breath (principal); J45.909 Unspecified asthma, uncomplicated; R06.00 Dyspnea, unspecified
CPT/HCPCS: 36415; 71046; 85025; 86140; 96523

== ENCOUNTER → 2021-08-18 14:02 | Outpatient (CLI) | payer MEDICARE, SELFPAY ==
--- NOTE | 2021-08-18 14:06 | XR_ITS ---
FINAL REPORT TECHNIQUE: Chest PA & Lateral CLINICAL HISTORY: Effusion COMPARISON: August 04, 2021 FINDINGS: 2 views of the chest were performed. The heart size is normal. The mediastinum is within normal limits. There is a small to moderate left effusion. There is scarring in the left base. There is no pneumothorax. The bony thorax appears intact. IMPRESSION: Small to moderate left pleural effusion, similar to the previous. Reviewed, Interpreted and Dictated by Cleveland Jordan MD Transcribed by Corie Chan Authenticated by Cleveland Jordan MD on 08/18/2021 04:01:[address] [facility]
== END ==
LOC: RAD 14:03
PROVIDERS: Visit Provider Internal Medicine Pulmonary Disease
DX: R06.02 Shortness of breath (principal)
CPT/HCPCS: 71046

== ENCOUNTER 2021-10-05 13:16 | Day surgery (SDC) | payer MEDICARE, SELFPAY ==
[2021-10-05 13:28] VITALS: BP 148/89; BP 169/76; PULSE 65; PULSE 70; RESP 18; TEMP 36.5; O2SAT 97; O2SAT 98; BMI 22.4
[2021-10-05 13:41] VITALS: BP 159/81; PULSE 65; RESP 18; O2SAT 97
--- NOTE | 2021-10-05 13:45 | HMH.PMPROC ---
- Procedure Date: 10/05/21 Time: 13:45 Anesthesiologist:: SHONNA Salas Complications:: None Pre-procedure Diagnosis:: Degenerative disc disease of lumbar spine with lumbar radiculopathy symptoms Post-procedure Diagnosis:: Same Indications for Procedure:: Patient is a pleasant 66-year-old female who presents today for intrathecal pain pump [refill] [and reprogram]. 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 Currently being managed with Dilaudid 20 mg/mL at a rate of 3.63 mg/day. Denies any side effects with this medication. Patient states that she has been having worsening low back pain for the last 3 weeks. She would like an adjustment today. Patient rates pain a 8 out of 10. Drug screen is appropriate. Patient is also prescribed gabapentin 800 mg 3 times a day. Martín [phone] with an active morphine equivalent of 0 has been reviewed and is appropriate. Physical exam General: Alert and oriented x3, no acute distress, pleasant and cooperative, [on room air] Lungs: Respirations even and unlabored, symmetrical chest expansion Eyes: PERRL Musculoskeletal: Flexion and extension of lumbar [spine] somewhat guarded secondary to pain, [antalgic gait noted] Neurological: Speech clear, no gross sensory deficit Procedure Details:: Informed consent was obtained and the risk and benefits of the procedure were explained to the patient. The patient was taken to the procedure room where noninvasive monitoring was placed including noninvasive blood pressure cuff and pulse oximeter. Patient's pump was interrogated. The area over the pump was cleansed with chlorhexidine as a cleansing solution. [Fluoroscopy was used to access the pump]. In sterile fashion the pump was accessed with a 22-gauge needle. Approximately 6 mls of the pump solution was removed and discarded appropriately. The pump was then refilled with 20 mL's of Dilaudid 20 mg/mL. The needle was withdrawn and a bandage was placed over the puncture site. The infusion rate was reprogrammed and increased to Dilaudid 4.0 mg/day. The patient tolerated well with no complication. Plan and Disposition:: Would like to follow-up with the patient in 1 month. Patient has been instructed to contact the clinic with any concerns before the next appointment. Dr. Juarez has reviewed this note and agrees with this plan of care. This note was dictated using voice recognition software and make contain errors or omissions.
[2021-10-05 13:52] VITALS: BP 165/85; PULSE 70; RESP 20; O2SAT 99
== END 2021-10-05 13:53 | disposition home or self-care (01) ==
PROVIDERS: PCP Internal Medicine Adolescent Medicine; Visit Provider Student in an Organized Health Care Education/Training Program
DX: M51.16 Intervertebral disc disorders with radiculopathy, lumbar region (principal); Z45.1 Encounter for adjustment and management of infusion pump; E78.5 Hyperlipidemia, unspecified; I10 Essential (primary) hypertension; M19.90 Unspecified osteoarthritis, unspecified site; M79.7 Fibromyalgia; J44.9 Chronic obstructive pulmonary disease, unspecified; F32.A Depression, unspecified; K21.9 Gastro-esophageal reflux disease without esophagitis; Z86.73 Personal history of transient ischemic attack (TIA), and cerebral infarction without residual deficits; Z87.891 Personal history of nicotine dependence; Z88.6 Allergy status to analgesic agent; Z88.2 Allergy status to sulfonamides; Z88.8 Allergy status to other drugs, medicaments and biological substances
CPT/HCPCS: 62370; Q9966

== ENCOUNTER → 2021-10-20 08:19 | Outpatient (POV) | payer MEDICARE, SELFPAY ==
[2021-10-20 08:35] VITALS: BP 137/70; PULSE 64; RESP 18; TEMP 36.7; O2SAT 98; BMI 22.1
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
== END ==
PROVIDERS: Visit Provider Nurse Anesthetist, Certified Registered
DX: M51.16 Intervertebral disc disorders with radiculopathy, lumbar region (principal); G90.511 Complex regional pain syndrome I of right upper limb
CPT/HCPCS: 99212; G0463

== ENCOUNTER → 2021-11-20 12:59 | Day surgery (SDC) | payer MEDICARE, SELFPAY ==
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
== END ==
PROVIDERS: PCP Internal Medicine Adolescent Medicine; Visit Provider Anesthesiology
DX: M51.16 Intervertebral disc disorders with radiculopathy, lumbar region (principal); M50.10 Cervical disc disorder with radiculopathy, unspecified cervical region
CPT/HCPCS: 99212; G0463

== ENCOUNTER → 2021-11-20 13:14 | Outpatient (POV) | payer MEDICARE, SELFPAY ==
[2021-11-20 13:16] VITALS: BP 145/86; PULSE 58; RESP 18; TEMP 36.6; O2SAT 98; BMI 21.9
== END ==
PROVIDERS: Visit Provider Anesthesiology
DX: M51.16 Intervertebral disc disorders with radiculopathy, lumbar region (principal); M50.10 Cervical disc disorder with radiculopathy, unspecified cervical region
CPT/HCPCS: 99212; G0463

== ENCOUNTER 2021-12-14 13:00 | Day surgery (SDC) | payer MEDICARE, SELFPAY ==
[2021-12-14 13:24] VITALS: BP 145/82; PULSE 58; RESP 20; TEMP 36.4; O2SAT 96; BMI 22.4
[2021-12-14 13:27] VITALS: BP 134/74; PULSE 61; RESP 20; O2SAT 97
--- NOTE | 2021-12-14 13:35 | HMH.PMPROC ---
- Procedure Date: 12/14/21 Time: 13:35 Anesthesiologist:: SHONNA Salas Complications:: None Pre-procedure Diagnosis:: Degenerative disc disease of cervical spine with cervical radiculopathy symptoms, degenerative disc at the lumbar spine with lumbar radiculopathy symptoms Post-procedure Diagnosis:: Same Indications for Procedure:: Patient is a pleasant 66-year-old white female who presents today for intrathecal pain pump refill and adjustment. The patient is being treated for degenerative disc disease at the cervical spine with cervical radiculopathy symptoms, degenerative disc disease of lumbar spine with lumbar radiculopathy symptoms. Patient is currently being managed with Dilaudid 20 mg/mL for a daily dose of 4 mg a day. Patient denies any side effects from this medication. Patient rates pain a 8 out of 10. Patient is still currently waiting for a spinal cord stimulator implant. Patient did get 2 months of her prescription of Valium 5 mg daily, at this time we will not do a refill. Drug screen is appropriate. [facility] [phone] has been reviewed and is appropriate. Physical exam General: Alert and oriented x3, no acute distress, pleasant and cooperative Lungs: Respirations even and unlabored, symmetrical chest expansion Eyes: PERRL Musculoskeletal: Flexion and extension of cervical and lumbar [spine] somewhat guarded secondary to pain, [antalgic gait noted] Neurological: Speech clear, no gross sensory deficit Procedure Details:: Informed consent was obtained and the risk and benefits of the procedure were explained to the patient. The patient was taken to the procedure room where noninvasive monitoring was placed including noninvasive blood pressure cuff and pulse oximeter. Patient's pump was interrogated. The area over the pump was cleansed with chlorhexidine as a cleansing solution. In sterile fashion the pump was accessed with a 22-gauge needle. Approximately 5.5 mls of the pump solution was removed and discarded appropriately. The pump was then refilled with 20 mL's of Dilaudid 20 mg/mL with 4 mg/day. The needle was withdrawn and a bandage was placed over the puncture site. The infusion rate was reprogrammed and and increased to Dilaudid 4.3 mg/day. The patient tolerated well with no complication. Plan and Disposition:: We will see the patient back in the clinic at the next intrathecal refill. Patient has been instructed to contact the clinic with any concerns before the next appointment. Dr. Juarez has reviewed this note and agrees with this plan of care. This note was dictated using voice recognition software and make contain errors or omissions.
[2021-12-14 13:41] VITALS: BP 158/75; PULSE 55; RESP 18; O2SAT 98
== END 2021-12-14 13:41 | disposition home or self-care (01) ==
LOC: SC.PAINP 13:02
PROVIDERS: PCP Internal Medicine Adolescent Medicine; Visit Provider Student in an Organized Health Care Education/Training Program
DX: M51.16 Intervertebral disc disorders with radiculopathy, lumbar region (principal); M50.10 Cervical disc disorder with radiculopathy, unspecified cervical region
CPT/HCPCS: 62370

== ENCOUNTER → 2021-12-21 13:50 | Outpatient (CLI) | payer MEDICARE, SELFPAY | PROVIDERS: PCP Internal Medicine Adolescent Medicine; Visit Provider Internal Medicine | DX: Z01.812 Encounter for preprocedural laboratory examination (principal); Z20.822 Contact with and (suspected) exposure to COVID-19; Z12.11 Encounter for screening for malignant neoplasm of colon | CPT/HCPCS: C9803; U0003; U0005 ==

== ENCOUNTER 2021-12-23 09:15 | Day surgery (SDC) | payer MEDICARE, SELFPAY ==
[2021-12-21 13:20] VITALS: BMI 21.9
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
[2021-12-23 09:39] VITALS: BP 162/85; PULSE 49; RESP 18; TEMP 36.2; O2SAT 98
[2021-12-23 10:13] VITALS: O2SAT 98
--- NOTE | 2021-12-23 10:36 | HMH.SCOPE ---
- Procedure: Date: 12/23/21 Patient Date of :: 1955 Procedure Performed:: Colonoscopy Indications:: Screening colonoscopy Performing Provider:: Kaushik Hernandez MD Referring Provider:: Pedro Cummings MD Sedation:: See RN notes Procedure:: After placing the patient in the left lateral decubitus position, the colonoscopy was gently inserted into the rectum and under direct visualization advanced to the cecum which was identified by transillumination in the right lower quadrant, identification of the ileocecal valve, appendiceal orifice, and cecal strap. Color, texture, mucosa, and anatomy of the colon were carefully examined with the scope. Findings:: Anal canal: normal Rectum: Internal hemorrhoids Sigmoid colon: fair preparation Descending colon: fair preparation Splenic flexure: normal Transverse colon: normal without polyps or inflammatory changes Hepatic flexure: fair to poor preparation Ascending colon: fair to poor preparation Cecum: fair preparation Terminal ileum: not visualized Fair to poor bowel preparation. Tortuous and floppy colon. Recommendations:: Repeat colonoscopy in 3 years Complications:: None Estimated blood obtained (mL): 0
[2021-12-23 10:38] VITALS: BP 94/61; PULSE 54; RESP 18; TEMP 36.5; O2SAT 95
[2021-12-23 10:46] VITALS: BP 106/61; PULSE 55; RESP 18; O2SAT 98
[2021-12-23 10:57] VITALS: BP 132/70; BP 146/84; PULSE 51; PULSE 71; RESP 18; O2SAT 98; O2SAT 99
--- NOTE | 2021-12-23 11:10 | SUR.PHASEII ---
Discharge assessment done at 1110 not 1057.
== END 2021-12-23 11:10 | disposition home or self-care (01) ==
PROVIDERS: PCP Internal Medicine Adolescent Medicine; Visit Provider Internal Medicine
PROC: 0DJD8ZZ Inspection of Lower Intestinal Tract, Via Natural or Artificial Opening Endoscopic (ICD-10-PCS; CPT 45378; principal; 2021-12-23 10:00)
DX: Z12.11 Encounter for screening for malignant neoplasm of colon (principal); Z79.899 Other long term (current) drug therapy
CPT/HCPCS: G0121

== ENCOUNTER → 2022-01-05 13:49 | Outpatient (CLI) | payer MEDICARE, SELFPAY ==
--- NOTE | 2022-01-05 13:55 | XR_ITS ---
FINAL REPORT CLINICAL HISTORY: COUGH UNSPECIFIED COMPARISON: 08/18/2021 FINDINGS: Two views of the chest were obtained. The heart size and pulmonary vascularity are within normal limits. The mediastinum is normal. Left pleural thickening is stable. There is mild left bronchial wall thickening that may represent bronchitis. There is no pneumothorax. The bony thorax is intact. IMPRESSION: Mild left bronchial wall thickening may represent bronchitis. Reviewed, Interpreted and Dictated by Spencer Chen III, MD Transcribed by Darian West Authenticated and . [facility]
== END ==
LOC: RAD 13:50
PROVIDERS: PCP Internal Medicine Adolescent Medicine; Visit Provider Nurse Practitioner Family
DX: R05.9 Cough, unspecified (principal)
CPT/HCPCS: 71046

== ENCOUNTER → 2022-01-20 13:57 | Outpatient (POV) | payer MEDICARE, SELFPAY ==
--- NOTE | 2022-01-20 15:04 | EXP.PAIN.SOA ---
[facility] Pain Management SOAP Note Subjective:: Patient is a pleasant 66-year-old female that presents today for follow-up. We are currently treating the patient for degenerative disc disease of cervical and lumbar spine with cervical and lumbar radiculopathy symptoms.patient states her pain today is a 2 out of 10 and states the pain is in her mid back. She denies any new trauma or injury to the site. She denies any change to the location or type of pain she experiences. Previously she had a successful spinal cord stimulator trial to help with her neck and cervical radicular symptoms however she was denied by insurance for the implant. Insurance has officially approved her spinal cord stimulator as of this morning. Patient also has a intrathecal Dilaudid pain pump that is being managed at 4 mg/day. She is also currently prescribed gabapentin 800 mg 4 times a day. She is requesting a refill at today's visit. Patient denies any side effects from these medications. She states these medications are adequately managing her pain. She was recently given Valium however she has stopped taking this medication as it made her feel out of it and comatose. She states she just now today feels more like herself. Her Martín is [phone]. Its been reviewed and appropriate. Patient has recently had unintentional weight loss and recently underwent a EGD and colonoscopy. Both of these scopes were negative for any abnormal findings. Patient states she does feel like she has just been stressed and this is causing her weight loss. Patient states that she does feel like she is maintaining her current weight and doing better with her anxiety. Patient is currently taking Trintellix and states this medication is working well for her. Review of Systems: General: No recent weight changes, no fever, no sleep disturbances Respiratory: No cough, no shortness of air, no recurring pulmonary infections Cardiovascular/peripheral vascular: No chest pain, no palpitations, no edema, no shortness of breath Gastrointestinal: No new onset incontinence, normal bowel movements reported Genitourinary: No new onset incontinence Musculoskeletal: Mid/low back pain, neck pain Psychiatric: [Normal mood/affect] Neurological: [Denies weakness in extremities], [denies balance issues] Objective:: Physical Exam: General: Alert and oriented x3, no acute distress, pleasant and cooperative Lungs: Respirations even and unlabored, symmetrical chest expansion Eyes: PERRL Musculoskeletal: Flexion and extension of cervical, lumbar [spine] somewhat guarded secondary to pain, [antalgic gait noted] Neurological: Speech clear, no gross sensory deficit Assessment:: Degenerative disc disease of cervical and lumbar spine with cervical and lumbar radiculopathy symptoms Plan:: Patient had significant improvement in her symptoms of neck pain that radiated down bilateral extremities during her spinal cord stimulator trial. We will schedule the patient for the spinal cord stimulator now that we have gotten insurance approval. Patient states her intrathecal pain pump is adequately managing her pain at its current dose. Patient declines any adjustments at today's visit. Patient will be scheduled for her spinal cord stimulator implant on February 05. We will need to get approval for the patient to come off her Plavix blood thinner at that time. Patient has been instructed to contact the clinic with any concerns before the next appointment. Dr. Juarez has reviewed this note and agrees with this plan of care. This note was dictated using voice recognition software and make contain errors or omissions. PFSH PFSH Social History Smoking Status: Former smoker second hand exposure: No alcohol intake: never substance use type: denies use current occupational status: other household members: other housing: house number of children: 2 current occupational exposures/hazards: No caffeine: Yes
[2022-01-20 15:07] VITALS: BP 160/84; PULSE 60; RESP 18; TEMP 36.6; O2SAT 97; BMI 23.1
== END | disposition home or self-care (01) ==
PROVIDERS: PCP Internal Medicine Adolescent Medicine; Visit Provider Nurse Practitioner Family
DX: M50.10 Cervical disc disorder with radiculopathy, unspecified cervical region (principal); M51.16 Intervertebral disc disorders with radiculopathy, lumbar region
CPT/HCPCS: 99212; G0463

== ENCOUNTER → 2022-02-03 10:53 | Outpatient (CLI) | payer MEDICARE, SELFPAY ==
[2022-02-03 11:22] LABS: Basophils # 0.1 K/mm3 (0-0.2); Basophils % 0.8 % (0.1-2.0); Eosinophils # 0.3 K/mm3 (0.0-0.4); Eosinophils % 4.9 % (0.1-12.0); Hematocrit 41.6 % (37.0-47.0); Hemoglobin 12.7 g/dL (12.2-16.2); Lymphocytes # 1.4 K/mm3 (0.7-4.5); Lymphocytes % 22.7 % (10-50); Mean Corpuscular HGB Conc 30.5 g/dL (31.8-35.4); Mean Corpuscular Hemoglobin 30.5 pg (27.0-31.2); Mean Corpuscular Volume 99.8 fl (81-99); Mean Platelet Volume 8.8 fl (7.4-10.4); Monocytes # 0.2 K/mm3 (0.1-1.0); Neutrophils # 4.1 K/mm3 (1.8-7.8); Neutrophils % 67.6 % (37.0-80.0); Platelet Count 217 K/mm3 (142-424); Red Blood Count 4.17 M/mm3 (4.20-5.40); Red Cell Distribution Width 13.4 % (11.5-17.5)
[2022-02-03 13:50] LABS: Anion Gap 9.1 mEq/L (5-15); Blood Urea Nitrogen 9 mg/dl (7-17); Calcium 8.7 mg/dl (8.4-10.2); Carbon Dioxide 30 mmol/L (22.0-30.0); Chloride 101 mmol/L (98-107); Estimated Glomerular Filt Rate 101 ml/min (>60); GFR (African American) 122 ML/MIN (>60); Glucose 158 mg/dl (74-100); Potassium 4.1 mmoL/L (3.5-5.1); Sodium 136 mmol/L (136-145)
== END ==
PROVIDERS: PCP Internal Medicine Adolescent Medicine; Visit Provider Anesthesiology
DX: Z01.812 Encounter for preprocedural laboratory examination (principal); Z20.822 Contact with and (suspected) exposure to COVID-19; M51.36 Other intervertebral disc degeneration, lumbar region
CPT/HCPCS: 36415; 80048; 85025; C9803; U0003; U0005

== ENCOUNTER 2022-02-05 08:02 | Day surgery (SDC) | payer MEDICARE, SELFPAY ==
[2022-02-02 13:41] VITALS: BMI 23.6
[2022-02-05 08:30] VITALS: BP 159/83; PULSE 56; RESP 16; TEMP 36.6; O2SAT 96
[2022-02-05 12:25] VITALS: BP 136/76; PULSE 64; RESP 18; TEMP 36.4; O2SAT 96
[2022-02-05 12:40] VITALS: BP 155/88; PULSE 58; RESP 18; TEMP 36.4; O2SAT 97
[2022-02-05 12:55] VITALS: BP 148/90; PULSE 59; RESP 18; TEMP 36.4; O2SAT 99
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
[2022-02-05 13:10] VITALS: BP 162/89; PULSE 54; RESP 18; TEMP 36.4; O2SAT 99
[2022-02-05 13:45] VITALS: BP 178/98; PULSE 58; RESP 18; TEMP 36.4; O2SAT 99
== END 2022-02-05 13:45 | disposition home or self-care (01) ==
PROVIDERS: PCP Internal Medicine Adolescent Medicine; Visit Provider Anesthesiology
DX: M50.123 Cervical disc disorder at C6-C7 level with radiculopathy (principal); G90.511 Complex regional pain syndrome I of right upper limb
CPT/HCPCS: 63650 ×2; 63685; C1778; C1820; J2704; J3370

== ENCOUNTER → 2022-02-11 13:33 | Outpatient (POV) | payer MEDICARE, SELFPAY ==
[2022-02-11 13:52] VITALS: BP 127/84; PULSE 85; RESP 20; TEMP 37.1; O2SAT 100; BMI 23.2
--- NOTE | 2022-02-11 14:42 | EXP.PAIN.SOA ---
[facility] Pain Management SOAP Note Subjective:: Patient is a pleasant 67-year-old female who presents today for follow-up. We are currently treating the patient for degenerative disc disease of cervical and lumbar spine with cervical and lumbar radiculopathy symptoms. Patient is unable to rate her pain this afternoon. Patient states that starting this morning she felt like she was going to pass out and the symptoms have gradually increased. Patient states that she did hit her incision sites when applying her back brace this morning that caused some minor pain however she states she has not had any other trauma or injury. Patient states last night she had significant GERD symptoms and had to actually sleep in her recliner. Patient states she has not had any history of reflux. Patient feels like she is weak in her bilateral lower extremities and cannot tolerate ambulation. Patient states she feels unsteady on her feet. Patient denies any nausea vomiting as well as any issues with her bowels or bladder. Patient is currently managed with an intrathecal pain pump of Dilaudid 4 mg/day. She is also prescribed gabapentin 800 mg 4 times a day. Her Martín is [phone]. Its been reviewed and appropriate. Review of Systems: General: No recent weight changes, no fever, sleep disturbances due to GERD Respiratory: No cough, no shortness of air, no recurring pulmonary infections Cardiovascular/peripheral vascular: No chest pain, no palpitations, no edema, no shortness of breath Gastrointestinal: No new onset incontinence, normal bowel movements reported Genitourinary: No new onset incontinence Musculoskeletal: Low back pain Psychiatric: [Anxious mood/affect] Neurological: weakness in extremities, balance issues] Objective:: Physical Exam: General: Alert and oriented x3, acute distress noted, pleasant and cooperative Lungs: Respirations even and unlabored, symmetrical chest expansion Eyes: PERRL Musculoskeletal: Flexion and extension of cervical, lumbar [spine] somewhat guarded secondary to pain, [antalgic gait noted] Neurological: Speech clear, no gross sensory deficit Skin: Diaphoretic Assessment:: Degenerative disc disease of lumbar and cervical spine with lumbar and cervical radiculopathy symptoms Plan:: Patient is having weakness and balance issues with feelings of passing out at today's visit. Patient's vitals are all within normal range however the patient does appear diaphoretic and anxious. Patient has limited range of motion and is unable to tolerate ambulation due to weakness. Patient's wound VAC was removed and a skin tear was noted however we were unable to completely evaluate the wound due to patient being sent to the ER for evaluation. We will follow-up with the patient following her ER visit. Patient has been instructed to contact the clinic with any concerns before the next appointment. Dr. Juarez has reviewed this note and agrees with this plan of care. This note was dictated using voice recognition software and make contain errors or omissions. [facility] Medical History CVA (cerebral vascular accident) Deformity of right foot History of deviated nasal septum Pain Surgical History (Updated 02/11/22 @ 14:09 by Tiffany Brooks RN) History of carpal tunnel release of both wrists History of cholecystectomy History of foot surgery History of hysterectomy History of placement of ear tubes Hx of bariatric surgery Family History Other Family history of cancer Family history of diabetes mellitus type II Social History Smoking Status: Former smoker second hand exposure: No alcohol intake: never substance use type: denies use current occupational status: retired Travel in the last 8 weeks: None household members: other housing: house marital status
== END ==
PROVIDERS: Visit Provider Nurse Practitioner Family
DX: M51.16 Intervertebral disc disorders with radiculopathy, lumbar region (principal); M50.10 Cervical disc disorder with radiculopathy, unspecified cervical region
CPT/HCPCS: 99212; G0463

== ENCOUNTER 2022-02-11 13:46 | Emergency (ER) | payer MEDICARE, SELFPAY ==
[2022-02-11 13:46] VITALS: BP 128/89; PULSE 72; RESP 18; TEMP 36.7; O2SAT 98; BMI 23.1
--- NOTE | 2022-02-11 13:59 | ECG_ITS ---
APPROVED REPORT Exam: Resting ECG HR:73 bpm ECG Measurements Heart Rate 73 AXES LA 154 P 65 QRSd 90 QRS 54 QT 401 T 83 QTc 427 Conclusion SINUS RHYTHM WITH OCCASIONAL SUPRAVENTRICULAR PREMATURE COMPLEXES NONSPECIFIC T-WAVE ABNORMALITY BORDERLINE ECG UNCONFIRMED REPORT Electronically signed by : Juan Jose Parrish MD 02/11/2022 19:22:40
--- NOTE | 2022-02-11 14:05 | HMH.EDGENADL ---
Discharge Plan Disposition Patient Disposition: Home, Self-Care Condition: Good Chief Complaint: Weakness Prescriptions Prescriptions: No Action buspirone 15 mg tablet 15 mg PO BID Qty: 60 1RF clopidogrel 75 MG tablet 75 mg PO DAILY Rx Instructions: off since surgery on 02/05/22 atorvastatin 10 MG tablet 10 mg PO HS montelukast 10 MG tablet 10 mg PO PM omeprazole magnesium 20 MG tablet,delayed release (DR/EC) 40 mg PO BID metoprolol tartrate 25 MG tablet 12.5 mg PO BID vortioxetine 20 MG tablet 20 mg PO DAILY gabapentin 800 MG tablet 800 mg PO QID Referrals Follow up/Referrals: Pedro Cummings MD [Primary Care Provider] - See instructions Activity Restrictions/Add. Instructions Additional Instructions/Restrictions: Rest, drink plenty of fluids. Follow-up with primary care provider, call for appointment. Clinical Impressions Clinical Impression: Generalized weakness Discharge ED Provider: Edd Martinez General Adult HPI General Chief complaint: Weakness Stated complaint: Dizzy Time Seen by Provider: 02/11/22 14:43 History of Present Illness HPI narrative: States that she feels extremely weak all day today. She had 2 doctors appointments today, 1 with Teresa [facility] of behavioral medicine in the second with pain management. She has recently had a nerve stimulator implanted in her back. She says after she went to pain management they brought her down to the emergency room because she was feeling so weak. She says that she had GERD last night and had to sleep sitting up in a chair. She says otherwise she has not felt ill. No fever, URI symptoms, diarrhea or vomiting, or urinary symptoms. She says that pain management felt her surgical site look good. Related Data Home Medications Medication Instructions Recorded Confirmed atorvastatin 10 mg tablet 10 mg PO HS Cholesterol 03/28/20 02/11/22 metoprolol tartrate 25 mg tablet 12.5 mg PO BID Hypertension 03/28/20 02/11/22 montelukast 10 mg tablet 10 mg PO PM Allergy symptoms 03/28/20 02/11/22 omeprazole magnesium 20 mg 40 mg PO BID GERD 03/28/20 02/11/22 tablet,delayed release vortioxetine 20 mg tablet 20 mg PO DAILY Depression 10/20/21 02/11/22 clopidogrel 75 mg tablet 75 mg PO DAILY blood thinner 11/09/21 02/11/22 gabapentin 800 mg tablet 800 mg PO QID Pain 02/02/22 02/11/22 Previous Rx's Medication Instructions Recorded buspirone 15 mg tablet 15 mg PO BID Anxiety #60 tabs 10/09/21 Allergies Allergy/AdvReac Type Severity Reaction Status Date / Time aspirin [ASPIRIN] Allergy Unknown GASTRIC Verified 02/05/22 08:27 ULCERS duloxetine [From CYMBALTA] Allergy Unknown NA-NAUSEA/V Verified 02/05/22 08:27 OMITING NSAIDS (Non-Steroidal Allergy Unknown RASH/DIFFICULTY Verified 02/05/22 08:27 Anti-Inflamma BREATHING [NSAIDS (NON-STEROIDAL ANTI-INFLAMMA] pregabalin [From LYRICA] Allergy Unknown NA-NAUSEA/V Verified 02/05/22 08:27 OMITING Sulfa (Sulfonamide Allergy Unknown RASH/DIFFICULTY Verified 02/05/22 08:27 Antibiotics) BREATHING [SULFA (SULFONAMIDE ANTIBIOTICS)] LUIGI INHIBITORS Allergy Unknown COUGHING Uncoded 12/03/21 13:13 STEROIDS Allergy Unknown GASTRIC Uncoded 12/03/21 13:13 ULCERS PFSH PFSH Medical History (Updated 02/11/22 @ 15:55 by Edd Martinez MD) CVA (cerebral vascular accident) Deformity of right foot Depression History of deviated nasal septum Pain Surgical History (Updated 02/11/22 @ 14:09 by Tiffany Brooks RN) History of carpal tunnel release of both wrists History of cholecystectomy History of foot surgery History of hysterectomy History of placement of ear tubes Hx of bariatric surgery Family History Other Family history of cancer Family history of diabetes mellitus type II Social History (Reviewed 02/05/22 @ 08:27 by Ambika Roy
[2022-02-11 14:38] VITALS: BMI 23.1
--- NOTE | 2022-02-11 14:39 | PC.NURSE ---
notified ER MD of pt presenting s/s, received verbal orders for cbc, cmp, ekg, saline, troponin.
--- NOTE | 2022-02-11 14:45 | PC.NURSE ---
HAL VALENTIN at
[2022-02-11 14:49] LABS: Basophils # 0.1 K/mm3 (0-0.2); Basophils % 0.9 % (0.1-2.0); Eosinophils # 0.5 K/mm3 (0.0-0.4); Eosinophils % 4.1 % (0.1-12.0); Hematocrit 42.2 % (37.0-47.0); Hemoglobin 13.8 g/dL (12.2-16.2); Lymphocytes # 1.3 K/mm3 (0.7-4.5); Lymphocytes % 10.9 % (10-50); Mean Corpuscular HGB Conc 32.6 g/dL (31.8-35.4); Mean Corpuscular Hemoglobin 31.6 pg (27.0-31.2); Mean Corpuscular Volume 96.9 fl (81-99); Mean Platelet Volume 9.4 fl (7.4-10.4); Monocytes # 0.6 K/mm3 (0.1-1.0); Monocytes % 4.6 % (1.7-9.3); Neutrophils # 9.5 K/mm3 (1.8-7.8); Neutrophils % 79.5 % (37.0-80.0); Platelet Count 202 K/mm3 (142-424); Red Blood Count 4.36 M/mm3 (4.20-5.40); Red Cell Distribution Width 13.3 % (11.5-17.5); White Blood Count 11.9 K/mm3 (4.8-10.8)
[2022-02-11 14:55] VITALS: BP 145/84; PULSE 60; O2SAT 96
--- NOTE | 2022-02-11 14:58 | PC.NURSE ---
pt to restroom and back via wheelchair, pt tolerated well. Urine specimen obtained and sent to lab at this time
[2022-02-11 15:01] LABS: Microscopic, Urine URINE MICROSCOPIC (MICROSCOPIC)
[2022-02-11 15:04] LABS: Alanine Aminotransferase 33 U/L (12-78); Albumin/Globulin Ratio 1.4 (1.1-1.8); Alkaline Phosphatase 99 U/L (38-126); Anion Gap 12.4 mEq/L (5-15); Aspartate Amino Transferase 46 U/L (14-36); Bilirubin,Total 0.2 mg/dl (0.2-1.3); Blood Urea Nitrogen 17 mg/dl (7-17); Calcium 8.9 mg/dl (8.4-10.2); Carbon Dioxide 30 mmol/L (22.0-30.0); Chloride 97 mmol/L (98-107); Creatinine Clearance Estimated 56 mL/min (50-200); Estimated Glomerular Filt Rate 100 ml/min (>60); GFR (African American) 121 ML/MIN (>60); Globulin 2.8 g/dL (1.3-3.2); Glucose 95 mg/dl (74-100); Potassium 4.4 mmoL/L (3.5-5.1); Sodium 135 mmol/L (136-145); Total Protein,Serum 6.8 g/dl (6.3-8.2)
[2022-02-11 15:04] LABS: Appearance,Urine CLEAR (Clear); Bilirubin,Urine Negative (Negative); Blood, Urine Negative (Negative); Color,Urine YELLOW (Yellow); Glucose,Urine (UA) Negative (Negative); Ketones,Urine Negative (Negative); Leukocyte Esterase,Urine Negative (Negative); Nitrate,Urine Negative (Negative); PH,Urine 7.5 (5.0-8.5); Protein,Urine Negative (Negative); Urobilinogen,Urine 0.2 EU/dl (0.2)
--- NOTE | 2022-02-11 15:08 | PC.NURSE ---
covid swab sent to lab at this time
[2022-02-11 15:11] LABS: Coronavirus 19, PCR Not Detected (NotDetected); Influenza A, PCR Not Detected (NotDetected); Influenza B, PCR Not Detected (NotDetected)
[2022-02-11 15:18] LABS: Troponin I < 0.01 ng/ml (0.00-0.034)
[2022-02-11 15:30] VITALS: BP 126/81; PULSE 60; RESP 16; O2SAT 96
[2022-02-11 15:31] LABS: RBC,Urine Occasional #/hpf (0-3); Squamous Epithelial Cell,Urine Occasional #/hpf (0-5); WBC,Urine Occasional #/hpf (0-3)
[2022-02-11 16:06] VITALS: BP 112/74; PULSE 78; RESP 16; TEMP 36.6; O2SAT 97
== END 2022-02-11 16:08 | disposition home or self-care (01) ==
PROVIDERS: Emergency Provider Emergency Medicine; PCP Internal Medicine Adolescent Medicine
DX: R53.1 Weakness (principal)
CPT/HCPCS: 80053; 81001; 84484; 85025; 93005; 99212; 99283; C9803; G0463; U0003; U0005

== ENCOUNTER 2022-02-23 13:50 | Day surgery (SDC) | payer MEDICARE, SELFPAY ==
[2022-02-23 14:01] VITALS: BP 139/91; PULSE 70; RESP 18; TEMP 36.5; O2SAT 98; BMI 23.1
[2022-02-23 14:10] VITALS: BP 150/96; PULSE 71; RESP 18; O2SAT 99
[2022-02-23 14:14] VITALS: BP 150/96; PULSE 71; RESP 18; O2SAT 99
--- NOTE | 2022-02-23 14:18 | EXP.PAIN.PRO ---
Procedure Date: 02/23/22 Time: 14:18 Anesthesiologist:: Berlin Garvey CRNA Complications:: None Pre-procedure Diagnosis:: Degenerative disc disease of lumbar and cervical spine with lumbar and cervical radiculopathy symptoms Post-procedure Diagnosis:: Same Indications for Procedure:: tests patient is a pleasant 67-year-old female who presents for intrathecal pain pump refill and reprogram. We are currently treating the patient for degenerative disc disease of cervical and lumbar spine with cervical and lumbar radiculopathy symptoms. Today the patient rates her pain a 2 out of 10. Patient denies any new trauma or injury. She denies any change of location or type of pain she is experiencing. Patient does state that she is having more episodes of feeling weak and shaky and requesting a decrease in her pump medication today. She is currently managed with Dilaudid 20 mg/mL with a daily dose of 4.3 mg/day. She is also managed with gabapentin 800 mg 4 times a day. Physical exam: General: Alert and oriented x3, no acute distress noted, pleasant and cooperative on room air Lungs: Respirations even and unlabored, symmetrical chest expansion Eyes: PERRL musculoskeletal: Flexion and extension of lumbar spine somewhat guarded secondary to pain antalgic gait noted Neurological: Speech clear no gross sensory deficit Procedure Details:: Informed consent was obtained and risk and benefits of the procedure were explained to the patient. The patient was brought to the procedure room and placed on the procedure table in a sitting position. Noninvasive monitoring was placed on the patient including a noninvasive blood pressure cuff and pulse oximeter. The pump was then interrogated. The area around the pump was cleansed with chlorhexidine as a cleansing solution. In a sterile fashion using a 22-gauge needle the pump was accessed and 4.5 mL of pump solution was removed and discarded appropriately. The pump was then refilled with 20 mL of Dilaudid 20 mg/mL with a daily dose of 3.87mg/day. Patient tolerated the procedure well with no complications. Plan and Disposition:: Patient was monitored in clinic for short period of time following this procedure and discharged neurologically intact. Patient will return to clinic in 2 weeks for reevaluation of her symptoms and follow-up. Patient has been counseled to contact the office with any questions or concerns before her next appointment date. Dr. Juarez has reviewed this note and agrees with this plan of care. This note was dictated using voice recognition software and may contain errors or omissions.
[2022-02-23 14:25] VITALS: BP 140/87; PULSE 70; RESP 18; O2SAT 98
== END 2022-02-23 14:25 | disposition home or self-care (01) ==
PROVIDERS: PCP Internal Medicine Adolescent Medicine; Visit Provider Nurse Anesthetist, Certified Registered
DX: M51.16 Intervertebral disc disorders with radiculopathy, lumbar region (principal); M50.10 Cervical disc disorder with radiculopathy, unspecified cervical region
CPT/HCPCS: 62370

== ENCOUNTER → 2022-03-08 13:05 | Outpatient (POV) | payer MEDICARE, SELFPAY ==
[2022-03-08 13:32] VITALS: BP 161/88; PULSE 74; RESP 18; TEMP 36.9; O2SAT 98; BMI 22.6
--- NOTE | 2022-03-08 15:51 | EXP.PAIN.PRO ---
Procedure Date: 03/08/22 Time: 15:52 Anesthesiologist:: SHONNA Salas Complications:: None Pre-procedure Diagnosis:: Degenerative disc disease lumbar spine with lumbar radiculopathy symptoms Post-procedure Diagnosis:: Same Indications for Procedure:: Patient is a pleasant 67-year-old female who presents today for intrathecal pain pump adjustment. The patient is being treated for degenerative disease of lumbar spine with lumbar radiculopathy symptoms. Patient is currently being managed with intrathecal Dilaudid 20 mg/mL at a rate of 3.87 mg/day. Patient presents today with worsening grogginess. She states that this started since her stimulator was placed in January 2022. We did decrease her couple of weeks ago. Patient states that this decrease did help her. She is wanting to decrease her intrathecal dose again today. Patient rates pain a 5 out of 10 out of 10. Drug screen is appropriate. Martín has been reviewed and is appropriate. Patient is also prescribed gabapentin 800 mg 4 times a day. Denies any side effects from this medication. She has been on this medication for a long time now. I have discussed with the patient that she can try to decrease taking her gabapentin to about 3 times a day to see if this would help some of her grogginess. Physical exam General: Alert and oriented x3, no acute distress, pleasant and cooperative Lungs: Respirations even and unlabored, symmetrical chest expansion Eyes: PERRL Musculoskeletal: Flexion and extension of [] [spine] somewhat guarded secondary to pain, [antalgic gait noted] Neurological: Speech clear, no gross sensory deficit Procedure Details:: Informed consent was obtained and the risk and benefits of the procedure were explained to the patient. Patient was taken to the procedure room where noninvasive monitoring was placed including noninvasive blood pressure cuff and pulse oximeter. Patient's pump was interrogated and was decreased to intrathecal Dilaudid 3 mg/day. The patient tolerated the procedure well with no complications. Plan and Disposition:: We will follow-up with this patient in 2 weeks. Patient has been instructed to contact the clinic with any concerns before the next appointment. Dr. Juarez has reviewed this note and agrees with this plan of care. This note was dictated using voice recognition software and make contain errors or omissions. -- It is medically necessary for this patient to continue to have their intrathecal pump refilled at regular intervals. This patient had an intrathecal pain pump implanted after meeting criteria of chronic intractable pain for greater than 3 months and failing conservative treatments. Patient has committed and been compliant to the treatment plan and all planned follow up care. Since implantation of the intrathecal pain pump, the patient has had decreased pain and been more functional. Oral medications have been reduced including intake of oral opioids. Patient continues to do well with intrathecal therapy with decrease in pain symptoms and increase in functional status. Stopping intrathecal medications can lead to life threatening withdrawal, seizures, cardiac arrest, severe pain, and possible . Pumps that are not refilled at regular intervals can be damages and cause and need for replacement. We continually titrate dose and concentration to optimize pain relief and function. We are limited in concentration for certain drugs to safely deliver medications through the pump and stay within the recommendations from the Polyanalges[employer] Consensus Committee Guidelines. Depending on dose and concentration these pumps may need to be refilled sooner than 3 months as we titrate.
== END | disposition home or self-care (01) ==
PROVIDERS: Visit Provider Student in an Organized Health Care Education/Training Program
DX: M51.16 Intervertebral disc disorders with radiculopathy, lumbar region (principal); Z79.899 Other long term (current) drug therapy
CPT/HCPCS: 62368; 99213; G0463

== ENCOUNTER → 2022-03-25 10:55 | Outpatient (POV) | payer MEDICARE, SELFPAY ==
--- NOTE | 2022-03-25 11:29 | EXP.PAIN.PRO ---
Procedure Date: 03/25/22 Time: 11:31 Anesthesiologist:: Tracie Jacobs APRN Complications:: None Pre-procedure Diagnosis:: Degenerative disc disease of lumbar and cervical spine with lumbar and cervical radiculopathy symptoms Post-procedure Diagnosis:: Same Indications for Procedure:: Patient is a pleasant 67-year-old female who presents today for intrathecal pain pump reprogramming adjustment. The patient is being treated for degenerative disc disease of lumbar and cervical spine with lumbar and cervical radiculopathy symptoms. Patient is currently being managed with Dilaudid 20 mg/mL with a daily dose of 3 mg/day. Patient denies any side effects from this medication. Patient states several weeks ago she was told to decrease her gabapentin 800 mg to 3 times a day and feels like this is caused a lot of her symptoms. Patient is currently still being prescribed gabapentin 800 mg 4 times a day. Patient was given a 3-month supply of this medication back in January. She does not need refills at this time. Patient states she has had a terrible time the last 3 weeks with constant pain and burning and stinging in her upper back from the spinal cord stimulator as well as increased pain in her low back. Patient rates pain a 9 out of 10. Drug screen is appropriate. Martín [id number] has been reviewed and is appropriate. Physical exam General: Alert and oriented x3, no acute distress, pleasant and cooperative Lungs: Respirations even and unlabored, symmetrical chest expansion Eyes: PERRL Musculoskeletal: Flexion and extension of cervical and lumbar [spine] somewhat guarded secondary to pain, [antalgic gait noted] Neurological: Speech clear, no gross sensory deficit Procedure Details:: Informed consent was obtained and the risk and benefits of the procedure were explained to the patient. Patient was taken to the procedure room where noninvasive monitoring was placed including noninvasive blood pressure cuff and pulse oximeter. Patient's pump was interrogated and was reprogrammed to Dilaudid 20 mg/mL with a daily dose of 3.3 mg/day. The patient tolerated the procedure well with no complications. Plan and Disposition:: Patient has been experiencing significant pain in her low back. I have counseled the patient to take her gabapentin 800 mg 4 times a day. I will contact [employer] in store representative to check in with the patient regarding her spinal cord stimulator. Patient will follow-up in clinic in 2 weeks for reevaluation of symptoms. Patient has been instructed to contact the clinic with any concerns before the next appointment. Dr. Juarez has reviewed this note and agrees with this plan of care. This note was dictated using voice recognition software and make contain errors or omissions. -- It Is medically necessary for this patient to continue to have their intrathecal pump refilled at regular intervals. This patient had an intrathecal pain pump implanted after meeting criteria of chronic intractable pain for greater than 3 months and failing conservative treatments. Patient has committed and been compliant to the treatment plan and all planned follow up care. Since implantation of the intrathecal pain pump, the patient has had decreased pain and been more functional. Oral medications have been reduced including intake of oral opioids. Patient continues to do well with intrathecal therapy with decrease in pain symptoms and increase in functional status. Stopping intrathecal medications can lead to life threatening withdrawal, seizures, cardiac arrest, severe pain, and possible . Pumps that are not refilled at regular intervals can be damages and cause and need for replacement. We continually titrate dose and concentration to optimize pain relief and function. We are limited in concentration for certain drugs to safely deliver medications through the pump and stay within the recommendations from the [employer] Guidelines
[2022-03-25 12:22] VITALS: BP 127/87; PULSE 71; RESP 18; TEMP 37; O2SAT 98; BMI 22.4
== END | disposition home or self-care (01) ==
PROVIDERS: PCP Internal Medicine Adolescent Medicine; Visit Provider Nurse Practitioner Family
DX: M50.10 Cervical disc disorder with radiculopathy, unspecified cervical region (principal); M51.16 Intervertebral disc disorders with radiculopathy, lumbar region
CPT/HCPCS: 62368; 99213; G0463

== ENCOUNTER → 2022-04-08 09:51 | Outpatient (POV) | payer MEDICARE, SELFPAY ==
--- NOTE | 2022-04-08 11:08 | EXP.PAIN.PRO ---
Procedure Date: 04/08/22 Time: 11:08 Anesthesiologist:: Tracie Jacobs APRN Complications:: None Pre-procedure Diagnosis:: Degenerative disc disease of cervical and lumbar spine with cervical and lumbar radiculopathy symptoms Post-procedure Diagnosis:: Same Indications for Procedure:: Patient is a pleasant 67-year-old female who presents today for intrathecal pain pump adjustment and reprogram. The patient is being treated for degenerative disc disease of cervical and lumbar spine with cervical and lumbar radiculopathy symptoms. Patient is currently being managed with Dilaudid 20 mg/mL with a daily dose of 3.3 mg/day. Patient denies any side effects from this medication. Patient previously did a spinal cord stimulator trial that had significant improvement of her symptoms. Patient does have a [employer] spinal cord stimulator in place however she has not had as good as coverage as she did as in her trial. Carlos jones is here today to reprogram her. Patient states that she has been having tremors due to what she thinks is overstimulation. Patient rates pain a 9 out of 10. Drug screen is appropriate. Patient is currently managed with gabapentin 800 mg 4 times a day. Patient denies any side effects from this medication. She states this medication does help manage her pain symptoms. [facility] [id number] has been reviewed and is appropriate. Physical exam General: Alert and oriented x3, no acute distress, pleasant and cooperative Lungs: Respirations even and unlabored, symmetrical chest expansion Eyes: PERRL Musculoskeletal: Flexion and extension of cervical and lumbar [spine] somewhat guarded secondary to pain, [antalgic gait noted] Neurological: Speech clear, no gross sensory deficit Procedure Details:: Informed consent was obtained and the risk and benefits of the procedure were explained to the patient. Patient was taken to the procedure room where noninvasive monitoring was placed including noninvasive blood pressure cuff and pulse oximeter. Patient's pump was interrogated and was reprogrammed to Dilaudid 20 mg/mL with a daily dose of 4 mg/day. The patient tolerated the procedure well with no complications. Plan and Disposition:: Carlos jones was able to reprogram the patient's spinal cord stimulator and add four additional programs. Her programming has been turned down to help with her tremors. We will follow-up with the patient in 2 weeks for reevaluation of symptoms and follow-up. Carlos jones will be present for this next appointment as well. Patient has been instructed to contact the clinic with any concerns before the next appointment. Dr. Juarez has reviewed this note and agrees with this plan of care. This note was dictated using voice recognition software and make contain errors or omissions. -- It Is medically necessary for this patient to continue to have their intrathecal pump refilled at regular intervals. This patient had an intrathecal pain pump implanted after meeting criteria of chronic intractable pain for greater than 3 months and failing conservative treatments. Patient has committed and been compliant to the treatment plan and all planned follow up care. Since implantation of the intrathecal pain pump, the patient has had decreased pain and been more functional. Oral medications have been reduced including intake of oral opioids. Patient continues to do well with intrathecal therapy with decrease in pain symptoms and increase in functional status. Stopping intrathecal medications can lead to life threatening withdrawal, seizures, cardiac arrest, severe pain, and possible . Pumps that are not refilled at regular intervals can be damages and cause and need for replacement. We continually titrate dose and concentration to optimize pain relief and function. We are limited in concentration for certain drugs to safely deliver medications through the pump and stay w
[2022-04-08 11:13] VITALS: BP 132/84; PULSE 70; RESP 18; O2SAT 96; BMI 21.6
== END | disposition home or self-care (01) ==
PROVIDERS: PCP Internal Medicine Adolescent Medicine; Visit Provider Nurse Practitioner Family
DX: M50.10 Cervical disc disorder with radiculopathy, unspecified cervical region (principal)
CPT/HCPCS: 62368; 99213; G0463

== ENCOUNTER → 2022-04-19 14:57 | Outpatient (POV) | payer MEDICARE, SELFPAY ==
[2022-04-19 15:39] VITALS: BP 182/100; PULSE 75; RESP 20; O2SAT 100; BMI 22.2
--- NOTE | 2022-04-19 16:07 | EXP.PAIN.PRO ---
Procedure Date: 04/19/22 Time: 16:11 Anesthesiologist:: Tracie Jacobs APRN Complications:: None Pre-procedure Diagnosis:: Degenerative disc disease of cervical and lumbar spine with cervical and lumbar radiculopathy symptoms Post-procedure Diagnosis:: Same Indications for Procedure:: Patient is a pleasant 67-year-old female who presents today for intrathecal pain pump adjustment and reprogram. The patient is being treated for degenerative disc disease of cervical and lumbar spine with cervical and lumbar radiculopathy symptoms. Patient is currently being managed with Dilaudid 20 mg/mL with a daily dose of 4 mg/day. Patient denies any side effects from this medication. Patient rates pain a 9 out of 10. Drug screen is appropriate. Patient is currently managed with gabapentin 800 mg 4 times a day. Patient denies any side effects from this medication. Patient states this medication does adequately help manage some of her pain symptoms. She is requesting a refill at today's visit. Patient does have a spinal cord stimulator in place however we have had significant difficulty programming it to target her pain symptoms. Patient has had oversensitivity to her device with increased tremors when it is turned up higher. Patient did have significant stimulation during her trial and had no issues with this prior. [employer] accounts payable representative is present at today's visit and did offer to reprogram however at this time the patient is declining. Patient states she has turned off her stimulator for the last week and at this time is not interested in turning it back on. [facility] [id number] has been reviewed and is appropriate. Physical exam General: Alert and oriented x3, no acute distress, pleasant and cooperative Lungs: Respirations even and unlabored, symmetrical chest expansion Eyes: PERRL Musculoskeletal: Flexion and extension of cervical, lumbar [spine] somewhat guarded secondary to pain, [antalgic gait noted] Neurological: Speech clear, no gross sensory deficit Procedure Details:: Informed consent was obtained and the risk and benefits of the procedure were explained to the patient. Patient was taken to the procedure room where noninvasive monitoring was placed including noninvasive blood pressure cuff and pulse oximeter. Patient's pump was interrogated and was reprogrammed to Dilaudid 20 mg/mL with a daily dose of 4.8 mg/day. The patient tolerated the procedure well with no complications. Plan and Disposition:: Patient is experiencing significant pain in her upper back with radiating symptoms. I will order the patient a CT without contrast of her cervical spine to verify lead placement. I will also order baclofen 5 mg at bedtime with a 14-day supply of this medication. Patient did mention to the [employer] accounts payable representative that with the extent of pain she was having she did not know whether or not if she was going to end up hurting herself. I have discussed with the patient at length regarding this comment and she stated she did not have any intention of harming herself, that there is no plan in place, that she was just being facetious to describe the extent of pain she was experiencing. I have counseled the patient that if she were to have any of these feelings she is to contact us immediately for additional support and guidance. Patient will return to clinic in 2 weeks for reevaluation of symptoms and follow-up. Patient has been instructed to contact the clinic with any concerns before the next appointment. Dr. Juarez has reviewed this note and agrees with this plan of care. This note was dictated using voice recognition software and make contain errors or omissions. -- It Is medically necessary for this patient to continue to have their intrathecal pump refilled at regular intervals. This patient had an intrathecal pain pump implanted after meeting criteria of chronic intractable pain for greater than 3 months and failing conservativ
== END | disposition home or self-care (01) ==
PROVIDERS: PCP Internal Medicine Adolescent Medicine; Visit Provider Nurse Practitioner Family
DX: M51.16 Intervertebral disc disorders with radiculopathy, lumbar region (principal); M50.10 Cervical disc disorder with radiculopathy, unspecified cervical region
CPT/HCPCS: 62368; 99212; G0463

== ENCOUNTER → 2022-05-04 08:48 | Outpatient (CLI) | payer MEDICARE, SELFPAY ==
--- NOTE | 2022-05-04 08:51 | CT_ITS ---
FINAL REPORT CLINICAL HISTORY: VERIFY LEAD PLACEMENT, NECK PAIN COMPARISON: July 2020 FINDINGS: CT CERVICAL SPINE Axial CT images were performed through the cervical spine. Coronal and sagittal reformats were submitted and reviewed. This study was performed with techniques to keep radiation doses as low as reasonably achievable (ALARA). Individualized dose reduction techniques using automated exposure control or adjustment of mA and/or kV according to the patient's size were employed. FINDINGS: A spinal stimulator is seen in the posterior central canal terminating at the superior aspect of C7. There is no acute fracture or subluxation. There is mild anterolisthesis of C4 on C5. Mild kyphosis is centered at C6-C7. The prevertebral soft tissues are unremarkable. There is mild central canal stenosis at C6-C7 with an AP diameter of the thecal sac measuring 9 mm. There is no significant neural foraminal narrowing.. There are moderate degenerative changes with disc osteophyte complexes at C5-6 and C6-7, stable.. The facets are normally aligned. Limited images of the lung apices are unremarkable. IMPRESSION: Stimulator lead terminates at the superior aspect of C7. Moderate degenerative changes, stable. Reviewed, Interpreted and Dictated by Spencer Chen III, MD Transcribed by Darian West Authenticated and [facility]
== END ==
LOC: RAD 08:49
PROVIDERS: PCP Internal Medicine Adolescent Medicine; Visit Provider Nurse Practitioner Family
DX: M50.31 Other cervical disc degeneration, high cervical region (principal)
CPT/HCPCS: 72125

== ENCOUNTER 2022-05-11 09:41 | Day surgery (SDC) | payer MEDICARE, SELFPAY ==
[2022-05-11 10:15] VITALS: BP 158/102; BP 158/97; PULSE 68; PULSE 69; RESP 18; TEMP 36.5; O2SAT 98; BMI 22.9
[2022-05-11 10:18] VITALS: BP 192/100; PULSE 67; RESP 18; O2SAT 97
[2022-05-11 10:19] VITALS: BP 192/100; PULSE 67; RESP 18; O2SAT 97
--- NOTE | 2022-05-11 10:55 | EXP.PAIN.PRO ---
Procedure Date: 05/11/22 Time: 10:30 Anesthesiologist:: Berlin Garvey CRNA Complications:: None Pre-procedure Diagnosis:: Degenerative disc disease cervical spine cervical radiculopathy. Degenerative disc disease lumbar spine with lumbar radiculopathy. Post-procedure Diagnosis:: Same. Indications for Procedure:: Patient is a pleasant 67-year-old female that comes our clinic today for intrathecal pain pump interrogation and refill. She is currently being managed with hydromorphone 20 mg/mL at 4.8 mg/day. Patient requesting increase today. Having increased pain in the cervical spine as well as lumbar spine. She rates her pain today 7/10. Patient also has cervical spinal cord stimulator. Patient is requesting the stimulator be removed. Stimulator was implanted January 2022. According to the patient she had an excellent trial of the cervical spinal cord stimulator. However, the permanent implant has not been helping. The stimulator has been turned off for several weeks now. Patient was very complementary of the spinal cord stimulator claims customer service representative that has helped her immensely with attempting to find a program that would be effective. However, to no avail. I informed the patient I would have a discussion with Dr. Juarez regarding removing the stimulator. She had a recent CT scan for spinal cord stimulator lead placement. Stimulator leads do terminate at the superior aspect of C7. Procedure Details:: Details of the procedure were explained to the patient. The patient taken the procedure room placed in the sitting position. The area over the pump was cleaned using chlorhexidine as a cleansing solution. The pump was accessed with ease using a 22-gauge inch and a half needle. 4 cc of solution was withdrawn and discarded appropriately. The pump was then filled with 20 cc of hydromorphone 20 mg/mL and the rate was increased to 5.76 mg/day. Patient tolerated the procedure without difficulty. There are no complications. Plan and Disposition:: Patient was discharged without incident. She will return in 1 week for follow-up visit in the clinic. This will give us a chance to check on how she is doing with the increase in rate. Also, we will discuss further the removal of the spinal cord stimulator.
== END 2022-05-11 10:42 | disposition home or self-care (01) ==
LOC: SC.PAINP 09:42
PROVIDERS: PCP Internal Medicine Adolescent Medicine; Visit Provider Nurse Anesthetist, Certified Registered
DX: M50.10 Cervical disc disorder with radiculopathy, unspecified cervical region (principal); M51.16 Intervertebral disc disorders with radiculopathy, lumbar region
CPT/HCPCS: 62370

== ENCOUNTER → 2022-05-13 08:45 | Outpatient (CLI) | payer MEDICARE, SELFPAY | PROVIDERS: PCP Family Medicine; Visit Provider Family Medicine | DX: R30.0 Dysuria (principal); B96.29 Other Escherichia coli [E. coli] as the cause of diseases classified elsewhere | CPT/HCPCS: 87086; 87088; 87186 ==

== ENCOUNTER → 2022-05-20 12:33 | Outpatient (POV) | payer MEDICARE, SELFPAY ==
[2022-05-20 13:27] VITALS: BP 183/100; PULSE 80; RESP 18; O2SAT 97; BMI 22.9
--- NOTE | 2022-05-20 15:35 | EXP.PAIN.SOA ---
[facility] Pain Management SOAP Note Subjective:: Patient is a pleasant 67-year-old female who presents today for follow-up. Patient is current being treated for degenerative disc disease of the cervical and lumbar spine with cervical and lumbar radiculopathy symptoms. Patient has an intrathecal pain pump Dilaudid 4 mg/day that is helping her low back pain. Denies any issues with this. She is also prescribed gabapentin 800 mg 4 times a day and baclofen 5 mg. She states that these medications are providing significant relief. Denies any side effects from these medications. Patient also has spinal cord stimulator. She states that she has been having essential tremors since placement of her SCS. She has had this off for about a month now. Even then, she continued to have tremors. She wants to get her SCS explanted.Rates pain today as 12/06. Review of Systems: General: No recent weight changes, no fever, no sleep disturbances Respiratory: No cough, no shortness of air, no recurring pulmonary infections Cardiovascular/peripheral vascular: No chest pain, no palpitations, no edema, no shortness of breath Gastrointestinal: No new onset incontinence, normal bowel movements reported Genitourinary: No new onset incontinence Musculoskeletal: Neck pain and low back pain Psychiatric: [Normal mood/affect] Neurological: [Denies weakness in extremities], [denies balance issues] Objective:: Physical Exam: General: Alert and oriented x3, no acute distress, pleasant and cooperative Lungs: Respirations even and unlabored, symmetrical chest expansion Eyes: PERRL Musculoskeletal: Flexion and extension of cervical and lumbar [spine] somewhat guarded secondary to pain, [antalgic gait noted] Neurological: Speech clear, no gross sensory deficit Assessment:: Degenerative disc disease of the cervical and lumbar spine with cervical and lumbar radiculopathy symptoms Plan:: Patient states that she has been having worsening tremor since placement of her spinal cord stimulation therapy. She has had her stimulator turned off for about a month now but she continued to have tremors. Will schedule patient for SCS explant. Will cont gabapentin 800mg QID and baclofen 5mg BID. She wants to give baclofen another try to see if this would help her tremors. She will try this for 14 days. Patient has been instructed to contact the clinic with any concerns before the next appointment. Dr. Juarez has reviewed this note and agrees with this plan of care. This note was dictated using voice recognition software and make contain errors or omissions. [facility] Disclaimer: The information contained in this section may have been updated after the patient was seen, as this information can be updated by other users. Medical History (Updated 05/14/22 @ 17:40 by Geovanni Chan MD) CVA (cerebral vascular accident) Deformity of right foot Depression History of deviated nasal septum Hypertension Pain Tremor Surgical History (Updated 05/13/22 @ 09:01 by Ricarda Cha LPN) History of carpal tunnel release of both wrists History of cholecystectomy History of eyelid surgery History of foot surgery History of hysterectomy History of placement of ear tubes Hx of bariatric surgery Family History Other Family history of cancer Family history of diabetes mellitus type II Social History (Updated 05/13/22 @ 09:02 by Ricarda Cha LPN) Smoking Status: Former smoker quit date: 05/30/21 second hand exposure: No alcohol intake: never substance use type: denies use current occupational status: disabled Travel in the last 8 weeks: None household members: other housing: house marital status: number of children: 2 current occupational exposures/hazards: No caffeine: Yes do you feel safe at home: Yes victim of physical abuse: No victim of emotional abuse: No victim of sexual abuse: No would you
== END | disposition home or self-care (01) ==
PROVIDERS: PCP Family Medicine; Visit Provider Student in an Organized Health Care Education/Training Program
DX: M51.16 Intervertebral disc disorders with radiculopathy, lumbar region (principal); M50.10 Cervical disc disorder with radiculopathy, unspecified cervical region
CPT/HCPCS: 99212; G0463

== ENCOUNTER → 2022-06-16 12:35 | Outpatient (CLI) | payer MEDICARE, SELFPAY ==
[2022-06-16 13:41] LABS: Basophils # 0.1 K/mm3 (0-0.2); Eosinophils # 0.1 K/mm3 (0.0-0.4); Hematocrit 41.3 % (37.0-47.0); Hemoglobin 13.3 g/dL (12.2-16.2); Lymphocytes # 1.8 K/mm3 (0.7-4.5); Mean Corpuscular HGB Conc 32.1 g/dL (31.8-35.4); Mean Corpuscular Hemoglobin 33.4 pg (27.0-31.2); Mean Corpuscular Volume 104.2 fl (81-99); Mean Platelet Volume 8.1 fl (7.4-10.4); Monocytes # 0.3 K/mm3 (0.1-1.0); Monocytes % 4.7 % (1.7-9.3); Neutrophils # 4.4 K/mm3 (1.8-7.8); Neutrophils % 65.3 % (37.0-80.0); Platelet Count 273 K/mm3 (142-424); Red Blood Count 3.96 M/mm3 (4.20-5.40); Red Cell Distribution Width 12.4 % (11.5-17.5); White Blood Count 6.7 K/mm3 (4.8-10.8)
[2022-06-16 14:13] LABS: Anion Gap 8.6 mEq/L (5-15); Blood Urea Nitrogen 8 mg/dl (7-17); Calcium 8.9 mg/dl (8.4-10.2); Carbon Dioxide 30 mmol/L (22.0-30.0); Chloride 101 mmol/L (98-107); Estimated Glomerular Filt Rate 100 ml/min (>60); GFR (African American) 121 ML/MIN (>60); Glucose 96 mg/dl (74-100); Potassium 4.6 mmoL/L (3.5-5.1); Sodium 135 mmol/L (136-145)
== END ==
PROVIDERS: PCP Family Medicine; Visit Provider Anesthesiology
DX: T85.192D Other mechanical complication of implanted electronic neurostimulator of spinal cord electrode (lead), subsequent encounter (principal)
CPT/HCPCS: 36415; 80048; 85025

== ENCOUNTER 2022-06-18 08:58 | Day surgery (SDC) | payer MEDICARE, SELFPAY ==
[2022-06-14 13:58] VITALS: BMI 22.6
[2022-06-18 09:21] VITALS: BP 182/82; PULSE 60; RESP 18; TEMP 36.2; O2SAT 100
--- NOTE | 2022-06-18 10:31 | P.PN_ITS ---
[facility] Disclaimer: The information contained in this section may have been updated after the patient was seen, as this information can be updated by other users. Medical History Allergies Anxiety and depression CVA (cerebral vascular accident) Deformity of right foot Depression History of anemia History of deviated nasal septum History of gastroesophageal reflux (GERD) Hyperlipidemia Hypertension Hypertension Pain Tremor Surgical History History of carpal tunnel release of both wrists History of cholecystectomy History of eyelid surgery History of foot surgery History of hysterectomy History of placement of ear tubes Hx of bariatric surgery Family History Other Family history of cancer Family history of diabetes mellitus type II Social History Smoking Status: Former smoker quit date: 05/30/21 years smoked: 40 smoking status stop date: 2002 second hand exposure: No alcohol intake: never substance use type: denies use current occupational status: disabled Travel in the last 8 weeks: None housing: house marital status: number of children: 2 current occupational exposures/hazards: No caffeine: Yes do you feel safe at home: Yes victim of physical abuse: No victim of emotional abuse: No victim of sexual abuse: No would you like helpful sources: No [facility] Anesthesia Checklist Patient Identification Patient Identification: Arm Band Structural Data Admitted From: Home Planned Operative Procedure/s: Neurostimulator Explant Consent for Planned Operative Procedure(s) Verified: Yes Verified Documents: Surgical Consent and History and Physical NPO Status Verified Time NPO: 00:00 Additional verifications Anesthesia Reactions: No Hx Blood Transfusions: Yes Blood Transfusion Reaction: No Airway Assessment C-Spine Mobility Assessed: Yes TMJ Mobility Assessed: Yes Dentition: Good Dentition Neurological Assessment Level of Consciousness: Awake and Alert Anesthesia Plan Anesthesia Risk discussed: Yes Anesthesia Plan: Verified ASA Class: II Anesthesia Type: MAC
[2022-06-18 11:53] VITALS: BP 132/70; PULSE 69; RESP 18; TEMP 36.3; O2SAT 98
[2022-06-18 12:03] VITALS: BP 139/81; PULSE 58; RESP 18; O2SAT 98
[2022-06-18 12:13] VITALS: BP 167/94; PULSE 61; RESP 18; O2SAT 99
[2022-06-18 12:29] VITALS: BP 171/97; PULSE 59; RESP 18; O2SAT 99
--- NOTE | 2022-06-18 14:47 | P.OP_ITS ---
Date of procedure: 06/18/22 Pre-op Diagnosis:: Degenerative disc disease of the cervical spine with nonfunctioning spinal cord stimulator system causing essential tremors Post-op Diagnosis:: Same Procedure performed:: Explant of spinal cord stimulator system epidural leads x2 and generator. Surgeon:: Maged Juarez MD [employer] CALENDER OPERATOR:: Luis Carlos Tsang Anesthesia: MAC Estimated blood loss (mL): 5 Clinical Note:: Patient is a pleasant 67-year-old white female who we are treating for low back pain with lumbar radiculopathy symptoms. She has a spinal cord stimulator system in place which is nonfunctioning. It is actually causing essential tremors. We will explant her system today. We will reevaluate her pain symptoms when she recovers. Operative findings:: None Operative note:: Informed consent was obtained the risk and benefits of the procedure were explained to the patient. Patient was taken the operating room she was placed prone on the procedure table. She was prepped and draped in sterile fashion. The skin and subcutaneous tissues overlying the generator and lead anchors were anesthetized using lidocaine. I made an incision over the generator. We explanted the generator and disconnected the leads. We then made an incision over the lead anchors and remove the lead anchors and both leads intact. Incisions were irrigated with antibiotic solution. There were then closed with 2-0 Vicryl followed by 4-0 nylon and lee. Patient tolerated the procedure well with no complications. Plan and disposition: We will follow-up with this patient in 1 week. Will reevaluate symptoms at that time this will also be a wound check. Condition: stable Disposition: PACU Complications:: None
== END 2022-06-18 12:31 | disposition home or self-care (01) ==
PROVIDERS: PCP Family Medicine; Visit Provider Anesthesiology
DX: T85.890A Other specified complication of nervous system prosthetic devices, implants and grafts, initial encounter; G25.0 Essential tremor; Z45.42 Encounter for adjustment and management of neurostimulator; M50.30 Other cervical disc degeneration, unspecified cervical region; M54.16 Radiculopathy, lumbar region; M54.50 Low back pain, unspecified; Z79.899 Other long term (current) drug therapy
CPT/HCPCS: 63661; 63688; 96374

== ENCOUNTER → 2022-06-24 12:39 | Outpatient (POV) | payer MEDICARE, SELFPAY ==
[2022-06-24 13:41] VITALS: BP 146/89; PULSE 63; RESP 18; O2SAT 97; BMI 21.9
--- NOTE | 2022-06-24 13:43 | EXP.PAIN.PRO ---
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 We are currently treating the patient for degenerative disc disease of cervical and lumbar spine with cervical and lumbar radiculopathy symptoms, nonfunctioning spinal cord stimulator. Today she rates her pain an 8 out of 10. Patient states her pain does go from her mid to low back up to her shoulders. Patient denies any new trauma or injury other than the surgical procedure. Patient denies any complications following this procedure. Patient also states she has not had any changes to the type or location of her pain symptoms. Patient is currently managed with an intrathecal pump of Dilaudid 20 mg/mL with a daily dose of 5.76 mg/day. Patient denies any side effects from this medication. She states this medication does help her pain symptoms. She is requesting an increase at today's visit. Patient does state that she feels like she has had much better improvement following the spinal cord stimulator device removal. She states she is still experiencing some tremors but she believes this is related to how much pain she is in. Patient is also prescribed gabapentin 800 mg 4 times a day. Patient denies any side effects from this medication. She states this medication does help. We have been giving her a 3-month supply of this medication and at this visit she states she does not need any additional refills. Patient was given baclofen 5 mg twice a day at a previous visit however the patient states she has not noticed any improvement with this medication and states she does not feel like she needs to refill this. Patient states she has tried Flexeril and tizanidine in the past with minimal improvement her Martín is [phone]. Has been reviewed and appropriate. Physical Exam: General: Alert and oriented x3, no acute distress, pleasant and cooperative Lungs: Respirations even and unlabored, symmetrical chest expansion Eyes: PERRL Musculoskeletal: Flexion and extension of lumbar [spine] somewhat guarded secondary to pain, [antalgic gait noted] Neurological: Speech clear, no gross sensory deficit Skin: Incision sites clean, dry, well approximated with no erythema or drainage noted. Lee intact. Procedure Details:: Informed consent was obtained and the risk and benefits of the procedure were explained to the patient. Patient was taken to the procedure room where noninvasive monitoring was placed including noninvasive blood pressure cuff and pulse oximeter. Patient's pump was interrogated and was reprogrammed to Dilaudid 20 mg/mL with a daily dose of 6.336 mg/day. The patient tolerated the procedure well with no complications. Plan and Disposition:: I have counseled the patient to continue her postop restrictions of minimal bending, lifting, twisting with no submerging in water and to continue to wear her abdominal binder for the full 6 weeks. Patient has been told that she can start back on her Plavix. I will order the patient a new muscle relaxer of Chlorzoxazone 500mg bid and provide a 14-day supply of this medication. Patient did have her lee removed at today's visit. Patient will return to clinic in 2 weeks for reevaluation of symptoms possible medication refill if indicated and follow-up. Patient has been instructed to contact the clinic with any concerns before the next appointment. Dr. Juarez has reviewed this note and agrees with this plan of care. This note was dictated using voice recognition software and make contain errors or omissions. -- It Is medically necessary for this
== END | disposition home or self-care (01) ==
PROVIDERS: PCP Family Medicine; Visit Provider Nurse Practitioner Family
DX: Z45.1 Encounter for adjustment and management of infusion pump (principal); M50.10 Cervical disc disorder with radiculopathy, unspecified cervical region
CPT/HCPCS: 62368; 99213; G0463

== ENCOUNTER → 2022-06-28 11:34 | Outpatient (CLI) | payer MEDICARE, SELFPAY ==
[2022-06-28 15:17] LABS: Thyroid Stimulating Hormone 0.66 uIU/mL (0.465-4.68)
[2022-06-28 15:53] LABS: Vitamin B12 > 1000 pg/mL (239-931)
== END ==
PROVIDERS: PCP Family Medicine; Visit Provider Nurse Practitioner Family
DX: R25.1 Tremor, unspecified (principal); R53.1 Weakness
CPT/HCPCS: 36415; 82607; 82746; 84443

== ENCOUNTER 2022-06-29 10:30 | Day surgery (SDC) | payer MEDICARE, SELFPAY ==
[2022-06-29 10:45] VITALS: BP 159/93; PULSE 64; RESP 18; TEMP 36.2; O2SAT 98; BMI 22.6
--- NOTE | 2022-06-29 11:07 | EXP.PAIN.PRO ---
Procedure Date: 06/29/22 Time: 10:45 Anesthesiologist:: Berlin Garvey CRNA Complications:: None Pre-procedure Diagnosis:: Degenerative disc disease lumbar spine multilevels. Lumbar radiculopathy. Lumbar postlaminectomy syndrome Post-procedure Diagnosis:: Same. Indications for Procedure:: This patient is a very pleasant 67-year-old female that comes our clinic today for intrathecal pain pump interrogation and refill. She recently had spinal cord stimulator removed. She is doing very well. Her incisions are clean and dry. However, I did reinforce each incision with Steri-Strips today. Patient complained of some low back pain as well as bowel hip and leg radicular symptoms at times. We will increase her pump today per her request. We will increase her by 10%. Her Martín #[id number] was reviewed and appropriate. Procedure Details:: Details of the procedure were explained to the patient. Patient taken procedure room placed in sitting position. The area over the pump was cleansed using chlorhexidine as a cleansing solution. The pump was accessed with ease using 22-gauge inch and a half needle. 5.1 mL of solution was withdrawn and discarded appropriately. The pump was then filled with 20 cc of hydromorphone 20 mg/mL. Patient's current rate is 6.3360 mg/day. We will increase that by 10% today. New rate for the intrathecal pain pump is 6.9696 mg/day Plan and Disposition:: Osteoarthritis bilateral knees charged without incident
[2022-06-29 11:08] VITALS: BP 151/83; PULSE 58; RESP 18; O2SAT 100
== END 2022-06-29 11:08 | disposition home or self-care (01) ==
PROVIDERS: PCP Family Medicine; Visit Provider Nurse Anesthetist, Certified Registered
DX: Z45.1 Encounter for adjustment and management of infusion pump (principal); M51.16 Intervertebral disc disorders with radiculopathy, lumbar region; M96.1 Postlaminectomy syndrome, not elsewhere classified
CPT/HCPCS: 95991

== ENCOUNTER → 2022-07-08 13:44 | Outpatient (POV) | payer MEDICARE, SELFPAY ==
[2022-07-08 14:26] VITALS: BP 149/94; PULSE 66; RESP 20; BMI 23.3
--- NOTE | 2022-07-08 15:29 | EXP.PAIN.PRO ---
Procedure Date: 07/08/22 Time: 14:45 Anesthesiologist:: Tracie Jacobs APRN Complications:: None Pre-procedure Diagnosis:: Degenerative disc disease of lumbar spine multilevels with lumbar radiculopathy symptoms, degenerative disc disease of cervical spine with cervical radiculopathy symptoms Post-procedure Diagnosis:: Same Indications for Procedure:: Patient is a pleasant 67-year-old female who presents today for intrathecal pain pump reprogramming adjustment. The patient is being treated for degenerative disc disease of cervical and lumbar spine with cervical and lumbar radiculopathy symptoms. Patient is currently being managed with Dilaudid 20 mg/mL with a daily dose of 6.9696 mg/day. Patient denies any side effects from this medication. Patient rates pain a 8 out of 10. Patient denies any new trauma or injury. Patient denies any change location or type of pain she experiences. Patient states she is continue to have some improvement following the explantation of her spinal cord stimulator. Patient continues to experience tremors and has recently been to Dr. Bazan's office who is recommending that she switch from her current blood pressure medication to propranolol due to it also treating essential tremors and anxiety along with the blood pressure. Dr. Bazan's office did also mention increasing her gabapentin and Mrs. Medellin is asking whether or not if this is an option at today's visit. Patient is currently managed with baclofen 5 mg twice daily however she states she has stopped taking this during the day due to increasing drowsiness. Patient is is planning on just taking this medication at night and then states she probably will stop taking it altogether if she continues to have increased drowsiness. Patient does state that she is afraid to drive due to her increased sleepiness. Patient does states she has been taking Tylenol 2 tabs every 6 hours for additional pain improvement. Drug screen is appropriate. [facility] [phone] has been reviewed and is appropriate. Physical exam General: Alert and oriented x3, no acute distress, pleasant and cooperative Lungs: Respirations even and unlabored, symmetrical chest expansion Eyes: PERRL Musculoskeletal: Flexion and extension of lumbar [spine] somewhat guarded secondary to pain, [antalgic gait noted] Neurological: Speech clear, no gross sensory deficit Procedure Details:: Informed consent was obtained and the risk and benefits of the procedure were explained to the patient. Patient was taken to the procedure room where noninvasive monitoring was placed including noninvasive blood pressure cuff and pulse oximeter. Patient's pump was interrogated and was reprogrammed to Dilaudid 7.32 mg/day. The patient tolerated the procedure well with no complications. Plan and Disposition:: Patient is experiencing significant pain in her low back with limited range of motion. I have discussed with the patient that she may benefit from adding a PTC device with her pump however at this time she would like to wait. Educational materials were given to her at today's visit on the bolus device. I have counseled the patient that I do agree with Dr. Bazan's office that the propranolol could be a good medication change for her with her blood pressure, anxiety and tremors. I will send in a refill for her gabapentin 800 mg 4 times a day and provide a 1 month supply of this medication. I have counseled her that at this time we are not recommending an increase dosage. Patient will return to clinic in 1 month for reevaluation of symptoms, medication refill and follow-up. Patient has been instructed to contact the clinic with any concerns before the next appointment. Dr. Juarez has reviewed this note and agrees with this plan of care. This note was dictated using voice recognition software and make contain errors or omissions. -- It Is medically necessary for this patient to continue to have their intrathecal pump re
== END | disposition home or self-care (01) ==
PROVIDERS: PCP Family Medicine; Visit Provider Nurse Practitioner Family
DX: M51.16 Intervertebral disc disorders with radiculopathy, lumbar region (principal); Z45.1 Encounter for adjustment and management of infusion pump; M50.10 Cervical disc disorder with radiculopathy, unspecified cervical region
CPT/HCPCS: 62368

== ENCOUNTER 2022-08-03 12:29 | Day surgery (SDC) | payer MEDICARE, SELFPAY ==
[2022-08-03 12:58] VITALS: BP 165/98; PULSE 61; RESP 18; TEMP 36.3; O2SAT 97; BMI 23.3
[2022-08-03 13:01] VITALS: BP 154/92; PULSE 65; RESP 18; O2SAT 97
[2022-08-03 13:03] VITALS: BP 154/92; PULSE 65; RESP 18; O2SAT 97
--- NOTE | 2022-08-03 13:10 | EXP.PAIN.PRO ---
Procedure Date: 08/03/22 Time: 13:00 Anesthesiologist:: Berlin Garvey CRNA Complications:: None Pre-procedure Diagnosis:: Degenerative disc disease lumbar spine multilevels. Lumbar radiculopathy. Degenerative disease cervical spine with cervical radiculopathy. Post-procedure Diagnosis:: Same Indications for Procedure:: Very pleasant 67-year-old female who presents today for intrathecal pain pump interrogation and refill. Her pump is currently being managed with Dilaudid 20 mg/mL at a daily dose of 6.96 mg/day. She is doing very well at this current rate. She is not asking for any changes. She denies any side effects or complications today. Procedure Details:: Details of the procedure were explained to the patient. The patient was taken to procedure room placed in the sitting position. The area over the pump was cleansed using chlorhexidine as a cleansing solution. The pump was interrogated. The pump was accessed with ease using a 22-gauge inch and half needle. 6.5 mL of solution was withdrawn and discarded appropriately. The pump was then filled incrementally with 20 cc of Dilaudid 20 mg/mL. The rate will not change. Patient tolerated the procedure without difficulty. There are no complications Plan and Disposition:: Patient was discharged without incident.
--- NOTE | 2022-08-03 13:14 | P.PCN_ITS ---
Procedure Anesthesiologist:: Berlin Garvey CRNA Complications:: None
--- NOTE | 2022-08-03 13:14 | EXP.PAIN.PRO ---
Procedure Anesthesiologist:: Berlin Garvey CRNA Complications:: None
[2022-08-03 13:20] VITALS: BP 152/90; PULSE 58; RESP 18; O2SAT 98
== END 2022-08-03 13:20 | disposition home or self-care (01) ==
PROVIDERS: PCP Family Medicine; Visit Provider Nurse Anesthetist, Certified Registered
DX: Z45.1 Encounter for adjustment and management of infusion pump (principal); M51.16 Intervertebral disc disorders with radiculopathy, lumbar region; M50.10 Cervical disc disorder with radiculopathy, unspecified cervical region
CPT/HCPCS: 95991

== ENCOUNTER → 2022-08-05 11:17 | Outpatient (POV) | payer MEDICARE, SELFPAY ==
[2022-08-05 11:49] VITALS: BP 145/93; PULSE 61; RESP 18; O2SAT 97; BMI 22.6
--- NOTE | 2022-08-05 12:03 | EXP.PAIN.SOA ---
[facility] Pain Management SOAP Note Subjective:: Patient is a pleasant 67-year-old female who presents today for follow-up. We are currently treating the patient for degenerative disc disease of cervical and lumbar spine with cervical and lumbar radiculopathy symptoms. Today she rates her pain a 7 out of 10. Patient denies any new trauma or injury. She previously had her primary care doctor increase her anxiety medication along with change her blood pressure medication, metoprolol to propranolol to help with her tremors she has been experiencing. She states that this had worked well over the last couple of weeks however Tuesday she noticed the tremors did come back. Patient denies any new changes to her anxiety level or medication changes. She states she is scheduled to follow-up with her primary care doctor next week regarding her blood pressure monitoring as well as her anxiety. She does state today that she continues to feel like she also has a fog sensation and has continued to not drive due to this sensation. She does states she is unsure of what is causing this but she feels like she has no quality of life due to this. She states she is always having to rely on someone else to bring her to and from locations as well as it affects her ability to perform activities of daily living such as cooking and cleaning at home. She states all yesterday she stayed in bed due to her pain. She does state that some days do just fine however other days she will have increased pain that is not managed well with her pump. Patient is prescribed gabapentin 800 mg 4 times a day and baclofen 5 mg. Patient denies any side effects from these medications. She has been getting a 3-month supply of her gabapentin and does not need refills at this time. Patient previously had a spinal cord stimulator trial that was successful however once she had the device implanted she started experiencing significant tremors and worsening pain symptoms. She did have her spinal cord stimulator removed last month and has had significant improvement since then. Her Martín is [id number]. Its been reviewed and appropriate. Review of Systems: General: No recent weight changes, no fever, no sleep disturbances Respiratory: No cough, no shortness of air, no recurring pulmonary infections Cardiovascular/peripheral vascular: No chest pain, no palpitations, no edema, no shortness of breath Gastrointestinal: No new onset incontinence, normal bowel movements reported Genitourinary: No new onset incontinence Musculoskeletal: Low back pain Psychiatric: [Normal mood/affect] Neurological: [Denies weakness in extremities], [denies balance issues] Objective:: Physical Exam: General: Alert and oriented x3, no acute distress, pleasant and cooperative Lungs: Respirations even and unlabored, symmetrical chest expansion Eyes: PERRL Musculoskeletal: Flexion and extension of lumbar [spine] somewhat guarded secondary to pain, [antalgic gait noted] Neurological: Speech clear, no gross sensory deficit Assessment:: Degenerative disc disease of cervical and lumbar spine with cervical and lumbar radiculopathy symptoms Plan:: Patient continues to experience significant pain in her low back as well as brain fog and tremors in her hands. We will set up her PTC device during today's visit which will be 10% of her overall pump medications of Dilaudid 0.732 mg and provide up to 4 boluses in a 24-hour period. I have discussed with the patient that at her next intrathecal refill date we will add bupivacaine to her pump settings and at that time decrease her Dilaudid to rule out if this medication is causing any additional symptoms related to her brain fog. We will see the patient back in the clinic at the next intrathecal refill. Patient has been instructed to contact the clinic with any concerns before the next appointment. Dr. Juarez has reviewed this note and agrees with this plan of care. This note was dictated using voice recognition
== END ==
PROVIDERS: PCP Family Medicine; Visit Provider Nurse Practitioner Family
DX: M50.10 Cervical disc disorder with radiculopathy, unspecified cervical region (principal); M51.16 Intervertebral disc disorders with radiculopathy, lumbar region
CPT/HCPCS: 62368; 99213; G0463

== ENCOUNTER 2022-08-31 11:09 | Day surgery (SDC) | payer MEDICARE, SELFPAY ==
[2022-08-31 11:23] VITALS: BP 183/103; PULSE 59; RESP 18; TEMP 36.4; O2SAT 100; BMI 22.2
--- NOTE | 2022-08-31 11:37 | EXP.PAIN.PRO ---
Procedure Date: 08/31/22 Time: 11:30 Anesthesiologist:: Berlin Garvey CRNA Complications:: None Pre-procedure Diagnosis:: Degenerative disc disease lumbar spine multilevels. Lumbar radiculopathy. Degenerative disc disease cervical spine multilevels. Cervical radiculopathy. Post-procedure Diagnosis:: Same. Indications for Procedure:: This patient is a pleasant 67-year-old female that we have been treating for quite some time with intrathecal pain pump management regarding her cervical and lumbar pain with radicular symptoms. She is currently being managed with hydromorphone 0.732 mg/day. Today we will be adding bupivacaine 5 mg/mL to her pump. Patient has continued with significant cervical pain with cervical radiculopathy in the bilateral arms and hands. Lumbar back pain she describes as constant, dull and aching at times. Procedure Details:: Details of the procedure were explained to the patient. The patient taken the procedure room placed in sitting position. The area over the pump was cleansed using chlorhexidine as a cleansing solution. The pump was interrogated. The pump was accessed with ease using a 22-gauge inch and a half needle. 7.2 mL of solution was withdrawn and discarded appropriately. The pump was then filled incrementally with 20 cc containing hydromorphone 20 mg/mL and bupivacaine 5 mg/mL. We will decrease the current intrathecal pain pump rate. Patient's new rate will be hydromorphone 6.5880 mg/day and bupivacaine 1.6470 mg/day. Patient tolerated procedure without difficulty. There are no complications Plan and Disposition:: Patient was discharged without incident.
[2022-08-31 11:43] VITALS: BP 178/93; PULSE 52; RESP 18; O2SAT 98
== END 2022-08-31 11:43 | disposition home or self-care (01) ==
PROVIDERS: PCP Family Medicine; Visit Provider Nurse Anesthetist, Certified Registered
DX: Z45.1 Encounter for adjustment and management of infusion pump (principal); M51.16 Intervertebral disc disorders with radiculopathy, lumbar region; M50.10 Cervical disc disorder with radiculopathy, unspecified cervical region
CPT/HCPCS: 62370

== ENCOUNTER → 2022-09-17 12:54 | Outpatient (POV) | payer MEDICARE, SELFPAY ==
--- NOTE | 2022-09-17 13:28 | A.OFFVIS_ITS ---
[facility] Pain Management SOAP Note Subjective:: This patient is a very pleasant 67-year-old female comes our clinic today for follow-up visit after receiving a drug change in her intrathecal pain pump. We have been caring for her with intrathecal pain pump managed for quite some time with hydromorphone 20 mg/mL at 6.58 mg/day. Recently her pump was refilled and bupivacaine 5 mg/mL was added at 1.65 mg/day. Patient reports significant improvement terms of her overall pain. However, still having some brain fog . This was the reason the bupivacaine was added. Patient seems to be doing somewhat better in terms of her overall mental status. At the time we added the bupivacaine the overall rate was decreased by 10%. Patient is due for refill in 2 weeks. I discussed in detail with the patient regarding no adjustments today lets give it 2 more weeks and reevaluate at the time of her next refill. Patient reports overall having less anxiety. Upper extremity tremors are under control. Objective:: Patient is awake alert [place] x3. In no acute distress. Flexion-extension cervical lumbar spine normal. Deep tendon reflexes upper lower extremities normal. Motor strength upper and lower extremities normal. There is no gross sensory deficit. Gait is normal Assessment:: Degenerative disc disease lumbar spine multilevels. Lumbar radiculopathy. Degenerative disc disease cervical spine multilevels. Cervical radiculopathy Plan:: We will see the patient 2 weeks at her next refill. Will make adjustments to her pump accordingly. [facility] Disclaimer: The information contained in this section may have been updated after the patient was seen, as this information can be updated by other users. Medical History Allergies Anxiety and depression CVA (cerebral vascular accident) Pt stated 2 mini strokes >10yrs ago Deformity of right foot 7 surgeries Depression History of anemia History of deviated nasal septum History of gastroesophageal reflux (GERD) Hyperlipidemia Hypertension Hypertension Pain pain pump placement Tremor Surgical History History of carpal tunnel release of both wrists History of cholecystectomy History of eyelid surgery History of foot surgery R foot surgeries x7 r/t defect History of hysterectomy History of placement of ear tubes Hx of bariatric surgery Family History Other Family history of cancer Family history of diabetes mellitus type II Social History Smoking Status: Former smoker quit date: 05/30/21 years smoked: 40 smoking status stop date: 2002 second hand exposure: No alcohol intake: never substance use type: denies use current occupational status: retired Travel in the last 8 weeks: None housing: house marital status: number of children: 2 current occupational exposures/hazards: No caffeine: Yes do you feel safe at home: Yes victim of physical abuse: No victim of emotional abuse: No victim of sexual abuse: No would you like helpful sources: No
[2022-09-17 13:48] VITALS: BP 121/78; PULSE 61; RESP 18; O2SAT 97; BMI 22.6
== END ==
PROVIDERS: PCP Family Medicine; Visit Provider Nurse Anesthetist, Certified Registered
DX: M51.16 Intervertebral disc disorders with radiculopathy, lumbar region (principal); M50.10 Cervical disc disorder with radiculopathy, unspecified cervical region; Z97.8 Presence of other specified devices
CPT/HCPCS: 99212; G0463

== ENCOUNTER 2022-09-28 10:07 | Day surgery (SDC) | payer MEDICARE, SELFPAY ==
[2022-09-28 11:50] VITALS: BP 142/82; PULSE 59; RESP 18; O2SAT 96; BMI 22.8
[2022-09-28 12:02] VITALS: BP 121/73; PULSE 61; RESP 18; O2SAT 96
--- NOTE | 2022-09-28 12:02 | EXP.PAIN.PRO ---
Procedure Date: 09/28/22 Time: 12:00 Anesthesiologist:: Berlin Garvey CRNA Complications:: None Pre-procedure Diagnosis:: Degenerative disc disease lumbar spine multilevels. Lumbar radiculopathy. Lumbar postlaminectomy syndrome. Post-procedure Diagnosis:: Same. Indications for Procedure:: Patient is a very pleasant 67-year-old female that comes our clinic today for intrathecal pain pump interrogation refill. Patient currently being managed with Dilaudid 20 mg/mL at 6.58 mg/day. Also, bupivacaine 5 mg/mL at 1.65 mg/day. Patient is doing very well with her current management. We will increase the bupivacaine concentration to 10 mg/mL today. Procedure Details:: Details of the procedure explained to the patient. The patient taken procedure room placed in sitting position. The area over the pump was cleansed using chlorhexidine as a cleansing solution. The pump was interrogated. The pump was accessed with ease using a 22-gauge inch and a half needle. 8 mL of solution was withdrawn and discarded appropriately. The pump was then filled with 20 cc of Dilaudid 20 mg/mL and bupivacaine 10 mg/mL. The pump rate will continue with Dilaudid 6.588 mg/day. Bupivacaine 3.294 mg/day Plan and Disposition:: Patient was discharged without incident.
== END 2022-09-28 12:02 | disposition home or self-care (01) ==
PROVIDERS: PCP Family Medicine; Visit Provider Nurse Anesthetist, Certified Registered
DX: Z45.1 Encounter for adjustment and management of infusion pump (principal); M51.16 Intervertebral disc disorders with radiculopathy, lumbar region; M96.1 Postlaminectomy syndrome, not elsewhere classified
CPT/HCPCS: 62370

== ENCOUNTER → 2022-10-14 09:53 | Outpatient (POV) | payer MEDICARE, SELFPAY ==
--- NOTE | 2022-10-14 10:49 | EXP.PAIN.SOA ---
[facility] Pain Management SOAP Note Subjective:: Patient is a pleasant 67-year-old female who presents today in our office for follow-up. We are currently treating the patient for degenerative disc disease of lumbar spine multilevels with lumbar radiculopathy symptoms, degenerative disc disease of cervical spine with cervical radiculopathy symptoms. Today she rates her pain a 5 out of 10. Patient states since her last visit with our office she has had 2 falls. She states one was in her kitchen while she was reaching up on top of the refrigerator and stumbled over her feet and then the other episode was coming into her house from the outside stairs and her leg gave out. Patient states that her left lower calf has been experiencing numbness and denies any new injury or trauma. Patient is currently managed with Dilaudid 20 mg/mL with a daily dose of 6.588 mg/day and bupivacaine 10 mg/mL with a daily dose of 3.294 mg/day. Patient denies any side effects from this medication. She is also prescribed gabapentin 800 mg 4 times a day. She does state that she still experiences brain fog and that we have discussed that it may be related to this medication. She does state today that it has improved some. She states that she continues not to drive except for just around her home down to the shop and back. Patient does state that her left leg numbness does improve when she gets up and walks. She did have her left hip replaced in the past and is unsure if this is related to this previous surgery. Patient denies any color change or swelling into this extremity. She does state the pain is more noticed during the day. Patient did previously have a [employer] spinal cord stimulator implanted however she continued to have numbness into her hands and fingers and did eventually have this removed with improvement to the symptoms. Her Martín is [id number]. Its been reviewed and appropriate. Review of Systems: General: No recent weight changes, no fever, no sleep disturbances Respiratory: No cough, no shortness of air, no recurring pulmonary infections Cardiovascular/peripheral vascular: No chest pain, no palpitations, no edema, no shortness of breath Gastrointestinal: No new onset incontinence, normal bowel movements reported Genitourinary: No new onset incontinence Musculoskeletal: Left leg numbness, low back pain Psychiatric: [Normal mood/affect] Neurological: [Denies weakness in extremities], [denies balance issues] Objective:: Physical Exam: General: Alert and oriented x3, no acute distress, pleasant and cooperative Lungs: Respirations even and unlabored, symmetrical chest expansion Eyes: PERRL Musculoskeletal: Flexion and extension of lumbar [spine] somewhat guarded secondary to pain, [antalgic gait noted] Neurological: Speech clear, no gross sensory deficit Assessment:: Degenerative disc disease of cervical and lumbar spine with cervical and lumbar radiculopathy symptoms Plan:: I have discussed with the patient that at her next visit for medication refill of her gabapentin if she is still continuing additional brain fog or worsening symptoms we may look at prescribing pregabalin to try this medication instead. I have also discussed with the patient that if her lower left leg symptoms continue to be problematic causing more falls to contact our office immediately to get back in for possible intrathecal adjustment to verify that it is unrelated to her pump medications. She is scheduled for her next gabapentin refill around November. At this time she will come in to clinic for reevaluation of symptoms, medication refill and follow-up. We will see the patient back in the clinic at the next intrathecal refill. Patient has been instructed to contact the clinic with any concerns before the next appointment. Dr. Juarez has reviewed this note and agrees with this plan of care. This note was dictated using voice recognition software and make contain errors or omissions. -- It Is
[2022-10-14 11:27] VITALS: BP 145/82; PULSE 61; RESP 18; O2SAT 97; BMI 24.2
== END ==
PROVIDERS: PCP Family Medicine; Visit Provider Nurse Practitioner Family
DX: M51.16 Intervertebral disc disorders with radiculopathy, lumbar region (principal); M50.10 Cervical disc disorder with radiculopathy, unspecified cervical region
CPT/HCPCS: 99212; G0463

== ENCOUNTER 2022-11-02 13:41 | Day surgery (SDC) | payer MEDICARE, SELFPAY ==
[2022-11-02 13:47] VITALS: BP 144/87; PULSE 64; RESP 16; TEMP 36.4; O2SAT 97; BMI 23.8
[2022-11-02 14:01] VITALS: BP 130/84; PULSE 67; RESP 18; O2SAT 98
[2022-11-02 14:02] VITALS: BP 130/84; PULSE 67; RESP 18; TEMP 36.6
--- NOTE | 2022-11-02 14:08 | EXP.PAIN.PRO ---
Procedure Date: 11/02/22 Time: 14:05 Anesthesiologist:: Berlin Garvey CRNA Complications:: None Pre-procedure Diagnosis:: Degenerative disc disease lumbar spine multilevels. Lumbar radiculopathy. Degenerative disc disease cervical spine cervical radiculopathy. Post-procedure Diagnosis:: Same. Indications for Procedure:: Patient is a pleasant 67-year-old female that comes our clinic today for intrathecal pain pump interrogation refill. She is currently being managed with Dilaudid 20 mg/mL at 6.588 mg/day and bupivacaine 10 mg/mL at 3.294 mg/day. Patient doing very well with her current settings. Patient reports significant increase in pain relief after adding bupivacaine to the pump. Patient discussed with me regarding fogginess in her brain on most days. However, it is better since decreasing the Dilaudid rate after adding bupivacaine. Patient also taking gabapentin 800 mg 1 p.o. 4 times daily. I discussed in detail with the patient regarding a 5 to 7-day trial of decreasing gabapentin to 800 mg at night and 1 dose of 800 mg during the day. This might help with decreasing the brain fogginess. She will given a self trial and restart usual dose as needed. Procedure Details:: Details of the procedure were explained to the patient. The patient taken the procedure room placed in the sitting position. The area of the pump was cleansed using chlorhexidine as a cleansing solution. The pump was interrogated. The pump was accessed with ease using a 22-gauge inch and half needle. 5.9 mL of solution was withdrawn and discarded appropriately. The pump was then filled with 20 cc of Dilaudid 20 mg/mL and bupivacaine 10 mg/mL. They will be no changes in the pump rate today. Patient tolerated the procedure without difficulty. There are no complications Plan and Disposition:: Patient was discharged without incident.
[2022-11-02 14:12] VITALS: BP 140/79; PULSE 57; RESP 18; O2SAT 97
== END 2022-11-02 14:12 | disposition home or self-care (01) ==
PROVIDERS: PCP Family Medicine; Visit Provider Nurse Anesthetist, Certified Registered
DX: Z45.1 Encounter for adjustment and management of infusion pump (principal); M51.16 Intervertebral disc disorders with radiculopathy, lumbar region; M50.10 Cervical disc disorder with radiculopathy, unspecified cervical region
CPT/HCPCS: 95991

== ENCOUNTER 2022-11-23 11:07 | Day surgery (SDC) | payer MEDICARE, SELFPAY ==
[2022-11-23 11:29] VITALS: BP 129/73; PULSE 59; RESP 16; TEMP 36.1; O2SAT 95; BMI 23.8
[2022-11-23 11:52] VITALS: BP 138/77; PULSE 77; RESP 18; O2SAT 96
[2022-11-23 11:53] VITALS: BP 138/77; PULSE 77; RESP 18; O2SAT 96
--- NOTE | 2022-11-23 12:03 | EXP.PAIN.PRO ---
Procedure Date: 11/23/22 Time: 11:50 Anesthesiologist:: Berlin Garvey CRNA Complications:: None Pre-procedure Diagnosis:: Degenerative disc disease lumbar spine multilevels. Lumbar radiculopathy. Degenerative disc cervical spine. Cervical radiculopathy Post-procedure Diagnosis:: Same. Indications for Procedure:: Patient is a very pleasant 67-year-old female that comes our clinic today for intrathecal pain pump interrogation and refill. She is currently being managed with hydromorphone 20 mg/mL at 6.588 mg/day. Also bupivacaine 10 mg 3.294 mg/day. Patient complaining of some leg weakness/numbness at times. Patient states this happens 3-4 times per day. Also, patient has chronically mentioned brain fogginess over the last year. Patient also takes gabapentin 3200 mg/day. I discussed with her about cutting the gabapentin in half. Also, turning the intrathecal pain pump down by 10% today. We will see how she does. She has a follow-up appointment scheduled for Tuesday, December 06, 2022. We will assess her at that time. Make changes as needed. Hopefully, decreasing the pump will help with brain fogginess and leg numbness. Procedure Details:: Details of the procedure were explained to the patient. The patient taken procedure room placed in sitting position. The area over the pump was cleansed using chlorhexidine as a cleansing solution. The pump was interrogated. The pump was accessed with ease using a 22-gauge inch and half needle. 11 mL of solution was withdrawn and discarded appropriately. The pump was then filled incrementally with 20 cc of hydromorphone 20 mg/mL and bupivacaine 10 mg/mL. The rate will be decreased by 10%. Hydromorphone will now be 5.9300 mg/day. Bupivacaine 2.9650 mg/day. Patient tolerated procedure without difficulty. There are no complications. Plan and Disposition:: Patient was discharged without incident.
[2022-11-23 12:04] VITALS: BP 142/82; PULSE 58; RESP 18; O2SAT 98
== END 2022-11-23 12:04 | disposition home or self-care (01) ==
PROVIDERS: PCP Family Medicine; Visit Provider Nurse Anesthetist, Certified Registered
DX: M51.16 Intervertebral disc disorders with radiculopathy, lumbar region (principal); M50.10 Cervical disc disorder with radiculopathy, unspecified cervical region
CPT/HCPCS: 95991

== ENCOUNTER → 2022-12-06 12:49 | Outpatient (POV) | payer MEDICARE, SELFPAY ==
[2022-12-06 13:12] VITALS: BP 115/80; PULSE 63; RESP 18; BMI 24.0
--- NOTE | 2022-12-06 13:33 | EXP.PAIN.SOA ---
[facility] Pain Management SOAP Note Subjective:: Patient is a pleasant 67-year-old female who presents today for follow-up. We are currently treating the patient for degenerative disc disease of cervical and lumbar spine with cervical and lumbar radiculopathy symptoms. Today she rates her pain a 1 out of 10. Patient denies any new injury or trauma. She states that her pain level is continuing to do well. At her last visit she did have her intrathecal pump decreased and her gabapentin 800 mg lowered from 4 times daily to twice daily due to her continued brain fog. Patient states that she has not noticed any additional improvement of the symptoms. She states she continues to have times of confusion and feels like she sometimes will even not remember how to get out of the building here at the hospital. Patient states that she continues to not drive due to this confusion and brain fog. She states she is unable to do anything due to this continued symptoms and feels like she has no life. Patient is very emotional during today's visit. Patient's is currently managed with Dilaudid 20 mg/day with a daily dose of 5.93 mg/day and bupivacaine 10 mg/mL. She denies any side effects from this medication. She states she will occasionally still have numbness into her hands and fingers. Patient had a [employer] spinal cord stimulator implanted last year however she did have it removed due to worsening symptoms. Her primary care Dr. Chan out of [place] and she states that he had recently done lab work towards the beginning of this year. Her Martín is [id number]. Its been reviewed and appropriate. Review of Systems: General: No recent weight changes, no fever, no sleep disturbances Respiratory: No cough, no shortness of air, no recurring pulmonary infections Cardiovascular/peripheral vascular: No chest pain, no palpitations, no edema, no shortness of breath Gastrointestinal: No new onset incontinence, normal bowel movements reported Genitourinary: No new onset incontinence Musculoskeletal: Low back pain Psychiatric: High anxiety and depression Neurological: [Denies weakness in extremities], [denies balance issues] Objective:: Physical Exam: General: Alert and oriented x3, no acute distress, pleasant and cooperative Lungs: Respirations even and unlabored, symmetrical chest expansion Eyes: PERRL Musculoskeletal: Flexion and extension of lumbar [spine] somewhat guarded secondary to pain, [antalgic gait noted] Neurological: Speech clear, no gross sensory deficit Assessment:: Degenerative disc disease of cervical and lumbar spine with cervical and lumbar radiculopathy symptoms Plan:: Patient is experiencing significant brain fog and confusion on a day-to-day basis. Her previous lab work did show elevated B12 back in May. I will order updated levels as well as order a CT without contrast of her head to rule out possible neurological changes. I have recommended that she take a daily multivitamin. Patient will return to clinic in 2 weeks for reevaluation of symptoms and plan of care. Patient has been instructed to contact the clinic with any concerns before the next appointment. Dr. Juarez has reviewed this note and agrees with this plan of care. This note was dictated using voice recognition software and make contain errors or omissions. [facility] Disclaimer: The information contained in this section may have been updated after the patient was seen, as this information can be updated by other users. Medical History Allergies Anxiety and depression CVA (cerebral vascular accident) Pt stated 2 mini strokes >10yrs ago Deformity of right foot 7 surgeries Depression History of anemia History of deviated nasal septum History of gastroesophageal reflux (GERD) Hyperlipidemia Hypertension Hypertension Pain pain pump placement Tremor Surgical History (Reviewed 09/06/22 @ 10:04 by Annita Lenz
== END ==
PROVIDERS: PCP Family Medicine; Visit Provider Nurse Practitioner Family
DX: M50.10 Cervical disc disorder with radiculopathy, unspecified cervical region (principal); M51.16 Intervertebral disc disorders with radiculopathy, lumbar region
CPT/HCPCS: 99212; G0463

== ENCOUNTER → 2022-12-06 13:32 | Outpatient (CLI) | payer MEDICARE, SELFPAY ==
[2022-12-06 22:41] LABS: Vitamin B12 > 1000 pg/mL (239-931)
== END ==
PROVIDERS: PCP Family Medicine; Visit Provider Nurse Practitioner Family
DX: R79.89 Other specified abnormal findings of blood chemistry (principal); R25.1 Tremor, unspecified
CPT/HCPCS: 36415; 82607; 99212; G0463

== ENCOUNTER → 2022-12-20 15:03 | Outpatient (CLI) | payer MEDICARE, SELFPAY ==
--- NOTE | 2022-12-20 15:14 | CT_ITS ---
FINAL REPORT TECHNIQUE: Noncontrast exam CLINICAL HISTORY: INCREASED BRAIN FOG/CONFUSION COMPARISON: 08/11/2020 FINDINGS: No abnormal density is seen. Ventricles are normal. There is no hemorrhage. No mass effect is seen. Bone windows show no evidence of fracture. Large mucous retention cyst inferior right maxillary sinus, similar to the prior study. IMPRESSION: No acute findings Reviewed, Interpreted and Dictated by Shanda Landis MD Transcribed by Trinidad De La Fuente Authenticated and [facility]
== END ==
LOC: RAD 15:04
PROVIDERS: PCP Family Medicine; Visit Provider Nurse Practitioner Family
DX: R41.0 Disorientation, unspecified (principal); R41.9 Unspecified symptoms and signs involving cognitive functions and awareness
CPT/HCPCS: 70450

== ENCOUNTER 2022-12-21 10:48 | Day surgery (SDC) | payer MEDICARE, SELFPAY ==
[2022-12-21 11:00] VITALS: BP 156/92; PULSE 58; RESP 16; TEMP 36.2; O2SAT 98; BMI 23.8
[2022-12-21 11:28] VITALS: BP 139/82; PULSE 56; RESP 20; O2SAT 98
--- NOTE | 2022-12-21 11:35 | EXP.PAIN.PRO ---
Procedure Date: 12/21/22 Time: 11:20 Anesthesiologist:: Berlin Garvey CRNA Complications:: None Pre-procedure Diagnosis:: Degenerative disc lumbar spine multilevels. Lumbar radiculopathy. Degenerative disc cervical spine cervical radiculopathy Post-procedure Diagnosis:: Same. Indications for Procedure:: Patient is a very pleasant 67-year-old female comes our clinic today for intrathecal pain pump interrogation refill. She is currently being managed with Dilaudid 20 mg/mL with a daily dose of 5.93 mg/day. Also, bupivacaine 10 mg/mL and a dose of 2.9650 mg/day. Patient doing very well with her current settings. She is not reporting any side effects or complications with her current intrathecal pain pump management. She rates her pain 2/10. Procedure Details:: Details of procedure explained to the patient. The patient taken the procedure room and placed in the sitting position. The area over the pump was cleansed using chlorhexidine as a cleansing solution. The pump was interrogated. The pump was accessed with ease using a 22-gauge inch and half needle. 9 mL of solution was withdrawn and discarded appropriately. The pump was then refilled with 20 cc of solution containing hydromorphone 20 mg/mL and bupivacaine 10 mg/mL. Patient tolerated procedure without difficulty. There are no complications. Plan and Disposition:: Patient was discharged without incident.
[2022-12-21 12:11] VITALS: BP 133/94; PULSE 60; RESP 18
[2022-12-21 18:05] LABS: Amphetamine/Metha Screen,Urine Negative ng/ml (<1000)
[2022-12-21 18:06] LABS: Barbiturates Screen,Urine Negative ng/ml (<200)
[2022-12-21 18:07] LABS: Benzodiazepines Screen,Urine Negative ng/ml (<200)
[2022-12-21 18:08] LABS: Cannabinoid Screen,Urine Negative ng/ml (<50)
[2022-12-21 18:09] LABS: Cocaine Screen,Urine Negative ng/ml (<300); Methadone Screen,Urine Negative ng/ml (<300)
[2022-12-21 18:10] LABS: Opiate Screen,Urine Positive ng/ml (<300)
[2022-12-21 18:11] LABS: Phencyclidine Screen,Urine Negative ng/ml (<25)
[2022-12-28 12:06] LABS: Codeine Negative (Cutoff=100); Hydrocodone Negative (Cutoff=100); Hydromorphone Positive (.); Morphine Negative (Cutoff=100); Opiates Positive (.)
== END 2022-12-21 11:35 | disposition home or self-care (01) ==
PROVIDERS: Anesthesiology; PCP Family Medicine; Visit Provider Nurse Anesthetist, Certified Registered
DX: M51.16 Intervertebral disc disorders with radiculopathy, lumbar region (principal); M50.10 Cervical disc disorder with radiculopathy, unspecified cervical region
CPT/HCPCS: 80305; 80361; 80365; 95991; G0480

== ENCOUNTER → 2023-01-12 15:00 | Outpatient (POV) | payer MEDICARE, SELFPAY ==
[2023-01-12 15:36] VITALS: BP 150/90; PULSE 58; RESP 18; O2SAT 97; BMI 23.8
--- NOTE | 2023-01-12 16:09 | EXP.PAIN.SOA ---
[facility] Pain Management SOAP Note Subjective:: Patient is a pleasant 67-year-old female who presents today for follow-up. We are currently treating the patient for degenerative disc disease of cervical and lumbar spine with cervical and lumbar radiculopathy symptoms. Today she rates her pain a 5 out of 10. Patient denies any new trauma or injury. Since our last visit she has stated that her brain fog has decreased significantly. At her last visit we did draw B12 labs with her levels being high and we did tell her to discontinue her B12 at that time. Patient does have a history of bariatric surgery and does see Dr. Gautam in [facility] yearly for updated labs however she states that it has been a year at this point since she has been back. Patient does states she continues not to drive due to the continued brain fog. At our last visit we did also order CT of her head without contrast to rule out any neurological changes and she is here to review these findings as well. She is now currently on gabapentin 800 mg 1 time per day. She states she does take this medication at bedtime and from previous conversations is still interested in possibly switching over to Lyrica to try that medication. She does state that she is also having a little bit more pain around her neck today however prior to that she had been doing well with minimal issues. Patient is not interested in increasing her pump medication due to her extreme sensitivity. Patient is currently managed with Dilaudid 20 mg/mL with a daily dose of 5.93 mg/day and bupivacaine 10 mg/mL with a daily dose of 2.965 mg/day. Patient denies any side effects from this medication. Her Martín is [id number]. Is been reviewed and appropriate. Review of Systems: General: No recent weight changes, no fever, no sleep disturbances Respiratory: No cough, no shortness of air, no recurring pulmonary infections Cardiovascular/peripheral vascular: No chest pain, no palpitations, no edema, no shortness of breath Gastrointestinal: No new onset incontinence, normal bowel movements reported Genitourinary: No new onset incontinence Musculoskeletal: Neck pain Psychiatric: [Normal mood/affect] Neurological: [Denies weakness in extremities], [denies balance issues] Objective:: Physical Exam: General: Alert and oriented x3, no acute distress, pleasant and cooperative Lungs: Respirations even and unlabored, symmetrical chest expansion Eyes: PERRL Musculoskeletal: Flexion and extension of lumbar [spine] somewhat guarded secondary to pain, [antalgic gait noted] Neurological: Speech clear, no gross sensory deficit Assessment:: Degenerative disc disease of cervical and lumbar spine with cervical and lumbar radiculopathy symptoms Plan:: I have counseled the patient that I would recommend she follow-up with Dr. Gautam's office for additional lab work. I have recommended that she continue to not do the B12 at this time until she has additional blood work to confirm levels. I have also discussed with the patient that she may still benefit from switching over to the pregabalin instead of her gabapentin related to the continued brain fog. I have recommended that she still slowly titrate her medication from the 800 mg gabapentin to 400mg over the next month and that at our next appointment we will discuss switching at that point. Patient will return to clinic in 1 month for reevaluation of symptoms and plan of care. Patient has been instructed to contact the clinic with any concerns before the next appointment. Dr. Juarez has reviewed this note and agrees with this plan of care. This note was dictated using voice recognition software and make contain errors or omissions. -- It Is medically necessary for this patient to continue to have their intrathecal pump refilled at regular intervals. This patient had an intrathecal pain pump implanted after meeting criteria of chronic intractable pain for greater than 3 months and failing conservative t
== END ==
PROVIDERS: PCP Family Medicine; Visit Provider Nurse Practitioner Family
DX: M50.10 Cervical disc disorder with radiculopathy, unspecified cervical region (principal); M51.16 Intervertebral disc disorders with radiculopathy, lumbar region; Z97.8 Presence of other specified devices
CPT/HCPCS: 99212; G0463

== ENCOUNTER 2023-01-18 11:27 | Day surgery (SDC) | payer MEDICARE, SELFPAY ==
[2023-01-18 11:50] VITALS: BP 147/80; PULSE 55; RESP 18; TEMP 36.6; O2SAT 97; BMI 23.3
[2023-01-18 12:23] VITALS: BP 119/76; PULSE 58; RESP 18; O2SAT 97
[2023-01-18 12:28] VITALS: BP 119/76; PULSE 58; RESP 18; O2SAT 97
[2023-01-18 12:30] VITALS: BP 148/86; PULSE 51; RESP 18; O2SAT 97
--- NOTE | 2023-01-18 12:33 | P.PCN_ITS ---
Procedure Date: 01/18/23 Time: 12:15 Anesthesiologist:: Berlin Garvey CRNA Complications:: None Pre-procedure Diagnosis:: Degenerative disc lumbar spine multilevels. Lumbar radiculopathy. Lumbar postlaminectomy syndrome Post-procedure Diagnosis:: Same. Indications for Procedure:: Patient is a very pleasant 67-year-old female comes our clinic today for intrathecal pain pump interrogation refill. She is currently being managed with hydromorphone 20 mg/mL at 5.93 mg/day. Bupivacaine 10 mg/mL at 2.9650 mg/day. Patient doing very well with her current settings. She does not request any changes. She does not complain of any side effects or complications regarding intrathecal pain pump management. Procedure Details:: Details of the procedure explained the patient. The patient taken the procedure room placed in the sitting position. The area of the pump was cleansed using chlorhexidine cleansing solution. The pump was interrogated. The pump was accessed with ease using a 22-gauge inch and half needle. 9.5 mL of solution wa s withdrawn discarded appropriately. The pump was then filled incrementally with 20 cc of a solution containing hydromorphone 20 mg/mL and bupivacaine 10 mg/mL. Patient tolerated procedure without difficulty. No complications. Plan and Disposition:: Patient was discharged without incident.
== END 2023-01-18 12:30 | disposition home or self-care (01) ==
PROVIDERS: PCP Family Medicine; Visit Provider Nurse Anesthetist, Certified Registered
DX: M51.16 Intervertebral disc disorders with radiculopathy, lumbar region (principal); M96.1 Postlaminectomy syndrome, not elsewhere classified; Z97.8 Presence of other specified devices
CPT/HCPCS: 95991

== ENCOUNTER → 2023-02-10 13:13 | Outpatient (POV) | payer MEDICARE, SELFPAY ==
[2023-02-10 13:52] VITALS: BP 137/86; PULSE 59; RESP 20; O2SAT 98; BMI 23.3
--- NOTE | 2023-02-10 14:08 | EXP.PAIN.PRO ---
Procedure Date: 02/10/23 Time: 14:08 Anesthesiologist:: Tracie Jacobs APRN Complications:: None Pre-procedure Diagnosis:: Degenerative disc disease of cervical and lumbar spine with cervical and lumbar radiculopathy symptoms Post-procedure Diagnosis:: Same Indications for Procedure:: Patient is a pleasant 68-year-old female who presents today for medication refill and follow-up. We are currently treating the patient for degenerative disc disease of cervical and lumbar spine with cervical and lumbar radiculopathy symptoms. Today she rates her pain a 6 out of 10. Patient states since our last visit she has been decreasing her gabapentin and she is currently down to 400 mg once a day. Patient does state that she continues to to have improvement of her brain fog. Patient does state that her pain does seem a little worse over the last several weeks. She is currently managed with intrathecal Dilaudid 20 mg/mL with a daily dose of 5.93 mg/day and bupivacaine 10 mg/mL with a daily dose of 2.965 mg/day. Patient denies any side effects from this medication. Her Martín is [id number]. Its been reviewed and appropriate. Physical Exam: General: Alert and oriented x3, no acute distress, pleasant and cooperative Lungs: Respirations even and unlabored, symmetrical chest expansion Eyes: PERRL Musculoskeletal: Flexion and extension of lumbar [spine] somewhat guarded secondary to pain, [antalgic gait noted] Neurological: Speech clear, no gross sensory deficit Procedure Details:: Informed consent was obtained and the risk and benefits of the procedure were explained to the patient. Patient was taken to the procedure room where noninvasive monitoring was placed including noninvasive blood pressure cuff and pulse oximeter. Patient's pump was interrogated and was reprogrammed to Dilaudid 6.2 mg/day and bupivacaine 3.1 mg/day. The patient tolerated the procedure well with no complications. Plan and Disposition:: Patient tolerated her intrathecal increase with no complications and was discharged neurologically intact. Previously at our last visit we did plan on switching her over from her gabapentin to pregabalin. I have counseled the patient to discontinue her gabapentin and I will send in a prescription of pregabalin 100 mg twice daily and provide a 1 month supply of this medication. Patient will return to clinic in 1 month for reevaluation of symptoms and plan of care. Patient has been instructed to contact the clinic with any concerns before the next appointment. Dr. Juarez has reviewed this note and agrees with this plan of care. This note was dictated using voice recognition software and make contain errors or omissions. -- It Is medically necessary for this patient to continue to have their intrathecal pump refilled at regular intervals. This patient had an intrathecal pain pump implanted after meeting criteria of chronic intractable pain for greater than 3 months and failing conservative treatments. Patient has committed and been compliant to the treatment plan and all planned follow up care. Since implantation of the intrathecal pain pump, the patient has had decreased pain and been more functional. Oral medications have been reduced including intake of oral opioids. Patient continues to do well with intrathecal therapy with decrease in pain symptoms and increase in functional status. Stopping intrathecal medications can lead to life threatening withdrawal, seizures, cardiac arrest, severe pain, and possible . Pumps that are not refilled at regular intervals can be damages and cause and need for replacement. We continually titrate dose and concentration to optimize pain relief and function. We are limited in concentration for certain drugs to safely deliver medications through the pump and stay within the recommendations from the Polyanalges[employer] Consensus Committee Guidelines. Depending on dose and concentration these pumps may need to be refilled sooner than
== END | disposition home or self-care (01) ==
PROVIDERS: Visit Provider Nurse Practitioner Family
DX: M50.10 Cervical disc disorder with radiculopathy, unspecified cervical region (principal); M51.16 Intervertebral disc disorders with radiculopathy, lumbar region; Z97.8 Presence of other specified devices
CPT/HCPCS: 62368

== ENCOUNTER 2023-02-15 11:00 | Day surgery (SDC) | payer MEDICARE, SELFPAY ==
[2023-02-15 11:15] VITALS: BP 134/86; PULSE 58; RESP 18; O2SAT 97
[2023-02-15 11:20] VITALS: BP 137/82; PULSE 60; RESP 16; TEMP 36.4; O2SAT 99; BMI 23.3
--- NOTE | 2023-02-15 11:23 | EXP.PAIN.PRO ---
Procedure Date: 02/15/23 Time: 11:20 Anesthesiologist:: Berlin Garvey CRNA Complications:: None Pre-procedure Diagnosis:: Degenerative disc lumbar spine multilevels. Lumbar radiculopathy. Lumbar postlaminectomy syndrome. Post-procedure Diagnosis:: Same. Indications for Procedure:: Patient is a very pleasant 67-year-old female that comes our clinic today for intrathecal pain pump interrogation and refill. Patient currently being managed with hydromorphone 20 mg/mL at 5.93 mg/day and bupivacaine 10 mg/mL at 2.9650 mg/day. Patient reports doing very well with her current settings. She does not report any side effects or complications regarding the intrathecal pain pump management. Procedure Details:: Details of the procedure explained to the patient. The patient taken the procedure room placed in sitting position. The area over the pump was cleaned using chlorhexidine as a cleansing solution. The pump was interrogated. The pump was accessed with ease using a 22-gauge inch and half needle. 9.5 mL of solution was withdrawn and discarded appropriately. The pump was then filled with 20 cc of solution, containing hydromorphone 20 mg/mL and bupivacaine 10 mg/mL. Patient tolerated procedure without difficulty. There were no complications. Plan and Disposition:: Patient was discharged without incident.
[2023-02-15 11:28] VITALS: BP 140/85; PULSE 54; RESP 16; O2SAT 99
== END 2023-02-15 11:28 | disposition home or self-care (01) ==
PROVIDERS: PCP Family Medicine; Visit Provider Nurse Anesthetist, Certified Registered
DX: M51.16 Intervertebral disc disorders with radiculopathy, lumbar region (principal); M96.1 Postlaminectomy syndrome, not elsewhere classified; Z97.8 Presence of other specified devices
CPT/HCPCS: 95991

== ENCOUNTER → 2023-03-11 10:42 | Outpatient (POV) | payer MEDICARE, SELFPAY ==
[2023-03-11 11:05] VITALS: BP 135/82; PULSE 64; RESP 20; BMI 23.9
--- NOTE | 2023-03-11 11:12 | A.OFFVIS_ITS ---
[facility] Pain Management SOAP Note Subjective:: Patient is a very pleasant 68-year-old female that comes our office today for medication refills. We currently manage her with Lyrica 100 mg 1 p.o. twice daily. Also, intrathecal pain pump containing hydromorphone 20 mg/mL at 5.93 mg/day and bupivacaine 10 mg/mL at 2.9650 mg/day. Patient doing very well with her pump. She does not complain of any side effects. Also, patient taking Lyrica 100 mg 1 p.o. twice daily. However, patient reports she is very sleepy during the day. Patient requesting to decrease the medication dose. I think this is reasonable. We will decrease Lyrica to 75 mg 1 p.o. twice daily. We will send this in today to [facility]. Patient's Martín #[id number] has been reviewed and appropriate. Patient does not mention having much pain in any location. She rates her pain 2/10. Objective:: Patient is awake alert [place] x3. No acute distress. Flexion-extension lumbar spine somewhat guarded secondary to pain. Deep tendon reflexes upper and lower extremities normal. Motor strength upper and lower extremities normal. There is no gross sensory deficit. Gait is normal. Assessment:: Degenerative disc lumbar spine multilevels. Lumbar radiculopathy. Lumbar postlaminectomy syndrome. Lumbar spondylosis. Plan:: We will send in refill for Lyrica. However, we will decrease the dose. She will not be taking Lyrica 75 mg 1 p.o. twice daily. [facility] Disclaimer: The information contained in this section may have been updated after the patient was seen, as this information can be updated by other users. Medical History Allergies Anxiety and depression CVA (cerebral vascular accident) Pt stated 2 mini strokes >10yrs ago Deformity of right foot 7 surgeries Depression History of anemia History of deviated nasal septum History of gastroesophageal reflux (GERD) Hyperlipidemia Hypertension Hypertension Pain pain pump placement Tremor Surgical History History of carpal tunnel release of both wrists History of cholecystectomy History of eyelid surgery History of foot surgery R foot surgeries x7 r/t defect History of hysterectomy History of placement of ear tubes Hx of bariatric surgery Family History Other Family history of cancer Family history of diabetes mellitus type II Social History Smoking Status: Former smoker years smoked: 40 smoking status stop date: 2002 second hand exposure: No alcohol intake: never substance use type: denies use current occupational status: other Travel in the last 8 weeks: None housing: house marital status: number of children: 2 current occupational exposures/hazards: No caffeine: Yes do you feel safe at home: Yes victim of physical abuse: No victim of emotional abuse: No victim of sexual abuse: No would you like helpful sources: No
== END | disposition home or self-care (01) ==
PROVIDERS: Visit Provider Nurse Practitioner Family
DX: M51.16 Intervertebral disc disorders with radiculopathy, lumbar region (principal); M47.26 Other spondylosis with radiculopathy, lumbar region; M96.1 Postlaminectomy syndrome, not elsewhere classified
CPT/HCPCS: 99212; G0463

== ENCOUNTER 2023-03-15 10:15 | Day surgery (SDC) | payer MEDICARE, SELFPAY ==
[2023-03-15 10:35] VITALS: BP 134/83; PULSE 59; RESP 20; TEMP 36.3; O2SAT 94; BMI 23.9
[2023-03-15 11:14] VITALS: BP 158/88; PULSE 58; RESP 18; O2SAT 98
--- NOTE | 2023-03-15 11:17 | EXP.PAIN.PRO ---
Procedure Date: 03/15/23 Time: 11:00 Anesthesiologist:: Berlin Garvey CRNA Complications:: None Pre-procedure Diagnosis:: Degenerative disc lumbar spine multilevels. Lumbar radiculopathy. Lumbar postlaminectomy syndrome. Lumbar spondylosis Post-procedure Diagnosis:: Same. Indications for Procedure:: Patient is a very pleasant 68-year-old female that comes our clinic today for intrathecal pain pump interrogation refill. Patient is currently being managed with hydromorphone 20 mg/mL at 5.93 mg/day. Also, bupivacaine 10 mg/mL at 2.9650 mg/day. We will change her concentration of medication today. Hydromorphone 30 mg/mL and bupivacaine 15 mg/mL. Rates are changing to hydromorphone 6.2 mg/day. Bupivacaine 3.1 mg/day.. Procedure Details:: Details of the procedure explained to the patient. The patient taken to procedure room placed in the sitting position. The area of the pump was cleansed using chlorhexidine as a cleansing solution. The pump was interrogated. The pump was accessed with ease using a 22-gauge inch and half needle. 9.4 mL of solution was withdrawn and discarded appropriately. The pump was then filled incrementally with 20 cc of a solution containing hydromorphone 30 mg/mL and bupivacaine 15 mg/mL. Patient tolerated procedure without difficulty. No complications. Plan and Disposition:: Patient tolerated procedure without difficulty. No complications. Patient was discharged without incident.
[2023-03-15 11:24] VITALS: BP 171/89; PULSE 56
[2023-03-15 11:28] VITALS: BP 158/88; PULSE 58; RESP 18; O2SAT 98
== END 2023-03-15 11:30 | disposition home or self-care (01) ==
PROVIDERS: PCP Family Medicine; Visit Provider Nurse Anesthetist, Certified Registered
DX: M51.16 Intervertebral disc disorders with radiculopathy, lumbar region (principal); M47.26 Other spondylosis with radiculopathy, lumbar region; M96.1 Postlaminectomy syndrome, not elsewhere classified; Z97.8 Presence of other specified devices
CPT/HCPCS: 95991

== ENCOUNTER → 2023-04-06 11:12 | Outpatient (POV) | payer MEDICARE, SELFPAY ==
--- NOTE | 2023-04-06 11:33 | EXP.PAIN.SOA ---
[facility] Pain Management SOAP Note Subjective:: Patient is a pleasant 68-year-old female who presents today for follow-up. We are currently treating the patient for degenerative disc disease of cervical and lumbar spine with cervical and lumbar radiculopathy symptoms. Today she rates her pain a 2 out of 10. She denies any new trauma or injury from her last visit. We did recently change her over from her gabapentin to pregabalin. Patient is currently taking pregabalin 75 mg twice a day. Patient denies any side effects from this medication. She does state that she continues to feel like it is providing significant relief and that she has had improvement of her overall brain fog. Patient does state that she still notices some drowsiness with the second dose of the pregabalin but overall has seen much better improvement compared to the gabapentin. Patient is currently managed with Dilaudid 30 mg/mL with a daily dose of 6.2 mg/day and bupivacaine 15 mg/mL with a daily dose of 3.1 mg/day. Patient denies any side effects from this medication. She does state that she feels like that this is an appropriate dosage and does not need any additional adjustment. Her Martín has been reviewed and appropriate. Review of Systems: General: No recent weight changes, no fever, no sleep disturbances Respiratory: No cough, no shortness of air, no recurring pulmonary infections Cardiovascular/peripheral vascular: No chest pain, no palpitations, no edema, no shortness of breath Gastrointestinal: No new onset incontinence, normal bowel movements reported Genitourinary: No new onset incontinence Musculoskeletal: Low back pain Psychiatric: [Normal mood/affect] Neurological: [Denies weakness in extremities], [denies balance issues] Objective:: Physical Exam: General: Alert and oriented x3, no acute distress, pleasant and cooperative Lungs: Respirations even and unlabored, symmetrical chest expansion Eyes: PERRL Musculoskeletal: Flexion and extension of lumbar [spine] somewhat guarded secondary to pain, [antalgic gait noted] Neurological: Speech clear, no gross sensory deficit Assessment:: Degenerative disc disease of cervical and lumbar spine with cervical and lumbar radiculopathy symptoms Plan:: Patient is doing well with her current medication regimen. I will refill her pregabalin 75 mg twice daily and provide a 6-month supply of these medications. Patient does already have her next intrathecal refill appointment date and time and does not need any additional follow-up appointments. I have counseled her if anything comes up between now and her next visit feel free to contact us for additional follow-ups. We will see the patient back in the clinic at the next intrathecal refill. Patient has been instructed to contact the clinic with any concerns before the next appointment. Dr. Juarez has reviewed this note and agrees with this plan of care. This note was dictated using voice recognition software and make contain errors or omissions. -- It Is medically necessary for this patient to continue to have their intrathecal pump refilled at regular intervals. This patient had an intrathecal pain pump implanted after meeting criteria of chronic intractable pain for greater than 3 months and failing conservative treatments. Patient has committed and been compliant to the treatment plan and all planned follow up care. Since implantation of the intrathecal pain pump, the patient has had decreased pain and been more functional. Oral medications have been reduced including intake of oral opioids. Patient continues to do well with intrathecal therapy with decrease in pain symptoms and increase in functional status. Stopping intrathecal medications can lead to life threatening withdrawal, seizures, cardiac arrest, severe pain, and possible . Pumps that are not refilled at regular intervals can be damages and cause and need for replacement. We continually titrate dose and concentration to optimize pa
[2023-04-06 12:31] VITALS: BP 138/88; PULSE 58; RESP 18; O2SAT 97; BMI 23.9
== END | disposition home or self-care (01) ==
PROVIDERS: Visit Provider Nurse Practitioner Family
DX: M50.10 Cervical disc disorder with radiculopathy, unspecified cervical region (principal); M51.16 Intervertebral disc disorders with radiculopathy, lumbar region; Z97.8 Presence of other specified devices
CPT/HCPCS: 99212; G0463

== ENCOUNTER → 2023-04-20 18:33 | Outpatient (CLI) | payer MEDICARE, SELFPAY ==
[2023-04-20 18:51] LABS: Basophils % 0.7 % (0.1-2.0); Eosinophils # 0.3 K/mm3 (0.0-0.4); Eosinophils % 5.5 % (0.1-12.0); Hematocrit 39.3 % (37.0-47.0); Hemoglobin 12.7 g/dL (12.2-16.2); Lymphocytes # 1.7 K/mm3 (0.7-4.5); Mean Corpuscular HGB Conc 32.3 g/dL (31.8-35.4); Mean Corpuscular Hemoglobin 31.2 pg (27.0-31.2); Mean Corpuscular Volume 96.5 fl (81-99); Mean Platelet Volume 8.7 fl (7.4-10.4); Monocytes # 0.4 K/mm3 (0.1-1.0); Monocytes % 6.2 % (1.7-9.3); Neutrophils # 3.3 K/mm3 (1.8-7.8); Neutrophils % 57.7 % (37.0-80.0); Platelet Count 200 K/mm3 (142-424); Red Blood Count 4.07 M/mm3 (4.20-5.40); Red Cell Distribution Width 13.3 % (11.5-17.5); White Blood Count 5.7 K/mm3 (4.8-10.8)
[2023-04-20 19:02] LABS: Alanine Aminotransferase 24 U/L (12-78); Albumin/Globulin Ratio 1.5 (1.1-1.8); Alkaline Phosphatase 101 U/L (38-126); Anion Gap 9.9 mEq/L (5-15); Aspartate Amino Transferase 54 U/L (14-36); Bilirubin,Total 0.7 mg/dl (0.2-1.3); Blood Urea Nitrogen 9 mg/dl (7-17); Calcium 8.2 mg/dl (8.4-10.2); Carbon Dioxide 27 mmol/L (22.0-30.0); Chloride 93 mmol/L (98-107); Estimated Glomerular Filt Rate 72 ml/min (>60); GFR (African American) 87 ML/MIN (>60); Globulin 2.6 g/dL (1.3-3.2); Glucose 95 mg/dl (74-100); Potassium 4.9 mmoL/L (3.5-5.1); Sodium 125 mmol/L (136-145); Total Protein,Serum 6.6 g/dl (6.3-8.2)
[2023-04-20 19:19] LABS: T4 (Thyroxine) 6.6 ug/dl (5.53-11.0)
[2023-04-20 19:31] LABS: Erythrocyte Sedimentation Rate 10 mm/hr (0-30)
[2023-04-20 19:33] LABS: Thyroid Stimulating Hormone 0.34 uIU/mL (0.465-4.68)
[2023-04-25 22:00] LABS: Antinuclear Antibodies (ANA) NEGATIVE
== END ==
PROVIDERS: PCP Family Medicine; Visit Provider Family Medicine
DX: R53.83 Other fatigue (principal); I10 Essential (primary) hypertension; Z87.891 Personal history of nicotine dependence
CPT/HCPCS: 80053; 84436; 84443; 85025; 85651; 86038

== ENCOUNTER 2023-04-26 13:30 | Day surgery (SDC) | payer MEDICARE, SELFPAY ==
[2023-04-26 13:44] VITALS: BP 186/89; PULSE 58; RESP 18; TEMP 36.4; O2SAT 98; BMI 24.3
[2023-04-26 13:51] VITALS: BP 150/94; PULSE 56; RESP 18; O2SAT 98
[2023-04-26 13:52] VITALS: BP 150/94; PULSE 56; RESP 18; O2SAT 97
[2023-04-26 14:00] VITALS: BP 165/92; PULSE 56; RESP 16; O2SAT 98
--- NOTE | 2023-04-26 14:14 | EXP.PAIN.PRO ---
Procedure Date: 04/26/23 Time: 13:45 Anesthesiologist:: eBrlin Garvey CRNA Complications:: None Pre-procedure Diagnosis:: Degenerative disc lumbar spine multilevels. Lumbar radiculopathy. Degenerative disc cervical spine multilevels. Cervical radiculopathy. Post-procedure Diagnosis:: Same. Indications for Procedure:: Patient is a very pleasant 68-year-old female comes our clinic today for intrathecal pain pump interrogation and refill. She is currently being managed with hydromorphone 30 mg/mL at 6.2 mg/day. Also bupivacaine 15 mg/mL at 3.1 mg/day. Patient is doing very well with her current settings. She is not requesting any changes today. She does not report any side effects or complications. Procedure Details:: Details of the procedure explained to the patient. The patient taken to the procedure room and placed in the sitting position. The area over the pump is cleansed using chlorhexidine's cleansing solution. The pump was interrogated. The pump was accessed with ease using 22-gauge inch and half needle. 9.6 mL of solution was withdrawn discarded appropriately. The pump was filled with 20 cc of a solution containing hydromorphone 30 mg/mL and bupivacaine 15 mg/mL. Patient tolerated procedure without difficulty. There are no complications. Plan and Disposition:: Patient was discharged without incident.
== END 2023-04-26 14:00 | disposition home or self-care (01) ==
LOC: SC.PAINP 13:30
PROVIDERS: PCP Family Medicine; Visit Provider Nurse Anesthetist, Certified Registered
DX: M51.16 Intervertebral disc disorders with radiculopathy, lumbar region (principal); M50.10 Cervical disc disorder with radiculopathy, unspecified cervical region; Z97.8 Presence of other specified devices
CPT/HCPCS: 95991

== ENCOUNTER → 2023-05-06 08:26 | Outpatient (CLI) | payer MEDICARE, SELFPAY ==
[2023-05-06 17:03] LABS: Chloride 101 mmol/L (98-107); Potassium 4.5 mmoL/L (3.5-5.1); Sodium 130 mmol/L (136-145)
[2023-05-06 17:06] LABS: Anion Gap 7.5 mEq/L (5-15); Blood Urea Nitrogen 8 mg/dl (7-17); Calcium 8.2 mg/dl (8.4-10.2); Carbon Dioxide 26 mmol/L (22.0-30.0); Estimated Glomerular Filt Rate 84 ml/min (>60); GFR (African American) 101 ML/MIN (>60); Glucose 99 mg/dl (74-100)
== END ==
PROVIDERS: PCP Family Medicine; Visit Provider Family Medicine
DX: E87.1 Hypo-osmolality and hyponatremia (principal)
CPT/HCPCS: 80048

== ENCOUNTER 2023-06-07 10:51 | Day surgery (SDC) | payer MEDICARE, SELFPAY ==
[2023-06-07 11:11] VITALS: BP 174/91; PULSE 57; RESP 16; O2SAT 98; BMI 23.8
[2023-06-07 11:30] VITALS: BP 150/89; PULSE 53; RESP 16; O2SAT 98
--- NOTE | 2023-06-07 11:35 | EXP.PAIN.PRO ---
Procedure Date: 06/07/23 Time: 11:00 Anesthesiologist:: Berlin Garvey CRNA Complications:: None Pre-procedure Diagnosis:: Degenerative disc lumbar spine multilevels. Lumbar radiculopathy. Degenerative disc cervical spine multiple levels. Cervical radiculopathy. Post-procedure Diagnosis:: Same. Indications for Procedure:: Patient is a very pleasant 68-year-old female comes our clinic today for intrathecal pain pump interrogation refill. She is currently being managed with hydromorphone 30 mg/mL at 6.2 mg/day. Also, bupivacaine 15 mg/mL at 3.1 mg/day. Patient doing very well with her current settings. She is not reporting any side effects or complications. Procedure Details:: Details of the procedure explained to the patient. Patient takes procedure and placed into position. The area of the pump was cleansed using chlorhexidine's cleansing solution. The pump was interrogated. The pump was accessed with ease using a 22-gauge inch and half needle. 9 mL of solution was withdrawn discarded appropriate. The pump was then filled with 20 cc of solution containing hydromorphone 30 mg/mL and bupivacaine 15 mg/mL. Patient tolerated procedure without difficulty. There are no complications. Plan and Disposition:: Patient was discharged out incident.
[2023-06-07 12:09] VITALS: BP 171/92; PULSE 56; RESP 18; O2SAT 98
== END 2023-06-07 11:30 | disposition home or self-care (01) ==
PROVIDERS: PCP Family Medicine; Visit Provider Nurse Anesthetist, Certified Registered
DX: M51.16 Intervertebral disc disorders with radiculopathy, lumbar region (principal); M50.10 Cervical disc disorder with radiculopathy, unspecified cervical region; Z97.8 Presence of other specified devices; Z45.1 Encounter for adjustment and management of infusion pump
CPT/HCPCS: 95991

== ENCOUNTER 2023-06-07 16:40 | Outpatient (CLI) | payer MEDICARE, SELFPAY ==
[2023-06-07 17:34] LABS: Anion Gap 10.7 mEq/L (5-15); Blood Urea Nitrogen 6 mg/dl (7-17); Calcium 8.3 mg/dl (8.4-10.2); Carbon Dioxide 24 mmol/L (22.0-30.0); Chloride 98 mmol/L (98-107); Estimated Glomerular Filt Rate 100 ml/min (>60); GFR (African American) 121 ML/MIN (>60); Glucose 125 mg/dl (74-100); Potassium 4.7 mmoL/L (3.5-5.1); Sodium 128 mmol/L (136-145)
== END 2023-06-07 23:59 ==
LOC: LAB.DROPOF 16:41
PROVIDERS: PCP Family Medicine; Visit Provider Family Medicine
DX: E87.1 Hypo-osmolality and hyponatremia (principal)
CPT/HCPCS: 80048

== ENCOUNTER 2023-07-19 11:53 | Day surgery (SDC) | payer MEDICARE, SELFPAY ==
[2023-07-19 12:07] VITALS: BP 141/88; PULSE 68; RESP 18; TEMP 36.3; O2SAT 97; BMI 25.6
[2023-07-19 12:15] VITALS: BP 175/92; PULSE 59; RESP 18; O2SAT 97
[2023-07-19 12:17] VITALS: BP 175/92; PULSE 59; RESP 18; O2SAT 97
[2023-07-19 12:25] VITALS: BP 164/88; PULSE 56; RESP 16; O2SAT 97
--- NOTE | 2023-07-19 12:25 | EXP.PAIN.PRO ---
Procedure Date: 07/19/23 Time: 12:00 Anesthesiologist:: Berlin Garvey CRNA Complications:: None Pre-procedure Diagnosis:: Degenerative disc lumbar spine multilevels. Lumbar radiculopathy. Degenerative disc cervical spine multilevels. Cervical radiculopathy Post-procedure Diagnosis:: Same. Indications for Procedure:: Patient 68-year-old female comes our clinic today for intrathecal pain pump interrogation refill. She is currently being managed with hydromorphone and bupivacaine. She is doing very well with her current settings. She does not request any changes. She does not report any side effects. Procedure Details:: Details of the procedure explained to the patient. The patient taken the procedure room placed in sitting position. The area of the pump is cleansed using chlorhexidine's cleansing solution. The pump was interrogated. The pump was accessed with ease using a 22-gauge inch and half needle. 9 mL of solution was withdrawn and discarded appropriately. The pump was then filled with 20 cc of a solution containing hydromorphone 30 mg/mL and bupivacaine 15 mg/mL. There will be no change in the rate. Patient tolerated procedure without difficulty. There are no complications. Plan and Disposition:: Patient was discharged without incident.
== END 2023-07-19 12:25 | disposition home or self-care (01) ==
PROVIDERS: PCP Family Medicine; Visit Provider Nurse Anesthetist, Certified Registered
DX: M51.16 Intervertebral disc disorders with radiculopathy, lumbar region (principal); M50.10 Cervical disc disorder with radiculopathy, unspecified cervical region; Z97.8 Presence of other specified devices; Z45.1 Encounter for adjustment and management of infusion pump
CPT/HCPCS: 95991

== ENCOUNTER 2023-07-21 18:39 | Outpatient (CLI) | payer MEDICARE, SELFPAY ==
[2023-07-21 16:26] LABS: Basophils % 0.4 % (0.1-2.0); Eosinophils # 0.5 K/mm3 (0.0-0.4); Eosinophils % 9.2 % (0.1-12.0); Hematocrit 38.9 % (37.0-47.0); Hemoglobin 11.9 g/dL (12.2-16.2); Lymphocytes # 1.9 K/mm3 (0.7-4.5); Lymphocytes % 34.8 % (10-50); Mean Corpuscular HGB Conc 30.7 g/dL (31.8-35.4); Mean Corpuscular Hemoglobin 31.9 pg (27.0-31.2); Mean Corpuscular Volume 103.8 fl (81-99); Mean Platelet Volume 9.6 fl (7.4-10.4); Monocytes # 0.5 K/mm3 (0.1-1.0); Monocytes % 8.5 % (1.7-9.3); Neutrophils # 2.6 K/mm3 (1.8-7.8); Neutrophils % 47.1 % (37.0-80.0); Platelet Count 232 K/mm3 (142-424); Red Blood Count 3.75 M/mm3 (4.20-5.40); Red Cell Distribution Width 12.6 % (11.5-17.5); White Blood Count 5.6 K/mm3 (4.8-10.8)
[2023-07-21 16:40] LABS: Alanine Aminotransferase 18 U/L (12-78); Albumin Level 3.6 g/dl (3.5-5.0); Albumin/Globulin Ratio 1.5 (1.1-1.8); Alkaline Phosphatase 101 U/L (38-126); Anion Gap 8.3 mEq/L (5-15); Aspartate Amino Transferase 32 U/L (14-36); Bilirubin,Total 0.4 mg/dl (0.2-1.3); Blood Urea Nitrogen 7 mg/dl (7-17); Calcium 8.6 mg/dl (8.4-10.2); Carbon Dioxide 29 mmol/L (22.0-30.0); Chloride 105 mmol/L (98-107); Estimated Glomerular Filt Rate 84 ml/min (>60); GFR (African American) 101 ML/MIN (>60); Globulin 2.4 g/dL (1.3-3.2); Glucose 92 mg/dl (74-100); Potassium 4.3 mmoL/L (3.5-5.1); Sodium 138 mmol/L (136-145)
== END 2023-07-21 23:59 ==
LOC: LAB.DROPOF 18:39
PROVIDERS: PCP Family Medicine; Visit Provider Family Medicine
DX: I10 Essential (primary) hypertension (principal)
CPT/HCPCS: 80053; 85025

== ENCOUNTER 2023-08-30 11:04 | Day surgery (SDC) | payer MEDICARE, SELFPAY ==
[2023-08-30 11:18] VITALS: BP 128/84; PULSE 60; RESP 20; O2SAT 100; BMI 25.1
[2023-08-30 12:03] VITALS: BP 147/61; PULSE 58; RESP 18; O2SAT 97
[2023-08-30 12:04] VITALS: BP 147/61; PULSE 58; RESP 18; O2SAT 97
[2023-08-30 12:19] VITALS: BP 132/87; PULSE 57; RESP 20
--- NOTE | 2023-08-30 13:53 | EXP.PAIN.PRO ---
Procedure Date: 08/30/23 Time: 13:53 Anesthesiologist:: Maged Juarez MD Complications:: None Pre-procedure Diagnosis:: Degenerative disc disease of lumbar spine with lumbar radiculopathy symptoms Post-procedure Diagnosis:: Same Indications for Procedure:: This patient is a pleasant 68-year-old white female who we are treating for low back pain with lumbar radiculopathy symptoms. She has an intrathecal hydromorphone/bupivacaine pain pump in place. She does have antalgic gait. Motor strength of lower extremities is 5/5. There is no gross sensory deficit. She is on intrathecal hydromorphone/bupivacaine going at 6.2 mg/day. She is doing well with her pump. She has no side effects keeps her pain under control and keep her functional. Will refill her pump and continue her at 6.2 mg/day. Martín and drug screen are all appropriate. Procedure Details:: Informed consent was obtained and the risks and benefits of the procedure was explained to the patient. The patient was taken to the procedure room. The pump was interrogated. The area over the pump was prepped using ChloraPrep. The pump was accessed with a 22-gauge needle. Approximately 9 mL's of the intrathecal solution was withdrawn and discarded. The pump was then refilled with 20 mL's of intrathecal hydromorphone 30 mg per ml plus bupivacaine 15 mg/mL. The pump was interrogated and the infusion was continued at 6.2 mg/day with PTC boluses of 0.73 mg up to 4 times a day. The patient tolerated the procedure well with no complication. Plan and Disposition:: We will follow-up with this patient at her next pump refill. This to be on or before October 22, 2023. She continues to do well with her intrathecal hydromorphone/bupivacaine pain pump at 6.2 mg/day.
== END 2023-08-30 12:19 | disposition home or self-care (01) ==
LOC: SC.PAINP 11:05
PROVIDERS: PCP Family Medicine; Visit Provider Anesthesiology
DX: M51.16 Intervertebral disc disorders with radiculopathy, lumbar region (principal); Z97.8 Presence of other specified devices; Z45.1 Encounter for adjustment and management of infusion pump
CPT/HCPCS: 95991

== ENCOUNTER 2023-09-07 09:35 | Outpatient (CLI) | payer MEDICARE, SELFPAY ==
[2023-09-07 17:41] LABS: Hemoglobin A1C 5.5 % (4.0-6.0)
[2023-09-07 18:02] LABS: Alanine Aminotransferase 22 U/L (12-78); Albumin Level 3.8 g/dl (3.5-5.0); Albumin/Globulin Ratio 1.5 (1.1-1.8); Alkaline Phosphatase 88 U/L (38-126); Anion Gap 7.5 mEq/L (5-15); Aspartate Amino Transferase 39 U/L (14-36); Bilirubin,Total 0.5 mg/dl (0.2-1.3); Blood Urea Nitrogen 7 mg/dl (7-17); Calcium 8.8 mg/dl (8.4-10.2); Carbon Dioxide 32 mmol/L (22.0-30.0); Chloride 99 mmol/L (98-107); Estimated Glomerular Filt Rate 84 ml/min (>60); GFR (African American) 101 ML/MIN (>60); Globulin 2.5 g/dL (1.3-3.2); Glucose 75 mg/dl (74-100); Potassium 4.5 mmoL/L (3.5-5.1); Sodium 134 mmol/L (136-145); Total Protein,Serum 6.3 g/dl (6.3-8.2)
== END 2023-09-07 23:59 | disposition home or self-care (01) ==
LOC: LAB.DROPOF 09-08 09:36
PROVIDERS: PCP Nurse Practitioner Psychiatric/Mental Health; Visit Provider Nurse Practitioner Psychiatric/Mental Health
DX: Z79.899 Other long term (current) drug therapy (principal)
CPT/HCPCS: 80053; 83036

== ENCOUNTER 2023-10-11 12:42 | Day surgery (SDC) | payer MEDICARE, SELFPAY ==
[2023-10-11 13:10] VITALS: BP 191/103; PULSE 58; RESP 18; O2SAT 97; BMI 26.6
[2023-10-11 13:17] VITALS: BP 182/97; PULSE 58; RESP 18; O2SAT 98
[2023-10-11 13:25] VITALS: BP 174/112; PULSE 55; RESP 16; O2SAT 97
--- NOTE | 2023-10-11 13:25 | EXP.PAIN.PRO ---
Procedure Date: 10/11/23 Time: 13:00 Anesthesiologist:: Berlin Garvey CRNA Complications:: None Pre-procedure Diagnosis:: Degenerative disc lumbar spine multilevel. Lumbar radiculopathy. Post-procedure Diagnosis:: Same. Indications for Procedure:: Patient is a pleasant 68-year-old female comes our clinic today for intrathecal pain pump interrogation refill. Patient currently being managed with hydromorphone 30 mg/mL and bupivacaine 15 mg/mL. Current rate is hydromorphone 6.2 mg/day. Bupivacaine 3.1 mg/day. Patient is reporting some increase pain in the thoracic and lumbar spine area. She is not reporting side effects or complications from the intrathecal pain pump management. Discussed increase in intrathecal pain pump rate. I will give her a 10% increase today. Procedure Details:: Details of the procedure explained to the patient. The patient taken the procedure room placed in the sitting position. They over the pumps cleansed using chlorhexidine as a cleansing solution. The pump was interrogated. The pump was accessed with ease using a 22-gauge inch and half needle. 10 mL of solution was withdrawn discarded appropriately. The pump was then filled 20 cc of a solution containing hydromorphone 30 mg/mL and bupivacaine 15 mg/mL. The rate will be increased by 10% today. The new rate will be hydromorphone 6.82 mg/day. Bupivacaine 3.41 mg/day. Total daily dose 9.7101 mg today. Patient tolerated procedure without difficulty. No complications. Plan and Disposition:: Patient was discharged without incident.
[2023-10-11 14:53] LABS: Amphetamine/Metha Screen,Urine Negative ng/ml (<1000); Barbiturates Screen,Urine Negative ng/ml (<200)
[2023-10-11 14:54] LABS: Benzodiazepines Screen,Urine Negative ng/ml (<200); Cannabinoid Screen,Urine Negative ng/ml (<50)
[2023-10-11 14:55] LABS: Cocaine Screen,Urine Negative ng/ml (<300)
[2023-10-11 14:56] LABS: Methadone Screen,Urine Negative ng/ml (<300); Opiate Screen,Urine Positive ng/ml (<300)
[2023-10-11 14:57] LABS: Phencyclidine Screen,Urine Negative ng/ml (<25)
[2023-10-11 15:17] LABS: Chloride 101 mmol/L (98-107); Potassium 5.1 mmoL/L (3.5-5.1); Sodium 135 mmol/L (136-145)
[2023-10-11 15:20] LABS: Anion Gap 9.1 mEq/L (5-15); Blood Urea Nitrogen 9 mg/dl (7-17); Calcium 9.2 mg/dl (8.4-10.2); Carbon Dioxide 30 mmol/L (22.0-30.0); Creatinine Clearance Estimated 63 mL/min (50-200); Estimated Glomerular Filt Rate 84 ml/min (>60); GFR (African American) 101 ML/MIN (>60); Glucose 76 mg/dl (74-100)
[2023-10-17 09:44] LABS: Codeine Negative (Cutoff=100); Hydrocodone Negative (Cutoff=100); Hydromorphone Positive (.); Morphine Negative (Cutoff=100); Opiates Positive (.)
== END 2023-10-11 13:25 | disposition home or self-care (01) ==
PROVIDERS: Anesthesiology; PCP Family Medicine; Visit Provider Nurse Anesthetist, Certified Registered
DX: E87.1 Hypo-osmolality and hyponatremia (principal); M51.16 Intervertebral disc disorders with radiculopathy, lumbar region; Z97.8 Presence of other specified devices; Z45.1 Encounter for adjustment and management of infusion pump
CPT/HCPCS: 62370; 80048; 80307; 80361; 80365; G0480

== ENCOUNTER 2023-10-19 09:04 | Outpatient (POV) | payer MEDICARE, SELFPAY ==
--- NOTE | 2023-10-19 09:20 | P.PCN_ITS ---
Procedure Date: 10/19/23 Time: 09:20 Anesthesiologist:: Tracie Jacobs APRN Complications:: None Pre-procedure Diagnosis:: degenerative disc disease of cervical and lumbar spine with cervical and lumbar radiculopathy symptom Post-procedure Diagnosis:: same Indications for Procedure:: Patient is a pleasant 68-year-old female who presents today for follow-up. We are currently treating the patient for degenerative disc disease of cervical and lumbar spine with cervical and lumbar radiculopathy symptoms. Today she rates her pain a 8 out of 10. She denies any new trauma or injury. She states that she continues to have increased pain and she is not really sure what is going on. She states a lot of pain in her low back that does radiate all the way to her neck with radiating symptoms into her shoulders. She describes it as an aching, throbbing sensation with numbness and tingling and does interfere with her ability to perform activities of daily living such as cooking and cleaning. Patient did have her pump is increased at her last refill appointment and states that she did feel improvement for about 3 days. She is asking if we can increase her current pump medications. Patient is currently managed with Dilaudid 30 mg/mL with a daily dose of 6.8 to mg/day and bupivacaine 15 mg/mL with a daily dose of 3.41 mg/day. Patient denies any side effects from this medication. Patient is also prescribed pregabalin 75 mg twice a day. She states this is doing much better than the prior gabapentin. Her Martín has been reviewed and appropriate. Physical Exam: General: Alert and oriented x3, no acute distress, pleasant and cooperative Lungs: Respirations even and unlabored, symmetrical chest expansion Eyes: PERRL Musculoskeletal: Flexion and extension of cervical [spine] somewhat guarded secondary to pain, [antalgic gait noted] positive Spurling's test Neurological: Speech clear, no gross sensory deficit Procedure Details:: Informed consent was obtained and the risk and benefits of the procedure were explained to the patient. Patient was taken to the procedure room where noninvasive monitoring was placed including noninvasive blood pressure cuff and pulse oximeter. Patient's pump was interrogated and was reprogrammed to Dilaudid 7.5 mg/day and bupivacaine 3.75 mg/day. The patient tolerated the procedure well with no complications. Plan and Disposition:: Patient tolerated her intrathecal increase with no complications and was discharged neurologically intact. Patient is experiencing worsening pain in her neck with radiating numbness and tingling into her upper extremities. I have discussed with patient in future she may benefit from a cervical epidural steroid injection. Risk and benefits were discussed with patient and she states she would like to wait and see if the pain gets a little better. I have counseled her that she can call and schedule this injection over the phone. Patient is currently on blood thinner would have to stop this medication prior to this injection. Patient does already have her next intrathecal refill date. I will refill her pregabalin and provide a 6-month supply of this medication. Patient has been instructed to contact the clinic with any concerns before the next appointment. Dr. Juarez has reviewed this note and agrees with this plan of care. This note was dictated using voice recognition software and make contain errors or omissions. -- It Is medically necessary for this patient to continue to have their intrathecal pump refilled at regular intervals. This patient had an intrathecal pain pump implanted after meeting criteria of chronic intractable pain for greater than 3 months and failing conservative treatments. Patient has committed and been compliant to the treatment plan and all planned follow up care. Since implantation of the intrathecal pain pump, the patient has had decreased pain and been more functional. Oral medications have been reduced including intake of oral opioids. Patient continues to do well with intrathecal therapy with decrease in pain symptoms and increase in functional status. Stopping intrathecal medications can lead to life threatening withdrawal, seizures, car diac arrest, severe pain, and possible . Pumps that are not refilled at regular intervals can be damages and cause and need for replacement. We continually titrate dose and concentration to optimize pain relief and function. We are limited in concentration for certain drugs to safely deliver medications through the pump and stay within the recommendations from the Polyanalges[employer] Consensus Committee Guidelines. Depending on dose and concentration these pumps may need to be refilled sooner than 3 months as we titrate.
[2023-10-19 09:23] VITALS: BP 136/87; PULSE 55; RESP 16; O2SAT 96; BMI 26.6
== END 2023-10-19 23:59 | disposition home or self-care (01) ==
PROVIDERS: PCP Family Medicine; Visit Provider Nurse Practitioner Family
DX: M50.10 Cervical disc disorder with radiculopathy, unspecified cervical region (principal); M51.16 Intervertebral disc disorders with radiculopathy, lumbar region; Z97.8 Presence of other specified devices; Z45.1 Encounter for adjustment and management of infusion pump
CPT/HCPCS: 62368; 99213; G0463

== ENCOUNTER 2023-11-15 13:40 | Day surgery (SDC) | payer MEDICARE, SELFPAY ==
[2023-11-15 14:00] VITALS: BP 124/74; PULSE 58; RESP 18; TEMP 36.2; O2SAT 98; BMI 26.6
[2023-11-15 14:03] VITALS: BP 127/88; PULSE 64; RESP 18; O2SAT 97
--- NOTE | 2023-11-15 14:10 | EXP.PAIN.PRO ---
Procedure Date: 11/15/23 Time: 14:00 Anesthesiologist:: Berlin Garvey CRNA Complications:: None Pre-procedure Diagnosis:: Degenerative disc cervical spine multilevels. cervical radiculopathy. Cervical postlaminectomy syndrome. Post-procedure Diagnosis:: Same. Indications for Procedure:: Patient is a very pleasant 68-year-old female comes our clinic today for intrathecal pain pump interrogation refill. She is currently being managed with hydromorphone 30 mg/mL at a rate of 7.5 mg/day. And bupivacaine 15 mg/mL rate of 3.75 mg/day. She is doing very well with her current settings. She not requesting any changes. She is not reporting side effects other than some light drowsiness throughout the afternoon. Procedure Details:: Details of the procedure explained to the patient. The patient taken procedure room placed in the sitting position. The area of the pump was cleansed using chlorhexidine as a cleansing solution. The pump was interrogated. The pump was accessed with ease using a 22-gauge inch and half needle. 9.5 mL of solution was withdrawn discarded appropriate. The pump was then filled with 20 cc of solution containing hydromorphone 30 mg/mL and bupivacaine 15 mg/mL. No change in the rate. Hydromorphone will state 7.5 mg/day. Bupivacaine at 3.75 mg/day. Patient tolerated procedure without difficulty. There are no complications. Plan and Disposition:: Patient was discharged without incident.
[2023-11-15 14:15] VITALS: BP 151/89; PULSE 59; RESP 18; O2SAT 98
== END 2023-11-15 14:17 | disposition home or self-care (01) ==
PROVIDERS: PCP Family Medicine; Visit Provider Nurse Anesthetist, Certified Registered
DX: M50.10 Cervical disc disorder with radiculopathy, unspecified cervical region (principal); M96.1 Postlaminectomy syndrome, not elsewhere classified; Z97.8 Presence of other specified devices; Z45.1 Encounter for adjustment and management of infusion pump
CPT/HCPCS: 95991

== ENCOUNTER 2023-12-27 13:19 | Day surgery (SDC) | payer MEDICARE, SELFPAY ==
[2023-12-27 13:45] VITALS: BP 176/98; PULSE 58; RESP 18; TEMP 36.2; O2SAT 97; BMI 26.6
[2023-12-27 13:48] VITALS: BP 128/66; PULSE 61; RESP 18; O2SAT 98
[2023-12-27 13:51] VITALS: BP 128/66; PULSE 61; RESP 18; O2SAT 97
--- NOTE | 2023-12-27 13:56 | EXP.PAIN.PRO ---
Procedure Date: 12/27/23 Time: 13:30 Anesthesiologist:: Berlin Garvey CRNA Complications:: None Pre-procedure Diagnosis:: Degenerative disc lumbar spine multilevels. Lumbar radiculopathy. Degenerative disc cervical spine multilevels. Cervical radiculopathy. Cervical postlaminectomy syndrome. Post-procedure Diagnosis:: Same. Indications for Procedure:: Patient is a very pleasant 68-year-old female comes our clinic today for intrathecal pain pump interrogation and refill. She is currently being managed with hydromorphone 30 mg/mL at 7.5 mg/day. Also bupivacaine 15 mg/mL at 3.75 mg/day. Patient doing very well with her current settings. She does not request any changes. Procedure Details:: Details of the procedure explained to the patient. The patient taken procedure room placed in sitting position. The area of the pump is cleansed using chlorhexidine's cleansing solution. The pump was interrogated. The pump was accessed with ease using a 22-gauge inch and half needle. 8 mL of solution was withdrawn discarded appropriate. The pump was then filled with 20 cc of solution containing hydromorphone 30 mg/mL and bupivacaine 15 mg/mL. Patient tolerated procedure without difficulty. There are no complications. Plan and Disposition:: Patient was discharged out incident.
[2023-12-27 14:00] VITALS: BP 150/92; PULSE 57; RESP 18; O2SAT 97
== END 2023-12-27 14:01 | disposition home or self-care (01) ==
PROVIDERS: PCP Family Medicine; Visit Provider Nurse Anesthetist, Certified Registered
DX: G89.29 Other chronic pain (principal); M51.36 Other intervertebral disc degeneration, lumbar region; M54.16 Radiculopathy, lumbar region; M96.1 Postlaminectomy syndrome, not elsewhere classified
CPT/HCPCS: 95991

== ENCOUNTER 2024-02-14 12:21 | Day surgery (SDC) | payer MEDICARE, SELFPAY ==
[2024-02-14 12:30] VITALS: BP 185/94; PULSE 59; RESP 16; TEMP 36.3; O2SAT 96; BMI 27.4
[2024-02-14 13:12] VITALS: BP 170/90; PULSE 55; RESP 18; O2SAT 96
[2024-02-14 13:13] VITALS: BP 170/90; PULSE 55; RESP 18; O2SAT 96
--- NOTE | 2024-02-14 13:21 | EXP.PAIN.PRO ---
Procedure Date: 02/14/24 Time: 13:00 Anesthesiologist:: Berlin Garvey CRNA Complications:: None Pre-procedure Diagnosis:: Degenerative disc lumbar spine multilevels. Lumbar radiculopathy. Lumbar postlaminectomy syndrome. Degenerative disc cervical spine multiple levels. Cervical radiculopathy. Cervical postlaminectomy syndrome. Post-procedure Diagnosis:: Same. Indications for Procedure:: Patient is a very pleasant 69-year-old female who comes our clinic today for intrathecal pain pump interrogation and refill. She is currently being managed with hydromorphone 30 mg/mL at 7.5 mg/day. Also, bupivacaine 15 mg/mL at 3.75 mg/day. She is doing very well with her current settings. She is not requesting any changes. She is not reporting side effects or complications. Procedure Details:: Details of the procedure explained to the patient. The patient taken procedure and placed in the sitting position. The air over the pump was cleansed using chlorhexidine as a cleansing solution. The pump was interrogated. The pump was accessed with ease using a 22-gauge inch and half needle. 7 mL of solution was withdrawn discarded appropriate. The pump was then filled with 20 cc of solution containing bupivacaine 15 mg/mL and hydromorphone 30 mg/mL. Patient tolerated procedure without difficulty. There are no complications. Patient is awake alert [place] x 3. No acute distress. Flexion-extension lumbar spine somewhat guarded secondary to pain. Deep tendon reflexes upper and lower extremities normal. Motor strength upper and lower extremities normal. There is no gross sensory deficit. Gait is antalgic. Plan and Disposition:: Patient was discharged without incident.
[2024-02-14 13:33] VITALS: BP 150/94; PULSE 54; RESP 18; O2SAT 98
== END 2024-02-14 13:33 | disposition home or self-care (01) ==
PROVIDERS: PCP Family Medicine; Visit Provider Nurse Anesthetist, Certified Registered
DX: Z79.891 Long term (current) use of opiate analgesic (principal); M51.16 Intervertebral disc disorders with radiculopathy, lumbar region; M96.1 Postlaminectomy syndrome, not elsewhere classified; M50.11 Cervical disc disorder with radiculopathy, high cervical region
CPT/HCPCS: 95991

== ENCOUNTER → 2024-03-30 11:03 | Day surgery (SDC) | payer MEDICARE, SELFPAY ==
[2024-03-30 11:20] VITALS: BP 154/84; PULSE 55; RESP 16; TEMP 36.6; O2SAT 97; BMI 26.6
[2024-03-30 11:26] VITALS: BP 156/84; PULSE 54; PULSE 55; RESP 18; O2SAT 96; O2SAT 97
--- NOTE | 2024-03-30 12:21 | P.PCN_ITS ---
Procedure Date: 03/30/24 Time: 12:00 Anesthesiologist:: Berlin Garvey CRNA Complications:: None Pre-procedure Diagnosis:: Degenerative disc lumbar spine multilevels. Lumbar radiculopathy. Lumbar postlaminectomy syndrome. Degenerative disc cervical spine multilevels. Cervical radiculopathy. Cervical postlaminectomy syndrome. Post-procedure Diagnosis:: Same. Indications for Procedure:: Patient is a pleasant 69-year-old female who comes our clinic today for intrathecal pain pump interrogation and refill. Patient is being managed with hydromorphone 30 mg/mL at 7.5 mg/day. Also, bupivacaine 15 mg/mL at 3.7500 mg/day. She is doing very well with her current settings. She is not r equesting any changes. She does not reporting side effects or complications. Patient is awake alert [place] x 3. In no acute distress. Flexion-extension lumbar spine somewhat guarded secondary to pain. Deep tendon reflexes upper and lower extremities normal. Motor strength upper and lower extremities normal. There is no gross sensory deficit. Gait is normal. Procedure Details:: Details of the procedure explained to the patient. The patient taken procedure and placed in the sitting position. The over the pump was cleansed using chlorhexidine as a cleansing solution. The pump was interrogated. The pump was accessed with ease using a 22-gauge inch and half needle. 7 mL of solution was withdrawn and discarded appropriately. The pump was then filled with 20 cc of solution containing hydromorphone 30 mg/mL and bupivacaine 15 mg/mL. Patient tolerated the procedure without difficulty. There were no complications. No change in intrathecal pain pump rate. Plan and Disposition:: Patient was discharged without incident.
== END | disposition home or self-care (01) ==
PROVIDERS: PCP Family Medicine; Visit Provider Nurse Anesthetist, Certified Registered
DX: M51.16 Intervertebral disc disorders with radiculopathy, lumbar region (principal); M96.1 Postlaminectomy syndrome, not elsewhere classified; M50.10 Cervical disc disorder with radiculopathy, unspecified cervical region
CPT/HCPCS: 95991

== ENCOUNTER 2024-05-04 10:38 | Day surgery (SDC) | payer MEDICARE, SELFPAY ==
[2024-05-04 11:07] VITALS: BP 179/84; PULSE 62; RESP 16; TEMP 36.7; O2SAT 98; BMI 26.6
[2024-05-04 11:19] VITALS: BP 178/88; PULSE 58; RESP 18; O2SAT 98
[2024-05-04 11:20] VITALS: BP 178/88; PULSE 58; RESP 18; O2SAT 98
--- NOTE | 2024-05-04 11:29 | EXP.PAIN.PRO ---
Procedure Date: 05/04/24 Time: 11:29 Anesthesiologist:: Tracie Jacobs APRN Complications:: None Pre-procedure Diagnosis:: Degenerative disc disease of lumbar spine with lumbar radiculopathy symptoms Post-procedure Diagnosis:: Same Indications for Procedure:: Patient is a pleasant 59-year-old female who presents today for intrathecal refill and reprogram. Today she rates her pain a 5 out of 10. Patient denies any specific trauma or injury from her last visit. She does feel like she has stumbled around a lot more here recently and that she did not even in fact find out that she had a stitch left in her eye from her prior surgery which was causing some vision issues patient states that she does feel much better from our last appointment and does not feel disoriented where she had been on gabapentin however she is still not driven yet on her own due to the related issues. Patient denies any other changes. She is currently managed with Dilaudid 30 mg/mL with a daily dose of 7.5 mg/day and bupivacaine 15 mg/mL with a daily dose of 3.75 mg/day. She denies any side effects from that medication and states that the current dosage is working well and does not need any additional adjustment. Her Martín has been reviewed and is appropriate. Physical Exam: General: Alert and oriented x3, no acute distress, pleasant and cooperative Lungs: Respirations even and unlabored, symmetrical chest expansion Eyes: PERRL Musculoskeletal: Flexion and extension of lumbar [spine] somewhat guarded secondary to pain, [antalgic gait noted] Neurological: Speech clear, no gross sensory deficit Procedure Details:: Informed consent was obtained and the risk and benefits of the procedure were explained to the patient. The patient had noninvasive monitoring placed including noninvasive blood pressure cuff and pulse oximeter. Patient's pump was interrogated. The area over the pump was cleansed with chlorhexidine as a cleansing solution. In sterile fashion the pump was accessed with a 22-gauge needle. Approximately 9.1 mls of the pump solution was removed and discarded appropriately. The pump was then refilled with 20 mL's of Dilaudid 30 mg/mL and bupivacaine 15 mg/mL. The needle was withdrawn and a bandage was placed over the puncture site. The infusion rate was reprogrammed and continued at Dilaudid 7.5 mg and bupivacaine 3.75 mg/day. The patient tolerated well with no complication. Plan and Disposition:: Patient tolerated his intrathecal refill and reprogram with no complications and was discharged neurologically intact. I did discuss with the patient in future due to her feeling like her balance is somewhat altered that she may benefit from some updated physical therapy. Patient was counseled if she ends up deciding she would like this to be ordered she can call her office and I will send in the order to physical therapy. Patient agrees with this plan of care. Patient will return to clinic on or before her next intrathecal refill of June 20, 2024. We will see the patient back in the clinic at the next intrathecal refill. Patient has been instructed to contact the clinic with any concerns before the next appointment. Dr. Juarez has reviewed this note and agrees with this plan of care. This note was dictated using voice recognition software and make contain errors or omissions. -- It Is medically necessary for this patient to continue to have their intrathecal pump refilled at regular intervals. This patient had an intrathecal pain pump implanted after meeting criteria of chronic intractable pain for greater than 3 months and failing conservative treatments. Patient has committed and been compliant to the treatment plan and all planned follow up care. Since implantation of the intrathecal pain pump, the patient has had decreased pain and been more functional. Oral medications have been reduced including intake of oral opioids. Patient continues to do well with intrathecal therapy with decrease in pain symptoms and increase in functional status. Stopping intrathecal medications can lead to life threatening withdrawal, seizures, cardiac arrest, severe pain, and possible . Pumps that are not refilled at regular intervals can be damages and cause and need for replacement. We continually titrate dose and concentration to optimize pain relief and function. We are limited in concentration for certain drugs to safely deliver medications through the pump and stay within the recommendations from the [employer]ensus [employer] Guidelines. Depending on dose and concentration these pumps may need to be refilled sooner than 3 months as we titrate.
[2024-05-04 11:32] VITALS: BP 154/99; PULSE 63; RESP 16; O2SAT 98
== END 2024-05-04 11:32 | disposition home or self-care (01) ==
PROVIDERS: PCP Family Medicine; Visit Provider Nurse Practitioner Family
DX: M51.16 Intervertebral disc disorders with radiculopathy, lumbar region (principal)
CPT/HCPCS: 62370; 99212; G0463

== ENCOUNTER 2024-06-19 08:10 | Day surgery (SDC) | payer MEDICARE, SELFPAY ==
[2024-06-19 08:34] VITALS: BP 177/99; PULSE 62; RESP 18; TEMP 36.6; O2SAT 100; BMI 26.2
[2024-06-19 08:52] VITALS: BP 193/104; PULSE 60; RESP 18; O2SAT 98
[2024-06-19 09:04] VITALS: BP 193/104; PULSE 60; RESP 18; O2SAT 98
--- NOTE | 2024-06-19 09:04 | EXP.PAIN.PRO ---
Procedure Date: 06/19/24 Time: 08:40 Anesthesiologist:: Tracie Jacobs APRN Complications:: None Pre-procedure Diagnosis:: Degenerative disc disease of lumbar spine with lumbar radiculopathy symptoms Post-procedure Diagnosis:: Same Indications for Procedure:: Patient is a pleasant 69-year-old female who presents today for intrathecal refill and reprogram. Today she rates her pain a 3 out of 10. She denies any new injuries or falls. Patient is currently managed with Dilaudid 30 mg/mL with a daily dose of 7.5 mg/day and bupivacaine 15 mg/mL with a daily dose of 3.75 mg/day. She denies any side effects from these medications. She also states that she does not need any adjustment today. She is managed with pregabalin 75 mg twice a day. Her Martín has been reviewed and is appropriate. Physical Exam: General: Alert and oriented x3, no acute distress, pleasant and cooperative Lungs: Respirations even and unlabored, symmetrical chest expansion Eyes: PERRL Musculoskeletal: Flexion and extension of lumbar [spine] somewhat guarded secondary to pain, [antalgic gait noted] Neurological: Speech clear, no gross sensory deficit Procedure Details:: Informed consent was obtained and the risk and benefits of the procedure were explained to the patient. The patient had noninvasive monitoring placed including noninvasive blood pressure cuff and pulse oximeter. Patient's pump was interrogated. The area over the pump was cleansed with chlorhexidine as a cleansing solution. In sterile fashion the pump was accessed with a 22-gauge needle. Approximately 8.2 mls of the pump solution was removed and discarded appropriately. The pump was then refilled with 20 mL's of Dilaudid 30 mg/mL and bupivacaine 15 mg/mL. The needle was withdrawn and a bandage was placed over the puncture site. The infusion rate was reprogrammed and continued at Dilaudid 7.5 mg/day and bupivacaine 3.75 mg/day. The patient tolerated well with no complication. Plan and Disposition:: Patient tolerated the procedure well with no complications and was discharged neurologically intact. Patient will return to clinic on or before her next intrathecal refill date. We will see the patient back in the clinic at the next intrathecal refill. Patient has been instructed to contact the clinic with any concerns before the next appointment. Dr. Juarez has reviewed this note and agrees with this plan of care. This note was dictated using voice recognition software and make contain errors or omissions. -- It Is medically necessary for this patient to continue to have their intrathecal pump refilled at regular intervals. This patient had an intrathecal pain pump implanted after meeting criteria of chronic intractable pain for greater than 3 months and failing conservative treatments. Patient has committed and been compliant to the treatment plan and all planned follow up care. Since implantation of the intrathecal pain pump, the patient has had decreased pain and been more functional. Oral medications have been reduced including intake of oral opioids. Patient continues to do well with intrathecal therapy with decrease in pain symptoms and increase in functional status. Stopping intrathecal medications can lead to life threatening withdrawal, seizures, cardiac arrest, severe pain, and possible . Pumps that are not refilled at regular intervals can be damages and cause and need for replacement. We continually titrate dose and concentration to optimize pain relief and function. We are limited in concentration for certain drugs to safely deliver medications through the pump and stay within the recommendations from the Polyanalges[employer] Consensus Committee Guidelines. Depending on dose and concentration these pumps may need to be refilled sooner than 3 months as we titrate. A UDS is needed to verify patient's compliance with our office pain contract. This is ordered based off specific treatments related to chronic pain with the potential to abuse certain medications.
[2024-06-19 09:10] VITALS: BP 185/86; PULSE 55; RESP 18; O2SAT 99
== END 2024-06-19 09:10 | disposition home or self-care (01) ==
LOC: SC.PAINP 08:11 → SC.PAIN 08:44
PROVIDERS: PCP Family Medicine; Visit Provider Nurse Practitioner Family
DX: M51.16 Intervertebral disc disorders with radiculopathy, lumbar region (principal)
CPT/HCPCS: 62370

== ENCOUNTER 2024-07-27 10:48 | Day surgery (SDC) | payer MEDICARE, SELFPAY ==
[2024-07-27 11:00] VITALS: BP 149/85; PULSE 58; RESP 16; O2SAT 97; BMI 26.6
--- NOTE | 2024-07-27 11:02 | EXP.PAIN.PRO ---
Procedure Date: 07/27/24 Time: 11:03 Anesthesiologist:: Tracie Jacobs APRN Complications:: None Pre-procedure Diagnosis:: Degenerative disc disease of lumbar spine with lumbar radiculopathy symptoms Post-procedure Diagnosis:: Same Indications for Procedure:: Patient is a pleasant 69-year-old female who presents today for intrathecal refill and reprogram. She rates her pain today at 1 out of 10. Patient denies any new falls or injuries however does state that she has been under the weather with what seems like has been the last month. Patient states it has been anything from the flu to other issues and is just now starting to feel a little bit better. Patient denies any side effects to her pump medication and feels like the dosage is working well. She is also prescribed pregabalin 75 mg twice a day from our office. Her Martín has been reviewed and is appropriate. Physical Exam: General: Alert and oriented x3, no acute distress, pleasant and cooperative Lungs: Respirations even and unlabored, symmetrical chest expansion Eyes: PERRL Musculoskeletal: Flexion and extension of lumbar [spine] somewhat guarded secondary to pain, [antalgic gait noted] Neurological: Speech clear, no gross sensory deficit Procedure Details:: Informed consent was obtained and the risk and benefits of the procedure were explained to the patient. The patient had noninvasive monitoring placed including noninvasive blood pressure cuff and pulse oximeter. Patient's pump was interrogated. The area over the pump was cleansed with chlorhexidine as a cleansing solution. In sterile fashion the pump was accessed with a 22-gauge needle. Approximately 10 mls of the pump solution was removed and discarded appropriately. The pump was then refilled with 20 mL's of Dilaudid 30 mg/mL and bupivacaine 15 mg/mL. The needle was withdrawn and a bandage was placed over the puncture site. The infusion rate was reprogrammed and continued at Dilaudid 7.5 mg/day and bupivacaine 3.75 mg/day. The patient tolerated well with no complication. Plan and Disposition:: Patient tolerated the procedure well with no complications and was discharged neurologically intact. Patient will return to clinic on or before their next intrathecal refill date. We will see the patient back in the clinic at the next intrathecal refill. Patient has been instructed to contact the clinic with any concerns before the next appointment. Dr. Juarez has reviewed this note and agrees with this plan of care. This note was dictated using voice recognition software and make contain errors or omissions. -- It Is medically necessary for this patient to continue to have their intrathecal pump refilled at regular intervals. This patient had an intrathecal pain pump implanted after meeting criteria of chronic intractable pain for greater than 3 months and failing conservative treatments. Patient has committed and been compliant to the treatment plan and all planned follow up care. Since implantation of the intrathecal pain pump, the patient has had decreased pain and been more functional. Oral medications have been reduced including intake of oral opioids. Patient continues to do well with intrathecal therapy with decrease in pain symptoms and increase in functional status. Stopping intrathecal medications can lead to life threatening withdrawal, seizures, cardiac arrest, severe pain, and possible . Pumps that are not refilled at regular intervals can be damages and cause and need for replacement. We continually titrate dose and concentration to optimize pain relief and function. We are limited in concentration for certain drugs to safely deliver medications through the pump and stay within the recommendations from the Polyanalges[employer] Consensus Committee Guidelines. Depending on dose and concentration these pumps may need to be refilled sooner than 3 months as we titrate. A UDS is needed to verify patient's compliance with our office pain contract. This is ordered based off specific treatments related to chronic pain with the potential to abuse certain medications.
[2024-07-27 11:03] VITALS: BP 155/82; PULSE 59; RESP 18; O2SAT 98
[2024-07-27 11:07] VITALS: BP 155/82; PULSE 59; RESP 18; O2SAT 97
[2024-07-27 11:10] VITALS: BP 152/95; PULSE 60; RESP 16; O2SAT 98
== END 2024-07-27 11:10 | disposition home or self-care (01) ==
PROVIDERS: PCP Family Medicine; Visit Provider Nurse Practitioner Family
DX: M51.16 Intervertebral disc disorders with radiculopathy, lumbar region (principal)
CPT/HCPCS: 62370

== ENCOUNTER 2024-09-07 11:01 | Day surgery (SDC) | payer MEDICARE, SELFPAY ==
--- NOTE | 2024-09-07 11:15 | EXP.PAIN.PRO ---
Procedure Date: 09/07/24 Time: 11:40 Anesthesiologist:: Tracie Jacobs APRN Complications:: None Pre-procedure Diagnosis:: Degenerative disc disease of lumbar spine with lumbar radiculopathy symptoms, chronic pain syndrome Post-procedure Diagnosis:: Same Indications for Procedure:: Patient is a pleasant 69-year-old female who presents today for intrathecal refill and reprogram. Today she rates her pain a 5 out of 10. She denies any new falls or injuries. She does state her pain today is all related to the weather.Patient is currently managed with Dilaudid 30 mg/mL with a daily dose at 7.5 mg/day and bupivacaine 15 mg/mL with a daily dose of 3.75 mg/day. She denies any side effects. She is also prescribed pregabalin 75 mg twice a day from our office. Her Martín has been reviewed and is appropriate. Physical Exam: General: Alert and oriented x3, no acute distress, pleasant and cooperative Lungs: Respirations even and unlabored, symmetrical chest expansion Eyes: PERRL Musculoskeletal: Flexion and extension of lumbar [spine] somewhat guarded secondary to pain, [antalgic gait noted] Neurological: Speech clear, no gross sensory deficit Procedure Details:: Informed consent was obtained and the risk and benefits of the procedure were explained to the patient. The patient had noninvasive monitoring placed including noninvasive blood pressure cuff and pulse oximeter. Patient's pump was interrogated. The area over the pump was cleansed with chlorhexidine as a cleansing solution. In sterile fashion the pump was accessed with a 22-gauge needle. Approximately 8.9 mls of the pump solution was removed and discarded appropriately. The pump was then refilled with 20 mL's of Dilaudid 30 mg/mL and bupivacaine 15 mg/mL. The needle was withdrawn and a bandage was placed over the puncture site. The infusion rate was reprogrammed and continued at its current dosage. The patient tolerated well with no complication. Plan and Disposition:: Patient tolerated the procedure well with no complications and was discharged neurologically intact. I will also refill the patient's pregabalin and provide a 3-month supply of this medication. Patient will return to clinic on or before their next intrathecal refill date. We will see the patient back in the clinic at the next intrathecal refill. Patient has been instructed to contact the clinic with any concerns before the next appointment. Dr. Juarez has reviewed this note and agrees with this plan of care. This note was dictated using voice recognition software and make contain errors or omissions. -- It Is medically necessary for this patient to continue to have their intrathecal pump refilled at regular intervals. This patient had an intrathecal pain pump implanted after meeting criteria of chronic intractable pain for greater than 3 months and failing conservative treatments. Patient has committed and been compliant to the treatment plan and all planned follow up care. Since implantation of the intrathecal pain pump, the patient has had decreased pain and been more functional. Oral medications have been reduced including intake of oral opioids. Patient continues to do well with intrathecal therapy with decrease in pain symptoms and increase in functional status. Stopping intrathecal medications can lead to life threatening withdrawal, seizures, cardiac arrest, severe pain, and possible . Pumps that are not refilled at regular intervals can be damages and cause and need for replacement. We continually titrate dose and concentration to optimize pain relief and function. We are limited in concentration for certain drugs to safely deliver medications through the pump and stay within the recommendations from the [employer] Consensus [employer] Guidelines. Depending on dose and concentration these pumps may need to be refilled sooner than 3 months as we titrate. A UDS is needed to verify patient's compliance with our office pain contract. This is ordered based off specific treatments related to chronic pain with the potential to abuse certain medications.
[2024-09-07 11:16] VITALS: BP 159/87; PULSE 55; RESP 16; O2SAT 99; BMI 26.8
[2024-09-07 11:33] VITALS: BP 171/97; PULSE 57; RESP 18; O2SAT 96
[2024-09-07 11:35] VITALS: BP 171/97; PULSE 57; RESP 18; O2SAT 96
[2024-09-07 11:47] VITALS: BP 159/87; PULSE 62; RESP 16; O2SAT 96
== END 2024-09-07 11:47 | disposition home or self-care (01) ==
PROVIDERS: PCP Family Medicine; Visit Provider Nurse Practitioner Family
DX: G89.4 Chronic pain syndrome (principal); M51.16 Intervertebral disc disorders with radiculopathy, lumbar region
CPT/HCPCS: 62370

== ENCOUNTER 2024-10-12 15:14 | Day surgery (SDC) | payer MEDICARE, SELFPAY ==
[2024-10-12 15:17] VITALS: BP 156/97; PULSE 55; RESP 16; O2SAT 97; BMI 26.6
--- NOTE | 2024-10-12 15:21 | EXP.HP ---
History of Present Illness *Admission Date: 10/12/24 *Reason for visit:: Intrathecal refill; DDD *History of present illness: Degenerative disc disease [facility] Disclaimer: The information contained in this section may have been updated after the patient was seen, as this information can be updated by other users. Medical History Anxiety and depression History of gastroesophageal reflux (GERD) Allergies Hyperlipidemia Hypertension History of anemia Hypertension Tremor Depression Deformity of right foot 7 surgeries Pain pain pump placement CVA (cerebral vascular accident) Pt stated 2 mini strokes >10yrs ago History of deviated nasal septum Surgical History History of eyelid surgery History of foot surgery R foot surgeries x7 r/t defect History of placement of ear tubes Hx of bariatric surgery History of carpal tunnel release of both wrists History of hysterectomy History of cholecystectomy Family History Other Family history of cancer Family history of diabetes mellitus type II Social History Smoking Status: Former smoker years smoked: 40 smoking status stop date: 2002 second hand exposure: No alcohol intake: never substance use type: denies use current occupational status: other Travel in the last 8 weeks?: None housing: house marital status: number of children: 2 current occupational exposures/hazards: No caffeine: Yes do you feel safe at home: Yes victim of physical abuse: No victim of emotional abuse: No victim of sexual abuse: No would you like helpful sources: No Have you lived/traveled outside US in past 30 days?: No Contact w/someone who lives/traveled outside US past 30 days?: No Exposure to someone with infectious disease in past 14 days?: No Do you have a fever (greater than 100.4 F or 38 C)?: No Have you tested positive for COVID-19?: No Exposed to someone with COVID-19 in past 14 days?: No Do you have a sore throat?: No Do you have a cough?: No Do you have any weakness?: No Do you have any diarrhea?: No Are you experiencing any unusual bleeding?: No Do you have any muscle aches/pain?: No Do you have any abdominal pain?: No Are you experiencing loss of taste or smell?: No Other Medical History Have you received the Flu Vaccine for this season: No Have you received the Pneumonia Vaccine: No Review of Systems Review of Systems Review of systems:: pertinent systems reviewed and negative unless documented below Review of systems (narrative): Review of Systems: General: No recent weight changes, no fever, no sleep disturbances Respiratory: No cough, no shortness of air, no recurring pulmonary infections Cardiovascular/peripheral vascular: No chest pain, no palpitations, no edema, no shortness of breath Gastrointestinal: No new onset incontinence, normal bowel movements reported Genitourinary: No new onset incontinence Musculoskeletal: Chronic back pain Psychiatric: [Normal mood/affect] Neurological: [Denies weakness in extremities], [denies balance issues] Meds Home Medications and Allergies Home Medications ?Medication ?Instructions ?Recorded ?Confirmed ?Type budesonide-formoterol HFA 80 1 inh inhalation BID PRN . 06/28/22 10/12/24 History mcg-4.5 mcg/actuation aerosol inhaler (Symbicort) cholecalciferol (vitamin D3) 125 125 mcg PO DAILY Supplement 06/28/22 10/12/24 History mcg (5,000 unit) capsule fluticasone propionate 50 1 spray intranasal DAILY PRN 06/28/22 10/12/24 History mcg/actuation nasal ALLERGIES spray,suspension phytonadione (vitamin K1) 100 mcg 100 mcg PO DAILY Supplement 06/28/22 10/12/24 History tablet albuterol sulfate 90 mcg/actuation 2 puff inhalation Q6H PRN 07/06/22 10/12/24 Rx aerosol inhaler BREATHING 90 days #6.7 grams hydromorphone (PF) 1 mg/mL 7.5 mg epidural CONT Pain 07/08/22 10/12/24 History injection solution biotin 10,000 mcg capsule 10,000 mcg PO DAILY 04/20/23 10/12/24 History magnesium 200 mg tablet 400 mg PO DAILY 04/20/23 10/12/24 History thiamine HCl (vitamin B1) 500 mg 500 mg PO DAILY 04/20/23 10/12/24 History tablet vitamin A 2,400 mcg capsule 2,400 mcg PO DAILY 04/20/23 10/12/24 History nystatin 100,000 unit/gram topical 1 applic topical DAILY PRN rash 02/06/24 05/16/25 History powder buspirone 30 mg tablet See Rx Instructions .Route 12/06/23 10/12/24 Rx .COMPLEX #180 tabs desvenlafaxine succinate 50 mg See Rx Instructions .Route 12/06/23 10/12/24 Rx tablet,extended release 24 hr .COMPLEX #90 tabs [id number]-nhfknoedv-shuwcmoj 3.5 1 drp Eye-Both Q4H #5 mL 02/08/24 10/12/24 Rx mg/mL-10,000 unit/mL-0.1% eye drops (Maxitrol) omeprazole 40 mg capsule,delayed 40 mg PO BID STOMACH #180 caps 02/23/24 10/12/24 Rx release propranolol 40 mg tablet See Rx Instructions .Route 06/05/24 10/12/24 Rx .COMPLEX BLOOD PRESSURE 90 days #270 tabs pregabalin 75 mg capsule 75 mg PO BID #180 caps 09/07/24 10/12/24 Rx atorvastatin 80 mg tablet See Rx Instructions .Route 09/24/24 10/12/24 Rx .COMPLEX #90 tabs clopidogrel 75 mg tablet 75 mg PO DAILY Blood Thinner #90 09/24/24 10/12/24 Rx tabs montelukast 10 mg tablet 10 mg PO DAILY ALLERGIES #90 tabs 09/24/24 10/12/24 Rx sucralfate 1 gram tablet See Rx Instructions .Route 09/24/24 10/12/24 Rx .COMPLEX STOMACH #360 tabs New Prescriptions to Start Prescriptions: Allergies Allergy/AdvReac Type Severity Reaction Status Date / Time aspirin (ASPIRIN) Allergy Unknown GASTRIC Verified 09/27/24 13:11 ULCERS duloxetine (From CYMBALTA) Allergy Unknown NA-NAUSEA/V Verified 09/27/24 13:11 OMITING NSAIDS (Non-Steroidal Allergy Unknown RASH/DIFFICULTY Verified 09/27/24 13:11 Anti-Inflamma (NSAIDS BREATHING (NON-STEROIDAL ANTI-INFLAMMA) Sulfa (Sulfonamide Allergy Unknown RASH/DIFFICULTY Verified 09/27/24 13:11 Antibiotics) (SULFA BREATHING (SULFONAMIDE ANTIBIOTICS)) LUIGI INHIBITORS Allergy Unknown COUGHING Uncoded 09/27/24 13:11 STEROIDS Allergy Unknown GASTRIC Uncoded 09/27/24 13:11 ULCERS Exam Constitutional Constitutional: no acute distress *Routine HEENT Exam Head: Present normocephalic and atraumatic Eye: Present PERRL ENT: Present mucous membranes moist *Routine Neck Exam Neck: Present supple *Routine Respiratory Exam Respiratory: Present CTA bilaterally *Routine Cardiovascular Exam Cardiovascular: Present RRR *Routine Abdominal Exam Abdominal: Present soft *Routine Rectal Exam Rectal:: deferred *Routine Genitalia Exam Genitalia:: normal female Routine Back/Spine/Pelvis Exam Back/Spine: Present pain with flexion *Routine Skin Exam Skin: Present intact and warm *Routine Neurological Exam Neurological: Present alert and oriented X3 Routine Psychiatric Exam Psychiatric: Present normal affect and normal thought process Assessment and Plan *Assessment and plan (1) Chronic pain: Problem Comment: Active follow-up with [facility] pain management Status: Chronic Qualifiers: Chronic pain type: other chronic pain Qualified Code(s): G89.29 - Other chronic pain Category: Medical Code(s): G89.29 - Other chronic pain Plan Patient has been instructed to contact the clinic with any concerns before the next appointment. Dr. Juarez has reviewed this note and agrees with this plan of care. This note was dictated using voice recognition software and make contain errors or omissions. All injections are used with Lidocaine, Bupivacaine and dexamethasone. Occasionally urine drug screen is needed to verify patient's compliance with our office pain contract. This is ordered based off specific treatments related to chronic pain with the potential to abuse certain medications.
--- NOTE | 2024-10-12 15:23 | P.PCN_ITS ---
Procedure Date: 10/12/24 Time: 16:03 Anesthesiologist:: Tracie Jacobs APRN Complications:: None Pre-procedure Diagnosis:: Degenerative disc disease of lumbar spine, chronic pain syndrome Post-procedure Diagnosis:: Same Indications for Procedure:: Patient is a pleasant 69-year-old female who presents today for intrathecal refill and reprogram. Today she rates her pain a 2 out of 10. She denies any new trauma or injury. She does state however that she feels like she has got a lot of fatigue and is unsure whether or not the pump or her pregabalin could be making a difference in this. She is currently managed with Dilaudid 30 mg/mL with a daily dose of 7.5 mg/day and bupivacaine 15 mg/mL with a daily dose of 3.75 mg/day she denies any side effects.Patient is also managed with pregabalin 75 mg twice a day from our office and was just given a recent 3-month supply and does not need refills at this time. Her Martín has been reviewed and is appropriate. Physical Exam: General: Alert and oriented x3, no acute distress, pleasant and cooperative Lungs: Respirations even and unlabored, symmetrical chest expansion Eyes: PERRL Musculoskeletal: Flexion and extension of lumbar [spine] somewhat guarded secondary to pain, [antalgic gait noted] Neurological: Speech clear, no gross sensory deficit Procedure Details:: Informed consent was obtained and the risk and benefits of the procedure were explained to the patient. The patient had noninvasive monitoring placed including noninvasive blood pressure cuff and pulse oximeter. Patient's pump was interrogated. The area over the pump was cleansed with chlorhexidine as a cleansing solution. In sterile fashion the pump was accessed with a 22-gauge needle. Approximately 10.7 mls of the pump solution was removed and discarded appropriately. The pump was then refilled with 20 mL's of Dilaudid 30 mg/mL and bupivacaine 15 mg/mL. The needle was withdrawn and a bandage was placed over the puncture site. The infusion rate was reprogrammed and continued at its current dosage. The patient tolerated well with no complication. Plan and Disposition:: Patient tolerated the procedure well with no complications and was discharged neurologically intact. We did discuss several options regarding the increased fatigue and even the possibility of coming down on her intrathecal pump medication. We will plan on having her decrease her pregabalin down to once a day. I did also review over with the patient due to the fact that she has not had any updated labs for longer than a year that we will order a CBC and CMP to rule out any possible factors such as iron deficiency. Patient agrees with this plan of care. Patient will return to clinic on or before their next intrathecal refill date. We will see the patient back in the clinic at the next intrathecal refill. Patient has been instructed to contact the clinic with any concerns before the next appointment. Dr. Juarez has reviewed this note and agrees with this plan of c are. This note was dictated using voice recognition software and make contain errors or omissions. -- It Is medically necessary for this patient to continue to have their intrathecal pump refilled at regular intervals. This patient had an intrathecal pain pump implanted after meeting criteria of chronic intractable pain for greater than 3 months and failing conservative treatments. Patient has committed and been compliant to the treatment plan and all planned follow up care. Since implantation of the intrathecal pain pump, the patient has had decreased pain and been more functional. Oral medications have been reduced including intake of oral opioids. Patient continues to do well with intrathecal therapy with decrease in pain symptoms and increase in functional status. Stopping intrathec al medications can lead to life threatening withdrawal, seizures, cardiac arrest, severe pain, and possible . Pumps that are not refilled at regular intervals can be damages and cause and need for replacement. We continually titrate dose and concentration to optimize pain relief and function. We are limited in concentration for certain drugs to safely deliver medications through the pump and stay within the recommendations from the Polyanalgesic Consensus Committee Guidelines. Depending on dose and concentration these pumps may need to be refilled sooner than 3 months as we titrate. A UDS is needed to verify patient's compliance with our office pain contract. This is ordered based off specific treatments related to chronic pain with the potential to abuse certain medications.
[2024-10-12 15:55] VITALS: BP 112/90; PULSE 57; RESP 18; O2SAT 97
[2024-10-12 16:05] VITALS: BP 158/95; PULSE 53; RESP 16; O2SAT 96
[2024-10-12 16:48] LABS: Basophils # 0.1 K/mm3 (0-0.2); Basophils % 0.9 % (0.1-2.0); Eosinophils # 0.4 Kmm3 (0.0-0.4); Eosinophils % 6.3 % (0.1-12.0); Hematocrit 40.4 % (37.0-47.0); Hemoglobin 12.6 g/dL (12.2-16.2); Immature Granulocytes # 0.01 10^3uL; Immature Granulocytes % 0.2 %; Lymphocytes # 2.1 K/mm3 (0.7-4.5); Mean Corpuscular HGB Conc 31.2 g/dL (31.8-35.4); Mean Corpuscular Hemoglobin 29.1 pg (27.0-31.2); Mean Corpuscular Volume 93.3 fl (81-99); Mean Platelet Volume 11.7 fl (7.4-10.4); Monocytes # 0.7 K/mm3 (0.1-1.0); Monocytes % 10.5 % (1.7-9.3); Neutrophils # 3.3 K/mm3 (1.8-7.8); Neutrophils % 50.1 % (37.0-80.0); Nucleated Red Blood Cells # 0 10^3/uL; Nucleated Red Blood Cells % 0 %; Platelet Count 205 K/mm3 (142-424); Red Blood Count 4.33 M/mm3 (4.20-5.40); Red Cell Distribution Width 12.3 % (11.5-17.5); Red Cell Distribution Width-SD 42.4 fL; White Blood Count 6.6 K/mm3 (4.8-10.8)
[2024-10-12 17:24] LABS: Albumin Level 4.1 g/dl (3.5-5.0); Chloride 103 mmol/L (98-107); Potassium 4.8 mmoL/L (3.5-5.1); Sodium 135 mmol/L (136-145)
[2024-10-12 17:27] LABS: Alanine Aminotransferase 14 U/L (12-78); Albumin/Globulin Ratio 1.5 (1.1-1.8); Alkaline Phosphatase 89 U/L (38-126); Anion Gap 10.8 mEq/L (5-15); Aspartate Amino Transferase 32 U/L (14-36); Bilirubin,Total 0.5 mg/dl (0.2-1.3); Blood Urea Nitrogen 13 mg/dl (7-17); Calcium 8.8 mg/dl (8.4-10.2); Carbon Dioxide 26 mmol/L (22.0-30.0); Creatinine Clearance Estimated 63 mL/min (50-200); Estimated Glomerular Filt Rate 72 ml/min (>60); GFR (African American) 87 ML/MIN (>60); Globulin 2.7 g/dL (1.3-3.2); Glucose 104 mg/dl (74-100); Total Protein,Serum 6.8 g/dl (6.3-8.2)
== END 2024-10-12 16:05 | disposition home or self-care (01) ==
PROVIDERS: PCP Family Medicine; Visit Provider Nurse Practitioner Family
DX: G89.4 Chronic pain syndrome (principal); M51.369 Other intervertebral disc degeneration, lumbar region without mention of lumbar back pain or lower extremity pain; R53.83 Other fatigue
CPT/HCPCS: 36415; 62370; 80053; 85025; 99212; G0463

== ENCOUNTER 2024-11-23 15:01 | Day surgery (SDC) | payer MEDICARE, SELFPAY ==
[2024-11-23 15:04] VITALS: BP 178/101; PULSE 59; RESP 18; O2SAT 97; BMI 26.6
--- NOTE | 2024-11-23 15:11 | EXP.PM.HP ---
History of Present Illness *Admission Date: 11/23/24 *Reason for visit:: Intrathecal refill; DDD *History of present illness: Same [facility] Disclaimer: The information contained in this section may have been updated after the patient was seen, as this information can be updated by other users. Medical History Anxiety and depression History of gastroesophageal reflux (GERD) Allergies Hyperlipidemia Hypertension History of anemia Hypertension Tremor Depression Deformity of right foot 7 surgeries Pain pain pump placement CVA (cerebral vascular accident) Pt stated 2 mini strokes >10yrs ago History of deviated nasal septum Surgical History History of eyelid surgery History of foot surgery R foot surgeries x7 r/t defect History of placement of ear tubes Hx of bariatric surgery History of carpal tunnel release of both wrists History of hysterectomy History of cholecystectomy Family History Other Family history of cancer Family history of diabetes mellitus type II Social History Smoking Status: Former smoker years smoked: 40 smoking status stop date: 2002 second hand exposure: No alcohol intake: never substance use type: denies use current occupational status: other Travel in the last 8 weeks?: None housing: house marital status: number of children: 2 current occupational exposures/hazards: No caffeine: Yes do you feel safe at home: Yes victim of physical abuse: No victim of emotional abuse: No victim of sexual abuse: No would you like helpful sources: No Have you lived/traveled outside US in past 30 days?: No Contact w/someone who lives/traveled outside US past 30 days?: No Exposure to someone with infectious disease in past 14 days?: No Do you have a fever (greater than 100.4 F or 38 C)?: No Have you tested positive for COVID-19?: No Exposed to someone with COVID-19 in past 14 days?: No Do you have a sore throat?: No Do you have a cough?: No Do you have any weakness?: No Do you have any diarrhea?: No Are you experiencing any unusual bleeding?: No Do you have any muscle aches/pain?: No Do you have any abdominal pain?: No Are you experiencing loss of taste or smell?: No Other Medical History Have you received the Flu Vaccine for this season: No Have you received the Pneumonia Vaccine: No Review of Systems Review of Systems Review of systems:: pertinent systems reviewed and negative unless documented below Review of systems (narrative): Review of Systems: General: No recent weight changes, no fever, no sleep disturbances Respiratory: No cough, no shortness of air, no recurring pulmonary infections Cardiovascular/peripheral vascular: No chest pain, no palpitations, no edema, no shortness of breath Gastrointestinal: No new onset incontinence, normal bowel movements reported Genitourinary: No new onset incontinence Musculoskeletal: Chronic back pain Psychiatric: [Normal mood/affect] Neurological: [Denies weakness in extremities], [denies balance issues] Meds Home Medications and Allergies Home Medications ?Medication ?Instructions ?Recorded ?Confirmed ?Type budesonide-formoterol HFA 80 1 inh inhalation BID PRN . 06/28/22 11/23/24 History mcg-4.5 mcg/actuation aerosol inhaler (Symbicort) cholecalciferol (vitamin D3) 125 125 mcg PO DAILY Supplement 06/28/22 11/23/24 History mcg (5,000 unit) capsule fluticasone propionate 50 1 spray intranasal DAILY PRN 06/28/22 11/23/24 History mcg/actuation nasal ALLERGIES spray,suspension phytonadione (vitamin K1) 100 mcg 100 mcg PO DAILY Supplement 06/28/22 11/23/24 History tablet albuterol sulfate 90 mcg/actuation 2 puff inhalation Q6H PRN 07/06/22 11/23/24 Rx aerosol inhaler BREATHING 90 days #6.7 grams hydromorphone (PF) 1 mg/mL 7.5 mg epidural CONT Pain 07/08/22 11/23/24 History injection solution biotin 10,000 mcg capsule 10,000 mcg PO DAILY 04/20/23 11/23/24 History magnesium 200 mg tablet 400 mg PO DAILY 04/20/23 11/23/24 History thiamine HCl (vitamin B1) 500 mg 500 mg PO DAILY 04/20/23 11/23/24 History tablet vitamin A 2,400 mcg capsule 2,400 mcg PO DAILY 04/20/23 11/23/24 History nystatin 100,000 unit/gram topical 1 applic topical DAILY PRN rash 07/05/23 11/23/24 History powder desvenlafaxine succinate 50 mg See Rx Instructions .Route 12/06/23 11/23/24 Rx tablet,extended release 24 hr .COMPLEX #90 tabs kbmpvpyu-uodqguijm-iskyntoy 3.5 1 drp Eye-Both Q4H #5 mL 02/08/24 11/23/24 Rx mg/mL-10,000 unit/mL-0.1% eye drops (Maxitrol) omeprazole 40 mg capsule,delayed 40 mg PO BID STOMACH #180 caps 02/23/24 11/23/24 Rx release pregabalin 75 mg capsule 75 mg PO BID #180 caps 09/07/24 11/23/24 Rx atorvastatin 80 mg tablet See Rx Instructions .Route 09/24/24 11/23/24 Rx .COMPLEX #90 tabs clopidogrel 75 mg tablet 75 mg PO DAILY Blood Thinner #90 09/24/24 11/23/24 Rx tabs montelukast 10 mg tablet 10 mg PO DAILY ALLERGIES #90 tabs 09/24/24 11/23/24 Rx sucralfate 1 gram tablet See Rx Instructions .Route 09/24/24 11/23/24 Rx .COMPLEX STOMACH #360 tabs buspirone 30 mg tablet See Rx Instructions .Route 10/23/24 11/23/24 Rx .COMPLEX #180 tabs propranolol 40 mg tablet See Rx Instructions .Route 10/23/24 11/23/24 Rx .COMPLEX BLOOD PRESSURE 90 days #270 tabs New Prescriptions to Start Prescriptions: Allergies Allergy/AdvReac Type Severity Reaction Status Date / Time aspirin (ASPIRIN) Allergy Unknown GASTRIC Verified 09/27/24 13:11 ULCERS duloxetine (From CYMBALTA) Allergy Unknown NA-NAUSEA/V Verified 09/27/24 13:11 OMITING NSAIDS (Non-Steroidal Allergy Unknown RASH/DIFFICULTY Verified 09/27/24 13:11 Anti-Inflamma (NSAIDS BREATHING (NON-STEROIDAL ANTI-INFLAMMA) Sulfa (Sulfonamide Allergy Unknown RASH/DIFFICULTY Verified 09/27/24 13:11 Antibiotics) (SULFA BREATHING (SULFONAMIDE ANTIBIOTICS)) LUIGI INHIBITORS Allergy Unknown COUGHING Uncoded 09/27/24 13:11 STEROIDS Allergy Unknown GASTRIC Uncoded 09/27/24 13:11 ULCERS Exam Data for Last 24 hours Vital signs and Labs for Last 24 Hours: Pulse Resp BP Pulse Ox O2 Del Method 59 L 18 178/101 H 97 Room Air 11/23/24 15:04 11/23/24 15:04 11/23/24 15:04 11/23/24 15:04 11/23/24 15:04 I & O for Last 24 hours: Intake & Output 11/20/24 11/21/24 11/22/24 11/23/24 23:59 23:59 23:59 23:59 Weight 160 lb Constitutional Constitutional: no acute distress *Routine HEENT Exam Head: Present normocephalic and atraumatic Eye: Present PERRL ENT: Present mucous membranes moist *Routine Neck Exam Neck: Present supple *Routine Respiratory Exam Respiratory: Present CTA bilaterally *Routine Cardiovascular Exam Cardiovascular: Present RRR *Routine Abdominal Exam Abdominal: Present soft *Routine Rectal Exam Rectal:: deferred *Routine Genitalia Exam Genitalia:: deferred Routine Back/Spine/Pelvis Exam Back/Spine: Present pain with flexion *Routine Skin Exam Skin: Present intact and warm *Routine Neurological Exam Neurological: Present alert and oriented X3 Routine Psychiatric Exam Psychiatric: Present normal affect and normal thought process Assessment and Plan *Assessment and plan (1) Chronic pain: Problem Comment: Active follow-up with [facility] pain management Status: Chronic Qualifiers: Chronic pain type: other chronic pain Qualified Code(s): G89.29 - Other chronic pain Category: Medical Code(s): G89.29 - Other chronic pain Plan Patient has been instructed to contact the clinic with any concerns before the next appointment. Dr. Juarez has reviewed this note and agrees with this plan of care. This note was dictated using voice recognition software and make contain errors or omissions. All injections are used with Lidocaine, Bupivacaine and dexamethasone. Occasionally urine drug screen is needed to verify patient's compliance with our office pain contract. This is ordered based off specific treatments related to chronic pain with the potential to abuse certain medications.
--- NOTE | 2024-11-23 15:12 | P.PCN_ITS ---
Procedure Date: 11/23/24 Time: 15:32 Anesthesiologist:: Tracie Jacobs APRN Complications:: None Pre-procedure Diagnosis:: Degenerative disc disease of lumbar spine with chronic back pain Post-procedure Diagnosis:: Same Indications for Procedure:: Patient is a very pleasant 69-year-old female who presents today for intrathecal refill and reprogram. Today she rates her pain a 3 out of 10. She denies any new falls or injuries. Patient is currently managed with Dilaudid 30 mg/mL with a daily dose of 7.5 mg/day and bupivacaine 15 mg/mL with a daily dose of 3.75 mg/day. She is also prescribed pregabalin 75 mg twice a day from our office. She denies any side effects. Her Martín has been reviewed and is appropriate. Physical Exam: General: Alert and oriented x3, no acute distress, pleasant and cooperative Lungs: Respirations even and unlabored, symmetrical chest expansion Eyes: PERRL Musculoskeletal: Flexion and extension of lumbar [spine] somewhat guarded secondary to pain, [antalgic gait noted] Neurological: Speech clear, no gross sensory deficit Procedure Details:: Informed consent was obtained and the risk and benefits of the procedure were explained to the patient. The patient had noninvasive monitoring placed includ ing noninvasive blood pressure cuff and pulse oximeter. Patient's pump was interrogated. The area over the pump was cleansed with chlorhexidine as a cleansing solution. In sterile fashion the pump was accessed with a 22-gauge needle. Approximately 9 mls of the pump solution was removed and discarded appropriately. The pump was then refilled with 20 mL's of Dilaudid 30 mg/mL and bupivacaine 15 mg/mL. The needle was withdrawn and a bandage was placed over the puncture site. The infusion rate was reprogrammed and continued at its current dosage. The patient tolerated well with no complication. Plan and Disposition:: Patient tolerated the procedure well with no complications and was discharged neurologically intact. I will make sure she does have refills on her pregabalin. Patient will return to clinic on or before their next intrathecal refill date. We will see the patient back in the clinic at the next intrathecal refill. Patient has been instructed to contact the clinic with any concerns before the next appointment. Dr. Juarez has reviewed this note and agrees with this plan of care. This note was dictated using voice recognition software and make contain errors or omissions. -- It Is medically necessary for this patient to continue to have their intrathecal pump refilled at regular intervals. This patient had an intrathecal pain pump implanted after meeting criteria of chronic intractable pain for greater than 3 months and failing conservative treatments. Patient has committed and been compliant to the treatment plan and all planned follow up care. Since implantation of the intrathecal pain pump, the patient has had decreased pain and been more functional. Oral medications have been reduced including intake of oral opioids. Patient continues to do well with intrathecal therapy with decrease in pain symptoms and increase in functional status. Stopping intrathecal medications can lead to life threatening withdrawal, seizures, cardiac arrest, severe pain, and possible . Pumps that are not refilled at regular intervals can be damages and cause and need for replacement. We continually titrate dose and concentration to optimize pain relief and function. We are limited in concentration for certain drugs to safely deliver medications through the pump and stay within the recommendations from the Polyanalgesic Consensus Committee Guidelines. Depending on dose and concentration these pumps may need to be refilled sooner than 3 months as we titrate. A UDS is needed to verify patient's compliance with our office pain contract. This is ordered based off specific treatments related to chronic pain with the potential to abuse certain medications.
[2024-11-23 15:25] VITALS: BP 168/94; PULSE 60; RESP 18; O2SAT 97
[2024-11-23 15:38] VITALS: BP 150/93; PULSE 61; RESP 18; O2SAT 98
== END 2024-11-23 15:38 | disposition home or self-care (01) ==
PROVIDERS: PCP Family Medicine; Visit Provider Nurse Practitioner Family
DX: Z45.1 Encounter for adjustment and management of infusion pump (principal); M51.369 Other intervertebral disc degeneration, lumbar region without mention of lumbar back pain or lower extremity pain; F41.9 Anxiety disorder, unspecified; F32.A Depression, unspecified; E78.5 Hyperlipidemia, unspecified; I10 Essential (primary) hypertension; Z86.73 Personal history of transient ischemic attack (TIA), and cerebral infarction without residual deficits; Z87.891 Personal history of nicotine dependence; Z88.6 Allergy status to analgesic agent; Z88.2 Allergy status to sulfonamides; Z88.8 Allergy status to other drugs, medicaments and biological substances; Z79.891 Long term (current) use of opiate analgesic; Z79.899 Other long term (current) drug therapy
CPT/HCPCS: 95991

== ENCOUNTER 2024-12-20 13:00 | Outpatient (CLI) | payer MEDICARE, SELFPAY ==
--- OUTSIDE RECORDS SUMMARY | 2024-12-24 13:09 | XMS_ITS | Encounter Summary ---
Author Organization [facility] Address [address] [place] [address] Care Team Providers Care Bobbin Presser Name Role Phone Chandrika Angeles Primary Care Provider [phone] Encounter Details Date Type Department Care Team (Late st Contact Info) Description 05/21/2013 External CPT II DESIGNER - [facility] Social History Tobacco Use Types Packs/Day Years Used Date Smoking Tobacco: Never Assessed Comments Unknown Sex and Gender Information Value Date Recorded Sex Assigned at Not on file Legal Sex Female 10:43 AM EDT Gender Identity Not on file Sexual Orientation Not on file documented as of this encounter Plan of Treatment Not on file documented as of this encounter Visit Diagnoses Not on filedocumented in this encounter Additional Health Concerns Infection Onset Date Last Indicated Resolved Time COVID Screen (preop/placement) 11/12/2021 11/12/2021 07/21/2023 12:11 PM EST documented as of this encounter Care Teams Bobbin Presser Relationship Specialty Start Date End Date Chandrika Angeles PA PCP - General Physician Instructor Psychiatric Aide 11/23/16 documented as of this encounter
--- OUTSIDE RECORDS SUMMARY | 2024-12-24 13:09 | XMS_ITS | Clinical Summary ---
Author Organization [facility] Address [address] [place] [address] Care Team Providers Care Blueprint Tracer Name Role Phone Chandrika Angeles Primary Care Provider Allergies Active Allergy Reactions Criticality Noted Date Comments Dequan Inhibitors Rash Low 12/22/2016 Adhesive Tape Rash Low 03/01/2022 Pt. states she tolerates paper tape. Aspirin GI Bleeding 12/22/2016 Duloxetine Hcl Rash Low 12/24/2016 Pregabalin Rash Low 12/24/2016 Morphine And Codeine Nausea And Vomiting 2016 Nsaids Other (See Comments) 01/20/2017 HX OF GASTRIC BYPASS, Other GI Bleeding 12/22/2016 Steroids Sulfa Antibiotics Rash Low 12/22/2016 Medications gabapentin (NEURONTIN) 800 MG tablet Take 800 mg by mouth 4 (Four) Times a Day. 7 Active metoprolol tartrate (LOPRESSOR) 25 MG tablet Take 12.5 mg by mouth 2 (Two) Times a Day. 7 Active montelukast (SINGULAIR) 10 MG tablet Take 10 mg by mouth Every Night. 7 Active fluticasone (FLONASE) 50 MCG/ACT nasal spray 2 sprays into each nostril Daily As Needed for Rhinitis. Active atorvastatin (LIPITOR) 80 MG tablet Take 1 tablet by mouth Every Night. 90 tablet 3 9 Active clopidogrel (PLAVIX) 75 MG tablet Take 1 tablet by mouth Daily. 90 tablet 3 9 Active busPIRone (BUSPAR) 15 MG tablet Take 10 mg by mouth 2 (Two) Times a Day. Active COLLAGEN PO Take by mouth. Act abelardo lansoprazole (PREVACID) 30 MG capsule Take 1 capsule by mouth 2 (Two) Times a Day. 180 capsule 3 0 Active sucralfate (Carafate) 1 g tablet Take 1 tablet by mouth 4 (Four) Times a Day. Crush and dissolve each tablet in 5mL water. 360 tablet 3 0 Active omeprazole (priLOSEC) 40 MG capsule Take 1 capsule by mouth 2 (two) times a day. 180 capsule 3 0 Active Ferrous Fumarate 324 (106 Fe) MG tablet Take 1 tablet/day by mouth Daily. 90 tablet 3 2 Active Vortioxetine HBr (Trintellix) 20 MG tablet Take by mouth. Activ e nystatin (MYCOSTATIN) 955036 UNIT/GM powder Apply topically to the appropriate area as directed 4 (Four) Times a Day. Active magnesium oxide (MAG-OX) 400 MG tablet Take 400 mg by mouth Daily. Active niacin (NIACIN SR,NIASPAN ER) 250 MG CR capsule Take 500 mg by mouth Every Night. Active Biotin 1 MG capsule Take by mouth. Activ e Zinc 100 MG tablet Take by mouth. Activ e Vitamin A 7.5 MG (81891 UT) capsule Take 1 capsule by mouth Daily. Take 4 pills per day for 3 days, then take 2 pills per day for 14 days. 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 If develops GI bleed will need to stop plavix. Bradycardia 07/21/2018 General weakness 07/21/2018 Abnormal stress test 08/22/2017 Overview (08/22/2017): Added automatically from request for surgery [id number] Lumbar stenosis with neurogenic claudication Spinal stenosis, lumbar [place] on, with neurogenic claudication 01/03/2017 Overview (01/03/2017): Added automatically from request for surgery [id number] Asthma Sleep apnea Overview (08/10/2018): unsure of diagnosis- says test was invalid and needs redone Wears glasses Overview (08/10/2018): READERS Osteoporosis Migraines Bronchitis Overview (08/10/2018): CHRONIC BRONCHITIS- patient said diagnosed with asthma instead of COPD Arthritis Anxiety Family History Medical History Relation Name Comments Diabetes Father Diabetes Mother Ovarian cancer Mother Heart disease Paternal Grandfather Relation Name Status Comments Father Mother Paternal Grandfather Social History Tobacco Use Types Packs/Day Years Used Date Smoking Tobacco: Former Cigarettes Q uit: 1999 Smokeless Tobacco: Never Comments:HX OF SMOKING X 28 YRS, QUIT IN 2001- USED TO SMOKE 1/2PPD OR LESS Alcohol Use Standard Drinks/Week Comments No 0 (1 standard drink = 0.6 oz pur e alcohol) Abuse Screen Answer Date Recorded Unsafe at Home or Work/School Not on file Feels Threatened by Someone? Not on file 01/2023 Does Anyone Keep You from Co ntacting Others or Doint Things Outside the Home? Not on file 03/07/2023 Physical Sign of Abuse Present Not on file 1 Housing Stability Answer Date Recorded Current Living Arrangements Not on file 01/2023 Potentially Unsafe Housing Conditions Not on sherri e 03/07/2023 Family and Community Support Answer Terrance e Recorded Help with Day-to-Day Activities Not on file 03/07/2023 Lonely or Isolated Not on file 03/07/2023 Employment Answer Date Recorded Do you want help finding or keeping work or a german b? Not on file 03/07/2023 Disabilities Answer Date Recorded Concentrating, Remembering, or Making Decisions Difficulty Not on file 03/07/2023 Doing Errands Independently Difficulty Not on fi le 03/07/2023 Education Answer Date Recorded Help with school or training? Not on file Preferred Language Not on file 03/07/2023 Comments No Sex and Gender Information Value Date Recorded Sex Assigned at Not on file Legal Sex Female 10:43 AM EDT Gender Identity Not on file Sexual Orientation Not on file Last Filed Vital Signs Vital Sign Reading Time Taken Comments Blood Pressure 178/88 03/02/2022 4:15 PM EDT Pulse 64 03/02/2022 4:15 PM EDT Temperature 36.6 C (97.8 F) 03/01/2022 1:34 PM EDT Respiratory Rate 18 03/02/2022 1:58 PM EDT Oxygen Saturation 97% 01/06/2022 12:22 PM EDT Inhaled Oxygen Concentration - - Weight 63.5 kg (140 lb) 03/01/2022 1:34 PM EDT Height 167.6 cm (5' 6 ) 03/02/2022 1:58 PM EDT Body Mass Index 22.6 03/01/2022 1:34 PM EDT Plan of Treatment Health Maintenance Due Date Last Done Comments DXA SCAN 1955 Pneumococcal Vaccine 50+ (1 of 2 - PCV) 02/05/1976 TDAP/TD VACCINES (1 - Tdap) 02/05/1976 MAMMOGRAM 1997 COLOGUARD 2002 COLON CANCER SCREENING 5 YEAR SIGMOIDOSCOPY 2002 COLONOSCOPY 2002 [address] CANCER SCREENING 2002 CT COLONOGRAPHY 2002 FECAL OCCULT BLOOD TEST 2002 FIT Testing (1 year) 2002 ZOSTER VACCINE (1 of 2) 2007 ANNUAL WELLNESS VISIT 12/22/2016 HEPATITIS C SCREENING 12/22/2016 COVID-19 Vaccine (1 - season) 2024 INFLUENZA VACCINE 02/27/2025 Medical Devices Implanted Type Area Branch Retail Executive Device Identifier Shelf Expiration Date Model / Serial / Lot Orthoblend Dbm [place] 5cc - [id number] Implanted:Qty: 1 on 01/20/2017 by Ermias Laura MD at [facility] Implant N/A: Spine Lumbar [employer] 09/08/2018 [id number] / / Spacr Vbs [employer]stone Vertestack/Sm [id number] - [id number] Implanted:Qty: 1 on 01/20/2017 by Ermias Laura MD at [facility] Implant N/A: Spine Lumbar [employer] 11/11/2024 [id number] / / Spacr Vbs [employer]stone Vertestack/Sm 8x22mm - [id number] Implanted:Qty: 1 on 01/20/2017 by Ermias Laura MD at [facility] Implant N/A: Spine Lumbar [employer] 10/03/2021 [id number] / / Loyd Peek 6.09h60lk - [id number] Implanted:Qty: 2 on 01/20/2017 by Ermias Laura MD at [facility] Implant N/A: Spine Lumbar [employer] [id number] / / Scrw Cdh Legacy Mas Peek 6.5x40mm - [id number] Implanted:Qty: 2 on 01/20/2017 by Ermias Laura MD at [facility] Implant N/A: Spine Lumbar [employer] [id number] / / Scrw Cdh Legacy Mas Peek 6.5x45mm - [id number] Implanted:Qty: 2 on 01/20/2017 by Ermias Laura MD at [facility] Implant N/A: Spine Lumbar [employer] [id number] / / Scrw Cdh Legacy Mas Peek 6.5x50mm - [id number] Implanted:Qty: 2 on 01/20/2017 by Ermias Laura MD at [facility] Implant N/A: Spine Lumbar [employer] [id number] / / Scrw Peek Ext Or Extrnl Hex - [id number] Implanted:Qty: 6 on 01/20/2017 by Ermias Laura MD at [facility] Implant N/A: Spine Lumbar [employer] [id number] / / Insurance [facility] MEDICARE ADVANTAGE Advance Directives * CPR (Attempt to Resuscitate) (Latest Code Status on File) Date Activated Date Inactivated Comments 07/21/2018 8:19 PM 07/22/2018 6:32 PM Question Answer Comments Code Status (Patient has no pulse and is not breathing): CPR (Attempt to Resuscitate) Medical Interventions (Patie nt has pulse or is breathing): Full Level Of Support Discussed With: Patient * Full Code Date Activated Date Inactivated Comments 01/20/2017 6:50 PM 01/23/2017 1:22 PM Care Teams Blueprint Tracer Relationship Specialty Start Date End Date Chandrika Angeles PA PCP - General Physician [employer] Senior Officer 11/23/16
== END 2024-12-20 23:59 ==
LOC: LAB.DROPOF 12-24 13:01
PROVIDERS: PCP Nurse Practitioner Family; Visit Provider Nurse Practitioner Family
DX: R30.0 Dysuria (principal)
CPT/HCPCS: 87086

== ENCOUNTER 2025-01-08 10:25 | Day surgery (SDC) | payer MEDICARE, SELFPAY ==
[2025-01-08 10:35] VITALS: BP 139/64; PULSE 56; RESP 18; O2SAT 92; BMI 29.4
[2025-01-08 10:56] VITALS: BP 123/76; BP 131/77; PULSE 55; PULSE 59; RESP 18; O2SAT 95; O2SAT 98
--- NOTE | 2025-01-08 12:24 | P.PCN_ITS ---
Procedure Date: 01/08/25 Time: 11:00 Anesthesiologist:: Berlin Garvey CRNA Complications:: None Pre-procedure Diagnosis:: Degenerative disc lumbar spine multilevels. Lumbar radiculopathy. Lumbar postlaminectomy syndrome. Post-procedure Diagnosis:: Same. Indications for Procedure:: Patient is a very pleasant 69-year-old female who comes our clinic today for intrathecal pain pump interrogation and refill. Patient currently being managed with hydromorphone 30 mg/mL at 7.5 mg/day. Also, bupivacaine 15 mg/L at 3.75 mg/day. Patient doing very well with her current settings. Patient not requesting any changes. She is not reporting side effects or complications. Procedure Details:: Details of the procedure explained to the patient. The patient taken procedure room placed in sitting position. The area over the pump was cleaned using chlorhexidine as a cleansing solution. The pump was interrogated. The pump was accessed with ease using a 22-gauge inch and half needle. 8 mL of solution was withdrawn and discarded appropriate. The pump was then filled with 20 cc of solution containing hydromorphone 30 mg/mL and bupivacaine 15 mg/mL. No changes in rate. Patient tolerated procedure without difficulty. There were no compl ications. Plan and Disposition:: Patient was discharged without incident.
== END 2025-01-08 10:56 | disposition home or self-care (01) ==
LOC: SC.PAIN 10:25
PROVIDERS: PCP Family Medicine; Visit Provider Nurse Anesthetist, Certified Registered
DX: Z45.1 Encounter for adjustment and management of infusion pump (principal); M51.16 Intervertebral disc disorders with radiculopathy, lumbar region; F07.0 Personality change due to known physiological condition; F41.9 Anxiety disorder, unspecified; F32.A Depression, unspecified; Z86.73 Personal history of transient ischemic attack (TIA), and cerebral infarction without residual deficits; K21.9 Gastro-esophageal reflux disease without esophagitis; E78.5 Hyperlipidemia, unspecified; I10 Essential (primary) hypertension; Z87.891 Personal history of nicotine dependence; Z88.6 Allergy status to analgesic agent; Z88.2 Allergy status to sulfonamides; Z88.8 Allergy status to other drugs, medicaments and biological substances; Z79.891 Long term (current) use of opiate analgesic; Z79.01 Long term (current) use of anticoagulants; Z79.899 Other long term (current) drug therapy
CPT/HCPCS: 95991

== ENCOUNTER 2025-05-28 14:42 | Emergency (ER) | payer MEDICARE, SELFPAY ==
--- NOTE | 2025-05-28 14:46 | ED_ITS ---
<Statement entered by Girma Fitzpatrick MD - 05/28/25 23:19> I was consulted by the [facility], and we discussed the complexity of the problems being addressed. I approved the treatment and management plan for this patient's care in the emergency department, thus performing a substantive portion of the medical decision making. Girma Fitzpatrick MD, ELDA, FACEP Discharge Plan Disposition Patient Disposition: Home, Self-Care Condition: Good Prescriptions Prescriptions: No Action pregabalin 75 mg capsule 75 mg PO BID Qty: 180 0RF buspirone 30 mg tablet See Rx Instructions .ROUTE .COMPLEX Qty: 180 3RF Dose Instruction: TAKE 1 TABLET TWICE DAILY Rx Instructions: TAKE 1 TABLET TWICE DAILY trazodone 50 mg tablet 50 mg PO HS PRN (Reason: insomnia) Qty: 90 2RF desvenlafaxine succinate 50 mg tablet extended release 24 hr 50 mg PO DAILY 30 Days Qty: 90 2RF melatonin 5 mg capsule See Rx Instructions PO .COMPLEX Qty: 30 0RF Rx Instructions: orally; Take 1-2 tabs of melatonin 5mg by mouth as needed for sleep. cholecalciferol (vitamin D3) 125 mcg (5,000 unit) capsule 125 mcg PO DAILY phytonadione (vitamin K1) 100 mcg tablet 100 mcg PO DAILY biotin 10,000 mcg capsule 10,000 mcg PO DAILY ondansetron 4 mg tablet,disintegrating 4 mg PO Q8H PRN (Reason: nausea and vomiting) Qty: 20 0RF albuterol sulfate 90 mcg/actuation HFA aerosol inhaler 2 puff inhalation Q6H PRN (Reason: BREATHING) 90 Days Qty: 6.7 3RF propranolol 40 mg tablet See Rx Instructions .ROUTE .COMPLEX 90 Days Qty: 270 3RF Rx Instructions: TAKE 1 AND 1/2 TABLETS TWICE DAILY FOR BLOOD PRESSURE atorvastatin 80 mg tablet See Rx Instructions .ROUTE .COMPLEX Qty: 90 3RF Dose Instruction: TAKE 1 TABLET AT BEDTIME Rx Instructions: TAKE 1 TABLET AT BEDTIME clopidogrel 75 mg tablet See Rx Instructions .ROUTE .COMPLEX Qty: 90 3RF Dose Instruction: TAKE 1 TABLET EVERY DAY FOR BLOOD THINNER Rx Instructions: TAKE 1 TABLET EVERY DAY FOR BLOOD THINNER montelukast 10 mg tablet See Rx Instructions .ROUTE .COMPLEX Qty: 90 3RF Dose Instruction: TAKE 1 TABLET EVERY DAY FOR ALLERGIES Rx Instructions: TAKE 1 TABLET EVERY DAY FOR ALLERGIES omeprazole 40 mg capsule,delayed release(DR/EC) See Rx Instructions .ROUTE .COMPLEX Qty: 180 3RF Dose Instruction: TAKE 1 CAPSULE TWICE DAILY FOR STOMACH Rx Instructions: TAKE 1 CAPSULE TWICE DAILY FOR STOMACH sucralfate 1 gram tablet See Rx Instructions .ROUTE .COMPLEX Qty: 360 3RF Dose Instruction: TAKE 1 TABLET BEFORE MEALS AND AT BEDTIME FOR STOMACH Rx Instructions: TAKE 1 TABLET BEFORE MEALS AND AT BEDTIME FOR STOMACH fluticasone propionate 50 mcg/actuation spray,suspension 1 spray INTRANASAL DAILY PRN (Reason: ALLERGIES) Rx Instructions: administer into each nostril hydromorphone (PF) [Dilaudid (PF)] 1 mg/mL Solution 7.5 mg epidural CONT nystatin 100,000 unit/gram powder 1 applic topical DAILY PRN (Reason: rash) Referrals Follow up/Referrals: Geovanni Chan MD [Primary Care Provider, Internal Medicine] - See instructions Activity Restrictions/Add. Instructions Additional Instructions/Restrictions: You were evaluated on an emergency basis. It is very important that you follow- up with your primary care provider and any specialist who we discussed within the next 2 days in order to better assess your health more comprehensively. For example, incidental findings on imaging or laboratory results that were performed today may be discovered, which do not require immediate medical care, but may impact your health in the future. If your symptoms worsen or persist, please return to the emergency department immediately for reassessment. Take all medications as prescribed. In queue for allowing me to participate in your health care, and I hope you feel better soon. Clinical Impressions Clinical Impression: Contusion of face Instructions Patient Instructions: Bruises (Alternative Therapy) Print Language Print Language: Ukrainian Discharge ED Provider: Girma Fitzpatrick General Adult HPI General Chief complaint: PAIN Stated complaint: AO Fall 05/26/2025 all over pain Time Seen by Provider: 05/28/25 14:45 History of Present Illness HPI narrative: 70-year-old female with a history of chronic pain presents the emergency department with complaints of headache, facial pain, neck pain since falling in her bathroom 2 days ago. She denies LOC. She states she does take Plavix daily. Patient was sent over from the pain clinic where she was getting her pain pump refilled however once they saw bruising on her face they recommend she come to ER for evaluation. Patient's pain pump contains bupivacaine and Dilaudid. Patient is also prescribed Lyrica. Related Data Home Medications ?Medication ?Instructions ?Recorded ?Confirmed cholecalciferol (vitamin D3) 125 125 mcg PO DAILY Supp lement 06/28/22 05/28/25 mcg (5,000 unit) capsule fluticasone propionate 50 1 spray intranasal DAILY PRN 06/28/22 05/28/25 mcg/actuation nasal ALLERGIES spray,suspension phytonadione (vitamin K1) 100 mcg 100 mcg PO DAILY Sup plement 06/28/22 05/28/25 tablet hydromorphone (PF) 1 mg/mL 7.5 mg epidural CONT Pain 0 07/08/22 05/28/25 injection solution biotin 10,000 mcg capsule 10,000 mcg PO DAILY 04/20/23 05/28/25 nystatin 100,000 unit/gram topical 1 applic topical DA JOSE ALEJANDRO PRN rash 07/05/23 05/28/25 powder Previous Rx's ?Medication ?Instructions ?Recorded albuterol sulfate 90 mcg/actuation 2 puff inhalation Q 6H PRN 07/06/22 aerosol inhaler BREATHING 90 days #6.7 grams propranolol 40 mg tablet See Rx Instructions .Route 0 10/23/24 .COMPLEX BLOOD PRESSURE 90 days #270 tabs atorvastatin 80 mg tablet See Rx Instructions .Route 0 12/07/24 .COMPLEX #90 tabs clopidogrel 75 mg tablet See Rx Instructions .Route 0 12/07/24 .COMPLEX #90 tabs montelukast 10 mg tablet See Rx Instructions .Route 0 12/07/24 .COMPLEX #90 tabs omeprazole 40 mg capsule,delayed See Rx Instructions . Route 12/07/24 release .COMPLEX #180 caps sucralfate 1 gram tablet See Rx Instructions .Route 0 12/17/24 .COMPLEX #360 tabs ondansetron 4 mg disintegrating 4 mg PO Q8H PRN nausea and 12/20/24 tablet vomiting #20 tabs pregabalin 75 mg capsule 75 mg PO BID #180 caps 04/19 buspirone 30 mg tablet See Rx Instructions .Route 1 07/09/24 .COMPLEX #180 tabs desvenlafaxine succinate 50 mg 50 mg PO DAILY 30 days #90 tabs 05/08/25 tablet,extended release 24 hr melatonin 5 mg capsule See Rx Instructions PO .COMP NAYELI 05/08/25 #30 caps trazodone 50 mg tablet 50 mg PO HS PRN insomnia #90 tabs 05/08/25 Allergies Allergy/AdvReac Type Severity Reaction Status Date / Time aspirin (ASPIRIN) Allergy Unknown GASTRIC Verified 05/28/25 13:39 ULCERS duloxetine (From CYMBALTA) Allergy Unknown NA-NAUSEA/V Verified 05/28/25 13:39 OMITING NSAIDS (Non-Steroidal Allergy Unknown RASH/DIFFICULTY Verified 05/28/25 13:39 Anti-Inflamma (NSAIDS BREATHING (NON-STEROIDAL ANTI-INFLAMMA) Sulfa (Sulfonamide Allergy Unknown RASH/DIFFICULTY Verified 05/28/25 13:39 Antibiotics) (SULFA BREATHING (SULFONAMIDE ANTIBIOTICS)) LUIGI INHIBITORS Allergy Unknown COUGHING Uncoded 05/14/25 13:40 STEROIDS Allergy Unknown GASTRIC Uncoded 05/14/25 13:40 ULCERS PFSH PFSH Disclaimer: The information contained in this section may have been updated after the patient was seen, as this information can be updated by other users. Medical History Dysuria Anxiety and depression History of gastroesophageal reflux (GERD) Allergies Hyperlipidemia Hypertension History of anemia Hypertension Tremor Depression Deformity of right foot 7 surgeries Pain pain pump placement CVA (cerebral vascular accident) Pt stated 2 mini strokes >10yrs ago History of deviated nasal septum Surgical History History of eyelid surgery History of foot surgery R foot surgeries x7 r/t defect History of placement of ear tubes Hx of bariatric surgery History of carpal tunnel release of both wrists History of hysterectomy History of cholecystectomy Family History Other Family history of cancer Family history of diabetes mellitus type II Social History Smoking Status: Never smoker years smoked: 40 smoking status stop date: 2002 second hand exposure: No alcohol intake: never substance use type: denies use current occupational status: other Travel in the last 8 weeks?: None housing: house marital status: number of children: 2 current occupational exposures/hazards: No caffeine: Yes do you feel safe at home: Yes victim of physical abuse: No victim of emotional abuse: No victim of sexual abuse: No would you like helpful sources: No Have you lived/traveled outside [place] in past 30 days?: No Contact w/someone who lives/traveled outside US past 30 days?: No Exposure to someone with infectious disease in past 14 days?: No Do you have a fever (greater than 100.4 F or 38 C)?: No Have you tested positive for COVID-19?: No Exposed to someone with COVID-19 in past 14 days?: No Do you have a sore throat?: No Do you have a cough?: No Do you have any weakness?: No Do you have any diarrhea?: No Are you experiencing any unusual bleeding?: No Do you have any muscle aches/pain?: No Do you have any abdominal pain?: No Are you experiencing loss of taste or smell?: No Other Medical History Have you received the Flu Vaccine for this season: No Have you received the Pneumonia Vaccine: Yes ROS Obtained: Yes other Constitutional Constitutional: Reports headache(s) ENT Ears, Nose, Mouth, and Throat: Reports headache(s) and Reports neck pain Musculoskeletal Musculoskeletal: Reports neck pain Integumentary/Breasts Skin/Breast: Reports unusual bruising Neurologic Neurologic: Reports headache(s) Physical Exam Narrative Physical exam: General: Awake, aware, in no acute distress HEENT: Normal cephalic, patient with periorbital ecchymosis to her right eye. Patient has an abrasion to her right side of forehead as well. She does report tenderness on palpation of these areas. PERRLA, EOMI CV: RRR, no murmurs, rubs, or gallops Pulm: CTA bilaterally with no rhonchi, rales, or wheezes ABD: Nontender, no swelling, guarding, or rebound Neuro: ANO x 4, GCS 15, no focal deficits noted Psych: Appropriate mood and affect General General appearance: alert Respiratory Respiratory exam: Present normal lung sounds bilaterally Cardiovascular Cardiovascular exam: Present regular rate Neurological Exam Neurological exam: Present alert Medical Decision Making Medical Records Screening: Per USPSTF and CDC recommendations, given the prevalence of disease in our region, it is our hospital?s policy to screen for HIV and viral Hepatitis for all patients aged 18 and over and those with ongoing risk factors. Martín Inquiry Pt receiving controlled substance: No Vital Signs: 05/28/25 15:00 05/28/25 15:01 Temperature 98.6 F Temperature Source Oral Pulse Rate 60 Pulse Rate [Right] 58 L Respiratory Rate 18 Blood Pressure 206/112 H Blood Pressure [Right Arm] 186/102 H Blood Pressure Mean [Right Arm] 130 Blood Pressure Source [Right Arm] Automatic Cuff Blood Pressure Position [Right Arm] Sitting 02 Sat by Pulse Oximetry 98 98 Oxygen Delivery Method Room Air Lab Data Lab Results 05/28/25 15:03: WBC 7.3, RBC 3.75 L, Hgb 10.9 L, Hct 34.9 L, MCV 93.1, MCH 29.1, MCHC 31.2 L, RDW 12.6, Plt Count 190, MPV 10.8 H, Neut % (Auto) 62.7, Lymph % (Auto) 23.1, Sumner % (Auto) 8.5, Eos % (Auto) 4.7, Baso % (Auto) 0.7, Neut # (Auto) 4.6, Lymph # (Auto) 1.7, Sumner # (Auto) 0.6, Eos # (Auto) 0.3, Baso # (Auto) 0.1, PT 11.5, INR 1.04, APTT 29.8, Sodium 133 L, Potassium 4.2, Chloride 98, Carbon Dioxide 30, Anion Gap 9.2, BUN 9, Creatinine 0.70, Estimated Creat Clear 71, Estimated GFR 83, Est GFR ( Amer) 101, Glucose 103 H, Calcium 8.9, Total Bilirubin 0.3, AST 43 H, ALT 16, Alkaline Phosphatase 77, Total Protein 6.3, Albumin 3.8, Globulin 2.5, Albumin/Globulin Ratio 1.5, Plasma/Serum Alcohol < 10 05/28/25 15:03 05/28/25 15:03 Orders (Tests/Meds): ORDERS Category Date Time Status CT cervical spine wo con Stat Cat Scan 05/28/25 14:[address] facial bones wo con Stat Cat Scan 05/28/25 14:[address] head/brain wo con Stat Cat Scan 05/28/25 14:59 Completed Blood alcohol [Ethyl Alcohol] Stat Lab 05/28/25 15:03 Completed CBC w/Auto Diff [Complete Blood Count Auto Diff] Stat Lab 05/28/25 15:03 Completed CMP [Comprehensive Metabolic Panel] Stat Lab 05/28/25 15:03 Completed PT/PTT Stat Lab 05/28/25 15:03 Completed Medical Decision Narrative: Initial impression of presenting illness: 70-year-old female presents the emergency department for evaluation of head, face, neck pain after falling 2 days ago. Patient states that she fell in her bathroom hitting her head on the bathtub but did not lose consciousness. She was being seen at pain management today for refill of her pain pump with Dilaudid and bupivacaine however when they saw her bruising they recommended she come to ER for evaluation. patient is also prescribed Lyrica and takes Plavix for previous TIAs. Differential diagnosis includes but is not limited to: Intracranial abnormality, facial fracture, degenerative disc disease, cervical fracture, musculoskeletal strain, contusions, abrasions Patient arrives hemodynamically stable, afebrile, without respiratory distress with vital signs interpreted by myself. Initial physical exam reveals tenderness on palpation of right side of forehead and right periorbital area. Patient also has superficial abrasion to the right side of her forehead. Pupils are equal round reactive to light with intact extraocular movements. Sensations intact with 5 out of 5 strength in all extremities. Patient is alert and oriented. No focal neurological deficits noted. Initial diagnostic plan: CT of head, neck, face without contrast, laboratory studies including alcohol level. I have concerns about the circumstances relating to the fall. Patient told nursing staff that she fell in the kitchen while talking to her sister. She has told me that she fell in the bathroom hitting her head on the tub, however she told pain management that she fell backwards hitting her head on the wall which would not explain the contusion and abrasions to her face. Results from initial plan were reviewed and interpreted by myself, pertinent positives include: CT of head, face, cervical spine were negative for acute findings laboratory studies are also nonactionable. Patient was made aware of the results and the findings, upon reevaluation patient has remained stable throughout stay, symptoms remain stable. Upon reevaluation patient is resting comfortably in bed. She remains without any focal neurological deficits. Her vital signs remained stable. Disposition: Reviewed findings today's workup with patient informed no acute abnormalities were noted. Recommend that she continue with all previously prescribed medications. Instructed her to follow-up with her pain management provider as scheduled. Also recommended that she use caution while moving around her house to avoid having repeated falls. Instructed her to return to the emergency department for any new or worsening symptoms. Patient is agreeable to plan of care. Patient made aware of findings and had a detailed discussion with symptomatic care and return precautions, patient voiced understanding. Critical Care Critical Care Time Critical Care Time: No
--- NOTE | 2025-05-28 14:59 | CT_ITS ---
FINAL REPORT TECHNIQUE: Thin section axial images were obtained from skull base to vertex without contrast. Coronal reconstruction images were obtained from the axial data. Exam was performed using dose reduction techniques such as automated exposure control, adjustment of the mA and kV according to patient size, and use of iterative reconstruction technique. CLINICAL HISTORY: fall COMPARISON: 12/20/2022 FINDINGS: There is no mass effect or midline shift. There is no hydrocephalus. There is no intracranial hemorrhage. The posterior fossa is without acute abnormality. The basilar cisterns are preserved. Mild soft tissue edema of the right frontal scalp. No acute osseous abnormality is identified. IMPRESSION: No acute intracranial abnormality. Reviewed, Interpreted and Dictated by Fransisca Arenas MD Transcribed by Trinidad De La Fuente Authenticated and [facility]
--- NOTE | 2025-05-28 14:59 | CT_ITS ---
FINAL REPORT TECHNIQUE: Thin section axial images were obtained through the face without contrast. Coronal reconstruction images are obtained from the axial data. Exam was performed using dose reduction techniques such as automated exposure control, adjustment of the mA and kV according to patient size, and use of iterative reconstruction technique. CLINICAL HISTORY: fall COMPARISON: CT head 12/20/2022 FINDINGS: There is no acute facial bone fracture. There is a mucous retention cyst or polyp in the right maxillary sinus, similar to prior CT head. There is a small amount of fluid in the right frontal sinus. Visualized mastoid air cells are clear. There is mild soft tissue edema in the right frontal scalp. Remaining soft tissues are without acute abnormality. Remaining soft tissues are within normal limits. IMPRESSION: No acute facial fracture. Reviewed, Interpreted and Dictated by Fransisca Arenas MD Transcribed by Trinidad De La Fuente Authenticated and [facility]
--- NOTE | 2025-05-28 14:59 | CT_ITS ---
FINAL REPORT TECHNIQUE: Thin section axial images were obtained through the cervical spine without contrast. Multiplanar reconstruction images were obtained from the axial data. Exam was performed using dose reduction techniques. CLINICAL HISTORY: fall COMPARISON: 05/04/2022 FINDINGS: There is no acute fracture or acute malalignment of the cervical spine. There is multilevel degenerative disc disease, most pronounced at C5-6 and C6-7. Findings are unchanged from prior exam. Spinal stimulator has been removed. There is no evidence of unilateral or bilateral facet lock. Vertebral body height is preserved. No acute paraspinal abnormality is identified. IMPRESSION: Multilevel degenerative disc disease, stable from prior. Reviewed, Interpreted and Dictated by Fransisca Arenas MD Transcribed by Елена Martinez Authenticated and [facility]
[2025-05-28 15:00] VITALS: BP 186/102; PULSE 58; RESP 18; TEMP 37; O2SAT 98; BMI 30.4
--- OUTSIDE RECORDS SUMMARY | 2025-05-28 15:00 | XMS_ITS | Encounter Summary ---
Author Organization [facility] Address [address] [place] [address] Care Team Providers Care Endodontics Dentist Name Role Phone Chandrika Angeles Primary Care Provider [phone] Encounter Details Date Type Department Care Team (Late st Contact Info) Description 05/21/2013 External CPT II [facility] - [facility] Social History Tobacco Use [...] documented as of this encounter Care Teams Endodontics Dentist Relationship Specialty Start Date End Date Chandrika Angeles PA PCP - General Physician Straight Line Press Setter 11/23/16 documented as of this encounter
--- OUTSIDE RECORDS SUMMARY | 2025-05-28 15:00 | XMS_ITS | Clinical Summary ---
Author Organization [facility] Address [address] [place] [address] Care Team Providers Care Cook Roast Name Role Phone Chandrika Angeles Primary Care Provider [phone] Allergies Active Allergy Reactions Criticality Noted Date [...] Take by mouth. Activ e nystatin (MYCOSTATIN) 139776 UNIT/GM powder Apply topically to the appropriate [...] mouth. Activ e Vitamin A 7.5 MG (09550 UT) capsule Take 1 capsule by mouth [...] (08/22/2017): Added automatically from request for surgery [id number] Lumbar stenosis with neurogenic claudication Spinal stenosis, lumbar austin on, with neurogenic claudication 01/03/2017 Overview (01/03/2017): Added automatically from request for surgery [id number] Asthma Sleep apnea Overview (08/10/2018): unsure of [...] Date Last Done Comments DXA SCAN 1957 TDAP/TD VACCINES (1 - Tdap) 02/05/1976 MAMMOGRAM 1997 COLOGUARD 2002 COLON CANCER SCREENING 5 YEAR SIGMOIDOSCOPY 2002 COLONOSCOPY 2002 [address] CANCER SCREENING 2002 CT COLONOGRAPHY 2002 FECAL OCCULT BLOOD TEST 2002 FIT Testing (1 year) 2002 Pneumococcal Vaccine 50+ (1 of 1 - PCV) 2007 ZOSTER VACCINE (1 of 2) 2007 ANNUAL PHYSICAL 12/22/2016 HEPATITIS C SCREENING 12/22/2016 INFLUENZA VACCINE 12/28/2024 COVID-19 Vaccine ( - season) 2025 Medical Devices Implanted Type Area Licensed Nuclear Control Room Operator Device Identifier Shelf Expiration Date Model / Serial / Lot Orthoblend Dbm Kristie 5cc - [id number] Implanted:Qty: 1 on 01/20/2017 by Ermias Laura MD at [facility] Implant N/A: Spine Lumbar [employer] 09/08/2018 [id number] / / Spacr Vbs Capstone Vertestack/Sm [id number] - [id number] Implanted:Qty: 1 on 01/20/2017 by Ermias Laura MD at [facility] Implant N/A: Spine Lumbar [employer] 11/11/2024 [id number] / / Spacr Vbs Capstone Vertestack/Sm 8x22mm - [id number] Implanted:Qty: 1 on 01/20/2017 by Ermias Laura MD at [facility] Implant N/A: Spine Lumbar [employer] 10/03/2021 [id number] / / Loyd Peek 6.26z59aq - [id number] Implanted:Qty: 2 on 01/20/2017 by Ermias Laura MD at [facility] Implant N/A: Spine Lumbar [employer] [id number] / / Scrw Cdh Legacy Mas Peek 6.5x40mm - [id number] Implanted:Qty: 2 on 01/20/2017 by Ermias Laura MD at [facility] Implant N/A: Spine Lumbar [employer] [id number] / / Scrw Cdh Legacy Mas Peek 6.5x45mm - [id number] Implanted:Qty: 2 on 01/20/2017 by Ermias Laura MD at [facility] Implant N/A: Spine Lumbar [employer] [id number] / / Scrw Cdh Legacy Mas Peek 6.5x50mm - [id number] Implanted:Qty: 2 on 01/20/2017 by Ermias Laura MD at [facility] Implant N/A: Spine Lumbar [employer] [id number] / / Scrw Peek Ext Or Extrnl Hex - [id number] Implanted:Qty: 6 on 01/20/2017 by Ermias Laura MD at [facility] Implant N/A: Spine Lumbar [employer] [id number] / / Insurance [facility] MEDIC[facility] ADVANTAGE Advance Directives * CPR [...] 6:50 PM 01/23/2017 1:22 PM Care Teams Cook Roast Relationship Specialty Start Date End Date Chandrika Angeles PA PCP - General Physician Silo Man 11/23/16
[2025-05-28 15:01] VITALS: BP 206/112; PULSE 60; O2SAT 98
[2025-05-28 15:23] LABS: Hematocrit 34.9 % (37.0-47.0); Hemoglobin 10.9 g/dL (12.2-16.2); Immature Granulocytes % 0.3 %; Mean Corpuscular HGB Conc 31.2 g/dL (31.8-35.4); Mean Corpuscular Hemoglobin 29.1 pg (27.0-31.2); Mean Corpuscular Volume 93.1 fl (81-99); Nucleated Red Blood Cells % 0 %; Platelet Count 190 K/mm3 (142-424); Red Blood Count 3.75 M/mm3 (4.20-5.40); Red Cell Distribution Width-SD 43.1 fL; White Blood Count 7.3 K/mm3 (4.8-10.8)
[2025-05-28 15:34] LABS: Activated Partial Thrombo Time 29.8 seconds (22.8-30.6); INR 1.04 (0.9-1.1); Prothrombin Time 11.5 seconds (10.1-12.5)
--- NOTE | 2025-05-28 15:36 | PC.NURSE ---
Patient in room. Gave her another blanket.
[2025-05-28 15:41] LABS: Albumin Level 3.8 g/dl (3.5-5.0); Chloride 98 mmol/L (98-107)
[2025-05-28 15:42] LABS: Potassium 4.2 mmoL/L (3.5-5.1); Sodium 133 mmol/L (136-145)
[2025-05-28 15:44] LABS: Alanine Aminotransferase 16 U/L (12-78); Albumin/Globulin Ratio 1.5 (1.1-1.8); Alkaline Phosphatase 77 U/L (38-126); Anion Gap 9.2 mEq/L (5-15); Aspartate Amino Transferase 43 U/L (14-36); Bilirubin,Total 0.3 mg/dl (0.2-1.3); Blood Urea Nitrogen 9 mg/dl (7-17); Carbon Dioxide 30 mmol/L (22.0-30.0); Creatinine Clearance Estimated 71 mL/min (50-200); Creatinine,Serum 0.70 mg/dl (0.52-1.04); Estimated Glomerular Filt Rate 83 ml/min (>60); GFR (African American) 101 ML/MIN (>60); Globulin 2.5 g/dL (1.3-3.2); Total Protein,Serum 6.3 g/dl (6.3-8.2)
[2025-05-28 15:45] LABS: Calcium 8.9 mg/dl (8.4-10.2); Glucose 103 mg/dl (74-100)
--- NOTE | 2025-05-28 16:09 | PC.NURSE ---
assisted patient to bathroom at this time.
--- NOTE | 2025-05-28 16:13 | PC.NURSE ---
Got the patient her phone and mariluz.
[2025-05-28 17:02] VITALS: BP 160/85; PULSE 74; RESP 18; TEMP 36.9; O2SAT 99
== END 2025-05-28 17:02 | disposition home or self-care (01) ==
PROVIDERS: Nurse Practitioner Family; Emergency Provider Student in an Organized Health Care Education/Training Program; PCP Family Medicine
DX: S00.83XA Contusion of other part of head, initial encounter (principal); R51.9 Headache, unspecified; M54.2 Cervicalgia; W19.XXXA Unspecified fall, initial encounter
CPT/HCPCS: 70450; 70486; 72125; 80053; 80320; 85025; 85610; 85730; 99284; 99285